=== PATIENT | male | born 1955 | race Caucasian/White ===

== ENCOUNTER 2017-06-12 04:24 | Inpatient (IN) | payer OTHER ==
[~2017-06-12] VITALS: Ht 172.7 cm; Wt 84.5 kg
[2017-06-12] MEDS ORDERED: MORPHINE SULFATE 8mg/ml INJ SDV IV ONE (06:45)
[2017-06-12] MEDS ORDERED: ONDANSETRON HCL 4 MG/2 ML VIAL IV ONE (06:45)
[2017-06-12 06:58] LABS: INR 1.06 (0.9-1.15); Partial Thromboplastin Time 28.8 sec (22.64-33.71); Prothrombin Time 11.6 sec (9.37-12.3)
[2017-06-12 07:00] LABS: Albumin 3.5 g/dL (3.4-5.0); BUN/Creatinine Ratio 13.5; Calcium 8.6 mg/dL (8.5-10.1)
[2017-06-12 07:05] LABS: Bilirubin, Total 1.2 mg/dL (0.2-1.0); Total Protein 7.1 g/dL (6.4-8.2)
[2017-06-12 07:07] LABS: Basophils # (auto) 0 uL; Basophils % (auto) 0.3 % (0.0-2.0); Eosinophils # (auto) 0.1 uL; Hematocrit 36.6 % (41.0-53.0); Hemoglobin 11.8 g/dL (13.5-17.5); Lymphocytes # (auto) 0.8 uL; Lymphocytes % (auto) 6.7 % (10.0-50.0); Mean Corpuscular Hemoglobin 23.9 pg (28.0-32.0); Mean Corpuscular Hgb Conc. 32.2 g/dL (32.0-36.0); Mean Corpuscular Volume 74.2 fL (80.0-100.0); Monocytes # (auto) 0.5 uL; Monocytes % (auto) 4.1 % (0.0-12.0); Neutrophils # (auto) 11.1 uL; Neutrophils % (auto) 87.9 % (37.0-80.0); Nucleated Red Blood Cells % 0.1 %; Platelet Count (auto) 149 10^3/uL (140-450); Red Blood Cells 4.93 10^6/uL (4.5-5.90); Red Cell Distribution Width 18.4 % (11.8-14.3); White Blood Cell 12.6 10^3/uL (4.4-10.8)
[2017-06-12] MEDS ORDERED: NITROGLYCERIN 0.4 MG SL TAB SL PRN ×2 (12:15)
[2017-06-12] MEDS ORDERED: LORazepam 0.5 MG TAB PO PRN (12:15)
[2017-06-12] MEDS ORDERED: ZOLPIDEM TARTRATE 5 MG TAB PO PRN (12:15)
[2017-06-12] MEDS ORDERED: DEXTROSE (50%) 50ML SYRG IV PRN (12:15)
[2017-06-12] MEDS ORDERED: ALUM & MAG HYDROX-SIMETH LIQ(MAALOX) 30 ML PO ONE (12:15)
[2017-06-12] MEDS ORDERED: CARVEDILOL 3.125 MG TAB PO ONE (12:15)
[2017-06-12] MEDS ORDERED: POTASSIUM CHL 10 Meq TABLET PO ONE (12:15)
[2017-06-12] MEDS ORDERED: MORPHINE SULFATE 8mg/ml INJ SDV IV PRN ×2 (12:15)
[2017-06-12] MEDS ORDERED: FUROSEMIDE 40 MG/4 ML VIAL IV ONE (12:15)
[2017-06-12] MEDS ORDERED: GLIP-115 PO (12:23)
[2017-06-12] MEDS ORDERED: CLOP75TA41 PO (12:23)
[2017-06-12] MEDS ORDERED: CARV6.2551 PO (12:24)
[2017-06-12] MEDS ORDERED: RISP0.5T45 PO (12:24)
[2017-06-12] MEDS ORDERED: ATOR1TAB PO (12:24)
[2017-06-12] MEDS ORDERED: PANT40TA2 PO (12:25)
[2017-06-12] MEDS ORDERED: NITR0.4S29 SL (12:26)
[2017-06-12] MEDS ORDERED: POTA10TA51 PO (12:27)
[2017-06-12] MEDS ORDERED: FURO40TA PO (12:27)
[2017-06-12] MEDS ORDERED: MAGN400T5 PO (12:28)
[2017-06-12] MEDS ORDERED: OMEP20TA PO (12:29)
[2017-06-12] MEDS ORDERED: CLOPIDOGREL BISULFATE 75 MG TAB PO ONE (12:30)
[2017-06-12] MEDS: SODIUM CHLOR 0.9% PF (SALINE LOCK) 10ML VIAL/SYR IV SCH ×2 (12:30→22:04)
[2017-06-12] MEDS: PANTOPRAZOLE 40 MG/10 ML VIAL IV SCH ×2 (14:32→21:50)
[2017-06-12] MEDS ORDERED: KETOROLAC TROMETH 30 MG/ML 1ML VIAL IV ONE (15:15)
[2017-06-12] MEDS: ACCU-CHEK COMFORT CURVE STRIP VI SCH ×2 (16:32→22:04)
[2017-06-12] MEDS: InsuLIN REG 1unit/0.01ml Soln (100units/ml) SC SCH ×2 (16:40→22:00)
[2017-06-12 18:00] VITALS: BP 115/68
[2017-06-12] MEDS: risperiDONE 1 MG TAB PO SCH (18:12)
[2017-06-12] MEDS: glipiZIDE 5 MG TAB PO SCH (18:13)
[2017-06-12 18:23] VITALS: BP 115/68
[2017-06-12 18:30] LABS: Urine WBC None Seen /hpf (0 - 3)
[2017-06-12 19:02] LABS: Alcohol, Urine < 3.0 mg/dL (0-5); Amphetamine Screen, Urine POSITIVE (NEGATIVE); Barbiturate Scree,Urine NEGATIVE (NEGATIVE); Benzodiazephine Screen, Urine NEGATIVE (NEGATIVE); Cannabinoid Screen, Urine NEGATIVE (NEGATIVE); Cocaine Screen, Urine NEGATIVE (NEGATIVE); Opiate Scree,Urine NEGATIVE (NEGATIVE); Phencyclidine Screen, Urine NEGATIVE (NEGATIVE)
[2017-06-12 19:13] LABS: Urine Bacteria NONE SEEN /hpf (None Seen); Urine Blood Negative /uL (Negative); Urine Mucus FEW (None Seen); Urine Specific Gravity 1.009 (1.001-1.035)
[2017-06-12] MEDS: INSULIN NPH Isophane (HUMAN) 1unit/0.01ml Susp(100units/ml) SC SCH (19:31)
[2017-06-12 19:54] LABS: Lactic Acid w/Reflex 2.4 mmol/L (0.4-2.0)
[2017-06-12] MEDS: ACETAMINOPHEN 325 MG TAB PO PRN (20:26)
[2017-06-12] MEDS: CARVEDILOL 3.125 MG TAB PO SCH (21:52)
[2017-06-12] MEDS: ATORVASTATIN 20 MG TAB PO SCH (21:52)
[2017-06-12] MEDS: ENALAPRIL MALEATE 2.5 MG TAB PO SCH (21:53)
[2017-06-12 22:00] VITALS: BP 103/64
[2017-06-13 04:55] VITALS: BP 114/68
[2017-06-13 05:33] LABS: Basophils # (auto) 0 uL; Basophils % (auto) 0.3 % (0.0-2.0); Eosinophils # (auto) 0.1 uL; Mean Corpuscular Volume 73.7 fL (80.0-100.0); Nucleated Red Blood Cells % 0.1 %; Platelet Count (auto) 154 10^3/uL (140-450)
[2017-06-13 05:34] LABS: Eosinophils % (auto) 0.9 % (0.0-7.0); Hematocrit 35.1 % (41.0-53.0); Hemoglobin 11.7 g/dL (13.5-17.5); Lymphocytes % (auto) 7.9 % (10.0-50.0); Mean Corpuscular Hemoglobin 24.7 pg (28.0-32.0); Mean Corpuscular Hgb Conc. 33.4 g/dL (32.0-36.0); Monocytes # (auto) 0.8 uL; Monocytes % (auto) 6.2 % (0.0-12.0); Neutrophils # (auto) 10.9 uL; Neutrophils % (auto) 84.7 % (37.0-80.0); Red Blood Cells 4.77 10^6/uL (4.5-5.90); Red Cell Distribution Width 18.7 % (11.8-14.3); White Blood Cell 12.9 10^3/uL (4.4-10.8)
[2017-06-13 05:58] LABS: Albumin 3.1 g/dL (3.4-5.0); BUN/Creatinine Ratio 11.8; Bilirubin, Total 1.9 mg/dL (0.2-1.0); Calcium 8.2 mg/dL (8.5-10.1); Magnesium 2.2 mg/dL (1.6-2.6); Potassium 4.2 mmol/L (3.5-5.1); Total Protein 6.9 g/dL (6.4-8.2)
[2017-06-13] MEDS: SODIUM CHLOR 0.9% PF (SALINE LOCK) 10ML VIAL/SYR IV SCH ×3 (06:00→20:03)
[2017-06-13] MEDS: InsuLIN REG 1unit/0.01ml Soln (100units/ml) SC SCH ×4 (06:42→22:00)
[2017-06-13] MEDS: INSULIN NPH Isophane (HUMAN) 1unit/0.01ml Susp(100units/ml) SC SCH ×2 (06:42→17:36)
[2017-06-13] MEDS: glipiZIDE 5 MG TAB PO SCH ×2 (06:42→17:35)
[2017-06-13] MEDS: ACCU-CHEK COMFORT CURVE STRIP VI SCH ×4 (06:43→22:00)
[2017-06-13] MEDS: risperiDONE 1 MG TAB PO SCH ×2 (08:37→17:35)
[2017-06-13 09:00] VITALS: BP 98/58
[2017-06-13] MEDS: ENALAPRIL MALEATE 2.5 MG TAB PO SCH ×2 (10:00→22:32)
[2017-06-13] MEDS: FUROSEMIDE 40 MG/4 ML VIAL IV SCH (10:08)
[2017-06-13] MEDS: ASPirin 81 mg TAB PO SCH (10:08)
[2017-06-13] MEDS: DOCUSATE SOD 100 MG CAP PO SCH (10:08)
[2017-06-13] MEDS: CLOPIDOGREL BISULFATE 75 MG TAB PO SCH (10:08)
[2017-06-13] MEDS: PANTOPRAZOLE 40 MG/10 ML VIAL IV SCH ×2 (10:08→22:32)
[2017-06-13] MEDS: CARVEDILOL 3.125 MG TAB PO SCH ×2 (10:14→22:32)
[2017-06-13 13:00] VITALS: BP 83/59
[2017-06-13 17:00] VITALS: BP 78/50
[2017-06-13 22:00] VITALS: BP 103/69
[2017-06-13] MEDS: ATORVASTATIN 20 MG TAB PO SCH (22:31)
[2017-06-14] MEDS: ACETAMINOPHEN 325 MG TAB PO PRN (04:54)
[2017-06-14] MEDS: HYOSCYAMINE SULF 0.125 MG TAB PO PRN (04:54)
[2017-06-14 05:00] VITALS: BP 89/56
[2017-06-14] MEDS ORDERED: ALBUMIN 5% 250 ML IV ONE ×2 (05:10→21:15)
[2017-06-14 05:49] LABS: Basophils # (auto) 0.1 uL; Basophils % (auto) 0.6 % (0.0-2.0); Mean Corpuscular Hemoglobin 24.1 pg (28.0-32.0)
[2017-06-14 05:51] LABS: Eosinophils # (auto) 0.3 uL; Eosinophils % (auto) 2.7 % (0.0-7.0); Hematocrit 33.8 % (41.0-53.0); Hemoglobin 10.9 g/dL (13.5-17.5); Lymphocytes % (auto) 18.2 % (10.0-50.0); Mean Corpuscular Hgb Conc. 32.3 g/dL (32.0-36.0); Mean Corpuscular Volume 74.5 fL (80.0-100.0); Monocytes % (auto) 8.9 % (0.0-12.0); Neutrophils # (auto) 7.5 uL; Neutrophils % (auto) 69.6 % (37.0-80.0); Nucleated Red Blood Cells % 0.1 %; Platelet Count (auto) 181 10^3/uL (140-450); Red Blood Cells 4.54 10^6/uL (4.5-5.90); Red Cell Distribution Width 18.8 % (11.8-14.3); White Blood Cell 10.8 10^3/uL (4.4-10.8)
[2017-06-14] MEDS: SODIUM CHLOR 0.9% PF (SALINE LOCK) 10ML VIAL/SYR IV SCH ×3 (06:00→22:09)
[2017-06-14 06:26] LABS: Albumin 2.9 g/dL (3.4-5.0); BUN/Creatinine Ratio 16.1; Bilirubin, Total 1.4 mg/dL (0.2-1.0); Calcium 7.9 mg/dL (8.5-10.1); Potassium 3.7 mmol/L (3.5-5.1); Total Protein 6.7 g/dL (6.4-8.2)
[2017-06-14] MEDS: glipiZIDE 5 MG TAB PO SCH ×3 (06:50→17:39)
[2017-06-14] MEDS: InsuLIN REG 1unit/0.01ml Soln (100units/ml) SC SCH ×4 (06:53→22:49)
[2017-06-14] MEDS: INSULIN NPH Isophane (HUMAN) 1unit/0.01ml Susp(100units/ml) SC SCH ×2 (06:55→17:40)
[2017-06-14] MEDS: ACCU-CHEK COMFORT CURVE STRIP VI SCH ×4 (06:55→22:09)
[2017-06-14] MEDS: risperiDONE 1 MG TAB PO SCH ×2 (08:17→17:38)
[2017-06-14 09:00] VITALS: BP 102/57
[2017-06-14] MEDS: ASPirin 81 mg TAB PO SCH (09:56)
[2017-06-14] MEDS: PANTOPRAZOLE 40 MG/10 ML VIAL IV SCH ×2 (09:56→22:07)
[2017-06-14] MEDS: DOCUSATE SOD 100 MG CAP PO SCH (09:56)
[2017-06-14] MEDS: CLOPIDOGREL BISULFATE 75 MG TAB PO SCH (09:56)
[2017-06-14] MEDS: ENALAPRIL MALEATE 2.5 MG TAB PO SCH ×2 (10:00→22:08)
[2017-06-14] MEDS: FUROSEMIDE 40 MG/4 ML VIAL IV SCH (10:00)
[2017-06-14] MEDS: CARVEDILOL 3.125 MG TAB PO SCH ×2 (10:00→22:09)
[2017-06-14] MEDS: ACETAMINOPHEN/CODEINE#3 (300/30mg) TAB PO PRN ×2 (11:51→22:08)
[2017-06-14 13:00] VITALS: BP 85/46
[2017-06-14] MEDS ORDERED: SODIUM BICARBONATE 50ML VIAL 150 ML in D5W 5% 1,000 ML IV ONE (13:00)
[2017-06-14] MEDS ORDERED: diphenhdrAMINE HCL 50 MG/1 ML VL IV ONE (13:00)
[2017-06-14 18:00] VITALS: BP 108/62
[2017-06-14 22:00] VITALS: BP 125/73
[2017-06-14] MEDS: ATORVASTATIN 20 MG TAB PO SCH (22:09)
[2017-06-15 05:00] VITALS: BP 85/57
[2017-06-15] MEDS: ACETAMINOPHEN/CODEINE#3 (300/30mg) TAB PO PRN ×2 (05:19→21:16)
[2017-06-15] MEDS: SODIUM CHLOR 0.9% PF (SALINE LOCK) 10ML VIAL/SYR IV SCH ×3 (06:08→22:19)
[2017-06-15] MEDS: ACCU-CHEK COMFORT CURVE STRIP VI SCH ×4 (06:09→22:17)
[2017-06-15] MEDS: ACETAMINOPHEN 325 MG TAB PO PRN ×2 (06:09→18:14)
[2017-06-15] MEDS: InsuLIN REG 1unit/0.01ml Soln (100units/ml) SC SCH ×4 (06:15→22:00)
[2017-06-15] MEDS: INSULIN NPH Isophane (HUMAN) 1unit/0.01ml Susp(100units/ml) SC SCH ×2 (06:16→18:47)
[2017-06-15] MEDS ORDERED: SODIUM BICARBONATE 50ML VIAL 150 ML in D5W 5% 1,000 ML IV ONE (07:00)
[2017-06-15 07:05] LABS: Basophils # (auto) 0 uL; Basophils % (auto) 0.4 % (0.0-2.0); Lymphocytes # (auto) 1.6 uL; White Blood Cell 11.1 10^3/uL (4.4-10.8)
[2017-06-15 07:09] LABS: Eosinophils # (auto) 0.3 uL; Hematocrit 33.7 % (41.0-53.0); Hemoglobin 10.9 g/dL (13.5-17.5); Lymphocytes % (auto) 14.4 % (10.0-50.0); Mean Corpuscular Hgb Conc. 32.4 g/dL (32.0-36.0); Mean Corpuscular Volume 74.2 fL (80.0-100.0); Monocytes % (auto) 9.2 % (0.0-12.0); Neutrophils # (auto) 8.1 uL; Nucleated Red Blood Cells % 0.1 %; Platelet Count (auto) 179 10^3/uL (140-450); Red Blood Cells 4.54 10^6/uL (4.5-5.90)
[2017-06-15 07:51] LABS: BUN/Creatinine Ratio 18.2; Calcium 8.3 mg/dL (8.5-10.1); Potassium 3.6 mmol/L (3.5-5.1)
[2017-06-15 08:00] VITALS: BP 92/64
[2017-06-15] MEDS: risperiDONE 1 MG TAB PO SCH ×2 (08:00→18:49)
[2017-06-15] MEDS ORDERED: IODIXANOL 320MG/ML 100ML BTL IV ONE ×3 (08:32→12:06)
[2017-06-15] MEDS ORDERED: LIDOCAINE HCL 2 %PF INJ 10ML AMP IJ ONE (08:32)
[2017-06-15 09:00] VITALS: BP 108/60
[2017-06-15] MEDS: CARVEDILOL 3.125 MG TAB PO SCH ×2 (10:00→22:16)
[2017-06-15] MEDS: PANTOPRAZOLE 40 MG/10 ML VIAL IV SCH ×2 (10:00→22:15)
[2017-06-15] MEDS: DOCUSATE SOD 100 MG CAP PO SCH (10:00)
[2017-06-15] MEDS: ENALAPRIL MALEATE 2.5 MG TAB PO SCH ×2 (10:00→22:17)
[2017-06-15] MEDS: ASPirin 81 mg TAB PO SCH (10:00)
[2017-06-15] MEDS: CLOPIDOGREL BISULFATE 75 MG TAB PO SCH (10:00)
[2017-06-15] MEDS: FUROSEMIDE 40 MG/4 ML VIAL IV SCH (10:00)
[2017-06-15] MEDS ORDERED: fentaNYL CITRATE 100 MCG/2 ML VL ONE (10:18)
[2017-06-15] MEDS ORDERED: ANGIOMAX 250 MG VIAL IV ONE (10:18)
[2017-06-15] MEDS ORDERED: MIDAZOLAM HCL 1MG/1ML-2 ML VIAL ONE (10:18)
[2017-06-15] MEDS ORDERED: SODIUM CHL 0.9% 50 ML ONE (10:19)
[2017-06-15] MEDS ORDERED: DOBUTamine 1000MCG/ML 250 ML IV ONE (11:57)
[2017-06-15] MEDS: DOBUTamine 1000MCG/ML 250 ML IV SCH ×2 (15:15→22:55)
[2017-06-15 17:00] VITALS: BP 118/68
[2017-06-15] MEDS: glipiZIDE 5 MG TAB PO SCH (18:35)
[2017-06-15 20:20] VITALS: BP 113/76
[2017-06-15 22:00] VITALS: BP 113/76
[2017-06-15] MEDS: ATORVASTATIN 20 MG TAB PO SCH (22:15)
[2017-06-16 04:55] VITALS: BP 119/58
[2017-06-16] MEDS: ACETAMINOPHEN/CODEINE#3 (300/30mg) TAB PO PRN ×3 (06:23→22:46)
[2017-06-16] MEDS: INSULIN NPH Isophane (HUMAN) 1unit/0.01ml Susp(100units/ml) SC SCH ×2 (06:23→18:56)
[2017-06-16] MEDS: glipiZIDE 5 MG TAB PO SCH ×2 (06:28→18:55)
[2017-06-16] MEDS: ACCU-CHEK COMFORT CURVE STRIP VI SCH ×4 (06:28→22:00)
[2017-06-16] MEDS: InsuLIN REG 1unit/0.01ml Soln (100units/ml) SC SCH ×4 (06:28→22:00)
[2017-06-16] MEDS: SODIUM CHLOR 0.9% PF (SALINE LOCK) 10ML VIAL/SYR IV SCH ×3 (06:29→22:46)
[2017-06-16 06:31] LABS: Basophils # (auto) 0 uL; Eosinophils # (auto) 0.3 uL; Hemoglobin 11.2 g/dL (13.5-17.5); Lymphocytes # (auto) 1.1 uL; Mean Corpuscular Hemoglobin 23.8 pg (28.0-32.0); Monocytes # (auto) 0.9 uL; Neutrophils % (auto) 73.6 % (37.0-80.0); Red Blood Cells 4.69 10^6/uL (4.5-5.90); White Blood Cell 8.5 10^3/uL (4.4-10.8)
[2017-06-16 06:33] LABS: Basophils % (auto) 0.3 % (0.0-2.0); Hematocrit 34.5 % (41.0-53.0); Lymphocytes % (auto) 12.6 % (10.0-50.0); Mean Corpuscular Hgb Conc. 32.4 g/dL (32.0-36.0); Mean Corpuscular Volume 73.6 fL (80.0-100.0); Monocytes % (auto) 10.5 % (0.0-12.0); Neutrophils # (auto) 6.2 uL; Nucleated Red Blood Cells % 0.2 %; Platelet Count (auto) 185 10^3/uL (140-450)
[2017-06-16 06:47] LABS: BUN/Creatinine Ratio 16.5; Calcium 8.1 mg/dL (8.5-10.1)
[2017-06-16 06:58] LABS: Bilirubin, Total 1.3 mg/dL (0.2-1.0); Potassium 3.4 mmol/L (3.5-5.1); Total Protein 6.6 g/dL (6.4-8.2)
[2017-06-16 09:00] VITALS: BP 88/50
[2017-06-16] MEDS: PANTOPRAZOLE 40 MG/10 ML VIAL IV SCH ×2 (09:34→22:46)
[2017-06-16] MEDS: DOCUSATE SOD 100 MG CAP PO SCH (09:35)
[2017-06-16] MEDS: FUROSEMIDE 40 MG/4 ML VIAL IV SCH (09:35)
[2017-06-16] MEDS: ASPirin 81 mg TAB PO SCH (09:36)
[2017-06-16] MEDS: risperiDONE 1 MG TAB PO SCH ×2 (09:36→18:55)
[2017-06-16] MEDS: CLOPIDOGREL BISULFATE 75 MG TAB PO SCH (09:36)
[2017-06-16] MEDS: ENALAPRIL MALEATE 2.5 MG TAB PO SCH ×2 (09:37→22:00)
[2017-06-16] MEDS: CARVEDILOL 3.125 MG TAB PO SCH ×2 (09:37→22:00)
[2017-06-16] MEDS ORDERED: POTASSIUM CHL 10 Meq TABLET PO ONE (10:00)
[2017-06-16] MEDS: MILRINONE 20MG/100ML 100 ML IV SCH ×2 (10:38→21:04)
[2017-06-16] MEDS: Boost Glucose Control 8 Ounces PO SCH ×2 (12:00→18:55)
[2017-06-16 13:00] VITALS: BP 93/55
[2017-06-16] MEDS ORDERED: VANCOMYCIN 1GM/250ML 250 ML IV ONE ×2 (14:30→14:35)
[2017-06-16] MEDS ORDERED: LIDOCAINE HCL 2 %PF INJ 10ML AMP IJ ONE (14:31)
[2017-06-16] MEDS ORDERED: IOHEXOL 350 MG/ML 100ML IJ ONE (14:31)
[2017-06-16] MEDS ORDERED: diphenhdrAMINE HCL 50 MG/1 ML VL ONE (14:55)
[2017-06-16] MEDS ORDERED: ceFAZolin 1GM/50ML 50 ML IV ONE ×2 (15:12→15:15)
[2017-06-16] MEDS ORDERED: fentaNYL CITRATE 100 MCG/2 ML VL ONE (15:26)
[2017-06-16] MEDS ORDERED: MIDAZOLAM HCL 1MG/1ML-2 ML VIAL ONE (15:26)
[2017-06-16] MEDS ORDERED: methylPREDNISolone SOD SUCC 125 MG/2 ML VL ONE (15:27)
[2017-06-16] MEDS ORDERED: ceFAZolin 1GM VL ONE (15:50)
[2017-06-16] MEDS ORDERED: BACITRACIN INJ 50000 UNIT VIAL ONE (15:50)
[2017-06-16] MEDS: ATORVASTATIN 20 MG TAB PO SCH (22:47)
[2017-06-16] MEDS: ceFAZolin 1GM/50ML 50 ML IV SCH (23:56)
[2017-06-17 00:34] VITALS: BP 100/81
[2017-06-17] MEDS ORDERED: ceFAZolin 1GM/50ML 50 ML IV ONE (05:23)
[2017-06-17] MEDS: SODIUM CHLOR 0.9% PF (SALINE LOCK) 10ML VIAL/SYR IV SCH ×3 (05:27→21:14)
[2017-06-17] MEDS: MILRINONE 20MG/100ML 100 ML IV SCH ×2 (05:28→16:31)
[2017-06-17 05:38] VITALS: BP 122/77
[2017-06-17] MEDS: ceFAZolin 1GM/50ML 50 ML IV SCH (06:06)
[2017-06-17] MEDS: ACCU-CHEK COMFORT CURVE STRIP VI SCH ×4 (06:28→21:15)
[2017-06-17] MEDS: glipiZIDE 5 MG TAB PO SCH ×2 (06:35→17:48)
[2017-06-17] MEDS: InsuLIN REG 1unit/0.01ml Soln (100units/ml) SC SCH ×4 (06:36→22:08)
[2017-06-17] MEDS: INSULIN NPH Isophane (HUMAN) 1unit/0.01ml Susp(100units/ml) SC SCH ×2 (06:36→17:50)
[2017-06-17 06:53] LABS: Basophils # (auto) 0 uL; Basophils % (auto) 0.1 % (0.0-2.0); Eosinophils # (auto) 0 uL; Hematocrit 30.6 % (41.0-53.0); Lymphocytes # (auto) 0.5 uL; Monocytes # (auto) 0.4 uL; Red Cell Distribution Width 18.6 % (11.8-14.3)
[2017-06-17 06:57] LABS: Hemoglobin 10.2 g/dL (13.5-17.5); Lymphocytes % (auto) 5.9 % (10.0-50.0); Mean Corpuscular Hemoglobin 24.6 pg (28.0-32.0); Mean Corpuscular Hgb Conc. 33.3 g/dL (32.0-36.0); Mean Corpuscular Volume 73.8 fL (80.0-100.0); Monocytes % (auto) 5.4 % (0.0-12.0); Neutrophils # (auto) 7.2 uL; Neutrophils % (auto) 88.6 % (37.0-80.0); Nucleated Red Blood Cells % 0.1 %; Platelet Count (auto) 196 10^3/uL (140-450); Red Blood Cells 4.14 10^6/uL (4.5-5.90); White Blood Cell 8.1 10^3/uL (4.4-10.8)
[2017-06-17 07:07] LABS: BUN/Creatinine Ratio 18.2; Calcium 7.9 mg/dL (8.5-10.1)
[2017-06-17 08:11] VITALS: BP 123/74
[2017-06-17] MEDS: ACETAMINOPHEN/CODEINE#3 (300/30mg) TAB PO PRN ×3 (08:33→21:18)
[2017-06-17] MEDS: FUROSEMIDE 40 MG/4 ML VIAL IV SCH (09:16)
[2017-06-17] MEDS: PANTOPRAZOLE 40 MG/10 ML VIAL IV SCH ×2 (09:16→21:14)
[2017-06-17] MEDS: risperiDONE 1 MG TAB PO SCH ×2 (09:17→17:49)
[2017-06-17] MEDS: Boost Glucose Control 8 Ounces PO SCH ×3 (09:18→17:48)
[2017-06-17] MEDS: DOCUSATE SOD 100 MG CAP PO SCH (09:19)
[2017-06-17] MEDS: ASPirin 81 mg TAB PO SCH (09:19)
[2017-06-17] MEDS: CARVEDILOL 3.125 MG TAB PO SCH ×2 (09:20→21:15)
[2017-06-17] MEDS: ENALAPRIL MALEATE 2.5 MG TAB PO SCH ×2 (09:20→21:15)
[2017-06-17] MEDS: CLOPIDOGREL BISULFATE 75 MG TAB PO SCH (09:20)
[2017-06-17] MEDS ORDERED: cefTRIAXone 1GM/10ml IVPUSH 10 ML IV ONE (11:00)
[2017-06-17 13:00] VITALS: BP 123/80
[2017-06-17 14:07] LABS: INR 1.06 (0.9-1.15); Prothrombin Time 11.6 sec (9.37-12.3)
[2017-06-17 16:43] VITALS: BP 119/76
[2017-06-17] MEDS: ATORVASTATIN 20 MG TAB PO SCH (21:15)
[2017-06-17] MEDS: HYOSCYAMINE SULF 0.125 MG TAB PO PRN (21:17)
[2017-06-17 21:30] VITALS: BP 140/82
[2017-06-18] MEDS: MILRINONE 20MG/100ML 100 ML IV SCH ×2 (04:03→15:53)
[2017-06-18 05:00] VITALS: BP 100/61
[2017-06-18] MEDS: HYOSCYAMINE SULF 0.125 MG TAB PO PRN ×2 (05:12→12:19)
[2017-06-18] MEDS: ACETAMINOPHEN/CODEINE#3 (300/30mg) TAB PO PRN ×2 (05:12→12:19)
[2017-06-18] MEDS: SODIUM CHLOR 0.9% PF (SALINE LOCK) 10ML VIAL/SYR IV SCH ×3 (05:13→21:53)
[2017-06-18] MEDS: glipiZIDE 5 MG TAB PO SCH ×2 (06:34→18:00)
[2017-06-18] MEDS: InsuLIN REG 1unit/0.01ml Soln (100units/ml) SC SCH ×4 (06:34→22:00)
[2017-06-18] MEDS: INSULIN NPH Isophane (HUMAN) 1unit/0.01ml Susp(100units/ml) SC SCH ×2 (06:37→18:00)
[2017-06-18] MEDS: ACCU-CHEK COMFORT CURVE STRIP VI SCH ×4 (06:38→21:55)
[2017-06-18 06:51] LABS: Basophils # (auto) 0 uL; Eosinophils # (auto) 0.2 uL; Lymphocytes # (auto) 1.2 uL; Monocytes # (auto) 0.5 uL; Monocytes % (auto) 5.9 % (0.0-12.0); Nucleated Red Blood Cells % 0.1 %
[2017-06-18 06:54] LABS: Basophils % (auto) 0.3 % (0.0-2.0); Eosinophils % (auto) 2.4 % (0.0-7.0); Hematocrit 33.1 % (41.0-53.0); Hemoglobin 10.8 g/dL (13.5-17.5); Lymphocytes % (auto) 13.6 % (10.0-50.0); Mean Corpuscular Hemoglobin 23.9 pg (28.0-32.0); Mean Corpuscular Hgb Conc. 32.6 g/dL (32.0-36.0); Mean Corpuscular Volume 73.5 fL (80.0-100.0); Neutrophils # (auto) 7.1 uL; Neutrophils % (auto) 77.8 % (37.0-80.0); Platelet Count (auto) 210 10^3/uL (140-450); Red Cell Distribution Width 18.5 % (11.8-14.3); White Blood Cell 9.2 10^3/uL (4.4-10.8)
[2017-06-18 07:12] LABS: BUN/Creatinine Ratio 17.1; Bilirubin, Total 0.9 mg/dL (0.2-1.0); Calcium 8.2 mg/dL (8.5-10.1); Potassium 3.4 mmol/L (3.5-5.1); Total Protein 6.9 g/dL (6.4-8.2)
[2017-06-18] MEDS: risperiDONE 1 MG TAB PO SCH ×2 (08:41→18:10)
[2017-06-18] MEDS: Boost Glucose Control 8 Ounces PO SCH ×3 (08:42→17:02)
[2017-06-18] MEDS ORDERED: cefTRIAXone 1GM/10ml IVPUSH 10 ML IV SCH (09:00)
[2017-06-18 09:13] VITALS: BP 115/56
[2017-06-18] MEDS: PANTOPRAZOLE 40 MG/10 ML VIAL IV SCH (12:16)
[2017-06-18] MEDS: FUROSEMIDE 40 MG/4 ML VIAL IV SCH (12:20)
[2017-06-18] MEDS: ASPirin 81 mg TAB PO SCH (12:20)
[2017-06-18] MEDS: DOCUSATE SOD 100 MG CAP PO SCH (12:20)
[2017-06-18] MEDS: CLOPIDOGREL BISULFATE 75 MG TAB PO SCH (12:20)
[2017-06-18] MEDS: ENALAPRIL MALEATE 2.5 MG TAB PO SCH ×2 (12:21→21:54)
[2017-06-18] MEDS: CARVEDILOL 3.125 MG TAB PO SCH ×2 (12:21→21:53)
[2017-06-18 13:00] VITALS: BP 100/73
[2017-06-18 15:38] LABS: Amylase 25 U/L (25-115); Lipase 104 U/L (73-393)
[2017-06-18] MEDS: SODIUM CHLORIDE 0.9% 1,000 ML IV SCH (15:53)
[2017-06-18] MEDS: MORPHINE SULFATE 8mg/ml INJ SDV IV PRN (15:55)
[2017-06-18] MEDS: ONDANSETRON HCL 4 MG/2 ML VIAL IV PRN (15:55)
[2017-06-18 20:16] LABS: Amylase 2485 U/L (25-115)
[2017-06-18 20:18] LABS: Lipase 22268 U/L (73-393)
[2017-06-18] MEDS: LACTULOSE 20Gm/30ML SOLN PO SCH (21:53)
[2017-06-18 21:54] VITALS: BP 107/63
[2017-06-19] MEDS: MILRINONE 20MG/100ML 100 ML IV SCH ×3 (01:14→21:36)
[2017-06-19] MEDS: SODIUM CHLORIDE 0.9% 1,000 ML IV SCH (04:18)
[2017-06-19 05:17] VITALS: BP 112/61
[2017-06-19] MEDS: SODIUM CHLOR 0.9% PF (SALINE LOCK) 10ML VIAL/SYR IV SCH ×3 (06:14→21:35)
[2017-06-19] MEDS: ACCU-CHEK COMFORT CURVE STRIP VI SCH ×4 (06:15→21:36)
[2017-06-19] MEDS: INSULIN NPH Isophane (HUMAN) 1unit/0.01ml Susp(100units/ml) SC SCH ×2 (06:20→18:12)
[2017-06-19] MEDS: glipiZIDE 5 MG TAB PO SCH (06:20)
[2017-06-19] MEDS: InsuLIN REG 1unit/0.01ml Soln (100units/ml) SC SCH ×4 (06:20→21:45)
[2017-06-19] MEDS: Boost Glucose Control 8 Ounces PO SCH (08:00)
[2017-06-19 09:00] VITALS: BP 88/59
[2017-06-19] MEDS ORDERED: MORPHINE SULFATE INJECTION 1 ML ONE (09:32)
[2017-06-19] MEDS: ENALAPRIL MALEATE 2.5 MG TAB PO SCH ×2 (10:00→21:35)
[2017-06-19] MEDS: CARVEDILOL 3.125 MG TAB PO SCH ×2 (10:00→21:35)
[2017-06-19] MEDS: LACTULOSE 20Gm/30ML SOLN PO SCH ×2 (10:50→21:35)
[2017-06-19] MEDS: DOCUSATE SOD 100 MG CAP PO SCH (10:50)
[2017-06-19] MEDS: risperiDONE 1 MG TAB PO SCH ×2 (10:52→18:11)
[2017-06-19] MEDS: ASPirin 81 mg TAB PO SCH (10:52)
[2017-06-19] MEDS: FUROSEMIDE 40 MG/4 ML VIAL IV SCH (10:53)
[2017-06-19] MEDS ORDERED: ZOLPIDEM TARTRATE 5 MG TAB PO PRN (11:00)
[2017-06-19] MEDS ORDERED: LORazepam 0.5 MG TAB PO PRN (11:00)
[2017-06-19] MEDS ORDERED: MORPHINE SULFATE 8mg/ml INJ SDV IV PRN (11:00)
[2017-06-19] MEDS ORDERED: cefTRIAXone 1GM/10ml IVPUSH 10 ML IV ONE (12:30)
[2017-06-19 13:00] VITALS: BP 118/65
[2017-06-19] MEDS: metroNIDAZOLE 500MG/100ML 100 ML IV SCH ×2 (14:49→21:35)
[2017-06-19 15:35] LABS: Basophils # (auto) 0 uL; Eosinophils # (auto) 0.3 uL; Hemoglobin 9.6 g/dL (13.5-17.5); Lymphocytes # (auto) 0.7 uL; Monocytes # (auto) 0.5 uL
[2017-06-19 15:36] LABS: Basophils % (auto) 0.3 % (0.0-2.0); Eosinophils % (auto) 3.3 % (0.0-7.0); Hematocrit 30.1 % (41.0-53.0); Lymphocytes % (auto) 6.7 % (10.0-50.0); Mean Corpuscular Hemoglobin 23.6 pg (28.0-32.0); Mean Corpuscular Hgb Conc. 31.8 g/dL (32.0-36.0); Mean Corpuscular Volume 74.2 fL (80.0-100.0); Monocytes % (auto) 5.1 % (0.0-12.0); Neutrophils # (auto) 8.7 uL; Neutrophils % (auto) 84.6 % (37.0-80.0); Platelet Count (auto) 203 10^3/uL (140-450); Red Blood Cells 4.05 10^6/uL (4.5-5.90); Red Cell Distribution Width 18.4 % (11.8-14.3); White Blood Cell 10.2 10^3/uL (4.4-10.8)
[2017-06-19 15:59] LABS: Albumin 2.7 g/dL (3.4-5.0); BUN/Creatinine Ratio 16.9; Potassium 3.5 mmol/L (3.5-5.1); Total Protein 6.6 g/dL (6.4-8.2)
[2017-06-19 17:00] VITALS: BP 113/69
[2017-06-19 22:00] VITALS: BP 109/64
[2017-06-20 05:00] VITALS: BP 111/66
[2017-06-20] MEDS: metroNIDAZOLE 500MG/100ML 100 ML IV SCH ×3 (05:39→21:56)
[2017-06-20] MEDS: SODIUM CHLOR 0.9% PF (SALINE LOCK) 10ML VIAL/SYR IV SCH ×3 (06:04→21:56)
[2017-06-20] MEDS: ACCU-CHEK COMFORT CURVE STRIP VI SCH ×4 (06:04→21:57)
[2017-06-20] MEDS: InsuLIN REG 1unit/0.01ml Soln (100units/ml) SC SCH ×4 (06:10→22:10)
[2017-06-20] MEDS: INSULIN NPH Isophane (HUMAN) 1unit/0.01ml Susp(100units/ml) SC SCH ×2 (06:11→17:37)
[2017-06-20] MEDS: MILRINONE 20MG/100ML 100 ML IV SCH ×2 (08:59→20:10)
[2017-06-20] MEDS: cefTRIAXone 1GM/10ml IVPUSH 10 ML IV SCH (08:59)
[2017-06-20 09:00] VITALS: BP 114/69
[2017-06-20] MEDS: risperiDONE 1 MG TAB PO SCH ×2 (09:00→17:37)
[2017-06-20] MEDS: DOCUSATE SOD 100 MG CAP PO SCH (09:51)
[2017-06-20] MEDS: LACTULOSE 20Gm/30ML SOLN PO SCH ×2 (09:51→21:56)
[2017-06-20] MEDS: FUROSEMIDE 40 MG/4 ML VIAL IV SCH (09:51)
[2017-06-20] MEDS: ASPirin 81 mg TAB PO SCH (09:51)
[2017-06-20] MEDS: CARVEDILOL 3.125 MG TAB PO SCH ×2 (09:52→21:56)
[2017-06-20] MEDS: CLOPIDOGREL BISULFATE 75 MG TAB PO SCH (09:52)
[2017-06-20] MEDS: ENALAPRIL MALEATE 2.5 MG TAB PO SCH ×2 (09:53→21:57)
[2017-06-20 13:00] VITALS: BP 103/63
[2017-06-20] MEDS: ACETAMINOPHEN 325 MG TAB PO PRN (13:45)
[2017-06-20 17:00] VITALS: BP 95/62
[2017-06-20 20:00] VITALS: BP 106/61
[2017-06-20 22:00] VITALS: BP 106/61
[2017-06-21 05:17] VITALS: BP 133/33
[2017-06-21] MEDS: MILRINONE 20MG/100ML 100 ML IV SCH ×2 (05:33→15:17)
[2017-06-21] MEDS: metroNIDAZOLE 500MG/100ML 100 ML IV SCH ×3 (05:44→22:05)
[2017-06-21] MEDS: SODIUM CHLOR 0.9% PF (SALINE LOCK) 10ML VIAL/SYR IV SCH ×3 (05:44→22:05)
[2017-06-21 05:55] VITALS: BP 118/73
[2017-06-21] MEDS: INSULIN NPH Isophane (HUMAN) 1unit/0.01ml Susp(100units/ml) SC SCH ×2 (06:11→18:05)
[2017-06-21] MEDS: ACCU-CHEK COMFORT CURVE STRIP VI SCH ×4 (06:11→22:05)
[2017-06-21] MEDS: InsuLIN REG 1unit/0.01ml Soln (100units/ml) SC SCH ×4 (06:12→22:05)
[2017-06-21 06:23] LABS: Basophils # (auto) 0 uL; Basophils % (auto) 0.5 % (0.0-2.0); Eosinophils # (auto) 0.5 uL; Lymphocytes # (auto) 1.1 uL; Mean Corpuscular Hgb Conc. 32.6 g/dL (32.0-36.0); Monocytes # (auto) 0.5 uL; Red Cell Distribution Width 18.8 % (11.8-14.3)
[2017-06-21 06:27] LABS: Eosinophils % (auto) 7.3 % (0.0-7.0); Hematocrit 30.1 % (41.0-53.0); Hemoglobin 9.8 g/dL (13.5-17.5); Lymphocytes % (auto) 15.8 % (10.0-50.0); Mean Corpuscular Hemoglobin 23.7 pg (28.0-32.0); Mean Corpuscular Volume 72.6 fL (80.0-100.0); Neutrophils % (auto) 69.4 % (37.0-80.0); Nucleated Red Blood Cells % 0.1 %; Platelet Count (auto) 259 10^3/uL (140-450); Red Blood Cells 4.14 10^6/uL (4.5-5.90); White Blood Cell 7.2 10^3/uL (4.4-10.8)
[2017-06-21 06:33] LABS: Albumin 2.6 g/dL (3.4-5.0); BUN/Creatinine Ratio 15.8; Bilirubin, Total 0.5 mg/dL (0.2-1.0); Calcium 8.7 mg/dL (8.5-10.1); Potassium 3.8 mmol/L (3.5-5.1); Total Protein 6.3 g/dL (6.4-8.2)
[2017-06-21] MEDS: cefTRIAXone 1GM/10ml IVPUSH 10 ML IV SCH (08:51)
[2017-06-21] MEDS: risperiDONE 1 MG TAB PO SCH ×2 (08:51→18:05)
[2017-06-21] MEDS: MORPHINE SULFATE 8mg/ml INJ SDV IV PRN ×3 (09:06→22:17)
[2017-06-21] MEDS: CARVEDILOL 3.125 MG TAB PO SCH ×2 (09:41→22:00)
[2017-06-21] MEDS: CLOPIDOGREL BISULFATE 75 MG TAB PO SCH (09:42)
[2017-06-21] MEDS: DOCUSATE SOD 100 MG CAP PO SCH (09:43)
[2017-06-21] MEDS: ASPirin 81 mg TAB PO SCH (09:43)
[2017-06-21] MEDS: ENALAPRIL MALEATE 2.5 MG TAB PO SCH ×2 (09:43→22:00)
[2017-06-21] MEDS: LACTULOSE 20Gm/30ML SOLN PO SCH ×2 (09:44→22:00)
[2017-06-21] MEDS: FUROSEMIDE 40 MG/4 ML VIAL IV SCH (09:44)
[2017-06-21] MEDS: ONDANSETRON HCL 4 MG/2 ML VIAL IV PRN ×3 (09:49→22:16)
[2017-06-21] MEDS: ACETAMINOPHEN/CODEINE#3 (300/30mg) TAB PO PRN (11:27)
[2017-06-21 13:00] VITALS: BP 110/61
[2017-06-21 17:00] VITALS: BP 111/65
[2017-06-21 20:00] VITALS: BP 116/56
[2017-06-21 22:00] VITALS: BP 116/56
[2017-06-22] MEDS: MILRINONE 20MG/100ML 100 ML IV SCH (02:34)
[2017-06-22 05:30] VITALS: BP 129/70
[2017-06-22] MEDS: ACCU-CHEK COMFORT CURVE STRIP VI SCH (06:02)
[2017-06-22] MEDS: SODIUM CHLOR 0.9% PF (SALINE LOCK) 10ML VIAL/SYR IV SCH (06:02)
[2017-06-22] MEDS: metroNIDAZOLE 500MG/100ML 100 ML IV SCH (06:02)
[2017-06-22] MEDS: INSULIN NPH Isophane (HUMAN) 1unit/0.01ml Susp(100units/ml) SC SCH (06:25)
[2017-06-22] MEDS: InsuLIN REG 1unit/0.01ml Soln (100units/ml) SC SCH (06:26)
[2017-06-22 06:29] LABS: Basophils # (auto) 0 uL; Eosinophils # (auto) 0.5 uL; Hemoglobin 9.9 g/dL (13.5-17.5); Monocytes # (auto) 0.5 uL
[2017-06-22 06:33] LABS: Basophils % (auto) 0.6 % (0.0-2.0); Eosinophils % (auto) 6.9 % (0.0-7.0); Hematocrit 30.4 % (41.0-53.0); Lymphocytes # (auto) 1.2 uL; Lymphocytes % (auto) 17.7 % (10.0-50.0); Mean Corpuscular Hemoglobin 23.6 pg (28.0-32.0); Mean Corpuscular Hgb Conc. 32.4 g/dL (32.0-36.0); Mean Corpuscular Volume 72.8 fL (80.0-100.0); Monocytes % (auto) 7.5 % (0.0-12.0); Neutrophils # (auto) 4.7 uL; Neutrophils % (auto) 67.3 % (37.0-80.0); Nucleated Red Blood Cells % 0.1 %; Platelet Count (auto) 270 10^3/uL (140-450); Red Blood Cells 4.18 10^6/uL (4.5-5.90); Red Cell Distribution Width 18.6 % (11.8-14.3)
[2017-06-22 06:54] LABS: Albumin 2.6 g/dL (3.4-5.0); BUN/Creatinine Ratio 18.8; Bilirubin, Total 0.5 mg/dL (0.2-1.0); Calcium 8.4 mg/dL (8.5-10.1); Potassium 4.2 mmol/L (3.5-5.1); Total Protein 6.3 g/dL (6.4-8.2)
[2017-06-22] MEDS: cefTRIAXone 1GM/10ml IVPUSH 10 ML IV SCH (08:33)
[2017-06-22] MEDS: risperiDONE 1 MG TAB PO SCH (08:33)
[2017-06-22 09:00] VITALS: BP 126/70
[2017-06-22] MEDS: FUROSEMIDE 40 MG/4 ML VIAL IV SCH (09:09)
[2017-06-22] MEDS: ASPirin 81 mg TAB PO SCH (09:10)
[2017-06-22] MEDS: DOCUSATE SOD 100 MG CAP PO SCH (09:10)
[2017-06-22] MEDS: ENALAPRIL MALEATE 2.5 MG TAB PO SCH (09:11)
[2017-06-22] MEDS: CLOPIDOGREL BISULFATE 75 MG TAB PO SCH (09:11)
[2017-06-22] MEDS: CARVEDILOL 3.125 MG TAB PO SCH (09:11)
[2017-06-22] MEDS: LACTULOSE 20Gm/30ML SOLN PO SCH (09:11)
[2017-06-22 10:59] VITALS: BP 126/70
[2017-06-22 13:00] VITALS: BP 129/72
== END 2017-06-22 13:09 | disposition home or self-care (01) | DRG 161 ==
LOC: ER 04:24 → EDBD 04:25 → TELE 04:25 → TELE-EAST 17:59
PROVIDERS: ADMIT Internal Medicine; ATTEND Internal Medicine
PROC: 4A023N7 Measurement of Cardiac Sampling and Pressure, Left Heart, Percutaneous Approach (ICD-10-PCS; principal; 2017-06-15)
PROC: 02713ZZ Dilation of Coronary Artery, Two Arteries, Percutaneous Approach (ICD-10-PCS; 2017-06-15)
PROC: 02C03ZZ Extirpation of Matter from Coronary Artery, One Artery, Percutaneous Approach (ICD-10-PCS; 2017-06-15)
PROC: B2111ZZ Fluoroscopy of Multiple Coronary Arteries using Low Osmolar Contrast (ICD-10-PCS; 2017-06-15)
PROC: B2151ZZ Fluoroscopy of Left Heart using Low Osmolar Contrast (ICD-10-PCS; 2017-06-15)
PROC: 02H63KZ Insertion of Defibrillator Lead into Right Atrium, Percutaneous Approach (ICD-10-PCS; 2017-06-16)
PROC: 0JH608Z Insertion of Defibrillator Generator into Chest Subcutaneous Tissue and Fascia, Open Approach (ICD-10-PCS; 2017-06-16)
PROC: 02HL3KZ Insertion of Defibrillator Lead into Left Ventricle, Percutaneous Approach (ICD-10-PCS; 2017-06-16)
PROC: 0JPT0PZ Removal of Cardiac Rhythm Related Device from Trunk Subcutaneous Tissue and Fascia, Open Approach (ICD-10-PCS; 2017-06-16)
PROC: 02PA3MZ Removal of Cardiac Lead from Heart, Percutaneous Approach (ICD-10-PCS; 2017-06-16)
DX: I13.0 Hypertensive heart and chronic kidney disease with heart failure and stage 1 through stage 4 chronic kidney disease, or unspecified chronic kidney disease (principal); K85.90 Acute pancreatitis without necrosis or infection, unspecified; E44.0 Moderate protein-calorie malnutrition; E11.21 Type 2 diabetes mellitus with diabetic nephropathy; N18.3 Chronic kidney disease, stage 3 (moderate); I24.9 Acute ischemic heart disease, unspecified; I25.10 Atherosclerotic heart disease of native coronary artery without angina pectoris; I50.43 Acute on chronic combined systolic (congestive) and diastolic (congestive) heart failure; E11.69 Type 2 diabetes mellitus with other specified complication; E87.1 Hypo-osmolality and hyponatremia; E78.5 Hyperlipidemia, unspecified; J98.11 Atelectasis; K59.00 Constipation, unspecified; D63.8 Anemia in other chronic diseases classified elsewhere; E11.22 Type 2 diabetes mellitus with diabetic chronic kidney disease; I25.5 Ischemic cardiomyopathy; K40.20 Bilateral inguinal hernia, without obstruction or gangrene, not specified as recurrent; Z83.3 Family history of diabetes mellitus; I25.2 Old myocardial infarction; Z95.810 Presence of automatic (implantable) cardiac defibrillator; Z68.28 Body mass index [BMI] 28.0-28.9, adult; Z88.1 Allergy status to other antibiotic agents
CPT/HCPCS: 33225; 33249; 36415; 71045; 71250; 74176; 76705; 78226; 80048; 80053; 80061; 80307; 81001; 82150; 82962; 83036; 83605; 83690; 83735; 83880; 84484; 85025; 85610; 85730; 86850; 86870; 86900; 86901; 87040; 87086; 92924; 93005; 93306; 94761; 96374; 96375; 99152; 99153; A4565; C1769; C1887; C9113; J0690; J1815; J1885; J2250; J2270; J2405; J3490; Q9967

== ENCOUNTER 2017-08-05 00:04 | Inpatient (IN) | payer OTHER ==
[~2017-08-05] VITALS: Ht 172.7 cm; Wt 79.9 kg
[~2017-08-05 00:04] MED LIST: ACET-1156 PO; ATOR1TAB PO; CARV6.2551 PO; CLOP75TA41 PO; FOLI1TAB6 PO; FURO40TA PO; GLIP-115 PO; INSUINJ2 SC; MAGN400T5 PO; MULT-424 OR; NITR0.4S29 SL; OMEP20TA PO; PANT40TA2 PO; POTA10TA51 PO; RISP0.5T45 PO
[2017-08-05] MEDS ORDERED: ONDANSETRON HCL 4 MG/2 ML VIAL IV ONE (00:45)
[2017-08-05] MEDS ORDERED: MORPHINE SULFATE 8mg/ml INJ SDV IV ONE (00:45)
[2017-08-05] MEDS ORDERED: NALBUPHINE HCL 10 MG/1ml INJECTION IV ONE (00:45)
[2017-08-05] MEDS ORDERED: ASPirin 81 mg TAB PO ONE (00:45)
[2017-08-05 01:28] LABS: Eosinophils # (auto) 0.1 uL; Lymphocytes # (auto) 2.5 uL; Monocytes # (auto) 0.4 uL
[2017-08-05 01:31] LABS: Basophils # (auto) 0 uL; Basophils % (auto) 0.8 % (0.0-2.0); Eosinophils % (auto) 1.6 % (0.0-7.0); Hematocrit 32.2 % (41.0-53.0); Hemoglobin 10.3 g/dL (13.5-17.5); Lymphocytes % (auto) 38.5 % (10.0-50.0); Mean Corpuscular Hgb Conc. 32.1 g/dL (32.0-36.0); Mean Corpuscular Volume 71.7 fL (80.0-100.0); Monocytes % (auto) 6.1 % (0.0-12.0); Neutrophils # (auto) 3.4 uL; Nucleated Red Blood Cells % 0.3 %; Platelet Count (auto) 197 10^3/uL (140-450); Red Blood Cells 4.49 10^6/uL (4.5-5.90); Red Cell Distribution Width 21.8 % (11.8-14.3); White Blood Cell 6.5 10^3/uL (4.4-10.8)
[2017-08-05 01:41] LABS: Albumin 3.3 g/dL (3.4-5.0); BUN/Creatinine Ratio 4.5; Calcium 7.8 mg/dL (8.5-10.1); INR 1.19 (0.9-1.15); Partial Thromboplastin Time 29.4 sec (23.78-33.04); Prothrombin Time 12.6 sec (9.27-12.13)
[2017-08-05 01:46] LABS: Bilirubin, Total 1.4 mg/dL (0.2-1.0); Total Protein 7.2 g/dL (6.4-8.2)
[2017-08-05 04:07] LABS: Urine Bacteria NONE SEEN /hpf (None Seen); Urine Blood Negative /uL (Negative); Urine Specific Gravity 1.003 (1.001-1.035); Urine WBC <1 /hpf (0 - 3)
[2017-08-05] MEDS ORDERED: HYDROcodone-ACET 7.5/325MG TAB PO ONE (04:45)
[2017-08-05] MEDS ORDERED: MORPHINE SULF(PF) 0.5MG/ML 10ML VIAL IV PRN (06:00)
[2017-08-05] MEDS ORDERED: DEXTROSE (50%) 50ML SYRG IV PRN (06:00)
[2017-08-05] MEDS ORDERED: ONDANSETRON HCL 4 MG/2 ML VIAL IV PRN (06:00)
[2017-08-05] MEDS ORDERED: NALBUPHINE HCL 10 MG/1ml INJECTION IV PRN (06:00)
[2017-08-05] MEDS ORDERED: TEMAZEPAM 15 MG CAP PO PRN (06:00)
[2017-08-05] MEDS ORDERED: NITROGLYCERIN 0.4 MG SL TAB SL PRN (06:00)
[2017-08-05] MEDS ORDERED: GABAPENTIN 300 MG CAP PO ONE (06:00)
[2017-08-05] MEDS: ACCU-CHEK COMFORT CURVE STRIP VI SCH ×3 (06:45→17:42)
[2017-08-05] MEDS: InsuLIN REG 1unit/0.01ml Soln (100units/ml) SC SCH ×3 (06:45→17:42)
[2017-08-05] MEDS: HYDROcodone-ACET 5/325MG TAB PO PRN ×4 (09:08→20:19)
[2017-08-05] MEDS: ASPirin 81 mg TAB PO SCH (11:33)
[2017-08-05] MEDS: CARVEDILOL 3.125 MG TAB PO SCH ×2 (11:33→20:35)
[2017-08-05] MEDS: FUROSEMIDE 40 MG TAB PO SCH (11:35)
[2017-08-05] MEDS: CLOPIDOGREL BISULFATE 75 MG TAB PO SCH (11:36)
[2017-08-05] MEDS: FAMOTIDINE 20 MG TAB PO SCH ×2 (11:36→20:35)
[2017-08-05] MEDS ORDERED: IOHEXOL 350 MG/ML 100ML IJ ONE (13:18)
[2017-08-05] MEDS ORDERED: ENOXAPARIN SOD 80 MG/0.8ML SYRINGE SC SCH (14:15)
[2017-08-05] MEDS: INSULIN NPH Isophane (HUMAN) 1unit/0.01ml Susp(100units/ml) SC SCH (17:41)
[2017-08-05] MEDS: ATORVASTATIN 20 MG TAB PO SCH (20:35)
[2017-08-05] MEDS: APIXABAN 5 MG TAB PO SCH ×2 (20:36)
[2017-08-05 22:00] VITALS: BP 103/68
[2017-08-06] VITALS (7 sets, daily range): BP systolic 94–132; BP diastolic 67–84
[2017-08-06] MEDS: ACCU-CHEK COMFORT CURVE STRIP VI SCH ×4 (00:15→18:14)
[2017-08-06] MEDS: InsuLIN REG 1unit/0.01ml Soln (100units/ml) SC SCH ×4 (04:31→18:00)
[2017-08-06] MEDS: INSULIN NPH Isophane (HUMAN) 1unit/0.01ml Susp(100units/ml) SC SCH ×2 (06:07→18:16)
[2017-08-06 06:26] LABS: Basophils # (auto) 0 uL; Eosinophils % (auto) 4.3 % (0.0-7.0); Monocytes # (auto) 0.4 uL; Nucleated Red Blood Cells % 0.3 %
[2017-08-06 06:29] LABS: Basophils % (auto) 0.7 % (0.0-2.0); Eosinophils # (auto) 0.2 uL; Hematocrit 33.2 % (41.0-53.0); Hemoglobin 10.7 g/dL (13.5-17.5); Lymphocytes # (auto) 1.7 uL; Lymphocytes % (auto) 28.9 % (10.0-50.0); Mean Corpuscular Hemoglobin 23.2 pg (28.0-32.0); Mean Corpuscular Hgb Conc. 32.2 g/dL (32.0-36.0); Mean Corpuscular Volume 72.1 fL (80.0-100.0); Monocytes % (auto) 7.3 % (0.0-12.0); Neutrophils # (auto) 3.4 uL; Neutrophils % (auto) 58.8 % (37.0-80.0); Platelet Count (auto) 177 10^3/uL (140-450); White Blood Cell 5.8 10^3/uL (4.4-10.8)
[2017-08-06 06:31] LABS: Red Cell Distribution Width 21.8 % (11.8-14.3)
[2017-08-06 06:44] LABS: Albumin 3.3 g/dL (3.4-5.0); BUN/Creatinine Ratio 13.6; Bilirubin, Total 1.6 mg/dL (0.2-1.0); Calcium 8.5 mg/dL (8.5-10.1); Total Protein 6.8 g/dL (6.4-8.2)
[2017-08-06] MEDS ORDERED: ALBUTEROL SULF 2.5 MG/0.5ML(0.5%) NEB SOLN NEB PRN (10:15)
[2017-08-06] MEDS: CARVEDILOL 3.125 MG TAB PO SCH ×2 (10:41→21:55)
[2017-08-06] MEDS: FAMOTIDINE 20 MG TAB PO SCH ×2 (10:42→20:01)
[2017-08-06] MEDS: FUROSEMIDE 40 MG TAB PO SCH (10:42)
[2017-08-06] MEDS: APIXABAN 5 MG TAB PO SCH ×4 (10:44→21:57)
[2017-08-06] MEDS: CLOPIDOGREL BISULFATE 75 MG TAB PO SCH (10:45)
[2017-08-06] MEDS: ASPirin 81 mg TAB PO SCH (10:46)
[2017-08-06] MEDS: DOXYCYCLINE 100 MG TAB/CAP PO SCH ×2 (14:11→21:56)
[2017-08-06] MEDS: HYDROcodone-ACET 5/325MG TAB PO PRN (20:12)
[2017-08-06] MEDS: ATORVASTATIN 20 MG TAB PO SCH (21:55)
[2017-08-07] MEDS: ACCU-CHEK COMFORT CURVE STRIP VI SCH ×3 (00:46→12:33)
[2017-08-07 05:22] LABS: Basophils # (auto) 0 uL; Basophils % (auto) 0.7 % (0.0-2.0); Hemoglobin 10.3 g/dL (13.5-17.5); Mean Corpuscular Hgb Conc. 31.7 g/dL (32.0-36.0); Monocytes # (auto) 0.5 uL
[2017-08-07 05:24] LABS: Eosinophils # (auto) 0.3 uL; Eosinophils % (auto) 4.3 % (0.0-7.0); Hematocrit 32.5 % (41.0-53.0); Mean Corpuscular Volume 72.6 fL (80.0-100.0); Monocytes % (auto) 7.7 % (0.0-12.0); Neutrophils # (auto) 3.4 uL; Neutrophils % (auto) 55.3 % (37.0-80.0); Nucleated Red Blood Cells % 0.5 %; Platelet Count (auto) 168 10^3/uL (140-450); Red Blood Cells 4.47 10^6/uL (4.5-5.90); White Blood Cell 6.2 10^3/uL (4.4-10.8)
[2017-08-07 05:31] LABS: Red Cell Distribution Width 22.2 % (11.8-14.3)
[2017-08-07 05:41] LABS: BUN/Creatinine Ratio 13.7; Potassium 3.8 mmol/L (3.5-5.1)
[2017-08-07] MEDS: InsuLIN REG 1unit/0.01ml Soln (100units/ml) SC SCH ×3 (05:44→12:00)
[2017-08-07] MEDS: HYDROcodone-ACET 5/325MG TAB PO PRN ×2 (05:51→09:36)
[2017-08-07 05:56] VITALS: BP 116/78
[2017-08-07] MEDS: INSULIN NPH Isophane (HUMAN) 1unit/0.01ml Susp(100units/ml) SC SCH (08:09)
[2017-08-07 08:40] VITALS: BP 114/75
[2017-08-07] MEDS ORDERED: ASPirin 81 mg TAB PO SCH (10:00)
[2017-08-07] MEDS: FAMOTIDINE 20 MG TAB PO SCH (10:34)
[2017-08-07] MEDS: DOXYCYCLINE 100 MG TAB/CAP PO SCH (10:34)
[2017-08-07] MEDS: FUROSEMIDE 40 MG TAB PO SCH (10:36)
[2017-08-07] MEDS: CLOPIDOGREL BISULFATE 75 MG TAB PO SCH (10:37)
[2017-08-07] MEDS: CARVEDILOL 3.125 MG TAB PO SCH (10:37)
[2017-08-07] MEDS: APIXABAN 5 MG TAB PO SCH (10:41)
[2017-08-07 11:39] VITALS: BP 114/80
[2017-08-12] MEDS ORDERED: APIXABAN 5 MG TAB PO SCH (22:00)
== END 2017-08-07 14:25 | disposition home or self-care (01) | DRG 134 ==
LOC: EDBD 00:04 → ER 00:09 → TELE 00:10 → TELE-CENTR 13:59
PROVIDERS: ADMIT Nurse Practitioner; ATTEND Internal Medicine
DX: I26.99 Other pulmonary embolism without acute cor pulmonale (principal); I50.23 Acute on chronic systolic (congestive) heart failure; E11.22 Type 2 diabetes mellitus with diabetic chronic kidney disease; I42.9 Cardiomyopathy, unspecified; E44.1 Mild protein-calorie malnutrition; I13.0 Hypertensive heart and chronic kidney disease with heart failure and stage 1 through stage 4 chronic kidney disease, or unspecified chronic kidney disease; N18.3 Chronic kidney disease, stage 3 (moderate); E78.5 Hyperlipidemia, unspecified; I25.10 Atherosclerotic heart disease of native coronary artery without angina pectoris; R79.89 Other specified abnormal findings of blood chemistry; I71.9 Aortic aneurysm of unspecified site, without rupture; J40 Bronchitis, not specified as acute or chronic; Z82.49 Family history of ischemic heart disease and other diseases of the circulatory system; Z98.61 Coronary angioplasty status; Z88.1 Allergy status to other antibiotic agents; Z79.899 Other long term (current) drug therapy; Z91.018 Allergy to other foods; Z79.4 Long term (current) use of insulin; I25.2 Old myocardial infarction; Z95.810 Presence of automatic (implantable) cardiac defibrillator; Z68.26 Body mass index [BMI] 26.0-26.9, adult; Z82.3 Family history of stroke
CPT/HCPCS: 36415; 71045; 71275; 80048; 80053; 81001; 82962; 83735; 83880; 84484; 85025; 85379; 85610; 85730; 87081; 93005; 93970; 94761; 96374; 96375; J1815; J2405

== ENCOUNTER 2017-08-13 20:39 | Inpatient (IN) | payer OTHER ==
[~2017-08-13] VITALS: Ht 172.7 cm; Wt 66.0 kg
[2017-08-13 21:14] LABS: Basophils # (auto) 0.1 uL; Eosinophils # (auto) 0.2 uL; Hemoglobin 10.8 g/dL (13.5-17.5); Monocytes # (auto) 0.4 uL; Neutrophils # (auto) 2.3 uL; White Blood Cell 5.4 10^3/uL (4.4-10.8)
[2017-08-13 21:16] LABS: Basophils % (auto) 1.2 % (0.0-2.0); Eosinophils % (auto) 3.7 % (0.0-7.0); Hematocrit 34.9 % (41.0-53.0); Lymphocytes # (auto) 2.4 uL; Lymphocytes % (auto) 45.1 % (10.0-50.0); Mean Corpuscular Hemoglobin 22.5 pg (28.0-32.0); Mean Corpuscular Hgb Conc. 30.9 g/dL (32.0-36.0); Mean Corpuscular Volume 72.8 fL (80.0-100.0); Nucleated Red Blood Cells % 0.5 %; Platelet Count (auto) 150 10^3/uL (140-450); Red Blood Cells 4.79 10^6/uL (4.5-5.90)
[2017-08-13 21:17] LABS: Red Cell Distribution Width 22.8 % (11.8-14.3)
[2017-08-13] MEDS ORDERED: FUROSEMIDE 20 MG/2 ML VIAL IV ONE (21:30)
[2017-08-13] MEDS ORDERED: NALBUPHINE HCL 10 MG/1ml INJECTION IV ONE (21:30)
[2017-08-13] MEDS ORDERED: ONDANSETRON HCL 4 MG/2 ML VIAL IV ONE (21:30)
[2017-08-13 21:33] LABS: Albumin 3.4 g/dL (3.4-5.0); BUN/Creatinine Ratio 7.1; Bilirubin, Total 1.2 mg/dL (0.2-1.0); Calcium 7.8 mg/dL (8.5-10.1); Magnesium 2.3 mg/dL (1.6-2.6); Potassium 3.8 mmol/L (3.5-5.1); Total Protein 7.3 g/dL (6.4-8.2)
[2017-08-13 22:11] LABS: INR 1.13 (0.9-1.15)
[2017-08-13] MEDS ORDERED: IOHEXOL 350 MG/ML 100ML IJ ONE (22:39)
[2017-08-13] MEDS ORDERED: MORPHINE SULFATE 8mg/ml INJ SDV IV ONE ×3 (22:45)
[2017-08-13 22:47] LABS: Urine Bacteria NONE SEEN /hpf (None Seen); Urine Blood Negative /uL (Negative); Urine Specific Gravity 1.007 (1.001-1.035); Urine WBC <1 /hpf (0 - 3)
[2017-08-13] MEDS ORDERED: MORPHINE SULF INJ 2 MG/ML SYRINGE 1ML ONE (22:50)
[2017-08-13 23:08] LABS: Amphetamine Screen, Urine NEGATIVE (NEGATIVE); Barbiturate Scree,Urine NEGATIVE (NEGATIVE); Benzodiazephine Screen, Urine NEGATIVE (NEGATIVE); Cannabinoid Screen, Urine NEGATIVE (NEGATIVE); Cocaine Screen, Urine NEGATIVE (NEGATIVE); Opiate Scree,Urine NEGATIVE (NEGATIVE); Phencyclidine Screen, Urine NEGATIVE (NEGATIVE)
[2017-08-14] MEDS ORDERED: ENOXAPARIN SOD 80 MG/0.8ML SYRINGE SC ONE (02:00)
[2017-08-14] MEDS ORDERED: CLOPIDOGREL BISULFATE 75 MG TAB PO ONE (02:15)
[2017-08-14] MEDS ORDERED: ALBUTEROL SULF 2.5 MG/0.5ML(0.5%) NEB SOLN NEB ONE (02:45)
[2017-08-14] MEDS ORDERED: IPRATROPIUM BROM 0.5 MG/2.5ML INH SOL NEB ONE (02:45)
[2017-08-14] MEDS ORDERED: ACETAMINOPHEN 325 MG TAB PO PRN (03:45)
[2017-08-14] MEDS ORDERED: DEXTROSE (50%) 50ML SYRG IV PRN (03:45)
[2017-08-14] MEDS ORDERED: ONDANSETRON HCL 4 MG/2 ML VIAL IV PRN (03:45)
[2017-08-14] MEDS ORDERED: NITROGLYCERIN 0.4 MG SL TAB SL PRN (03:45)
[2017-08-14] MEDS ORDERED: MORPHINE SULF(PF) 0.5MG/ML 10ML VIAL IV PRN (03:45)
[2017-08-14] MEDS ORDERED: TEMAZEPAM 15 MG CAP PO PRN (03:45)
[2017-08-14] MEDS ORDERED: FUROSEMIDE 20 MG/2 ML VIAL IV ONE (04:00)
[2017-08-14] MEDS: APIXABAN 5 MG TAB PO SCH ×3 (04:57→23:07)
[2017-08-14] MEDS: ACCU-CHEK COMFORT CURVE STRIP VI SCH ×4 (05:57→23:23)
[2017-08-14] MEDS ORDERED: FUROSEMIDE 20 MG/2 ML VIAL IV SCH (06:00)
[2017-08-14] MEDS: InsuLIN REG 1unit/0.01ml Soln (100units/ml) SC SCH ×4 (06:00→23:24)
[2017-08-14 09:15] VITALS: BP 120/76
[2017-08-14] MEDS ORDERED: FAMOTIDINE 20 MG TAB PO SCH (10:00)
[2017-08-14] MEDS: risperiDONE 1 MG TAB PO SCH ×2 (10:50→23:07)
[2017-08-14] MEDS: CLOPIDOGREL BISULFATE 75 MG TAB PO SCH (10:50)
[2017-08-14] MEDS: PANTOPRAZOLE 40 MG TAB PO SCH (10:51)
[2017-08-14] MEDS: ASPirin 81 mg TAB PO SCH (10:51)
[2017-08-14] MEDS: CARVEDILOL 3.125 MG TAB PO SCH ×2 (10:51→23:06)
[2017-08-14] MEDS: HYDROcodone-ACET 5/325MG TAB PO PRN ×3 (11:00→21:41)
[2017-08-14 13:00] VITALS: BP 120/76
[2017-08-14] MEDS: DOXYCYCLINE 100 MG TAB/CAP PO SCH ×2 (14:28→23:07)
[2017-08-14] MEDS: chlordiazePOXIDE HCL 25 MG CAP PO SCH ×2 (14:28→21:40)
[2017-08-14 17:00] VITALS: BP 114/71
[2017-08-14] MEDS: FUROSEMIDE 20 MG/2 ML VIAL IV SCH (17:58)
[2017-08-14 22:00] VITALS: BP 111/75
[2017-08-14] MEDS: ATORVASTATIN 20 MG TAB PO SCH (23:23)
[2017-08-15 05:03] VITALS: BP 96/62
[2017-08-15] MEDS: chlordiazePOXIDE HCL 25 MG CAP PO SCH ×3 (05:38→21:33)
[2017-08-15] MEDS: FUROSEMIDE 20 MG/2 ML VIAL IV SCH ×2 (05:38→17:51)
[2017-08-15] MEDS: InsuLIN REG 1unit/0.01ml Soln (100units/ml) SC SCH ×4 (05:49→23:35)
[2017-08-15] MEDS: ACCU-CHEK COMFORT CURVE STRIP VI SCH ×4 (05:54→23:35)
[2017-08-15] MEDS: HYDROcodone-ACET 5/325MG TAB PO PRN (05:54)
[2017-08-15 05:56] LABS: Basophils # (auto) 0 uL; Lymphocytes # (auto) 1.6 uL; Monocytes # (auto) 0.4 uL
[2017-08-15 05:58] LABS: Basophils % (auto) 0.8 % (0.0-2.0); Eosinophils # (auto) 0.3 uL; Hematocrit 30.8 % (41.0-53.0); Lymphocytes % (auto) 37.6 % (10.0-50.0); Mean Corpuscular Hemoglobin 23.2 pg (28.0-32.0); Mean Corpuscular Hgb Conc. 32.4 g/dL (32.0-36.0); Mean Corpuscular Volume 71.5 fL (80.0-100.0); Monocytes % (auto) 10.2 % (0.0-12.0); Neutrophils # (auto) 1.9 uL; Neutrophils % (auto) 45.4 % (37.0-80.0); Nucleated Red Blood Cells % 0.5 %; Platelet Count (auto) 122 10^3/uL (140-450); Red Blood Cells 4.31 10^6/uL (4.5-5.90); White Blood Cell 4.3 10^3/uL (4.4-10.8)
[2017-08-15 06:14] LABS: Red Cell Distribution Width 22.3 % (11.8-14.3)
[2017-08-15 06:15] LABS: BUN/Creatinine Ratio 9.5; Bilirubin, Total 2.1 mg/dL (0.2-1.0); Potassium 3.7 mmol/L (3.5-5.1); Total Protein 6.4 g/dL (6.4-8.2)
[2017-08-15 09:00] VITALS: BP 123/76
[2017-08-15] MEDS: ASPirin 81 mg TAB PO SCH (10:30)
[2017-08-15] MEDS: DOXYCYCLINE 100 MG TAB/CAP PO SCH ×2 (10:31→22:21)
[2017-08-15] MEDS: CARVEDILOL 3.125 MG TAB PO SCH ×2 (10:31→22:22)
[2017-08-15] MEDS: APIXABAN 5 MG TAB PO SCH ×2 (10:31→22:21)
[2017-08-15] MEDS: CLOPIDOGREL BISULFATE 75 MG TAB PO SCH (10:31)
[2017-08-15] MEDS: PANTOPRAZOLE 40 MG TAB PO SCH (10:31)
[2017-08-15] MEDS: risperiDONE 1 MG TAB PO SCH ×2 (10:33→22:22)
[2017-08-15 13:00] VITALS: BP 103/65
[2017-08-15 17:00] VITALS: BP 106/78
[2017-08-15 22:00] VITALS: BP 124/89
[2017-08-15] MEDS: ATORVASTATIN 20 MG TAB PO SCH (22:22)
[2017-08-16] MEDS: chlordiazePOXIDE HCL 25 MG CAP PO SCH (05:01)
[2017-08-16 05:04] VITALS: BP 112/75
[2017-08-16] MEDS: FUROSEMIDE 20 MG/2 ML VIAL IV SCH ×2 (05:54→18:00)
[2017-08-16] MEDS: ACCU-CHEK COMFORT CURVE STRIP VI SCH ×3 (05:55→18:40)
[2017-08-16] MEDS: InsuLIN REG 1unit/0.01ml Soln (100units/ml) SC SCH ×3 (05:55→18:41)
[2017-08-16 06:43] LABS: Basophils # (auto) 0 uL; Eosinophils # (auto) 0.2 uL; Lymphocytes # (auto) 1.5 uL; Monocytes # (auto) 0.4 uL
[2017-08-16 06:45] LABS: Eosinophils % (auto) 5.3 % (0.0-7.0); Hematocrit 34.4 % (41.0-53.0); Hemoglobin 11.1 g/dL (13.5-17.5); Lymphocytes % (auto) 36.4 % (10.0-50.0); Mean Corpuscular Hemoglobin 23.1 pg (28.0-32.0); Mean Corpuscular Hgb Conc. 32.3 g/dL (32.0-36.0); Mean Corpuscular Volume 71.5 fL (80.0-100.0); Monocytes % (auto) 9.2 % (0.0-12.0); Neutrophils % (auto) 48.1 % (37.0-80.0); Nucleated Red Blood Cells % 0.4 %; Platelet Count (auto) 145 10^3/uL (140-450); Red Blood Cells 4.82 10^6/uL (4.5-5.90); White Blood Cell 4.2 10^3/uL (4.4-10.8)
[2017-08-16 06:57] LABS: BUN/Creatinine Ratio 9.9; Calcium 8.6 mg/dL (8.5-10.1); Potassium 3.7 mmol/L (3.5-5.1)
[2017-08-16 07:01] LABS: Red Cell Distribution Width 22.8 % (11.8-14.3)
[2017-08-16 09:40] VITALS: BP 93/54
[2017-08-16] MEDS: PANTOPRAZOLE 40 MG TAB PO SCH (09:55)
[2017-08-16] MEDS: CLOPIDOGREL BISULFATE 75 MG TAB PO SCH (09:55)
[2017-08-16] MEDS: ASPirin 81 mg TAB PO SCH (09:56)
[2017-08-16] MEDS: DOXYCYCLINE 100 MG TAB/CAP PO SCH ×2 (09:56→22:05)
[2017-08-16] MEDS: risperiDONE 1 MG TAB PO SCH ×2 (09:56→22:05)
[2017-08-16] MEDS: APIXABAN 5 MG TAB PO SCH ×2 (09:56→22:03)
[2017-08-16] MEDS: CARVEDILOL 3.125 MG TAB PO SCH ×2 (09:57→22:03)
[2017-08-16 13:01] VITALS: BP 95/63
[2017-08-16 17:20] VITALS: BP 95/53
[2017-08-16 22:00] VITALS: BP 103/58
[2017-08-16] MEDS ORDERED: chlordiazePOXIDE HCL 25 MG CAP PO SCH (22:00)
[2017-08-16] MEDS: ATORVASTATIN 20 MG TAB PO SCH (22:05)
[2017-08-17] MEDS: ACCU-CHEK COMFORT CURVE STRIP VI SCH ×2 (00:24→05:43)
[2017-08-17] MEDS: InsuLIN REG 1unit/0.01ml Soln (100units/ml) SC SCH ×2 (00:31→05:43)
[2017-08-17 05:00] VITALS: BP 113/59
[2017-08-17] MEDS: FUROSEMIDE 20 MG/2 ML VIAL IV SCH (05:42)
[2017-08-17 06:59] LABS: Eosinophils # (auto) 0.2 uL; Eosinophils % (auto) 3.5 % (0.0-7.0); Hemoglobin 10.8 g/dL (13.5-17.5); Monocytes # (auto) 0.5 uL; Monocytes % (auto) 8.3 % (0.0-12.0); Nucleated Red Blood Cells % 0.3 %
[2017-08-17 07:00] LABS: Basophils # (auto) 0.1 uL; Basophils % (auto) 0.9 % (0.0-2.0); Hematocrit 33.5 % (41.0-53.0); Lymphocytes # (auto) 1.9 uL; Lymphocytes % (auto) 32.7 % (10.0-50.0); Mean Corpuscular Hgb Conc. 32.3 g/dL (32.0-36.0); Mean Corpuscular Volume 71.1 fL (80.0-100.0); Neutrophils # (auto) 3.1 uL; Neutrophils % (auto) 54.6 % (37.0-80.0); Platelet Count (auto) 165 10^3/uL (140-450); Red Blood Cells 4.71 10^6/uL (4.5-5.90); White Blood Cell 5.7 10^3/uL (4.4-10.8)
[2017-08-17 07:06] LABS: Red Cell Distribution Width 22.4 % (11.8-14.3)
[2017-08-17 07:08] LABS: BUN/Creatinine Ratio 12.5; Calcium 8.4 mg/dL (8.5-10.1); Potassium 3.5 mmol/L (3.5-5.1)
[2017-08-17 08:30] VITALS: BP 121/47
[2017-08-17] MEDS: PANTOPRAZOLE 40 MG TAB PO SCH (09:42)
[2017-08-17] MEDS: ASPirin 81 mg TAB PO SCH (09:42)
[2017-08-17] MEDS: risperiDONE 1 MG TAB PO SCH (09:42)
[2017-08-17] MEDS: DOXYCYCLINE 100 MG TAB/CAP PO SCH (09:42)
[2017-08-17] MEDS: APIXABAN 5 MG TAB PO SCH (09:42)
[2017-08-17] MEDS: CLOPIDOGREL BISULFATE 75 MG TAB PO SCH (09:42)
[2017-08-17] MEDS: CARVEDILOL 3.125 MG TAB PO SCH (09:43)
[2017-08-17 09:59] VITALS: BP 121/47
[2017-08-17] MEDS ORDERED: chlordiazePOXIDE HCL 25 MG CAP PO ONE (22:00)
[2017-08-20] MEDS ORDERED: APIXABAN 5 MG TAB PO SCH (22:00)
== END 2017-08-17 10:45 | disposition home or self-care (01) | DRG 134 ==
LOC: ER 20:39 → TELE 20:40 → TELE-WESTW 08-14 09:19 → TELE-CENTR 08-16 02:17
PROVIDERS: ADMIT Nurse Practitioner; ATTEND Internal Medicine
DX: I26.99 Other pulmonary embolism without acute cor pulmonale (principal); G92 Toxic encephalopathy; I50.43 Acute on chronic combined systolic (congestive) and diastolic (congestive) heart failure; E44.1 Mild protein-calorie malnutrition; E11.22 Type 2 diabetes mellitus with diabetic chronic kidney disease; I42.9 Cardiomyopathy, unspecified; E11.65 Type 2 diabetes mellitus with hyperglycemia; I13.0 Hypertensive heart and chronic kidney disease with heart failure and stage 1 through stage 4 chronic kidney disease, or unspecified chronic kidney disease; I08.3 Combined rheumatic disorders of mitral, aortic and tricuspid valves; I27.82 Chronic pulmonary embolism; F10.129 Alcohol abuse with intoxication, unspecified; N18.3 Chronic kidney disease, stage 3 (moderate); H54.61 Unqualified visual loss, right eye, normal vision left eye; I25.10 Atherosclerotic heart disease of native coronary artery without angina pectoris; J98.11 Atelectasis; J40 Bronchitis, not specified as acute or chronic; Z82.49 Family history of ischemic heart disease and other diseases of the circulatory system; Z82.3 Family history of stroke; Z91.19 Patient's noncompliance with other medical treatment and regimen; Z95.0 Presence of cardiac pacemaker; Z98.61 Coronary angioplasty status; Z68.22 Body mass index [BMI] 22.0-22.9, adult; Z88.1 Allergy status to other antibiotic agents; Z88.8 Allergy status to other drugs, medicaments and biological substances; Z91.018 Allergy to other foods; Z79.82 Long term (current) use of aspirin; I71.9 Aortic aneurysm of unspecified site, without rupture; F15.10 Other stimulant abuse, uncomplicated; Z79.01 Long term (current) use of anticoagulants
CPT/HCPCS: 36415; 51702; 71045; 71275; 76604; 80048; 80053; 80307; 81001; 82962; 83615; 83735; 83880; 84484; 85025; 85379; 85610; 87081; 93005; 94640; 96374; 96375; J1815; J2405

== ENCOUNTER 2017-09-26 18:28 | Inpatient (IN) | payer OTHER ==
[~2017-09-26] VITALS: Ht 167.6 cm; Wt 83.4 kg
[~2017-09-26 18:28] MED LIST changes: +APIX5TAB OR; +ENA2.5T PO; -FURO40TA PO; +FURO40TA4 PO; -NITR0.4S29 SL; -PANT40TA2 PO
[2017-09-26 20:25] LABS: Basophils # (auto) 0 uL; Monocytes # (auto) 0.6 uL
[2017-09-26 20:26] LABS: Basophils % (auto) 0.8 % (0.0-2.0); Eosinophils # (auto) 0.1 uL; Eosinophils % (auto) 2.4 % (0.0-7.0); Hematocrit 29.1 % (41.0-53.0); Hemoglobin 9.3 g/dL (13.5-17.5); Lymphocytes # (auto) 1.4 uL; Lymphocytes % (auto) 26.6 % (10.0-50.0); Mean Corpuscular Hemoglobin 22.4 pg (28.0-32.0); Mean Corpuscular Hgb Conc. 31.8 g/dL (32.0-36.0); Mean Corpuscular Volume 70.6 fL (80.0-100.0); Neutrophils % (auto) 59.2 % (37.0-80.0); Nucleated Red Blood Cells % 0.7 %; Red Blood Cells 4.12 10^6/uL (4.5-5.90); White Blood Cell 5.1 10^3/uL (4.4-10.8)
[2017-09-26 20:42] LABS: Red Cell Distribution Width 22.4 % (11.8-14.3)
[2017-09-26 20:43] LABS: Platelet Count (auto) 137 10^3/uL (140-450)
[2017-09-26 20:54] LABS: Anion Gap 13 (5-15); Blood Urea Nitrogen 13 mg/dL (7-18); Carbon Dioxide 16 mmol/L (21-32); Chloride 103 mmol/L (98-107); Glucose 134 mg/dL (74-106); Potassium 3.5 mmol/L (3.5-5.1); Sodium 132 mmol/L (136-145)
[2017-09-26 20:55] LABS: Alanine Aminotransferase 23 U/L (16-61); Albumin 2.9 g/dL (3.4-5.0); Alkaline Phosphatase 83 U/L (45-117); Aspartate Aminotransferase 23 U/L (15-37); BUN/Creatinine Ratio 14.3; Calcium 7.3 mg/dL (8.5-10.1); GFR African American 108 mL/min; GFR Non-African American 89 mL/min; Total Protein 6.7 g/dL (6.4-8.2)
[2017-09-26] MEDS ORDERED: FUROSEMIDE 20 MG/2 ML VIAL IV ONE (21:45)
[2017-09-26 22:11] LABS: Urine WBC None Seen /hpf (0 - 3)
[2017-09-26 22:24] LABS: Urine Amorphous Crystal FEW /hpf (None Seen); Urine Bacteria NONE SEEN /hpf (None Seen); Urine Blood Negative /uL (Negative); Urine Specific Gravity 1.005 (1.001-1.035)
[2017-09-26 22:36] LABS: Amphetamine Screen, Urine POSITIVE (NEGATIVE); Barbiturate Scree,Urine NEGATIVE (NEGATIVE); Benzodiazephine Screen, Urine POSITIVE (NEGATIVE); Cannabinoid Screen, Urine NEGATIVE (NEGATIVE); Cocaine Screen, Urine NEGATIVE (NEGATIVE); Opiate Scree,Urine NEGATIVE (NEGATIVE); Phencyclidine Screen, Urine NEGATIVE (NEGATIVE)
[2017-09-27] VITALS (8 sets, daily range): BP systolic 95–122; BP diastolic 64–81
[2017-09-27] MEDS ORDERED: TEMAZEPAM 15 MG CAP PO PRN (01:15)
[2017-09-27] MEDS ORDERED: ACETAMINOPHEN 325 MG TAB PO PRN (01:15)
[2017-09-27] MEDS ORDERED: MORPHINE SULF INJ 2 MG/ML SYRINGE 1ML IV PRN (01:15)
[2017-09-27] MEDS ORDERED: ONDANSETRON HCL 4 MG/2 ML VIAL IV PRN (01:15)
[2017-09-27] MEDS ORDERED: NITROGLYCERIN 0.4 MG SL TAB SL PRN (01:15)
[2017-09-27] MEDS ORDERED: DEXTROSE (50%) 50ML SYRG IV PRN (01:15)
[2017-09-27] MEDS: HYDROcodone-ACET 5/325MG TAB PO PRN ×2 (03:33→11:07)
[2017-09-27] MEDS ORDERED: NITR0.4S29 SL (05:43)
[2017-09-27] MEDS ORDERED: INSUINJ2 SC (05:43)
[2017-09-27] MEDS ORDERED: FURO20TA PO (05:43)
[2017-09-27] MEDS ORDERED: CARV6.25 PO ×2 (05:43)
[2017-09-27] MEDS ORDERED: DOXY25SU3 OR (05:43)
[2017-09-27] MEDS ORDERED: CAR125T PO (05:43)
[2017-09-27] MEDS: InsuLIN REG 1unit/0.01ml Soln (100units/ml) SC SCH ×3 (05:59→18:47)
[2017-09-27] MEDS: ACCU-CHEK COMFORT CURVE STRIP VI SCH ×3 (05:59→18:47)
[2017-09-27] MEDS: FUROSEMIDE 20 MG/2 ML VIAL IV SCH ×2 (06:12→18:27)
[2017-09-27] MEDS: ENALAPRIL MALEATE 2.5 MG TAB PO SCH ×2 (10:00→21:25)
[2017-09-27] MEDS: CARVEDILOL 3.125 MG TAB PO SCH ×2 (10:52→18:00)
[2017-09-27] MEDS: FAMOTIDINE 20 MG TAB PO SCH ×2 (10:53→21:23)
[2017-09-27] MEDS: CLOPIDOGREL BISULFATE 75 MG TAB PO SCH (10:53)
[2017-09-27] MEDS: risperiDONE 1 MG TAB PO SCH (10:54)
[2017-09-27] MEDS: APIXABAN 5 MG TAB PO SCH ×2 (10:56→21:23)
[2017-09-27] MEDS ORDERED: cefTRIAXone 1GM/10ml IVPUSH 10 ML IV ONE (14:30)
[2017-09-27] MEDS ORDERED: AZITHROMYCIN 500MG/ 250ML 250 ML IV ONE (15:00)
[2017-09-27] MEDS: ALBUTEROL SULF 2.5 MG/0.5ML(0.5%) NEB SOLN NEB PRN (19:55)
[2017-09-27] MEDS: chlordiazePOXIDE HCL 25 MG CAP PO PRN (21:23)
[2017-09-27] MEDS: ATORVASTATIN 20 MG TAB PO SCH (21:23)
[2017-09-28] MEDS: ACCU-CHEK COMFORT CURVE STRIP VI SCH ×4 (00:20→18:22)
[2017-09-28 05:00] VITALS: BP 115/75
[2017-09-28 05:44] LABS: Basophils # (auto) 0 uL; Eosinophils # (auto) 0.2 uL; Hemoglobin 9.8 g/dL (13.5-17.5); Monocytes # (auto) 0.5 uL; Neutrophils # (auto) 3.2 uL
[2017-09-28 05:48] LABS: Basophils % (auto) 0.4 % (0.0-2.0); Hematocrit 30.3 % (41.0-53.0); Lymphocytes # (auto) 1.1 uL; Lymphocytes % (auto) 22.3 % (10.0-50.0); Mean Corpuscular Hemoglobin 22.7 pg (28.0-32.0); Mean Corpuscular Hgb Conc. 32.4 g/dL (32.0-36.0); Monocytes % (auto) 9.5 % (0.0-12.0); Neutrophils % (auto) 64.8 % (37.0-80.0); Nucleated Red Blood Cells % 0.3 %; Platelet Count (auto) 123 10^3/uL (140-450); Red Blood Cells 4.33 10^6/uL (4.5-5.90)
[2017-09-28] MEDS: chlordiazePOXIDE HCL 25 MG CAP PO PRN (05:50)
[2017-09-28] MEDS: FUROSEMIDE 20 MG/2 ML VIAL IV SCH (05:50)
[2017-09-28 05:52] LABS: Red Cell Distribution Width 22.6 % (11.8-14.3)
[2017-09-28] MEDS: InsuLIN REG 1unit/0.01ml Soln (100units/ml) SC SCH ×4 (06:00→18:22)
[2017-09-28 06:08] LABS: Albumin 2.9 g/dL (3.4-5.0); BUN/Creatinine Ratio 15.3; Bilirubin, Total 1.9 mg/dL (0.2-1.0); Calcium 7.5 mg/dL (8.5-10.1); Potassium 3.6 mmol/L (3.5-5.1); Total Protein 6.7 g/dL (6.4-8.2)
[2017-09-28 08:00] VITALS: BP 114/76
[2017-09-28] MEDS: cefTRIAXone 1GM/10ml IVPUSH 10 ML IV SCH (08:21)
[2017-09-28] MEDS: CARVEDILOL 3.125 MG TAB PO SCH ×2 (08:21→18:30)
[2017-09-28] MEDS: HYDROcodone-ACET 5/325MG TAB PO PRN ×2 (08:24→19:49)
[2017-09-28 08:56] VITALS: BP 114/76
[2017-09-28] MEDS: AZITHROMYCIN 500MG/ 250ML 250 ML IV SCH (10:22)
[2017-09-28] MEDS: APIXABAN 5 MG TAB PO SCH ×2 (10:24→22:17)
[2017-09-28] MEDS: FAMOTIDINE 20 MG TAB PO SCH ×2 (10:24→22:17)
[2017-09-28] MEDS: ENALAPRIL MALEATE 2.5 MG TAB PO SCH ×2 (10:24→22:17)
[2017-09-28] MEDS: risperiDONE 1 MG TAB PO SCH (10:25)
[2017-09-28] MEDS: CLOPIDOGREL BISULFATE 75 MG TAB PO SCH (10:25)
[2017-09-28 13:00] VITALS: BP 118/72
[2017-09-28] MEDS: ALBUMIN 25% 50 ML IV SCH ×2 (13:18→18:22)
[2017-09-28 17:00] VITALS: BP 93/61
[2017-09-28] MEDS: FUROSEMIDE 40 MG/4 ML VIAL IV SCH (18:30)
[2017-09-28] MEDS: ALBUTEROL SULF 2.5 MG/0.5ML(0.5%) NEB SOLN NEB PRN (18:33)
[2017-09-28 22:00] VITALS: BP 108/61
[2017-09-28] MEDS: ATORVASTATIN 20 MG TAB PO SCH (22:17)
[2017-09-29] MEDS: ACCU-CHEK COMFORT CURVE STRIP VI SCH ×5 (00:21→21:58)
[2017-09-29] MEDS: ALBUMIN 25% 50 ML IV SCH ×2 (00:22→06:07)
[2017-09-29 05:00] VITALS: BP 95/52
[2017-09-29] MEDS: InsuLIN REG 1unit/0.01ml Soln (100units/ml) SC SCH ×5 (06:00→21:58)
[2017-09-29] MEDS: ALBUTEROL SULF 2.5 MG/0.5ML(0.5%) NEB SOLN NEB PRN (06:03)
[2017-09-29] MEDS: FUROSEMIDE 40 MG/4 ML VIAL IV SCH ×2 (06:07→17:51)
[2017-09-29 07:20] LABS: BUN/Creatinine Ratio 18.1; Calcium 7.5 mg/dL (8.5-10.1); Magnesium 2.1 mg/dL (1.6-2.6); Potassium 3.6 mmol/L (3.5-5.1)
[2017-09-29 07:43] LABS: Basophils # (auto) 0 uL; Eosinophils # (auto) 0.2 uL; Lymphocytes # (auto) 1.5 uL; Monocytes # (auto) 0.5 uL; Monocytes % (auto) 10.1 % (0.0-12.0); Platelet Count (auto) 103 10^3/uL (140-450)
[2017-09-29 07:55] LABS: Basophils % (auto) 0.8 % (0.0-2.0); Eosinophils % (auto) 3.9 % (0.0-7.0); Hematocrit 31.1 % (41.0-53.0); Hemoglobin 9.3 g/dL (13.5-17.5); Lymphocytes % (auto) 30.7 % (10.0-50.0); Mean Corpuscular Volume 73.3 fL (80.0-100.0); Neutrophils # (auto) 2.7 uL; Neutrophils % (auto) 54.5 % (37.0-80.0); Nucleated Red Blood Cells % 0.3 %; Red Blood Cells 4.25 10^6/uL (4.5-5.90); White Blood Cell 4.9 10^3/uL (4.4-10.8)
[2017-09-29 07:56] LABS: Red Cell Distribution Width 22.7 % (11.8-14.3)
[2017-09-29 09:00] VITALS: BP 108/79
[2017-09-29] MEDS: ENALAPRIL MALEATE 2.5 MG TAB PO SCH ×2 (09:05→21:58)
[2017-09-29] MEDS: FAMOTIDINE 20 MG TAB PO SCH ×2 (09:05→21:57)
[2017-09-29] MEDS: APIXABAN 5 MG TAB PO SCH ×2 (09:06→21:57)
[2017-09-29] MEDS: risperiDONE 1 MG TAB PO SCH (09:06)
[2017-09-29] MEDS: CLOPIDOGREL BISULFATE 75 MG TAB PO SCH (09:06)
[2017-09-29] MEDS: CARVEDILOL 3.125 MG TAB PO SCH ×2 (09:07→17:52)
[2017-09-29] MEDS: cefTRIAXone 1GM/10ml IVPUSH 10 ML IV SCH (09:07)
[2017-09-29] MEDS: AZITHROMYCIN 500MG/ 250ML 250 ML IV SCH (09:12)
[2017-09-29] MEDS ORDERED: ALUM & MAG HYDROX-SIMETH LIQ(MAALOX) 30 ML PO PRN (12:00)
[2017-09-29 13:00] VITALS: BP 99/60
[2017-09-29] MEDS ORDERED: MILK OF MAGNESIA 30ML SUSP PO PRN (15:30)
[2017-09-29 17:00] VITALS: BP 100/63
[2017-09-29] MEDS: HYDROcodone-ACET 5/325MG TAB PO PRN (17:51)
[2017-09-29 21:52] VITALS: BP 100/70
[2017-09-29] MEDS: ATORVASTATIN 20 MG TAB PO SCH (21:57)
[2017-09-30 04:45] VITALS: BP 104/64
[2017-09-30] MEDS: InsuLIN REG 1unit/0.01ml Soln (100units/ml) SC SCH ×3 (06:00→18:00)
[2017-09-30] MEDS: FUROSEMIDE 40 MG/4 ML VIAL IV SCH ×2 (06:16→18:00)
[2017-09-30] MEDS: ACCU-CHEK COMFORT CURVE STRIP VI SCH ×3 (06:16→18:29)
[2017-09-30 07:12] LABS: Basophils # (auto) 0 uL; Eosinophils # (auto) 0.2 uL; Eosinophils % (auto) 4.4 % (0.0-7.0); Hematocrit 32.4 % (41.0-53.0); Hemoglobin 10.3 g/dL (13.5-17.5); Lymphocytes # (auto) 1.6 uL; Mean Corpuscular Hgb Conc. 31.7 g/dL (32.0-36.0); Monocytes # (auto) 0.5 uL; Nucleated Red Blood Cells % 0.3 %
[2017-09-30 07:14] LABS: Basophils % (auto) 0.5 % (0.0-2.0); Lymphocytes % (auto) 31.5 % (10.0-50.0); Mean Corpuscular Hemoglobin 22.5 pg (28.0-32.0); Mean Corpuscular Volume 70.9 fL (80.0-100.0); Monocytes % (auto) 9.4 % (0.0-12.0); Neutrophils # (auto) 2.8 uL; Neutrophils % (auto) 54.2 % (37.0-80.0); Platelet Count (auto) 111 10^3/uL (140-450); Red Blood Cells 4.57 10^6/uL (4.5-5.90); White Blood Cell 5.2 10^3/uL (4.4-10.8)
[2017-09-30 07:16] LABS: Red Cell Distribution Width 22.8 % (11.8-14.3)
[2017-09-30 07:30] LABS: BUN/Creatinine Ratio 18.2; Calcium 8.2 mg/dL (8.5-10.1); Potassium 3.8 mmol/L (3.5-5.1)
[2017-09-30] MEDS: CARVEDILOL 3.125 MG TAB PO SCH ×2 (08:06→18:00)
[2017-09-30] MEDS: CLOPIDOGREL BISULFATE 75 MG TAB PO SCH (08:44)
[2017-09-30] MEDS: APIXABAN 5 MG TAB PO SCH (08:44)
[2017-09-30] MEDS: FAMOTIDINE 20 MG TAB PO SCH (08:44)
[2017-09-30] MEDS: risperiDONE 1 MG TAB PO SCH (08:44)
[2017-09-30] MEDS: HYDROcodone-ACET 5/325MG TAB PO PRN (08:45)
[2017-09-30 09:29] VITALS: BP 116/71
[2017-09-30] MEDS: ENALAPRIL MALEATE 2.5 MG TAB PO SCH (10:00)
[2017-09-30 12:45] VITALS: BP 105/64
[2017-09-30 13:55] VITALS: BP 112/70
[2017-09-30 15:57] VITALS: BP 105/64
[2017-09-30 16:41] VITALS: BP 112/66
== END 2017-09-30 20:30 | disposition home or self-care (01) | DRG 194 ==
LOC: ER 18:28 → TELE 18:29 → TELE-CENTR 09-27 01:53
PROVIDERS: ADMIT Nurse Practitioner; ATTEND Internal Medicine
DX: I13.0 Hypertensive heart and chronic kidney disease with heart failure and stage 1 through stage 4 chronic kidney disease, or unspecified chronic kidney disease (principal); D69.6 Thrombocytopenia, unspecified; E11.22 Type 2 diabetes mellitus with diabetic chronic kidney disease; E87.2 Acidosis; E44.0 Moderate protein-calorie malnutrition; E11.65 Type 2 diabetes mellitus with hyperglycemia; E87.1 Hypo-osmolality and hyponatremia; I50.23 Acute on chronic systolic (congestive) heart failure; G90.8 Other disorders of autonomic nervous system; I08.3 Combined rheumatic disorders of mitral, aortic and tricuspid valves; F15.10 Other stimulant abuse, uncomplicated; F10.129 Alcohol abuse with intoxication, unspecified; R79.1 Abnormal coagulation profile; H54.61 Unqualified visual loss, right eye, normal vision left eye; Z91.19 Patient's noncompliance with other medical treatment and regimen; Z86.718 Personal history of other venous thrombosis and embolism; Z86.711 Personal history of pulmonary embolism; Z95.810 Presence of automatic (implantable) cardiac defibrillator; D63.8 Anemia in other chronic diseases classified elsewhere; Z88.1 Allergy status to other antibiotic agents; Z88.8 Allergy status to other drugs, medicaments and biological substances; Z91.018 Allergy to other foods; E78.5 Hyperlipidemia, unspecified; I25.10 Atherosclerotic heart disease of native coronary artery without angina pectoris; Z82.3 Family history of stroke; Z82.49 Family history of ischemic heart disease and other diseases of the circulatory system; I70.0 Atherosclerosis of aorta; Z68.29 Body mass index [BMI] 29.0-29.9, adult; N18.2 Chronic kidney disease, stage 2 (mild)
CPT/HCPCS: 36415; 71046; 80048; 80053; 80307; 80320; 81001; 82962; 83735; 83880; 84484; 85025; 85379; 87081; 93005; 93970; 94640; 94761; 96365; 96375; 97163; J0696; J1815; J2405

== ENCOUNTER 2017-10-09 17:12 | Inpatient (IN) | payer OTHER ==
[~2017-10-09] VITALS: Ht 172.7 cm; Wt 89.4 kg
[~2017-10-09 17:12] MED LIST changes: +CARV6.25 PO; -CARV6.2551 PO; +NITR0.4S29 SL
[2017-10-09] MEDS ORDERED: ONDANSETRON HCL 4 MG/2 ML VIAL IV ONE (17:45)
[2017-10-09] MEDS ORDERED: MORPHINE SULFATE 4 MG/ML SYR/VIAL IV ONE (17:45)
[2017-10-09 18:21] LABS: Eosinophils # (auto) 0.1 uL; Hemoglobin 9.6 g/dL (13.5-17.5); Monocytes # (auto) 0.5 uL; Neutrophils # (auto) 3.2 uL; White Blood Cell 4.9 10^3/uL (4.4-10.8)
[2017-10-09 18:22] LABS: Basophils # (auto) 0.1 uL; Eosinophils % (auto) 1.7 % (0.0-7.0); Hematocrit 30.6 % (41.0-53.0); Lymphocytes # (auto) 1.1 uL; Lymphocytes % (auto) 22.5 % (10.0-50.0); Mean Corpuscular Hemoglobin 21.9 pg (28.0-32.0); Mean Corpuscular Hgb Conc. 31.5 g/dL (32.0-36.0); Mean Corpuscular Volume 69.5 fL (80.0-100.0); Monocytes % (auto) 10.1 % (0.0-12.0); Neutrophils % (auto) 64.7 % (37.0-80.0); Nucleated Red Blood Cells % 0.5 %; Platelet Count (auto) 151 10^3/uL (140-450)
[2017-10-09 18:24] LABS: Red Cell Distribution Width 22.9 % (11.8-14.3)
[2017-10-09 18:43] LABS: Albumin 3.6 g/dL (3.4-5.0); BUN/Creatinine Ratio 11.8; Bilirubin, Total 2.2 mg/dL (0.2-1.0); Calcium 7.7 mg/dL (8.5-10.1); INR 1.46 (0.9-1.15); Magnesium 2.1 mg/dL (1.6-2.6); Partial Thromboplastin Time 33.2 sec (23.78-33.04); Prothrombin Time 15.3 sec (9.27-12.13); Total Protein 7.7 g/dL (6.4-8.2)
[2017-10-09 19:06] LABS: Potassium 2.9 mmol/L (3.5-5.1)
[2017-10-09] MEDS ORDERED: NITROGLYCERIN 0.4 MG SL TAB SL PRN (20:00)
[2017-10-09] MEDS ORDERED: POTASSIUM CHL 20MEQ/100ML 100 ML IV ONE (20:00)
[2017-10-09] MEDS ORDERED: POTASSIUM CHL 20 Meq TABLET PO ONE (20:15)
[2017-10-09] MEDS ORDERED: PROMETHAZINE HCL 25 MG/ML 1ML IV PRN (20:15)
[2017-10-09] MEDS ORDERED: DEXTROSE (50%) 50ML SYRG IV PRN (20:15)
[2017-10-09] MEDS ORDERED: LORazepam 0.5 MG TAB PO PRN (20:15)
[2017-10-09] MEDS ORDERED: traMADol HCL 50 MG TAB PO PRN (20:15)
[2017-10-09] MEDS ORDERED: LACTULOSE 20Gm/30ML SOLN PO PRN (20:15)
[2017-10-09] MEDS ORDERED: ALBUTEROL SULF 2.5 MG/0.5ML(0.5%) NEB SOLN NEB PRN (20:15)
[2017-10-09] MEDS ORDERED: THIAMINE 100mg/ml INJ (200mg/2ml VIAL) IV ONE (20:45)
[2017-10-09] MEDS ORDERED: chlordiazePOXIDE HCL 25 MG CAP PO PRN (20:45)
[2017-10-09] MEDS ORDERED: LEVOFLOXACIN 500MG 100 ML IV ONE (20:45)
[2017-10-09 20:46] VITALS: BP 130/82
[2017-10-09] MEDS ORDERED: cefTRIAXone 1GM/10ml IVPUSH 10 ML IV SCH (21:00)
[2017-10-09] MEDS ORDERED: AZITHROMYCIN 500MG/ 250ML 250 ML IV SCH (21:15)
[2017-10-09] MEDS: CLINDAMYCIN 600MG IV 50 ML IV SCH (22:00)
[2017-10-09] MEDS: ACCU-CHEK COMFORT CURVE STRIP VI SCH (22:00)
[2017-10-09] MEDS: INSULIN NPH Isophane (HUMAN) 1unit/0.01ml Susp(100units/ml) SC SCH (22:00)
[2017-10-09] MEDS: InsuLIN REG 1unit/0.01ml Soln (100units/ml) SC SCH (22:00)
[2017-10-09] MEDS: SODIUM CHLOR 0.9% PF (SALINE LOCK) 10ML VIAL/SYR IV SCH (22:04)
[2017-10-09] MEDS: ATORVASTATIN 20 MG TAB PO SCH (22:05)
[2017-10-09] MEDS: risperiDONE 1 MG TAB PO SCH (22:05)
[2017-10-09] MEDS: CARVEDILOL 3.125 MG TAB PO SCH ×2 (22:05→23:51)
[2017-10-09] MEDS: APIXABAN 5 MG TAB PO SCH (22:05)
[2017-10-10] MEDS: MORPHINE SULF INJ 2 MG/ML SYRINGE 1ML IV PRN (00:21)
[2017-10-10] MEDS: chlordiazePOXIDE HCL 5 MG CAP PO SCH ×4 (06:00→18:52)
[2017-10-10] MEDS: FUROSEMIDE 40 MG/4 ML VIAL IV SCH ×2 (06:00→18:00)
[2017-10-10] MEDS: POTASSIUM CHL 20 Meq TABLET PO SCH ×2 (06:00→17:04)
[2017-10-10] MEDS: CLINDAMYCIN 600MG IV 50 ML IV SCH ×2 (06:27→14:37)
[2017-10-10] MEDS: SODIUM CHLOR 0.9% PF (SALINE LOCK) 10ML VIAL/SYR IV SCH ×3 (06:28→21:26)
[2017-10-10] MEDS: InsuLIN REG 1unit/0.01ml Soln (100units/ml) SC SCH ×4 (06:45→21:29)
[2017-10-10] MEDS: ACCU-CHEK COMFORT CURVE STRIP VI SCH ×4 (06:45→21:29)
[2017-10-10] MEDS: glipiZIDE 5 MG TAB PO SCH ×2 (06:46→17:00)
[2017-10-10 06:50] LABS: Basophils # (auto) 0 uL; Eosinophils # (auto) 0.1 uL; Eosinophils % (auto) 1.4 % (0.0-7.0); Hemoglobin 9.4 g/dL (13.5-17.5); Neutrophils # (auto) 4.2 uL; Neutrophils % (auto) 68.1 % (37.0-80.0); Nucleated Red Blood Cells % 1.1 %; Platelet Count (auto) 135 10^3/uL (140-450)
[2017-10-10 06:52] LABS: Basophils % (auto) 0.6 % (0.0-2.0); Hematocrit 29.5 % (41.0-53.0); Lymphocytes # (auto) 1.1 uL; Lymphocytes % (auto) 17.2 % (10.0-50.0); Mean Corpuscular Hemoglobin 22.4 pg (28.0-32.0); Mean Corpuscular Volume 70.1 fL (80.0-100.0); Monocytes # (auto) 0.8 uL; Monocytes % (auto) 12.7 % (0.0-12.0); White Blood Cell 6.1 10^3/uL (4.4-10.8)
[2017-10-10 06:53] LABS: Red Cell Distribution Width 22.7 % (11.8-14.3)
[2017-10-10 07:11] LABS: BUN/Creatinine Ratio 12.2; Bilirubin, Total 1.9 mg/dL (0.2-1.0); Calcium 7.2 mg/dL (8.5-10.1); Potassium 3.7 mmol/L (3.5-5.1); Total Protein 6.6 g/dL (6.4-8.2)
[2017-10-10 09:00] VITALS: BP 111/81
[2017-10-10] MEDS: NITROGLYCERIN 0.2MG/HR TOPICAL PATCH TD SCH (10:00)
[2017-10-10] MEDS ORDERED: LEVOFLOXACIN 500MG 100 ML IV SCH (10:00)
[2017-10-10] MEDS ORDERED: FUROSEMIDE 40 MG/4 ML VIAL IV SCH (10:00)
[2017-10-10] MEDS ORDERED: POTASSIUM CHL 20 Meq TABLET PO SCH (10:00)
[2017-10-10] MEDS: ASPirin 81 mg TAB PO SCH (10:25)
[2017-10-10] MEDS: THIAMINE 100mg/ml INJ (200mg/2ml VIAL) IV SCH (10:25)
[2017-10-10] MEDS: FOLIC ACID 1 MG TAB PO SCH (10:25)
[2017-10-10] MEDS: MAGNESIUM OXIDE 400 MG TAB PO SCH (10:26)
[2017-10-10] MEDS: APIXABAN 5 MG TAB PO SCH ×2 (10:26→21:27)
[2017-10-10] MEDS: CLOPIDOGREL BISULFATE 75 MG TAB PO SCH (10:26)
[2017-10-10] MEDS: PANTOPRAZOLE 40 MG TAB PO SCH (10:27)
[2017-10-10] MEDS: risperiDONE 1 MG TAB PO SCH ×2 (10:27→21:28)
[2017-10-10] MEDS: ENALAPRIL MALEATE 10 MG TAB PO SCH (10:28)
[2017-10-10 13:00] VITALS: BP 95/48
[2017-10-10 17:00] VITALS: BP_SYST 76; BP_SYST 87; BP_DIAS 50; BP_DIAS 51
[2017-10-10] MEDS: SULFAMETHOX W/TRIMETH(800/160MG) DS TAB PO SCH ×2 (17:04→21:27)
[2017-10-10] MEDS ORDERED: SODIUM CHLORIDE 0.9% 500 ML IV ONE (18:00)
[2017-10-10 18:55] VITALS: BP 87/57
[2017-10-10 20:00] VITALS: BP 95/56
[2017-10-10] MEDS: ALBUMIN 25% 100 ML IV SCH (20:45)
[2017-10-10] MEDS: CARVEDILOL 3.125 MG TAB PO SCH (21:27)
[2017-10-10] MEDS: ATORVASTATIN 20 MG TAB PO SCH (21:27)
[2017-10-10] MEDS: INSULIN NPH Isophane (HUMAN) 1unit/0.01ml Susp(100units/ml) SC SCH (21:29)
[2017-10-10 21:52] VITALS: BP 95/56
[2017-10-10 23:30] LABS: Alcohol, Urine < 3.0 mg/dL (0-5); Amphetamine Screen, Urine NEGATIVE (NEGATIVE); Barbiturate Scree,Urine NEGATIVE (NEGATIVE); Benzodiazephine Screen, Urine POSITIVE (NEGATIVE); Cannabinoid Screen, Urine NEGATIVE (NEGATIVE); Cocaine Screen, Urine NEGATIVE (NEGATIVE); Opiate Scree,Urine POSITIVE (NEGATIVE); Phencyclidine Screen, Urine NEGATIVE (NEGATIVE)
[2017-10-11] VITALS (7 sets, daily range): BP systolic 79–108; BP diastolic 47–80
[2017-10-11] MEDS: ALBUMIN 25% 100 ML IV SCH ×3 (00:22→12:18)
[2017-10-11] MEDS: chlordiazePOXIDE HCL 5 MG CAP PO SCH ×4 (00:24→17:22)
[2017-10-11] MEDS: FUROSEMIDE 40 MG/4 ML VIAL IV SCH (06:05)
[2017-10-11] MEDS: SODIUM CHLOR 0.9% PF (SALINE LOCK) 10ML VIAL/SYR IV SCH ×3 (06:05→23:03)
[2017-10-11] MEDS: POTASSIUM CHL 20 Meq TABLET PO SCH ×2 (06:05→17:22)
[2017-10-11 06:58] LABS: Basophils # (auto) 0 uL; Eosinophils # (auto) 0.1 uL; Monocytes # (auto) 0.5 uL; Neutrophils # (auto) 3.5 uL; Nucleated Red Blood Cells % 1.3 %; Red Blood Cells 4.26 10^6/uL (4.5-5.90)
[2017-10-11 07:05] LABS: Basophils % (auto) 0.8 % (0.0-2.0); Eosinophils % (auto) 2.2 % (0.0-7.0); Hematocrit 30.1 % (41.0-53.0); Hemoglobin 9.3 g/dL (13.5-17.5); Lymphocytes % (auto) 19.1 % (10.0-50.0); Mean Corpuscular Hemoglobin 21.9 pg (28.0-32.0); Mean Corpuscular Hgb Conc. 30.9 g/dL (32.0-36.0); Mean Corpuscular Volume 70.8 fL (80.0-100.0); Monocytes % (auto) 10.1 % (0.0-12.0); Neutrophils % (auto) 67.8 % (37.0-80.0); Platelet Count (auto) 122 10^3/uL (140-450); White Blood Cell 5.1 10^3/uL (4.4-10.8)
[2017-10-11 07:13] LABS: BUN/Creatinine Ratio 18.9; Calcium 7.6 mg/dL (8.5-10.1); Potassium 3.4 mmol/L (3.5-5.1)
[2017-10-11] MEDS: ACCU-CHEK COMFORT CURVE STRIP VI SCH ×4 (07:25→22:00)
[2017-10-11] MEDS ORDERED: POTASSIUM EFFERVESENT TAB 25 MEQ PO ONE (07:30)
[2017-10-11] MEDS: glipiZIDE 5 MG TAB PO SCH ×2 (07:51→17:21)
[2017-10-11] MEDS: InsuLIN REG 1unit/0.01ml Soln (100units/ml) SC SCH ×4 (07:52→23:08)
[2017-10-11] MEDS: CLOPIDOGREL BISULFATE 75 MG TAB PO SCH (09:29)
[2017-10-11] MEDS: PANTOPRAZOLE 40 MG TAB PO SCH (09:30)
[2017-10-11] MEDS: APIXABAN 5 MG TAB PO SCH ×2 (09:30→23:03)
[2017-10-11] MEDS: risperiDONE 1 MG TAB PO SCH ×2 (09:30→23:06)
[2017-10-11] MEDS: ASPirin 81 mg TAB PO SCH (09:30)
[2017-10-11] MEDS: SULFAMETHOX W/TRIMETH(800/160MG) DS TAB PO SCH ×2 (09:30→23:03)
[2017-10-11] MEDS: MAGNESIUM OXIDE 400 MG TAB PO SCH (09:31)
[2017-10-11] MEDS: CARVEDILOL 3.125 MG TAB PO SCH ×2 (09:31→22:00)
[2017-10-11] MEDS: ENALAPRIL MALEATE 10 MG TAB PO SCH (09:32)
[2017-10-11] MEDS: THIAMINE 100mg/ml INJ (200mg/2ml VIAL) IV SCH (09:33)
[2017-10-11] MEDS: FOLIC ACID 1 MG TAB PO SCH (09:33)
[2017-10-11] MEDS: NITROGLYCERIN 0.2MG/HR TOPICAL PATCH TD SCH (09:34)
[2017-10-11] MEDS: KETOROLAC TROMETH 30 MG/ML 1ML VIAL IV PRN ×2 (12:42→18:40)
[2017-10-11] MEDS: ATORVASTATIN 20 MG TAB PO SCH (23:06)
[2017-10-11] MEDS: INSULIN NPH Isophane (HUMAN) 1unit/0.01ml Susp(100units/ml) SC SCH (23:07)
[2017-10-12] MEDS: chlordiazePOXIDE HCL 5 MG CAP PO SCH ×4 (00:01→17:08)
[2017-10-12] MEDS: ACETAMINOPHEN 500 MG TAB PO PRN ×2 (02:36→15:23)
[2017-10-12] MEDS ORDERED: SODIUM CHLORIDE 0.9% 500 ML IV ONE (02:45)
[2017-10-12 05:00] VITALS: BP 76/46
[2017-10-12] MEDS: SODIUM CHLOR 0.9% PF (SALINE LOCK) 10ML VIAL/SYR IV SCH ×3 (06:07→21:23)
[2017-10-12] MEDS: POTASSIUM CHL 20 Meq TABLET PO SCH (06:07)
[2017-10-12] MEDS: ACCU-CHEK COMFORT CURVE STRIP VI SCH ×4 (06:25→21:25)
[2017-10-12] MEDS: InsuLIN REG 1unit/0.01ml Soln (100units/ml) SC SCH ×4 (06:26→22:00)
[2017-10-12] MEDS: glipiZIDE 5 MG TAB PO SCH ×2 (06:27→17:08)
[2017-10-12 07:08] LABS: Basophils # (auto) 0 uL; Eosinophils # (auto) 0.2 uL; Hemoglobin 8.4 g/dL (13.5-17.5); Monocytes # (auto) 0.7 uL; Platelet Count (auto) 103 10^3/uL (140-450); White Blood Cell 5.7 10^3/uL (4.4-10.8)
[2017-10-12 07:12] LABS: Basophils % (auto) 0.5 % (0.0-2.0); Hematocrit 26.9 % (41.0-53.0); Lymphocytes # (auto) 0.8 uL; Lymphocytes % (auto) 14.5 % (10.0-50.0); Mean Corpuscular Hgb Conc. 31.3 g/dL (32.0-36.0); Mean Corpuscular Volume 70.3 fL (80.0-100.0); Monocytes % (auto) 12.6 % (0.0-12.0); Neutrophils % (auto) 69.4 % (37.0-80.0); Nucleated Red Blood Cells % 1.1 %; Red Blood Cells 3.83 10^6/uL (4.5-5.90)
[2017-10-12 07:24] LABS: BUN/Creatinine Ratio 13.7; Calcium 7.4 mg/dL (8.5-10.1); Potassium 4.1 mmol/L (3.5-5.1)
[2017-10-12 07:38] LABS: Red Cell Distribution Width 22.7 % (11.8-14.3)
[2017-10-12 08:00] VITALS: BP 97/69
[2017-10-12] MEDS ORDERED: SODIUM CHLORIDE 0.9% 1,000 ML IV SCH (08:00)
[2017-10-12] MEDS: THIAMINE 100mg/ml INJ (200mg/2ml VIAL) IV SCH (09:39)
[2017-10-12] MEDS: FOLIC ACID 1 MG TAB PO SCH (09:40)
[2017-10-12] MEDS: MAGNESIUM OXIDE 400 MG TAB PO SCH (09:40)
[2017-10-12] MEDS: CLOPIDOGREL BISULFATE 75 MG TAB PO SCH (09:40)
[2017-10-12] MEDS: PANTOPRAZOLE 40 MG TAB PO SCH (09:40)
[2017-10-12] MEDS: ASPirin 81 mg TAB PO SCH (09:40)
[2017-10-12] MEDS: risperiDONE 1 MG TAB PO SCH ×2 (09:40→21:24)
[2017-10-12] MEDS: APIXABAN 5 MG TAB PO SCH ×2 (09:40→21:24)
[2017-10-12] MEDS: NITROGLYCERIN 0.2MG/HR TOPICAL PATCH TD SCH (09:41)
[2017-10-12] MEDS: CARVEDILOL 3.125 MG TAB PO SCH ×2 (09:41→21:23)
[2017-10-12] MEDS ORDERED: ALBUMIN 25% 50 ML IV SCH (12:00)
[2017-10-12 14:46] LABS: Protein, Urine 90.4 mg/dL (0.0-11.9)
[2017-10-12] MEDS: TEMAZEPAM 15 MG CAP PO PRN (21:24)
[2017-10-12] MEDS: ATORVASTATIN 20 MG TAB PO SCH (21:24)
[2017-10-12 21:55] VITALS: BP 112/68
[2017-10-12] MEDS: INSULIN NPH Isophane (HUMAN) 1unit/0.01ml Susp(100units/ml) SC SCH (22:00)
[2017-10-12] MEDS: MORPHINE SULF INJ 2 MG/ML SYRINGE 1ML IV PRN (22:36)
[2017-10-13 05:26] VITALS: BP 102/68
[2017-10-13] MEDS: SODIUM CHLOR 0.9% PF (SALINE LOCK) 10ML VIAL/SYR IV SCH ×3 (05:45→21:33)
[2017-10-13] MEDS: glipiZIDE 5 MG TAB PO SCH ×2 (05:46→16:58)
[2017-10-13] MEDS: ACCU-CHEK COMFORT CURVE STRIP VI SCH ×4 (05:46→21:34)
[2017-10-13] MEDS: InsuLIN REG 1unit/0.01ml Soln (100units/ml) SC SCH ×4 (05:46→21:34)
[2017-10-13] MEDS: chlordiazePOXIDE HCL 5 MG CAP PO SCH ×5 (05:46→23:36)
[2017-10-13 06:34] LABS: Basophils # (auto) 0 uL; Basophils % (auto) 0.5 % (0.0-2.0); Eosinophils # (auto) 0.3 uL; Hematocrit 29.9 % (41.0-53.0); Hemoglobin 9.4 g/dL (13.5-17.5); Mean Corpuscular Volume 70.3 fL (80.0-100.0); Red Blood Cells 4.25 10^6/uL (4.5-5.90)
[2017-10-13 06:36] LABS: Eosinophils % (auto) 4.3 % (0.0-7.0); Lymphocytes # (auto) 1.2 uL; Lymphocytes % (auto) 17.4 % (10.0-50.0); Mean Corpuscular Hgb Conc. 31.3 g/dL (32.0-36.0); Monocytes # (auto) 0.5 uL; Monocytes % (auto) 6.8 % (0.0-12.0); Neutrophils # (auto) 4.9 uL; Nucleated Red Blood Cells % 0.5 %; Platelet Count (auto) 106 10^3/uL (140-450); White Blood Cell 6.8 10^3/uL (4.4-10.8)
[2017-10-13 06:51] LABS: Red Cell Distribution Width 23.2 % (11.8-14.3)
[2017-10-13 07:04] LABS: Albumin 3.7 g/dL (3.4-5.0); BUN/Creatinine Ratio 17.1; Bilirubin, Total 1.5 mg/dL (0.2-1.0); Calcium 7.7 mg/dL (8.5-10.1); Phosphorus 4.4 mg/dL (2.5-4.90); Total Protein 6.9 g/dL (6.4-8.2)
[2017-10-13 07:55] VITALS: BP 100/68
[2017-10-13] MEDS: CLOPIDOGREL BISULFATE 75 MG TAB PO SCH (09:19)
[2017-10-13] MEDS: MAGNESIUM OXIDE 400 MG TAB PO SCH (09:19)
[2017-10-13] MEDS: ASPirin 81 mg TAB PO SCH (09:19)
[2017-10-13] MEDS: THIAMINE 100mg/ml INJ (200mg/2ml VIAL) IV SCH (09:19)
[2017-10-13] MEDS: CARVEDILOL 3.125 MG TAB PO SCH ×2 (09:20→21:33)
[2017-10-13] MEDS: risperiDONE 1 MG TAB PO SCH ×2 (09:20→21:44)
[2017-10-13] MEDS: APIXABAN 5 MG TAB PO SCH ×2 (09:21→21:33)
[2017-10-13] MEDS: FOLIC ACID 1 MG TAB PO SCH (09:21)
[2017-10-13] MEDS: NITROGLYCERIN 0.2MG/HR TOPICAL PATCH TD SCH (09:28)
[2017-10-13] MEDS ORDERED: FUROSEMIDE 20 MG/2 ML VIAL IV ONE (09:45)
[2017-10-13] MEDS: PANTOPRAZOLE 40 MG TAB PO SCH (10:00)
[2017-10-13] MEDS ORDERED: FUROSEMIDE 40 MG/4 ML VIAL ONE (11:41)
[2017-10-13 12:44] VITALS: BP 119/78
[2017-10-13 16:53] VITALS: BP 112/82
[2017-10-13] MEDS: INSULIN NPH Isophane (HUMAN) 1unit/0.01ml Susp(100units/ml) SC SCH (21:34)
[2017-10-13] MEDS: ATORVASTATIN 20 MG TAB PO SCH (21:34)
[2017-10-13 22:00] VITALS: BP 117/78
[2017-10-13] MEDS: TEMAZEPAM 15 MG CAP PO PRN (22:47)
[2017-10-14 04:57] VITALS: BP 112/78
[2017-10-14] MEDS: chlordiazePOXIDE HCL 5 MG CAP PO SCH (06:10)
[2017-10-14] MEDS: SODIUM CHLOR 0.9% PF (SALINE LOCK) 10ML VIAL/SYR IV SCH (06:23)
[2017-10-14] MEDS: InsuLIN REG 1unit/0.01ml Soln (100units/ml) SC SCH ×2 (06:31→11:30)
[2017-10-14] MEDS: glipiZIDE 5 MG TAB PO SCH (06:31)
[2017-10-14] MEDS: ACCU-CHEK COMFORT CURVE STRIP VI SCH ×2 (06:31→11:30)
[2017-10-14 06:56] LABS: Basophils # (auto) 0 uL; Eosinophils # (auto) 0.2 uL; White Blood Cell 5.5 10^3/uL (4.4-10.8)
[2017-10-14 07:01] LABS: Basophils % (auto) 0.5 % (0.0-2.0); Eosinophils % (auto) 3.6 % (0.0-7.0); Hematocrit 27.8 % (41.0-53.0); Hemoglobin 8.7 g/dL (13.5-17.5); Lymphocytes % (auto) 17.8 % (10.0-50.0); Mean Corpuscular Hemoglobin 21.9 pg (28.0-32.0); Mean Corpuscular Hgb Conc. 31.4 g/dL (32.0-36.0); Mean Corpuscular Volume 69.8 fL (80.0-100.0); Monocytes # (auto) 0.5 uL; Neutrophils # (auto) 3.7 uL; Neutrophils % (auto) 68.1 % (37.0-80.0); Nucleated Red Blood Cells % 0.3 %; Platelet Count (auto) 102 10^3/uL (140-450); Red Blood Cells 3.98 10^6/uL (4.5-5.90)
[2017-10-14 07:06] LABS: Red Cell Distribution Width 23.5 % (11.8-14.3)
[2017-10-14 07:09] LABS: BUN/Creatinine Ratio 19.1; Potassium 4.1 mmol/L (3.5-5.1)
[2017-10-14 07:22] LABS: % Iron Saturation 5.3 % (20-55)
[2017-10-14 08:20] LABS: Urine Bacteria FEW /hpf (None Seen); Urine Blood 2+ /uL (Negative); Urine Hyaline Cast FEW /lpf (0 - 2); Urine Mucus FEW (None Seen); Urine Specific Gravity 1.014 (1.001-1.035); Urine WBC 31 /hpf (0 - 3)
[2017-10-14 09:00] VITALS: BP 111/71
[2017-10-14] MEDS: CARVEDILOL 3.125 MG TAB PO SCH (09:29)
[2017-10-14] MEDS: APIXABAN 5 MG TAB PO SCH (09:29)
[2017-10-14] MEDS: ASPirin 81 mg TAB PO SCH (09:29)
[2017-10-14] MEDS: CLOPIDOGREL BISULFATE 75 MG TAB PO SCH (09:29)
[2017-10-14] MEDS: FOLIC ACID 1 MG TAB PO SCH (09:29)
[2017-10-14] MEDS: MAGNESIUM OXIDE 400 MG TAB PO SCH (09:30)
[2017-10-14] MEDS: risperiDONE 1 MG TAB PO SCH (09:30)
[2017-10-14] MEDS: THIAMINE 100mg/ml INJ (200mg/2ml VIAL) IV SCH (09:30)
[2017-10-14] MEDS: PANTOPRAZOLE 40 MG TAB PO SCH (09:30)
[2017-10-14] MEDS: NITROGLYCERIN 0.2MG/HR TOPICAL PATCH TD SCH (09:36)
[2017-10-14 10:37] VITALS: BP 111/71
== END 2017-10-14 13:00 | disposition home health service (06) | DRG 194 ==
LOC: EDBD 17:12 → ER 17:20 → TELE 17:21 → TELE-WESTW 10-10 09:31
PROVIDERS: ADMIT Internal Medicine; ATTEND Internal Medicine
DX: I11.0 Hypertensive heart disease with heart failure (principal); N17.0 Acute kidney failure with tubular necrosis; D69.6 Thrombocytopenia, unspecified; E44.1 Mild protein-calorie malnutrition; E87.1 Hypo-osmolality and hyponatremia; L03.115 Cellulitis of right lower limb; R18.8 Other ascites; I50.23 Acute on chronic systolic (congestive) heart failure; E87.6 Hypokalemia; E78.5 Hyperlipidemia, unspecified; D63.8 Anemia in other chronic diseases classified elsewhere; E11.9 Type 2 diabetes mellitus without complications; L89.90 Pressure ulcer of unspecified site, unspecified stage; F10.10 Alcohol abuse, uncomplicated; I25.10 Atherosclerotic heart disease of native coronary artery without angina pectoris; H54.61 Unqualified visual loss, right eye, normal vision left eye; Z86.718 Personal history of other venous thrombosis and embolism; Z86.711 Personal history of pulmonary embolism; F15.90 Other stimulant use, unspecified, uncomplicated; G30.9 Alzheimer's disease, unspecified; F02.80 Dementia in other diseases classified elsewhere, unspecified severity, without behavioral disturbance, psychotic disturbance, mood disturbance, and anxiety; I25.2 Old myocardial infarction; Z74.01 Bed confinement status; Z79.01 Long term (current) use of anticoagulants; Z95.0 Presence of cardiac pacemaker; Z95.5 Presence of coronary angioplasty implant and graft; Z88.1 Allergy status to other antibiotic agents; Z88.8 Allergy status to other drugs, medicaments and biological substances; Z82.3 Family history of stroke; Z79.4 Long term (current) use of insulin; Z68.30 Body mass index [BMI] 30.0-30.9, adult
CPT/HCPCS: 36415; 70450; 71045; 72125; 76775; 80048; 80053; 80307; 81001; 82550; 82570; 82962; 83036; 83540; 83550; 83735; 83880; 84100; 84156; 84300; 84443; 84484; 85025; 85610; 85652; 85730; 86141; 87081; 93005; 93970; 96374; 96375; 96376; J1815; J1885; J1956; J2405; J3480; J3490; P9047

== ENCOUNTER 2017-10-17 14:58 | Inpatient (IN) | payer OTHER ==
[~2017-10-17] VITALS: Ht 172.7 cm; Wt 91.9 kg
[2017-10-17 15:57] LABS: Basophils # (auto) 0 uL; Hemoglobin 8.9 g/dL (13.5-17.5); Lymphocytes # (auto) 1.3 uL; Monocytes # (auto) 0.6 uL; Neutrophils # (auto) 2.5 uL; White Blood Cell 4.6 10^3/uL (4.4-10.8)
[2017-10-17 15:58] LABS: Basophils % (auto) 0.6 % (0.0-2.0); Eosinophils # (auto) 0.2 uL; Eosinophils % (auto) 3.4 % (0.0-7.0); Hematocrit 28.4 % (41.0-53.0); Lymphocytes % (auto) 28.7 % (10.0-50.0); Mean Corpuscular Hemoglobin 21.8 pg (28.0-32.0); Mean Corpuscular Hgb Conc. 31.2 g/dL (32.0-36.0); Mean Corpuscular Volume 69.9 fL (80.0-100.0); Monocytes % (auto) 12.5 % (0.0-12.0); Neutrophils % (auto) 54.8 % (37.0-80.0); Nucleated Red Blood Cells % 0.7 %; Platelet Count (auto) 152 10^3/uL (140-450); Red Blood Cells 4.07 10^6/uL (4.5-5.90)
[2017-10-17 16:05] LABS: Red Cell Distribution Width 22.7 % (11.8-14.3)
[2017-10-17 16:26] LABS: Albumin 3.8 g/dL (3.4-5.0); Bilirubin, Total 1.4 mg/dL (0.2-1.0); Calcium 8.2 mg/dL (8.5-10.1); Magnesium 2.2 mg/dL (1.6-2.6); Potassium 4.1 mmol/L (3.5-5.1); Total Protein 7.7 g/dL (6.4-8.2)
[2017-10-17 16:29] LABS: INR 1.26 (0.9-1.15); Partial Thromboplastin Time 29.3 sec (23.78-33.04); Prothrombin Time 13.3 sec (9.27-12.13)
[2017-10-17 17:22] LABS: Urine Bacteria NONE SEEN /hpf (None Seen); Urine Blood Negative /uL (Negative); Urine Hyaline Cast FEW /lpf (0 - 2); Urine WBC 2 /hpf (0 - 3)
[2017-10-17] MEDS ORDERED: ACETAMINOPHEN 500 MG TAB PO PRN (17:45)
[2017-10-17] MEDS ORDERED: NITROGLYCERIN 0.4 MG SL TAB SL PRN (17:45)
[2017-10-17] MEDS ORDERED: DEXTROSE (50%) 50ML SYRG IV PRN (17:45)
[2017-10-17] MEDS ORDERED: PROMETHAZINE HCL 25 MG/ML 1ML IV PRN (17:45)
[2017-10-17] MEDS ORDERED: MORPHINE SULF INJ 2 MG/ML SYRINGE 1ML IV PRN (17:45)
[2017-10-17] MEDS ORDERED: TEMAZEPAM 15 MG CAP PO PRN (17:45)
[2017-10-17] MEDS: HYDROcodone-ACET 5/325MG TAB PO PRN (18:10)
[2017-10-17 20:00] VITALS: BP 136/93
[2017-10-17] MEDS: InsuLIN REG 1unit/0.01ml Soln (100units/ml) SC SCH (21:00)
[2017-10-17] MEDS: ACCU-CHEK COMFORT CURVE STRIP VI SCH (21:00)
[2017-10-17] MEDS ORDERED: FUROSEMIDE 20 MG/2 ML VIAL IV ONE (21:45)
[2017-10-17 22:00] VITALS: BP 143/94
[2017-10-17] MEDS: APIXABAN 5 MG TAB PO SCH (22:29)
[2017-10-17] MEDS: CARVEDILOL 12.5 MG TAB PO SCH (22:29)
[2017-10-17] MEDS: ATORVASTATIN 20 MG TAB PO SCH (22:30)
[2017-10-17] MEDS: risperiDONE 1 MG TAB PO SCH (22:30)
[2017-10-17] MEDS: ENALAPRIL MALEATE 2.5 MG TAB PO SCH (22:31)
[2017-10-17] MEDS: INSULIN NPH Isophane (HUMAN) 1unit/0.01ml Susp(100units/ml) SC SCH (22:31)
[2017-10-17] MEDS: MORPHINE SULF INJ 2 MG/ML SYRINGE 1ML IV PRN (22:59)
[2017-10-17 23:20] LABS: Amphetamine Screen, Urine NEGATIVE (NEGATIVE); Barbiturate Scree,Urine NEGATIVE (NEGATIVE); Benzodiazephine Screen, Urine POSITIVE (NEGATIVE); Cannabinoid Screen, Urine NEGATIVE (NEGATIVE); Cocaine Screen, Urine NEGATIVE (NEGATIVE); Opiate Scree,Urine NEGATIVE (NEGATIVE); Phencyclidine Screen, Urine NEGATIVE (NEGATIVE)
[2017-10-18] MEDS: ACCU-CHEK COMFORT CURVE STRIP VI SCH ×6 (00:16→21:31)
[2017-10-18] MEDS: InsuLIN REG 1unit/0.01ml Soln (100units/ml) SC SCH ×6 (04:00→22:35)
[2017-10-18 05:00] VITALS: BP 104/63
[2017-10-18] MEDS: glipiZIDE 5 MG TAB PO SCH ×2 (06:09→18:03)
[2017-10-18 09:00] VITALS: BP 94/66
[2017-10-18] MEDS: APIXABAN 5 MG TAB PO SCH ×2 (09:06→21:31)
[2017-10-18] MEDS: FOLIC ACID 1 MG TAB PO SCH (09:06)
[2017-10-18] MEDS: ASPirin 81 mg TAB PO SCH (09:07)
[2017-10-18] MEDS: MAGNESIUM OXIDE 400 MG TAB PO SCH (09:07)
[2017-10-18] MEDS: POTASSIUM CHL 10 Meq TABLET PO SCH (09:07)
[2017-10-18] MEDS: risperiDONE 1 MG TAB PO SCH ×2 (09:07→22:37)
[2017-10-18] MEDS: PANTOPRAZOLE 40 MG TAB PO SCH (09:07)
[2017-10-18] MEDS: MORPHINE SULF INJ 2 MG/ML SYRINGE 1ML IV PRN ×3 (09:07→21:22)
[2017-10-18] MEDS: CARVEDILOL 12.5 MG TAB PO SCH ×2 (09:20→22:36)
[2017-10-18] MEDS: ENALAPRIL MALEATE 2.5 MG TAB PO SCH ×2 (09:20→22:37)
[2017-10-18] MEDS ORDERED: FUROSEMIDE 40 MG TAB PO SCH (10:00)
[2017-10-18] MEDS: CLOPIDOGREL BISULFATE 75 MG TAB PO SCH (10:00)
[2017-10-18] MEDS ORDERED: DEXTROSE (50%) 50ML SYRG IV PRN (10:45)
[2017-10-18] MEDS: HYDROcodone-ACET 5/325MG TAB PO PRN (12:20)
[2017-10-18 13:00] VITALS: BP 137/71
[2017-10-18] MEDS ORDERED: MILRINONE 4 MG in SODIUM CHL 0.9% 50 ML IV ONE (13:30)
[2017-10-18] MEDS: MILRINONE 20MG/100ML 100 ML IV SCH ×2 (15:58→23:56)
[2017-10-18 17:02] VITALS: BP 117/69
[2017-10-18] MEDS: FUROSEMIDE 20 MG/2 ML VIAL IV SCH (17:53)
[2017-10-18] MEDS: ATORVASTATIN 20 MG TAB PO SCH (21:32)
[2017-10-18 22:00] VITALS: BP 121/81
[2017-10-18] MEDS: INSULIN NPH Isophane (HUMAN) 1unit/0.01ml Susp(100units/ml) SC SCH (22:35)
[2017-10-19] MEDS: MORPHINE SULF INJ 2 MG/ML SYRINGE 1ML IV PRN (04:42)
[2017-10-19] MEDS: FUROSEMIDE 20 MG/2 ML VIAL IV SCH ×2 (06:00→18:02)
[2017-10-19 06:14] LABS: Basophils # (auto) 0 uL; Eosinophils # (auto) 0.3 uL; Monocytes # (auto) 0.6 uL; Neutrophils # (auto) 3.4 uL; White Blood Cell 5.3 10^3/uL (4.4-10.8)
[2017-10-19 06:20] LABS: Basophils % (auto) 0.5 % (0.0-2.0); Eosinophils % (auto) 6.1 % (0.0-7.0); Hematocrit 26.1 % (41.0-53.0); Hemoglobin 8.4 g/dL (13.5-17.5); Lymphocytes # (auto) 0.9 uL; Lymphocytes % (auto) 17.1 % (10.0-50.0); Mean Corpuscular Hgb Conc. 32.1 g/dL (32.0-36.0); Mean Corpuscular Volume 68.7 fL (80.0-100.0); Monocytes % (auto) 11.8 % (0.0-12.0); Neutrophils % (auto) 64.5 % (37.0-80.0); Nucleated Red Blood Cells % 0.5 %; Platelet Count (auto) 159 10^3/uL (140-450)
[2017-10-19 06:29] LABS: Red Cell Distribution Width 22.3 % (11.8-14.3)
[2017-10-19 06:30] LABS: Albumin 3.1 g/dL (3.4-5.0); BUN/Creatinine Ratio 16.7; Calcium 7.9 mg/dL (8.5-10.1); Potassium 3.4 mmol/L (3.5-5.1)
[2017-10-19] MEDS: ACCU-CHEK COMFORT CURVE STRIP VI SCH ×4 (06:32→21:43)
[2017-10-19 06:33] LABS: Bilirubin, Total 2.3 mg/dL (0.2-1.0); Total Protein 6.3 g/dL (6.4-8.2)
[2017-10-19] MEDS: glipiZIDE 5 MG TAB PO SCH ×2 (06:33→18:03)
[2017-10-19] MEDS: InsuLIN REG 1unit/0.01ml Soln (100units/ml) SC SCH ×4 (06:33→21:43)
[2017-10-19] MEDS ORDERED: POTASSIUM EFFERVESENT TAB 25 MEQ PO ONE (09:15)
[2017-10-19 09:33] VITALS: BP 122/89
[2017-10-19] MEDS: ENALAPRIL MALEATE 2.5 MG TAB PO SCH ×2 (10:05→21:43)
[2017-10-19] MEDS: FOLIC ACID 1 MG TAB PO SCH (10:05)
[2017-10-19] MEDS: APIXABAN 5 MG TAB PO SCH ×2 (10:05→21:42)
[2017-10-19] MEDS: CLOPIDOGREL BISULFATE 75 MG TAB PO SCH (10:06)
[2017-10-19] MEDS: MAGNESIUM OXIDE 400 MG TAB PO SCH (10:06)
[2017-10-19] MEDS: ASPirin 81 mg TAB PO SCH (10:06)
[2017-10-19] MEDS: POTASSIUM CHL 10 Meq TABLET PO SCH (10:06)
[2017-10-19] MEDS: risperiDONE 1 MG TAB PO SCH ×2 (10:06→21:43)
[2017-10-19] MEDS: PANTOPRAZOLE 40 MG TAB PO SCH (10:06)
[2017-10-19] MEDS: CARVEDILOL 12.5 MG TAB PO SCH ×2 (10:07→21:42)
[2017-10-19] MEDS: ALBUMIN 25% 50 ML IV SCH ×3 (11:12→21:06)
[2017-10-19] MEDS: MILRINONE 20MG/100ML 100 ML IV SCH ×2 (11:12→17:21)
[2017-10-19 12:30] VITALS: BP_SYST 113; BP_SYST 116; BP_DIAS 68; BP_DIAS 71
[2017-10-19 16:56] VITALS: BP 116/71
[2017-10-19] MEDS: HYDROcodone-ACET 5/325MG TAB PO PRN (20:18)
[2017-10-19] MEDS: INSULIN NPH Isophane (HUMAN) 1unit/0.01ml Susp(100units/ml) SC SCH (21:43)
[2017-10-19] MEDS: ATORVASTATIN 20 MG TAB PO SCH (21:43)
[2017-10-19 22:00] VITALS: BP 104/61
[2017-10-19] MEDS: ceFAZolin 1GM/50ML 50 ML IV SCH (22:14)
[2017-10-20] MEDS: MILRINONE 20MG/100ML 100 ML IV SCH ×2 (03:14→11:55)
[2017-10-20] MEDS: ALBUMIN 25% 50 ML IV SCH (03:15)
[2017-10-20 05:00] VITALS: BP 109/68
[2017-10-20] MEDS: ceFAZolin 1GM/50ML 50 ML IV SCH (05:38)
[2017-10-20] MEDS: FUROSEMIDE 20 MG/2 ML VIAL IV SCH (05:38)
[2017-10-20] MEDS: InsuLIN REG 1unit/0.01ml Soln (100units/ml) SC SCH ×2 (06:23→11:30)
[2017-10-20] MEDS: glipiZIDE 5 MG TAB PO SCH (06:23)
[2017-10-20] MEDS: ACCU-CHEK COMFORT CURVE STRIP VI SCH ×2 (06:24→11:30)
[2017-10-20 06:53] LABS: Basophils # (auto) 0 uL; Eosinophils # (auto) 0.2 uL; Hemoglobin 8.5 g/dL (13.5-17.5); Lymphocytes # (auto) 1.4 uL; Monocytes # (auto) 0.5 uL; Neutrophils # (auto) 2.5 uL; White Blood Cell 4.7 10^3/uL (4.4-10.8)
[2017-10-20 06:57] LABS: Basophils % (auto) 0.9 % (0.0-2.0); Eosinophils % (auto) 4.9 % (0.0-7.0); Hematocrit 27.1 % (41.0-53.0); Lymphocytes % (auto) 29.7 % (10.0-50.0); Mean Corpuscular Hemoglobin 21.7 pg (28.0-32.0); Mean Corpuscular Hgb Conc. 31.4 g/dL (32.0-36.0); Mean Corpuscular Volume 69.2 fL (80.0-100.0); Monocytes % (auto) 11.1 % (0.0-12.0); Neutrophils % (auto) 53.4 % (37.0-80.0); Nucleated Red Blood Cells % 0.4 %; Platelet Count (auto) 134 10^3/uL (140-450); Red Blood Cells 3.91 10^6/uL (4.5-5.90)
[2017-10-20] MEDS: HYDROcodone-ACET 5/325MG TAB PO PRN (06:57)
[2017-10-20 07:00] LABS: Red Cell Distribution Width 22.7 % (11.8-14.3)
[2017-10-20 07:12] LABS: BUN/Creatinine Ratio 16.4; Calcium 8.1 mg/dL (8.5-10.1); Potassium 3.9 mmol/L (3.5-5.1)
[2017-10-20 08:30] VITALS: BP 106/70
[2017-10-20] MEDS: APIXABAN 5 MG TAB PO SCH (08:58)
[2017-10-20] MEDS: FOLIC ACID 1 MG TAB PO SCH (08:58)
[2017-10-20] MEDS: ASPirin 81 mg TAB PO SCH (08:59)
[2017-10-20] MEDS: MAGNESIUM OXIDE 400 MG TAB PO SCH (08:59)
[2017-10-20] MEDS: PANTOPRAZOLE 40 MG TAB PO SCH (08:59)
[2017-10-20] MEDS: risperiDONE 1 MG TAB PO SCH (09:00)
[2017-10-20] MEDS: POTASSIUM CHL 10 Meq TABLET PO SCH (09:00)
[2017-10-20] MEDS: CLOPIDOGREL BISULFATE 75 MG TAB PO SCH (09:00)
[2017-10-20] MEDS: ENALAPRIL MALEATE 2.5 MG TAB PO SCH (09:01)
[2017-10-20] MEDS: CARVEDILOL 12.5 MG TAB PO SCH (09:01)
[2017-10-20 10:09] VITALS: BP 106/70
== END 2017-10-20 12:30 | disposition home or self-care (01) | DRG 194 ==
LOC: ER 14:58 → TELE 14:59 → TELE-WESTW 19:50
PROVIDERS: ADMIT Internal Medicine; ATTEND Internal Medicine
DX: I11.0 Hypertensive heart disease with heart failure (principal); D69.6 Thrombocytopenia, unspecified; I42.9 Cardiomyopathy, unspecified; E44.1 Mild protein-calorie malnutrition; D50.8 Other iron deficiency anemias; E11.9 Type 2 diabetes mellitus without complications; F10.10 Alcohol abuse, uncomplicated; I50.23 Acute on chronic systolic (congestive) heart failure; E78.5 Hyperlipidemia, unspecified; H54.61 Unqualified visual loss, right eye, normal vision left eye; D63.8 Anemia in other chronic diseases classified elsewhere; F31.9 Bipolar disorder, unspecified; I25.10 Atherosclerotic heart disease of native coronary artery without angina pectoris; Z82.49 Family history of ischemic heart disease and other diseases of the circulatory system; Z68.30 Body mass index [BMI] 30.0-30.9, adult; I25.2 Old myocardial infarction; Z88.1 Allergy status to other antibiotic agents; Z88.8 Allergy status to other drugs, medicaments and biological substances; Z91.018 Allergy to other foods; Z86.711 Personal history of pulmonary embolism; Z86.718 Personal history of other venous thrombosis and embolism; Z95.5 Presence of coronary angioplasty implant and graft; Z95.810 Presence of automatic (implantable) cardiac defibrillator
CPT/HCPCS: 36415; 71046; 80048; 80053; 80307; 81001; 82550; 82962; 83036; 83735; 83880; 84443; 84484; 85025; 85610; 85652; 85730; 86141; 87081; 93005; J0690; J1815

== ENCOUNTER 2017-10-24 17:58 | Inpatient (IN) | payer OTHER ==
[~2017-10-24] VITALS: Ht 154.1 cm; Wt 112.2 kg
[2017-10-24 18:51] LABS: Basophils # (auto) 0.1 uL; Eosinophils # (auto) 0.1 uL; Lymphocytes # (auto) 1.4 uL; Lymphocytes % (auto) 20.8 % (10.0-50.0); Monocytes # (auto) 0.9 uL
[2017-10-24 18:53] LABS: Basophils % (auto) 1.3 % (0.0-2.0); Eosinophils % (auto) 1.4 % (0.0-7.0); Hemoglobin 9.1 g/dL (13.5-17.5); Mean Corpuscular Hemoglobin 21.8 pg (28.0-32.0); Mean Corpuscular Hgb Conc. 31.2 g/dL (32.0-36.0); Mean Corpuscular Volume 69.8 fL (80.0-100.0); Neutrophils # (auto) 4.3 uL; Neutrophils % (auto) 63.5 % (37.0-80.0); Nucleated Red Blood Cells % 0.9 %; Platelet Count (auto) 157 10^3/uL (140-450); Red Blood Cells 4.16 10^6/uL (4.5-5.90); White Blood Cell 6.7 10^3/uL (4.4-10.8)
[2017-10-24 18:54] LABS: Red Cell Distribution Width 22.8 % (11.8-14.3)
[2017-10-24 19:10] LABS: Albumin 3.9 g/dL (3.4-5.0); BUN/Creatinine Ratio 14.5; Calcium 8.1 mg/dL (8.5-10.1); Magnesium 2.3 mg/dL (1.6-2.6); Total Protein 7.9 g/dL (6.4-8.2)
[2017-10-24] MEDS ORDERED: MORPHINE SULFATE 4 MG/ML SYR/VIAL IV ONE (20:00)
[2017-10-24] MEDS ORDERED: ONDANSETRON HCL 4 MG/2 ML VIAL IV ONE (20:00)
[2017-10-24 20:15] LABS: Urine Bacteria NONE SEEN /hpf (None Seen); Urine Blood Negative /uL (Negative); Urine Specific Gravity 1.018 (1.001-1.035); Urine WBC <1 /hpf (0 - 3)
[2017-10-24 20:35] LABS: Alcohol, Urine < 3.0 mg/dL (0-5); Barbiturate Scree,Urine NEGATIVE (NEGATIVE); Benzodiazephine Screen, Urine POSITIVE (NEGATIVE); Cannabinoid Screen, Urine NEGATIVE (NEGATIVE); Cocaine Screen, Urine NEGATIVE (NEGATIVE); Opiate Scree,Urine NEGATIVE (NEGATIVE); Phencyclidine Screen, Urine NEGATIVE (NEGATIVE)
[2017-10-24 20:59] LABS: Amphetamine Screen, Urine NEGATIVE (NEGATIVE)
[2017-10-24] MEDS ORDERED: FUROSEMIDE 20 MG/2 ML VIAL IV ONE (23:00)
[2017-10-25] MEDS ORDERED: FUROSEMIDE 40 MG/4 ML VIAL IV ONE (00:15)
[2017-10-25] MEDS ORDERED: ACETAMINOPHEN 500 MG TAB PO PRN (00:15)
[2017-10-25] MEDS ORDERED: DEXTROSE (50%) 50ML SYRG IV PRN (00:45)
[2017-10-25] MEDS ORDERED: TEMAZEPAM 15 MG CAP PO PRN (00:45)
[2017-10-25 00:50] VITALS: BP 119/74
[2017-10-25] MEDS: HYDROcodone-ACET 5/325MG TAB PO PRN ×3 (01:27→21:55)
[2017-10-25] MEDS ORDERED: PANT40TA2 PO (04:32)
[2017-10-25] MEDS ORDERED: DOXY100C2 PO (04:33)
[2017-10-25 05:00] VITALS: BP 121/79
[2017-10-25] MEDS: ACCU-CHEK COMFORT CURVE STRIP VI SCH ×4 (06:59→21:53)
[2017-10-25] MEDS: InsuLIN REG 1unit/0.01ml Soln (100units/ml) SC SCH ×4 (06:59→21:53)
[2017-10-25] MEDS: FUROSEMIDE 40 MG/4 ML VIAL IV SCH ×2 (07:06→18:31)
[2017-10-25 07:13] LABS: Basophils # (auto) 0.1 uL; Basophils % (auto) 1.2 % (0.0-2.0); Eosinophils # (auto) 0.2 uL; Mean Corpuscular Hemoglobin 21.4 pg (28.0-32.0); Monocytes % (auto) 15.2 % (0.0-12.0)
[2017-10-25 07:14] LABS: Eosinophils % (auto) 2.8 % (0.0-7.0); Hematocrit 27.5 % (41.0-53.0); Hemoglobin 8.5 g/dL (13.5-17.5); Lymphocytes # (auto) 1.4 uL; Lymphocytes % (auto) 26.3 % (10.0-50.0); Mean Corpuscular Hgb Conc. 31.1 g/dL (32.0-36.0); Monocytes # (auto) 0.8 uL; Neutrophils % (auto) 54.5 % (37.0-80.0); Nucleated Red Blood Cells % 0.8 %; Platelet Count (auto) 131 10^3/uL (140-450); Red Blood Cells 3.99 10^6/uL (4.5-5.90); White Blood Cell 5.5 10^3/uL (4.4-10.8)
[2017-10-25 07:20] LABS: Red Cell Distribution Width 22.8 % (11.8-14.3)
[2017-10-25 08:07] LABS: BUN/Creatinine Ratio 18.3; Calcium 8.1 mg/dL (8.5-10.1); Potassium 3.6 mmol/L (3.5-5.1)
[2017-10-25 09:00] VITALS: BP 113/71
[2017-10-25] MEDS: CARVEDILOL 3.125 MG TAB PO SCH ×2 (09:17→18:00)
[2017-10-25] MEDS: APIXABAN 5 MG TAB PO SCH ×2 (09:18→21:54)
[2017-10-25] MEDS: ASPirin-EC 81 mg tab PO SCH (09:18)
[2017-10-25] MEDS: POTASSIUM CHL 10 Meq TABLET PO SCH (09:19)
[2017-10-25] MEDS: risperiDONE 1 MG TAB PO SCH ×2 (09:19→21:54)
[2017-10-25] MEDS: ENALAPRIL MALEATE 2.5 MG TAB PO SCH ×2 (09:21→21:53)
[2017-10-25] MEDS: ALBUMIN 25% 50 ML IV SCH ×3 (11:58→22:13)
[2017-10-25 13:00] VITALS: BP 101/68
[2017-10-25 17:00] VITALS: BP 87/57
[2017-10-25 22:00] VITALS: BP 110/75
[2017-10-25] MEDS: ATORVASTATIN 20 MG TAB PO SCH (22:05)
[2017-10-26] MEDS: HYDROcodone-ACET 5/325MG TAB PO PRN (02:06)
[2017-10-26] MEDS: ALBUMIN 25% 50 ML IV SCH (04:56)
[2017-10-26 05:03] VITALS: BP 96/65
[2017-10-26 05:30] VITALS: BP 108/71
[2017-10-26] MEDS: FUROSEMIDE 40 MG/4 ML VIAL IV SCH ×2 (06:00→17:41)
[2017-10-26] MEDS: InsuLIN REG 1unit/0.01ml Soln (100units/ml) SC SCH ×4 (06:21→22:00)
[2017-10-26] MEDS: ACCU-CHEK COMFORT CURVE STRIP VI SCH ×4 (06:21→23:31)
[2017-10-26 06:25] LABS: Basophils # (auto) 0 uL; Eosinophils # (auto) 0.2 uL; Hemoglobin 8.2 g/dL (13.5-17.5); Lymphocytes # (auto) 1.1 uL; Monocytes # (auto) 0.6 uL; Monocytes % (auto) 13.2 % (0.0-12.0); White Blood Cell 4.4 10^3/uL (4.4-10.8)
[2017-10-26 06:29] LABS: Basophils % (auto) 0.8 % (0.0-2.0); Eosinophils % (auto) 3.9 % (0.0-7.0); Hematocrit 25.8 % (41.0-53.0); Mean Corpuscular Hgb Conc. 31.8 g/dL (32.0-36.0); Mean Corpuscular Volume 69.1 fL (80.0-100.0); Neutrophils # (auto) 2.4 uL; Neutrophils % (auto) 56.1 % (37.0-80.0); Nucleated Red Blood Cells % 0.6 %; Platelet Count (auto) 106 10^3/uL (140-450); Red Blood Cells 3.73 10^6/uL (4.5-5.90)
[2017-10-26 06:51] LABS: BUN/Creatinine Ratio 21.2; Potassium 3.5 mmol/L (3.5-5.1)
[2017-10-26 06:52] LABS: % Iron Saturation 5.1 % (20-55)
[2017-10-26 07:01] LABS: Red Cell Distribution Width 22.2 % (11.8-14.3)
[2017-10-26 09:00] VITALS: BP 110/75
[2017-10-26] MEDS: ONDANSETRON HCL 4 MG/2 ML VIAL IV PRN ×2 (09:31→16:47)
[2017-10-26] MEDS: MORPHINE SULF INJ 2 MG/ML SYRINGE 1ML IV PRN ×3 (09:31→23:48)
[2017-10-26] MEDS: CARVEDILOL 3.125 MG TAB PO SCH ×2 (09:52→17:42)
[2017-10-26] MEDS: POTASSIUM CHL 10 Meq TABLET PO SCH (09:53)
[2017-10-26] MEDS: risperiDONE 1 MG TAB PO SCH ×2 (09:53→23:28)
[2017-10-26] MEDS: ASPirin-EC 81 mg tab PO SCH (09:53)
[2017-10-26] MEDS: APIXABAN 5 MG TAB PO SCH ×2 (09:53→23:28)
[2017-10-26] MEDS: ENALAPRIL MALEATE 2.5 MG TAB PO SCH ×2 (09:54→23:29)
[2017-10-26] MEDS: SODIUM FERR GLUC 62.5MG/5ML 125 MG in SODIUM CHL 0.9% 100 ML IV SCH (12:49)
[2017-10-26 13:00] VITALS: BP 107/75
[2017-10-26 16:00] VITALS: BP 115/77
[2017-10-26 22:00] VITALS: BP 108/72
[2017-10-26] MEDS: ATORVASTATIN 20 MG TAB PO SCH (23:30)
[2017-10-27] MEDS: HYDROcodone-ACET 5/325MG TAB PO PRN ×2 (03:46→19:43)
[2017-10-27 04:54] VITALS: BP 108/70
[2017-10-27 06:19] LABS: Basophils # (auto) 0 uL; Eosinophils # (auto) 0.2 uL; Hematocrit 26.8 % (41.0-53.0); Hemoglobin 8.4 g/dL (13.5-17.5); Mean Corpuscular Hemoglobin 21.9 pg (28.0-32.0); Mean Corpuscular Hgb Conc. 31.2 g/dL (32.0-36.0); Mean Corpuscular Volume 70.1 fL (80.0-100.0); Monocytes # (auto) 0.4 uL; Red Blood Cells 3.82 10^6/uL (4.5-5.90); White Blood Cell 4.3 10^3/uL (4.4-10.8)
[2017-10-27 06:21] LABS: Basophils % (auto) 0.5 % (0.0-2.0); Eosinophils % (auto) 4.7 % (0.0-7.0); Lymphocytes # (auto) 0.9 uL; Lymphocytes % (auto) 21.4 % (10.0-50.0); Monocytes % (auto) 9.1 % (0.0-12.0); Neutrophils # (auto) 2.8 uL; Neutrophils % (auto) 64.3 % (37.0-80.0); Nucleated Red Blood Cells % 1.2 %; Platelet Count (auto) 109 10^3/uL (140-450)
[2017-10-27 06:22] LABS: BUN/Creatinine Ratio 22.4; Potassium 3.3 mmol/L (3.5-5.1)
[2017-10-27] MEDS: FUROSEMIDE 40 MG/4 ML VIAL IV SCH ×2 (06:31→18:00)
[2017-10-27] MEDS: ACCU-CHEK COMFORT CURVE STRIP VI SCH ×4 (06:32→22:28)
[2017-10-27] MEDS: InsuLIN REG 1unit/0.01ml Soln (100units/ml) SC SCH ×4 (06:32→22:27)
[2017-10-27 06:44] LABS: Red Cell Distribution Width 23.8 % (11.8-14.3)
[2017-10-27] MEDS: CARVEDILOL 3.125 MG TAB PO SCH ×2 (08:39→18:00)
[2017-10-27 09:51] VITALS: BP_SYST 107; BP_SYST 134; BP_DIAS 62; BP_DIAS 74
[2017-10-27] MEDS: ENALAPRIL MALEATE 2.5 MG TAB PO SCH ×2 (10:00→22:27)
[2017-10-27] MEDS: POTASSIUM CHL 10 Meq TABLET PO SCH (10:35)
[2017-10-27] MEDS: APIXABAN 5 MG TAB PO SCH ×2 (10:35→22:25)
[2017-10-27] MEDS: ASPirin-EC 81 mg tab PO SCH (10:35)
[2017-10-27] MEDS: POTASSIUM CHL 20 Meq TABLET PO SCH ×2 (10:36→22:26)
[2017-10-27] MEDS: risperiDONE 1 MG TAB PO SCH ×2 (10:36→22:26)
[2017-10-27] MEDS: SODIUM FERR GLUC 62.5MG/5ML 125 MG in SODIUM CHL 0.9% 100 ML IV SCH (12:11)
[2017-10-27 13:00] VITALS: BP 110/80
[2017-10-27] MEDS: MORPHINE SULF INJ 2 MG/ML SYRINGE 1ML IV PRN (13:40)
[2017-10-27 17:00] VITALS: BP 98/63
[2017-10-27 22:00] VITALS: BP 117/71
[2017-10-27] MEDS: ATORVASTATIN 20 MG TAB PO SCH (22:26)
[2017-10-28 05:00] VITALS: BP 120/73
[2017-10-28] MEDS: FUROSEMIDE 40 MG/4 ML VIAL IV SCH (06:09)
[2017-10-28] MEDS: InsuLIN REG 1unit/0.01ml Soln (100units/ml) SC SCH ×4 (06:10→21:58)
[2017-10-28] MEDS: ACCU-CHEK COMFORT CURVE STRIP VI SCH ×4 (06:10→21:48)
[2017-10-28 07:12] LABS: Calcium 8.2 mg/dL (8.5-10.1); Potassium 3.8 mmol/L (3.5-5.1)
[2017-10-28 07:13] LABS: Basophils # (auto) 0 uL; Basophils % (auto) 0.7 % (0.0-2.0); Eosinophils # (auto) 0.2 uL; Hemoglobin 9.4 g/dL (13.5-17.5); Lymphocytes # (auto) 1.2 uL; Monocytes # (auto) 0.5 uL
[2017-10-28 07:16] LABS: Eosinophils % (auto) 4.7 % (0.0-7.0); Hematocrit 30.4 % (41.0-53.0); Lymphocytes % (auto) 24.6 % (10.0-50.0); Mean Corpuscular Hemoglobin 21.9 pg (28.0-32.0); Mean Corpuscular Hgb Conc. 30.8 g/dL (32.0-36.0); Mean Corpuscular Volume 71.1 fL (80.0-100.0); Monocytes % (auto) 10.1 % (0.0-12.0); Neutrophils % (auto) 59.9 % (37.0-80.0); Nucleated Red Blood Cells % 1.8 %; Platelet Count (auto) 124 10^3/uL (140-450); Red Blood Cells 4.27 10^6/uL (4.5-5.90)
[2017-10-28] MEDS: ONDANSETRON HCL 4 MG/2 ML VIAL IV PRN (08:33)
[2017-10-28] MEDS: CARVEDILOL 3.125 MG TAB PO SCH ×2 (08:33→18:50)
[2017-10-28] MEDS: MORPHINE SULF INJ 2 MG/ML SYRINGE 1ML IV PRN (08:33)
[2017-10-28 09:00] VITALS: BP 115/78
[2017-10-28] MEDS ORDERED: ALBUMIN 25% 50 ML IV SCH (10:00)
[2017-10-28] MEDS: ASPirin-EC 81 mg tab PO SCH (10:18)
[2017-10-28] MEDS: POTASSIUM CHL 10 Meq TABLET PO SCH (10:19)
[2017-10-28] MEDS: APIXABAN 5 MG TAB PO SCH ×2 (10:19→21:46)
[2017-10-28] MEDS: risperiDONE 1 MG TAB PO SCH ×2 (10:19→21:48)
[2017-10-28] MEDS: ENALAPRIL MALEATE 2.5 MG TAB PO SCH ×2 (10:20→21:47)
[2017-10-28 13:00] VITALS: BP 115/52
[2017-10-28 17:00] VITALS: BP 110/77
[2017-10-28] MEDS: FUROSEMIDE 100 MG/10ML VIAL IV SCH (18:50)
[2017-10-28] MEDS: ATORVASTATIN 20 MG TAB PO SCH (21:48)
[2017-10-28 21:55] VITALS: BP_SYST 113; BP_SYST 142; BP_DIAS 78
[2017-10-29 05:42] VITALS: BP 103/65
[2017-10-29] MEDS: FUROSEMIDE 100 MG/10ML VIAL IV SCH ×2 (05:58→17:36)
[2017-10-29 06:04] LABS: Basophils # (auto) 0 uL; Basophils % (auto) 0.8 % (0.0-2.0); Eosinophils # (auto) 0.2 uL; Hemoglobin 8.6 g/dL (13.5-17.5); Lymphocytes # (auto) 1.1 uL; Mean Corpuscular Hemoglobin 22.1 pg (28.0-32.0); Monocytes # (auto) 0.5 uL
[2017-10-29 06:06] LABS: Eosinophils % (auto) 4.3 % (0.0-7.0); Hematocrit 27.3 % (41.0-53.0); Lymphocytes % (auto) 28.2 % (10.0-50.0); Mean Corpuscular Hgb Conc. 31.5 g/dL (32.0-36.0); Mean Corpuscular Volume 70.1 fL (80.0-100.0); Monocytes % (auto) 11.9 % (0.0-12.0); Neutrophils # (auto) 2.2 uL; Neutrophils % (auto) 54.8 % (37.0-80.0); Nucleated Red Blood Cells % 0.8 %; Platelet Count (auto) 115 10^3/uL (140-450); Red Blood Cells 3.89 10^6/uL (4.5-5.90)
[2017-10-29] MEDS: ACCU-CHEK COMFORT CURVE STRIP VI SCH ×4 (06:07→21:51)
[2017-10-29] MEDS: InsuLIN REG 1unit/0.01ml Soln (100units/ml) SC SCH ×4 (06:08→21:51)
[2017-10-29 06:13] LABS: Red Cell Distribution Width 23.7 % (11.8-14.3)
[2017-10-29 06:34] LABS: Potassium 3.9 mmol/L (3.5-5.1)
[2017-10-29 08:00] VITALS: BP 113/72
[2017-10-29] MEDS: CARVEDILOL 3.125 MG TAB PO SCH ×2 (08:47→17:37)
[2017-10-29] MEDS: risperiDONE 1 MG TAB PO SCH ×2 (10:00→21:50)
[2017-10-29] MEDS: APIXABAN 5 MG TAB PO SCH ×2 (10:00→21:50)
[2017-10-29] MEDS: ASPirin-EC 81 mg tab PO SCH (10:00)
[2017-10-29] MEDS: ENALAPRIL MALEATE 2.5 MG TAB PO SCH ×2 (10:00→21:50)
[2017-10-29] MEDS: POTASSIUM CHL 10 Meq TABLET PO SCH ×2 (10:00→17:37)
[2017-10-29 11:18] LABS: INR 1.56 (0.9-1.15); Partial Thromboplastin Time 34.4 sec (23.78-33.04); Prothrombin Time 16.3 sec (9.27-12.13)
[2017-10-29 12:00] VITALS: BP 110/73
[2017-10-29] MEDS ORDERED: IODIXANOL 320MG/ML 100ML BTL IV ONE ×2 (14:42→15:14)
[2017-10-29] MEDS ORDERED: LIDOCAINE 2%HCL (LOCAL ANESTH.) INJ 20ML MDV ONE (14:43)
[2017-10-29] MEDS ORDERED: diphenhdrAMINE HCL 50 MG/1 ML VL ONE (14:49)
[2017-10-29] MEDS ORDERED: fentaNYL CITRATE 100 MCG/2 ML VL ONE (14:49)
[2017-10-29] MEDS ORDERED: ANGIOMAX 250 MG VIAL IV ONE (14:49)
[2017-10-29] MEDS ORDERED: SODIUM CHL 0.9% 50 ML ONE (14:50)
[2017-10-29] MEDS ORDERED: MIDAZOLAM HCL 1MG/1ML-2 ML VIAL ONE (14:50)
[2017-10-29] MEDS ORDERED: CLOPIDOGREL 300 MG TAB ONE (15:17)
[2017-10-29] MEDS: ATORVASTATIN 20 MG TAB PO SCH (21:50)
[2017-10-29 22:00] VITALS: BP 105/69
[2017-10-30 05:30] VITALS: BP 113/52
[2017-10-30] MEDS: MORPHINE SULF INJ 2 MG/ML SYRINGE 1ML IV PRN (05:48)
[2017-10-30] MEDS: FUROSEMIDE 100 MG/10ML VIAL IV SCH (05:49)
[2017-10-30] MEDS: InsuLIN REG 1unit/0.01ml Soln (100units/ml) SC SCH (06:10)
[2017-10-30] MEDS: ACCU-CHEK COMFORT CURVE STRIP VI SCH (06:10)
[2017-10-30 07:31] LABS: Eosinophils # (auto) 0.1 uL; Hemoglobin 9.8 g/dL (13.5-17.5); Lymphocytes # (auto) 1.1 uL; Monocytes # (auto) 0.5 uL; Neutrophils # (auto) 2.9 uL
[2017-10-30 07:34] LABS: Basophils # (auto) 0.1 uL; Basophils % (auto) 1.1 % (0.0-2.0); Eosinophils % (auto) 2.4 % (0.0-7.0); Hematocrit 31.8 % (41.0-53.0); Lymphocytes % (auto) 22.8 % (10.0-50.0); Mean Corpuscular Hemoglobin 21.7 pg (28.0-32.0); Mean Corpuscular Hgb Conc. 30.9 g/dL (32.0-36.0); Mean Corpuscular Volume 70.4 fL (80.0-100.0); Monocytes % (auto) 10.9 % (0.0-12.0); Neutrophils % (auto) 62.8 % (37.0-80.0); Nucleated Red Blood Cells % 0.4 %; Platelet Count (auto) 146 10^3/uL (140-450); Red Blood Cells 4.52 10^6/uL (4.5-5.90); White Blood Cell 4.6 10^3/uL (4.4-10.8)
[2017-10-30 07:38] LABS: Red Cell Distribution Width 24.2 % (11.8-14.3)
[2017-10-30 07:46] LABS: Albumin 4.1 g/dL (3.4-5.0); Bilirubin, Total 3.1 mg/dL (0.2-1.0); Total Protein 7.8 g/dL (6.4-8.2)
[2017-10-30 07:48] LABS: BUN/Creatinine Ratio 17.7; Calcium 8.7 mg/dL (8.5-10.1); Potassium 3.7 mmol/L (3.5-5.1)
[2017-10-30] MEDS: CARVEDILOL 3.125 MG TAB PO SCH (08:24)
[2017-10-30 09:21] VITALS: BP 122/69
[2017-10-30] MEDS ORDERED: CLOPIDOGREL BISULFATE 75 MG TAB PO SCH (10:00)
[2017-10-30] MEDS: ENALAPRIL MALEATE 2.5 MG TAB PO SCH (10:16)
[2017-10-30] MEDS: APIXABAN 5 MG TAB PO SCH (10:16)
[2017-10-30] MEDS: POTASSIUM CHL 10 Meq TABLET PO SCH (10:16)
[2017-10-30] MEDS: risperiDONE 1 MG TAB PO SCH (10:17)
[2017-10-30 12:58] VITALS: BP 128/75
== END 2017-10-30 15:20 | disposition home or self-care (01) | DRG 175 ==
LOC: ER 18:02 → WEST WING 18:03 → TELE-WESTW 10-25 00:37
PROVIDERS: ADMIT Nurse Practitioner Family; ATTEND Internal Medicine
PROC: B2111ZZ Fluoroscopy of Multiple Coronary Arteries using Low Osmolar Contrast (ICD-10-PCS; principal; 2017-10-29)
PROC: 027034Z Dilation of Coronary Artery, One Artery with Drug-eluting Intraluminal Device, Percutaneous Approach (ICD-10-PCS; 2017-10-29)
PROC: 4A023N7 Measurement of Cardiac Sampling and Pressure, Left Heart, Percutaneous Approach (ICD-10-PCS; 2017-10-29)
DX: T82.855A Stenosis of coronary artery stent, initial encounter (principal); I50.43 Acute on chronic combined systolic (congestive) and diastolic (congestive) heart failure; D69.6 Thrombocytopenia, unspecified; E11.51 Type 2 diabetes mellitus with diabetic peripheral angiopathy without gangrene; E44.1 Mild protein-calorie malnutrition; E87.1 Hypo-osmolality and hyponatremia; D50.9 Iron deficiency anemia, unspecified; D63.8 Anemia in other chronic diseases classified elsewhere; E78.5 Hyperlipidemia, unspecified; I25.10 Atherosclerotic heart disease of native coronary artery without angina pectoris; N18.2 Chronic kidney disease, stage 2 (mild); I13.0 Hypertensive heart and chronic kidney disease with heart failure and stage 1 through stage 4 chronic kidney disease, or unspecified chronic kidney disease; H54.61 Unqualified visual loss, right eye, normal vision left eye; I25.2 Old myocardial infarction; I25.5 Ischemic cardiomyopathy; Y83.1 Surgical operation with implant of artificial internal device as the cause of abnormal reaction of the patient, or of later complication, without mention of misadventure at the time of the procedure; Z79.01 Long term (current) use of anticoagulants; Z79.4 Long term (current) use of insulin; Z86.711 Personal history of pulmonary embolism; Z86.718 Personal history of other venous thrombosis and embolism; Z86.73 Personal history of transient ischemic attack (TIA), and cerebral infarction without residual deficits; Z95.810 Presence of automatic (implantable) cardiac defibrillator; F10.10 Alcohol abuse, uncomplicated; Z68.42 Body mass index [BMI] 45.0-49.9, adult; Z88.1 Allergy status to other antibiotic agents; Z88.8 Allergy status to other drugs, medicaments and biological substances; Z91.018 Allergy to other foods
CPT/HCPCS: 36415; 71045; 80048; 80053; 80076; 80307; 81001; 82728; 82962; 83540; 83550; 83735; 83880; 84484; 85025; 85045; 85379; 85610; 85730; 87081; 87493; 92928; 93005; 93458; 94761; 96374; 96375; 96376; 99152; A6257; C1874; J1815; J2250; J2405; Q9967

== ENCOUNTER 2017-11-03 11:14 | Inpatient (IN) | payer OTHER ==
[~2017-11-03] VITALS: Ht 165.1 cm; Wt 79.2 kg
[~2017-11-03 11:14] MED LIST changes: -ACET-1156 PO; -ENA2.5T PO; -FURO40TA4 PO; -INSUINJ2 SC; +PANT40TA2 PO
[2017-11-03] MEDS ORDERED: ASPirin 81 mg TAB PO ONE (11:30)
[2017-11-03] MEDS ORDERED: NITROGLYCERIN 0.4 MG SL TAB SL ONE (11:31)
[2017-11-03] MEDS ORDERED: FUROSEMIDE 20 MG/2 ML VIAL IV ONE (12:15)
[2017-11-03 12:48] LABS: Basophils # (auto) 0.1 uL; Hemoglobin 8.7 g/dL (13.5-17.5); Lymphocytes # (auto) 1.3 uL; Neutrophils # (auto) 2.5 uL; Nucleated Red Blood Cells % 0.3 %
[2017-11-03 12:50] LABS: Basophils % (auto) 1.2 % (0.0-2.0); Eosinophils # (auto) 0.2 uL; Eosinophils % (auto) 3.5 % (0.0-7.0); Hematocrit 27.8 % (41.0-53.0); Lymphocytes % (auto) 27.7 % (10.0-50.0); Mean Corpuscular Hemoglobin 22.2 pg (28.0-32.0); Mean Corpuscular Hgb Conc. 31.3 g/dL (32.0-36.0); Mean Corpuscular Volume 70.8 fL (80.0-100.0); Monocytes # (auto) 0.6 uL; Monocytes % (auto) 13.2 % (0.0-12.0); Neutrophils % (auto) 54.4 % (37.0-80.0); Platelet Count (auto) 127 10^3/uL (140-450); Red Blood Cells 3.93 10^6/uL (4.5-5.90); White Blood Cell 4.6 10^3/uL (4.4-10.8)
[2017-11-03 12:56] LABS: Red Cell Distribution Width 25.1 % (11.8-14.3)
[2017-11-03 13:15] LABS: INR 1.19 (0.9-1.15); Partial Thromboplastin Time 30.1 sec (23.78-33.04); Prothrombin Time 12.6 sec (9.27-12.13)
[2017-11-03 13:33] LABS: Albumin 3.6 g/dL (3.4-5.0); BUN/Creatinine Ratio 11.5; Bilirubin, Total 1.9 mg/dL (0.2-1.0); Calcium 8.2 mg/dL (8.5-10.1); Magnesium 2.3 mg/dL (1.6-2.6); Potassium 3.6 mmol/L (3.5-5.1); Total Protein 7.5 g/dL (6.4-8.2)
[2017-11-03 13:41] LABS: Urine WBC None Seen /hpf (0 - 3)
[2017-11-03] MEDS ORDERED: ACETAMINOPHEN 325 MG TAB PO ONE (13:45)
[2017-11-03 13:50] LABS: Urine Bacteria FEW /hpf (None Seen); Urine Blood Negative /uL (Negative); Urine Mucus FEW (None Seen); Urine Specific Gravity 1.016 (1.001-1.035); Urine Sperm PRESENT /hpf (None Seen)
[2017-11-03] MEDS ORDERED: FUROSEMIDE 40 MG/4 ML VIAL IV ONE (14:30)
[2017-11-03] MEDS ORDERED: HEPARIN DRIP/D5W 100UNITS/ML 250 ML IV SCH (14:36)
[2017-11-03] MEDS ORDERED: DEXTROSE (50%) 50ML SYRG IV PRN (14:45)
[2017-11-03] MEDS ORDERED: HEPARIN SODIUM (PORCINE) 5000 UNITS/ML 1ML VIAL IV ONE (14:45)
[2017-11-03] MEDS ORDERED: NITROGLYCERIN 0.4 MG SL TAB SL PRN (14:45)
[2017-11-03] MEDS: MORPHINE SULF INJ 2 MG/ML SYRINGE 1ML IV PRN ×3 (15:19→21:08)
[2017-11-03] MEDS: FUROSEMIDE 40 MG/4 ML VIAL IV SCH (18:00)
[2017-11-03] MEDS: InsuLIN REG 1unit/0.01ml Soln (100units/ml) SC SCH ×2 (18:02→22:10)
[2017-11-03] MEDS: guaiFENesin 200 MG/10 ML UD PO PRN (18:02)
[2017-11-03] MEDS: ACCU-CHEK COMFORT CURVE STRIP VI SCH ×2 (18:02→22:10)
[2017-11-03] MEDS: CARVEDILOL 3.125 MG TAB PO SCH (21:42)
[2017-11-03] MEDS: APIXABAN 5 MG TAB PO SCH (21:43)
[2017-11-03] MEDS: MAGNESIUM OXIDE 400 MG TAB PO SCH (21:44)
[2017-11-03] MEDS: POTASSIUM CHL 20 Meq TABLET PO SCH (21:44)
[2017-11-03] MEDS: ATORVASTATIN 20 MG TAB PO SCH (21:44)
[2017-11-04] MEDS: MORPHINE SULF INJ 2 MG/ML SYRINGE 1ML IV PRN ×3 (01:16→16:50)
[2017-11-04 05:03] VITALS: BP 114/64
[2017-11-04 06:26] LABS: BUN/Creatinine Ratio 15.4; Calcium 8.1 mg/dL (8.5-10.1); Potassium 3.9 mmol/L (3.5-5.1)
[2017-11-04] MEDS: FUROSEMIDE 40 MG/4 ML VIAL IV SCH ×2 (06:39→18:17)
[2017-11-04] MEDS: ACCU-CHEK COMFORT CURVE STRIP VI SCH ×4 (06:40→23:02)
[2017-11-04] MEDS: InsuLIN REG 1unit/0.01ml Soln (100units/ml) SC SCH ×4 (06:40→23:02)
[2017-11-04 08:00] VITALS: BP 138/88
[2017-11-04] MEDS ORDERED: NITROGLYCERIN 0.4 MG SL TAB SL ONE (10:00)
[2017-11-04] MEDS: APIXABAN 5 MG TAB PO SCH ×2 (10:36→23:01)
[2017-11-04] MEDS: POTASSIUM CHL 20 Meq TABLET PO SCH ×2 (10:36→23:01)
[2017-11-04] MEDS: risperiDONE 1 MG TAB PO SCH (10:36)
[2017-11-04] MEDS: CLOPIDOGREL BISULFATE 75 MG TAB PO SCH (10:37)
[2017-11-04] MEDS: MAGNESIUM OXIDE 400 MG TAB PO SCH ×2 (10:37→23:02)
[2017-11-04] MEDS: PANTOPRAZOLE 40 MG TAB PO SCH (10:37)
[2017-11-04] MEDS: CARVEDILOL 3.125 MG TAB PO SCH ×2 (10:38→23:01)
[2017-11-04 12:00] VITALS: BP 133/75
[2017-11-04] MEDS ORDERED: FUROSEMIDE 40 MG/4 ML VIAL IV ONE (12:00)
[2017-11-04] MEDS ORDERED: POTASSIUM CHL 20 Meq TABLET PO ONE (12:00)
[2017-11-04] MEDS ORDERED: SPIRONOLACTONE 25 MG TAB PO ONE (12:00)
[2017-11-04] MEDS ORDERED: LISINOPRIL 10 MG TAB PO ONE (12:00)
[2017-11-04] MEDS: ACETAMINOPHEN 500 MG TAB PO PRN (12:19)
[2017-11-04 16:00] VITALS: BP 110/66
[2017-11-04 22:00] VITALS: BP 122/75
[2017-11-04] MEDS: ATORVASTATIN 20 MG TAB PO SCH (23:02)
[2017-11-05] MEDS ORDERED: FLEET ENEMA(ADULT) 135 ML PR ONE ×2 (01:30)
[2017-11-05 05:24] VITALS: BP 96/61
[2017-11-05] MEDS: FUROSEMIDE 40 MG/4 ML VIAL IV SCH (06:00)
[2017-11-05 06:50] LABS: BUN/Creatinine Ratio 15.6; Calcium 8.4 mg/dL (8.5-10.1); Potassium 4.9 mmol/L (3.5-5.1)
[2017-11-05] MEDS: ACCU-CHEK COMFORT CURVE STRIP VI SCH ×4 (06:51→22:20)
[2017-11-05] MEDS: InsuLIN REG 1unit/0.01ml Soln (100units/ml) SC SCH ×4 (06:51→22:20)
[2017-11-05] MEDS: MORPHINE SULF INJ 2 MG/ML SYRINGE 1ML IV PRN (08:48)
[2017-11-05 08:59] VITALS: BP 102/67
[2017-11-05] MEDS ORDERED: LISINOPRIL 10 MG TAB PO SCH (10:00)
[2017-11-05] MEDS: POTASSIUM CHL 20 Meq TABLET PO SCH (10:05)
[2017-11-05] MEDS: CLOPIDOGREL BISULFATE 75 MG TAB PO SCH (10:05)
[2017-11-05] MEDS: SPIRONOLACTONE 25 MG TAB PO SCH (10:05)
[2017-11-05] MEDS: PANTOPRAZOLE 40 MG TAB PO SCH (10:05)
[2017-11-05] MEDS: risperiDONE 1 MG TAB PO SCH (10:05)
[2017-11-05] MEDS: MAGNESIUM OXIDE 400 MG TAB PO SCH (10:05)
[2017-11-05] MEDS: APIXABAN 5 MG TAB PO SCH ×2 (10:05→22:19)
[2017-11-05] MEDS: CARVEDILOL 3.125 MG TAB PO SCH (10:06)
[2017-11-05] MEDS ORDERED: DOCUSATE SOD 100 MG CAP PO ONE (10:30)
[2017-11-05] MEDS ORDERED: LACTULOSE 20Gm/30ML SOLN PO ONE (10:30)
[2017-11-05] MEDS: DOBUTamine 1000MCG/ML 250 ML IV SCH (11:54)
[2017-11-05 12:38] VITALS: BP 143/66
[2017-11-05 17:06] VITALS: BP 108/65
[2017-11-05 22:15] VITALS: BP 118/85
[2017-11-05] MEDS: ATORVASTATIN 20 MG TAB PO SCH (22:19)
[2017-11-06 05:52] VITALS: BP 124/92
[2017-11-06] MEDS: DOBUTamine 1000MCG/ML 250 ML IV SCH ×2 (06:30→23:58)
[2017-11-06] MEDS: InsuLIN REG 1unit/0.01ml Soln (100units/ml) SC SCH ×4 (06:31→21:38)
[2017-11-06] MEDS: ACCU-CHEK COMFORT CURVE STRIP VI SCH ×4 (06:31→21:30)
[2017-11-06 06:49] LABS: BUN/Creatinine Ratio 19.7; Calcium 8.7 mg/dL (8.5-10.1); Potassium 4.7 mmol/L (3.5-5.1)
[2017-11-06 09:00] VITALS: BP 119/75
[2017-11-06] MEDS ORDERED: POTASSIUM CHL 20 Meq TABLET PO SCH (10:00)
[2017-11-06] MEDS ORDERED: BUMETANIDE (0.25 MG/ML) INJ 10ML IV ONE (10:00)
[2017-11-06] MEDS ORDERED: FUROSEMIDE 40 MG/4 ML VIAL IV SCH (10:00)
[2017-11-06] MEDS: PANTOPRAZOLE 40 MG TAB PO SCH (10:01)
[2017-11-06] MEDS: APIXABAN 5 MG TAB PO SCH ×2 (10:01→21:29)
[2017-11-06] MEDS: DIGOXIN 0.125 MG TAB PO SCH (10:02)
[2017-11-06] MEDS: risperiDONE 1 MG TAB PO SCH (10:02)
[2017-11-06] MEDS: MAGNESIUM OXIDE 400 MG TAB PO SCH (10:03)
[2017-11-06] MEDS: CLOPIDOGREL BISULFATE 75 MG TAB PO SCH (10:03)
[2017-11-06] MEDS: SPIRONOLACTONE 25 MG TAB PO SCH (10:03)
[2017-11-06 10:30] LABS: Basophils # (auto) 0 uL; Eosinophils # (auto) 0.1 uL; Monocytes # (auto) 0.6 uL; Nucleated Red Blood Cells % 0.3 %
[2017-11-06 10:32] LABS: Basophils % (auto) 0.7 % (0.0-2.0); Eosinophils % (auto) 1.6 % (0.0-7.0); Hematocrit 29.3 % (41.0-53.0); Lymphocytes % (auto) 16.7 % (10.0-50.0); Mean Corpuscular Hemoglobin 21.6 pg (28.0-32.0); Mean Corpuscular Hgb Conc. 30.8 g/dL (32.0-36.0); Mean Corpuscular Volume 70.2 fL (80.0-100.0); Monocytes % (auto) 10.6 % (0.0-12.0); Neutrophils # (auto) 4.2 uL; Neutrophils % (auto) 70.4 % (37.0-80.0); Platelet Count (auto) 155 10^3/uL (140-450); Red Blood Cells 4.18 10^6/uL (4.5-5.90); White Blood Cell 5.9 10^3/uL (4.4-10.8)
[2017-11-06 10:43] LABS: Red Cell Distribution Width 25.1 % (11.8-14.3)
[2017-11-06 13:00] VITALS: BP 119/75
[2017-11-06] MEDS: ACETAMINOPHEN 500 MG TAB PO PRN (16:35)
[2017-11-06 17:00] VITALS: BP 125/82
[2017-11-06] MEDS: BUMETANIDE (0.25MG/ML) 4 ML VIAL IV SCH (19:02)
[2017-11-06] MEDS: SACUBITRIL-VALSARTAN 24mg/26mg TAB PO SCH (19:43)
[2017-11-06] MEDS: ATORVASTATIN 20 MG TAB PO SCH (21:29)
[2017-11-06 21:59] VITALS: BP 137/83
[2017-11-07 04:59] VITALS: BP 143/72
[2017-11-07] MEDS: BUMETANIDE (0.25MG/ML) 4 ML VIAL IV SCH ×2 (06:24→18:31)
[2017-11-07] MEDS: ACCU-CHEK COMFORT CURVE STRIP VI SCH ×4 (06:25→21:35)
[2017-11-07] MEDS: InsuLIN REG 1unit/0.01ml Soln (100units/ml) SC SCH ×4 (06:28→21:38)
[2017-11-07 08:00] VITALS: BP 130/74
[2017-11-07 08:07] LABS: Calcium 8.4 mg/dL (8.5-10.1); Potassium 3.9 mmol/L (3.5-5.1)
[2017-11-07] MEDS: PANTOPRAZOLE 40 MG TAB PO SCH (09:20)
[2017-11-07] MEDS: SACUBITRIL-VALSARTAN 24mg/26mg TAB PO SCH ×2 (09:21→21:34)
[2017-11-07] MEDS: DIGOXIN 0.125 MG TAB PO SCH (09:21)
[2017-11-07] MEDS: risperiDONE 1 MG TAB PO SCH (09:21)
[2017-11-07] MEDS: SPIRONOLACTONE 25 MG TAB PO SCH (09:21)
[2017-11-07] MEDS: CLOPIDOGREL BISULFATE 75 MG TAB PO SCH (09:21)
[2017-11-07] MEDS: APIXABAN 5 MG TAB PO SCH ×2 (09:22→21:34)
[2017-11-07] MEDS: MAGNESIUM OXIDE 400 MG TAB PO SCH (09:22)
[2017-11-07 10:56] VITALS: BP 93/59
[2017-11-07 12:00] VITALS: BP 123/75
[2017-11-07] MEDS: MORPHINE SULF INJ 2 MG/ML SYRINGE 1ML IV PRN (14:06)
[2017-11-07 17:00] VITALS: BP 123/80
[2017-11-07] MEDS: DOBUTamine 1000MCG/ML 250 ML IV SCH (19:14)
[2017-11-07] MEDS: ATORVASTATIN 20 MG TAB PO SCH (21:34)
[2017-11-07 22:44] VITALS: BP 115/75
[2017-11-07] MEDS ORDERED: ONDANSETRON HCL 4 MG/2 ML VIAL IV ONE (23:00)
[2017-11-07] MEDS ORDERED: MORPHINE SULFATE 4 MG/ML SYR/VIAL IV ONE (23:00)
[2017-11-08 04:51] VITALS: BP 103/69
[2017-11-08] MEDS: ACETAMINOPHEN 500 MG TAB PO PRN ×2 (05:48→14:26)
[2017-11-08] MEDS: BUMETANIDE (0.25MG/ML) 4 ML VIAL IV SCH ×2 (06:00→18:00)
[2017-11-08] MEDS: InsuLIN REG 1unit/0.01ml Soln (100units/ml) SC SCH ×4 (06:22→21:33)
[2017-11-08] MEDS: ACCU-CHEK COMFORT CURVE STRIP VI SCH ×4 (06:22→21:32)
[2017-11-08 07:39] LABS: Basophils # (auto) 0 uL; Eosinophils # (auto) 0.2 uL; Hemoglobin 10.6 g/dL (13.5-17.5); Monocytes # (auto) 0.6 uL; Neutrophils # (auto) 2.3 uL; White Blood Cell 4.3 10^3/uL (4.4-10.8)
[2017-11-08 07:41] LABS: Basophils % (auto) 0.9 % (0.0-2.0); Eosinophils % (auto) 5.4 % (0.0-7.0); Hematocrit 33.8 % (41.0-53.0); Lymphocytes # (auto) 1.1 uL; Lymphocytes % (auto) 25.8 % (10.0-50.0); Mean Corpuscular Hemoglobin 22.1 pg (28.0-32.0); Mean Corpuscular Hgb Conc. 31.5 g/dL (32.0-36.0); Mean Corpuscular Volume 70.1 fL (80.0-100.0); Monocytes % (auto) 14.5 % (0.0-12.0); Neutrophils % (auto) 53.4 % (37.0-80.0); Nucleated Red Blood Cells % 0.2 %; Platelet Count (auto) 176 10^3/uL (140-450); Red Blood Cells 4.82 10^6/uL (4.5-5.90)
[2017-11-08 07:47] LABS: BUN/Creatinine Ratio 15.5; Calcium 8.5 mg/dL (8.5-10.1); Magnesium 2.1 mg/dL (1.6-2.6); Potassium 4.1 mmol/L (3.5-5.1)
[2017-11-08 07:48] LABS: Red Cell Distribution Width 25.3 % (11.8-14.3)
[2017-11-08 09:00] VITALS: BP 95/62
[2017-11-08] MEDS: SACUBITRIL-VALSARTAN 24mg/26mg TAB PO SCH ×2 (10:21→21:32)
[2017-11-08] MEDS: DIGOXIN 0.125 MG TAB PO SCH (10:21)
[2017-11-08] MEDS: APIXABAN 5 MG TAB PO SCH ×2 (10:21→21:32)
[2017-11-08] MEDS: PANTOPRAZOLE 40 MG TAB PO SCH (10:22)
[2017-11-08] MEDS: MAGNESIUM OXIDE 400 MG TAB PO SCH (10:22)
[2017-11-08] MEDS: CLOPIDOGREL BISULFATE 75 MG TAB PO SCH (10:22)
[2017-11-08] MEDS: SPIRONOLACTONE 25 MG TAB PO SCH (10:22)
[2017-11-08] MEDS: risperiDONE 1 MG TAB PO SCH (10:22)
[2017-11-08] MEDS: DOBUTamine 1000MCG/ML 250 ML IV SCH (10:26)
[2017-11-08 13:00] VITALS: BP 116/55
[2017-11-08 17:00] VITALS: BP 108/63
[2017-11-08 20:00] VITALS: BP 114/71
[2017-11-08] MEDS: ATORVASTATIN 20 MG TAB PO SCH (21:32)
[2017-11-08 21:37] VITALS: BP 114/71
[2017-11-09] MEDS: HYDROcodone-ACET 5/325MG TAB PO PRN ×3 (03:22→23:32)
[2017-11-09] MEDS: guaiFENesin 200 MG/10 ML UD PO PRN (03:22)
[2017-11-09 05:32] VITALS: BP 109/65
[2017-11-09] MEDS: BUMETANIDE (0.25MG/ML) 4 ML VIAL IV SCH ×2 (06:00→10:50)
[2017-11-09] MEDS: InsuLIN REG 1unit/0.01ml Soln (100units/ml) SC SCH ×4 (06:47→22:04)
[2017-11-09] MEDS: ACCU-CHEK COMFORT CURVE STRIP VI SCH ×4 (06:47→22:04)
[2017-11-09 08:46] VITALS: BP 113/64
[2017-11-09] MEDS: risperiDONE 1 MG TAB PO SCH (09:58)
[2017-11-09] MEDS: PANTOPRAZOLE 40 MG TAB PO SCH (09:58)
[2017-11-09] MEDS: MAGNESIUM OXIDE 400 MG TAB PO SCH (09:58)
[2017-11-09] MEDS: CLOPIDOGREL BISULFATE 75 MG TAB PO SCH (09:58)
[2017-11-09] MEDS: APIXABAN 5 MG TAB PO SCH ×2 (09:58→22:04)
[2017-11-09] MEDS: DIGOXIN 0.125 MG TAB PO SCH (09:58)
[2017-11-09] MEDS: SPIRONOLACTONE 25 MG TAB PO SCH (09:59)
[2017-11-09] MEDS: SACUBITRIL-VALSARTAN 24mg/26mg TAB PO SCH ×2 (10:08→22:03)
[2017-11-09] MEDS: ACETAMINOPHEN 500 MG TAB PO PRN (12:40)
[2017-11-09 13:00] VITALS: BP 103/57
[2017-11-09 17:16] VITALS: BP 105/63
[2017-11-09 20:00] VITALS: BP 115/64
[2017-11-09 22:00] VITALS: BP 115/65
[2017-11-09] MEDS: ATORVASTATIN 20 MG TAB PO SCH (22:04)
[2017-11-10 05:30] VITALS: BP 111/65
[2017-11-10] MEDS: BUMETANIDE (0.25MG/ML) 4 ML VIAL IV SCH (06:01)
[2017-11-10] MEDS: InsuLIN REG 1unit/0.01ml Soln (100units/ml) SC SCH ×4 (06:47→21:38)
[2017-11-10] MEDS: ACCU-CHEK COMFORT CURVE STRIP VI SCH ×4 (06:47→21:38)
[2017-11-10 09:00] VITALS: BP 83/61
[2017-11-10] MEDS: SPIRONOLACTONE 25 MG TAB PO SCH (10:00)
[2017-11-10] MEDS: SACUBITRIL-VALSARTAN 24mg/26mg TAB PO SCH ×3 (10:00→21:39)
[2017-11-10] MEDS: APIXABAN 5 MG TAB PO SCH ×2 (10:06→21:38)
[2017-11-10] MEDS: CLOPIDOGREL BISULFATE 75 MG TAB PO SCH (10:06)
[2017-11-10] MEDS: MAGNESIUM OXIDE 400 MG TAB PO SCH (10:07)
[2017-11-10] MEDS: PANTOPRAZOLE 40 MG TAB PO SCH (10:07)
[2017-11-10] MEDS: DIGOXIN 0.125 MG TAB PO SCH (10:07)
[2017-11-10] MEDS: risperiDONE 1 MG TAB PO SCH (10:07)
[2017-11-10 13:00] VITALS: BP 90/62
[2017-11-10 17:00] VITALS: BP 89/59
[2017-11-10 21:36] VITALS: BP 103/53
[2017-11-10] MEDS: ATORVASTATIN 20 MG TAB PO SCH (21:38)
[2017-11-11 04:50] VITALS: BP 109/68
[2017-11-11] MEDS: HYDROcodone-ACET 5/325MG TAB PO PRN (04:56)
[2017-11-11] MEDS: InsuLIN REG 1unit/0.01ml Soln (100units/ml) SC SCH ×2 (06:08→11:55)
[2017-11-11] MEDS: ACCU-CHEK COMFORT CURVE STRIP VI SCH ×2 (06:09→11:55)
[2017-11-11 09:00] VITALS: BP_SYST 132; BP_SYST 97; BP_DIAS 53; BP_DIAS 86
[2017-11-11] MEDS: DIGOXIN 0.125 MG TAB PO SCH (10:00)
[2017-11-11] MEDS ORDERED: BUMETANIDE (0.25MG/ML) 4 ML VIAL IV SCH (10:00)
[2017-11-11] MEDS: SACUBITRIL-VALSARTAN 24mg/26mg TAB PO SCH (10:00)
[2017-11-11] MEDS: SPIRONOLACTONE 25 MG TAB PO SCH (10:00)
[2017-11-11] MEDS: CLOPIDOGREL BISULFATE 75 MG TAB PO SCH (10:12)
[2017-11-11] MEDS: APIXABAN 5 MG TAB PO SCH (10:12)
[2017-11-11] MEDS: MAGNESIUM OXIDE 400 MG TAB PO SCH (10:12)
[2017-11-11] MEDS: PANTOPRAZOLE 40 MG TAB PO SCH (10:13)
[2017-11-11] MEDS: risperiDONE 1 MG TAB PO SCH (10:13)
[2017-11-11 13:06] VITALS: BP 111/65
== END 2017-11-11 16:20 | disposition home or self-care (01) | DRG 194 ==
LOC: EDBD 11:14 → ER 11:14 → TELE 11:15 → TELE-CENTR 23:07
PROVIDERS: ADMIT Internal Medicine; ATTEND Internal Medicine
DX: I11.0 Hypertensive heart disease with heart failure (principal); I21.4 Non-ST elevation (NSTEMI) myocardial infarction; Z79.01 Long term (current) use of anticoagulants; I50.23 Acute on chronic systolic (congestive) heart failure; E11.9 Type 2 diabetes mellitus without complications; I25.10 Atherosclerotic heart disease of native coronary artery without angina pectoris; E78.5 Hyperlipidemia, unspecified; H54.61 Unqualified visual loss, right eye, normal vision left eye; F41.9 Anxiety disorder, unspecified; I25.5 Ischemic cardiomyopathy; Z95.5 Presence of coronary angioplasty implant and graft; Z95.810 Presence of automatic (implantable) cardiac defibrillator; Z79.02 Long term (current) use of antithrombotics/antiplatelets; Z86.711 Personal history of pulmonary embolism; Z86.718 Personal history of other venous thrombosis and embolism; Z88.8 Allergy status to other drugs, medicaments and biological substances; Z88.1 Allergy status to other antibiotic agents
CPT/HCPCS: 36415; 71045; 80048; 80053; 80162; 81001; 82962; 83735; 83880; 84484; 85025; 85379; 85610; 85730; 87081; 93005; 94761; 96374; 96376; 99291; J1815; J2405

== ENCOUNTER 2017-11-21 10:51 | Inpatient (IN) | payer OTHER ==
[~2017-11-21] VITALS: Ht 172.7 cm; Wt 80.6 kg
[2017-11-21] MEDS ORDERED: SODIUM CHLORIDE 0.9% 1,000 ML IV ONE (11:27)
[2017-11-21 11:41] LABS: Basophils # (auto) 0 uL; Eosinophils # (auto) 0.3 uL; Lymphocytes # (auto) 1.2 uL; Mean Corpuscular Hemoglobin 23.2 pg (28.0-32.0); Monocytes # (auto) 0.4 uL; Nucleated Red Blood Cells % 0.1 %; Red Blood Cells 5.32 10^6/uL (4.5-5.90); White Blood Cell 5.1 10^3/uL (4.4-10.8)
[2017-11-21 11:42] LABS: Basophils % (auto) 0.6 % (0.0-2.0); Eosinophils % (auto) 5.3 % (0.0-7.0); Hematocrit 38.9 % (41.0-53.0); Hemoglobin 12.3 g/dL (13.5-17.5); Lymphocytes % (auto) 23.4 % (10.0-50.0); Mean Corpuscular Hgb Conc. 31.7 g/dL (32.0-36.0); Monocytes % (auto) 8.8 % (0.0-12.0); Neutrophils # (auto) 3.1 uL; Neutrophils % (auto) 61.9 % (37.0-80.0); Platelet Count (auto) 177 10^3/uL (140-450)
[2017-11-21 11:47] LABS: Red Cell Distribution Width 27.5 % (11.8-14.3)
[2017-11-21 11:56] LABS: INR 1.07 (0.9-1.15); Prothrombin Time 11.4 sec (9.27-12.13)
[2017-11-21 12:10] LABS: BUN/Creatinine Ratio 14.8; Bilirubin, Total 2.1 mg/dL (0.2-1.0); Calcium 8.7 mg/dL (8.5-10.1); Magnesium 2.6 mg/dL (1.6-2.6); Potassium 4.1 mmol/L (3.5-5.1); Total Protein 8.5 g/dL (6.4-8.2)
[2017-11-21] MEDS ORDERED: ONDANSETRON HCL 4 MG/2 ML VIAL IV ONE ×2 (13:15→15:15)
[2017-11-21] MEDS ORDERED: MORPHINE SULFATE 4 MG/ML SYR/VIAL IV ONE ×2 (13:15→15:15)
[2017-11-21 14:46] LABS: Urine Bacteria FEW /hpf (None Seen); Urine Blood Negative /uL (Negative); Urine Mucus FEW (None Seen); Urine WBC 2 /hpf (0 - 3)
[2017-11-21] MEDS ORDERED: DEXTROSE (50%) 50ML SYRG IV PRN (16:45)
[2017-11-21] MEDS: ACCU-CHEK COMFORT CURVE STRIP VI SCH ×2 (16:56→23:18)
[2017-11-21] MEDS ORDERED: DOCUSATE SOD 100 MG CAP PO PRN (17:00)
[2017-11-21] MEDS ORDERED: TEMAZEPAM 15 MG CAP PO PRN (17:00)
[2017-11-21] MEDS ORDERED: ACETAMINOPHEN 325 MG TAB PO PRN (17:00)
[2017-11-21] MEDS ORDERED: MORPHINE SULFATE 4 MG/ML SYR/VIAL IV PRN ×2 (17:00)
[2017-11-21] MEDS ORDERED: NITROGLYCERIN 0.4 MG SL TAB SL PRN (17:00)
[2017-11-21] MEDS: BUMETANIDE 1 MG TAB PO SCH (17:14)
[2017-11-21] MEDS: InsuLIN REG 1unit/0.01ml Soln (100units/ml) SC SCH ×2 (17:14→23:19)
[2017-11-21] MEDS: glipiZIDE 5 MG TAB PO SCH (17:14)
[2017-11-21] MEDS: SPIRONOLACTONE 25 MG TAB PO SCH (17:14)
[2017-11-21 18:24] VITALS: BP 122/75
[2017-11-21] MEDS: ONDANSETRON HCL 4 MG/2 ML VIAL IV PRN (20:00)
[2017-11-21 22:00] VITALS: BP 116/68
[2017-11-21] MEDS: SACUBITRIL-VALSARTAN 24mg/26mg TAB PO SCH (22:00)
[2017-11-21] MEDS: APIXABAN 5 MG TAB PO SCH (23:16)
[2017-11-21] MEDS: risperiDONE 1 MG TAB PO SCH (23:16)
[2017-11-21] MEDS: ATORVASTATIN 20 MG TAB PO SCH (23:16)
[2017-11-21] MEDS: SODIUM CHLOR 0.9% PF (SALINE LOCK) 10ML VIAL/SYR IV SCH (23:17)
[2017-11-21] MEDS: CARVEDILOL 3.125 MG TAB PO SCH (23:18)
[2017-11-22 05:22] VITALS: BP 113/67
[2017-11-22 05:44] LABS: Basophils # (auto) 0 uL; Eosinophils # (auto) 0.3 uL; Monocytes # (auto) 0.5 uL; Nucleated Red Blood Cells % 0.1 %; White Blood Cell 4.9 10^3/uL (4.4-10.8)
[2017-11-22 05:47] LABS: Basophils % (auto) 0.9 % (0.0-2.0); Hematocrit 36.2 % (41.0-53.0); Hemoglobin 11.7 g/dL (13.5-17.5); Lymphocytes # (auto) 1.5 uL; Lymphocytes % (auto) 31.4 % (10.0-50.0); Mean Corpuscular Hemoglobin 23.5 pg (28.0-32.0); Mean Corpuscular Hgb Conc. 32.2 g/dL (32.0-36.0); Mean Corpuscular Volume 72.8 fL (80.0-100.0); Monocytes % (auto) 10.8 % (0.0-12.0); Neutrophils # (auto) 2.5 uL; Neutrophils % (auto) 50.9 % (37.0-80.0); Platelet Count (auto) 145 10^3/uL (140-450); Red Blood Cells 4.97 10^6/uL (4.5-5.90)
[2017-11-22 05:53] LABS: Red Cell Distribution Width 26.8 % (11.8-14.3)
[2017-11-22] MEDS: SODIUM CHLOR 0.9% PF (SALINE LOCK) 10ML VIAL/SYR IV SCH ×3 (05:59→22:17)
[2017-11-22] MEDS: SPIRONOLACTONE 25 MG TAB PO SCH ×2 (05:59→17:38)
[2017-11-22] MEDS: BUMETANIDE 1 MG TAB PO SCH ×2 (06:00→17:38)
[2017-11-22 06:10] LABS: Albumin 3.7 g/dL (3.4-5.0); BUN/Creatinine Ratio 17.4; Bilirubin, Total 1.9 mg/dL (0.2-1.0); Calcium 8.6 mg/dL (8.5-10.1); Potassium 3.9 mmol/L (3.5-5.1); Total Protein 7.7 g/dL (6.4-8.2)
[2017-11-22] MEDS: ACCU-CHEK COMFORT CURVE STRIP VI SCH ×4 (07:00→22:18)
[2017-11-22] MEDS: glipiZIDE 5 MG TAB PO SCH ×2 (07:00→17:38)
[2017-11-22] MEDS: InsuLIN REG 1unit/0.01ml Soln (100units/ml) SC SCH ×4 (07:01→22:22)
[2017-11-22 09:19] VITALS: BP 103/69
[2017-11-22] MEDS ORDERED: cefTRIAXone 1GM/10ml IVPUSH 10 ML IV ONE (09:30)
[2017-11-22] MEDS: SACUBITRIL-VALSARTAN 24mg/26mg TAB PO SCH ×2 (10:10→22:00)
[2017-11-22] MEDS: ONDANSETRON HCL 4 MG/2 ML VIAL IV PRN ×2 (10:10→18:05)
[2017-11-22] MEDS: MULTIPLE VITAMIN TAB PO SCH (10:12)
[2017-11-22] MEDS: PANTOPRAZOLE 40 MG TAB PO SCH (10:12)
[2017-11-22] MEDS: CARVEDILOL 3.125 MG TAB PO SCH ×2 (10:12→22:00)
[2017-11-22] MEDS: POTASSIUM CHL 10 Meq TABLET PO SCH (10:12)
[2017-11-22] MEDS: APIXABAN 5 MG TAB PO SCH ×2 (10:13→22:17)
[2017-11-22] MEDS: DIGOXIN 0.125 MG TAB PO SCH (10:13)
[2017-11-22] MEDS: MAGNESIUM OXIDE 400 MG TAB PO SCH (10:13)
[2017-11-22] MEDS: risperiDONE 1 MG TAB PO SCH ×2 (10:14→22:17)
[2017-11-22 13:00] VITALS: BP 89/57
[2017-11-22 13:20] VITALS: BP 112/57
[2017-11-22] MEDS: HYDROcodone-ACET 5/325MG TAB PO PRN (14:47)
[2017-11-22 16:56] VITALS: BP 108/67
[2017-11-22] MEDS ORDERED: SPIR25TA8 (17:09)
[2017-11-22] MEDS ORDERED: DIGO0.1220 (17:09)
[2017-11-22] MEDS ORDERED: BUME1TAB (17:09)
[2017-11-22] MEDS ORDERED: LISI10TA6 (17:09)
[2017-11-22 22:00] VITALS: BP 81/58
[2017-11-22] MEDS: ATORVASTATIN 20 MG TAB PO SCH (22:17)
[2017-11-23 05:00] VITALS: BP 91/50
[2017-11-23] MEDS: BUMETANIDE 1 MG TAB PO SCH ×2 (06:00→18:00)
[2017-11-23] MEDS: SODIUM CHLOR 0.9% PF (SALINE LOCK) 10ML VIAL/SYR IV SCH ×3 (06:30→22:34)
[2017-11-23] MEDS: glipiZIDE 5 MG TAB PO SCH ×2 (06:31→20:04)
[2017-11-23] MEDS: SPIRONOLACTONE 25 MG TAB PO SCH ×2 (06:31→18:00)
[2017-11-23] MEDS: ACCU-CHEK COMFORT CURVE STRIP VI SCH ×4 (06:31→22:34)
[2017-11-23] MEDS: InsuLIN REG 1unit/0.01ml Soln (100units/ml) SC SCH ×4 (06:32→22:34)
[2017-11-23] MEDS: SACUBITRIL-VALSARTAN 24mg/26mg TAB PO SCH ×2 (08:51→22:34)
[2017-11-23] MEDS: POTASSIUM CHL 10 Meq TABLET PO SCH (08:52)
[2017-11-23] MEDS: MAGNESIUM OXIDE 400 MG TAB PO SCH (08:52)
[2017-11-23] MEDS: HYDROcodone-ACET 5/325MG TAB PO PRN (08:52)
[2017-11-23] MEDS: DIGOXIN 0.125 MG TAB PO SCH (08:52)
[2017-11-23] MEDS: PANTOPRAZOLE 40 MG TAB PO SCH (08:52)
[2017-11-23] MEDS: APIXABAN 5 MG TAB PO SCH ×2 (08:53→22:34)
[2017-11-23] MEDS: MULTIPLE VITAMIN TAB PO SCH (08:53)
[2017-11-23] MEDS: risperiDONE 1 MG TAB PO SCH ×2 (08:53→22:34)
[2017-11-23 09:00] VITALS: BP 111/66
[2017-11-23] MEDS ORDERED: cefTRIAXone 1GM/10ml IVPUSH 10 ML IV SCH (09:00)
[2017-11-23 09:51] LABS: Basophils # (auto) 0 uL; Basophils % (auto) 0.7 % (0.0-2.0); Hemoglobin 12.5 g/dL (13.5-17.5); Lymphocytes # (auto) 1.5 uL; Mean Corpuscular Volume 73.4 fL (80.0-100.0); Monocytes # (auto) 0.4 uL; Nucleated Red Blood Cells % 0.1 %
[2017-11-23 09:53] LABS: Eosinophils # (auto) 0.3 uL; Eosinophils % (auto) 6.2 % (0.0-7.0); Hematocrit 40.4 % (41.0-53.0); Mean Corpuscular Hemoglobin 22.8 pg (28.0-32.0); Monocytes % (auto) 8.2 % (0.0-12.0); Neutrophils # (auto) 3.1 uL; Neutrophils % (auto) 57.9 % (37.0-80.0); Platelet Count (auto) 163 10^3/uL (140-450); Red Blood Cells 5.51 10^6/uL (4.5-5.90); White Blood Cell 5.4 10^3/uL (4.4-10.8)
[2017-11-23] MEDS: CARVEDILOL 3.125 MG TAB PO SCH ×2 (10:00→22:34)
[2017-11-23 10:03] LABS: Red Cell Distribution Width 27.7 % (11.8-14.3)
[2017-11-23 10:11] LABS: BUN/Creatinine Ratio 18.4; Calcium 8.8 mg/dL (8.5-10.1); Potassium 3.8 mmol/L (3.5-5.1)
[2017-11-23 13:00] VITALS: BP 102/58
[2017-11-23 16:43] VITALS: BP 95/58
[2017-11-23 22:00] VITALS: BP 115/67
[2017-11-23] MEDS: ATORVASTATIN 20 MG TAB PO SCH (22:34)
[2017-11-24] MEDS: SPIRONOLACTONE 25 MG TAB PO SCH (05:08)
[2017-11-24] MEDS: BUMETANIDE 1 MG TAB PO SCH (05:08)
[2017-11-24 05:49] VITALS: BP 92/52
[2017-11-24] MEDS: ACCU-CHEK COMFORT CURVE STRIP VI SCH ×2 (06:30→16:17)
[2017-11-24] MEDS: glipiZIDE 5 MG TAB PO SCH (06:30)
[2017-11-24] MEDS: InsuLIN REG 1unit/0.01ml Soln (100units/ml) SC SCH ×2 (06:30→16:17)
[2017-11-24] MEDS: SODIUM CHLOR 0.9% PF (SALINE LOCK) 10ML VIAL/SYR IV SCH ×2 (06:30→16:17)
[2017-11-24 09:00] VITALS: BP 88/54
[2017-11-24] MEDS: POTASSIUM CHL 10 Meq TABLET PO SCH (09:34)
[2017-11-24] MEDS: DIGOXIN 0.125 MG TAB PO SCH (09:35)
[2017-11-24] MEDS: MAGNESIUM OXIDE 400 MG TAB PO SCH (09:35)
[2017-11-24] MEDS: APIXABAN 5 MG TAB PO SCH (09:35)
[2017-11-24] MEDS: MULTIPLE VITAMIN TAB PO SCH (09:36)
[2017-11-24] MEDS: PANTOPRAZOLE 40 MG TAB PO SCH (09:36)
[2017-11-24] MEDS: risperiDONE 1 MG TAB PO SCH (09:36)
[2017-11-24] MEDS: CARVEDILOL 3.125 MG TAB PO SCH (10:00)
[2017-11-24] MEDS: SACUBITRIL-VALSARTAN 24mg/26mg TAB PO SCH (10:00)
[2017-11-24 12:54] VITALS: BP 97/52
[2017-11-24 13:00] VITALS: BP 97/52
== END 2017-11-24 15:00 | disposition home or self-care (01) | DRG 194 ==
LOC: ER 10:51 → TELE 10:52 → TELE-CENTR 18:02
PROVIDERS: ADMIT Internal Medicine; ATTEND Internal Medicine
DX: I13.0 Hypertensive heart and chronic kidney disease with heart failure and stage 1 through stage 4 chronic kidney disease, or unspecified chronic kidney disease (principal); E11.21 Type 2 diabetes mellitus with diabetic nephropathy; N18.3 Chronic kidney disease, stage 3 (moderate); E87.1 Hypo-osmolality and hyponatremia; N39.0 Urinary tract infection, site not specified; I50.43 Acute on chronic combined systolic (congestive) and diastolic (congestive) heart failure; D63.8 Anemia in other chronic diseases classified elsewhere; R07.89 Other chest pain; I25.10 Atherosclerotic heart disease of native coronary artery without angina pectoris; E11.22 Type 2 diabetes mellitus with diabetic chronic kidney disease; E78.5 Hyperlipidemia, unspecified; I25.2 Old myocardial infarction; Z95.5 Presence of coronary angioplasty implant and graft; Z95.810 Presence of automatic (implantable) cardiac defibrillator; Z86.711 Personal history of pulmonary embolism; Z88.8 Allergy status to other drugs, medicaments and biological substances; Z88.1 Allergy status to other antibiotic agents
CPT/HCPCS: 36415; 71046; 80048; 80053; 81001; 82962; 83036; 83540; 83735; 83880; 84443; 84484; 85025; 85610; 85730; 87081; 87086; 93005; 94761; 96361; 96374; 96375; 96376; J0696; J1815; J2405

== ENCOUNTER 2018-01-12 20:48 | Emergency (ER) | payer OTHER ==
[~2018-01-12] VITALS: Ht 172.7 cm; Wt 81.6 kg
[~2018-01-12 20:48] MED LIST changes: +BUME1TAB; +DIGO0.1220; +LISI10TA6; +SPIR25TA8
[2018-01-12 22:07] LABS: Basophils # (auto) 0.1 uL; Basophils % (auto) 0.5 % (0.0-2.0); Eosinophils # (auto) 0.1 uL; Lymphocytes # (auto) 1.4 uL; Lymphocytes % (auto) 14.8 % (10.0-50.0); Mean Corpuscular Hgb Conc. 32.2 g/dL (32.0-36.0); Mean Corpuscular Volume 77.6 fL (80.0-100.0); Monocytes # (auto) 0.6 uL; Neutrophils # (auto) 7.4 uL
[2018-01-12 22:08] LABS: Eosinophils % (auto) 1.1 % (0.0-7.0); Hematocrit 41.8 % (41.0-53.0); Hemoglobin 13.5 g/dL (13.5-17.5); Monocytes % (auto) 6.5 % (0.0-12.0); Neutrophils % (auto) 77.1 % (37.0-80.0); Platelet Count (auto) 233 10^3/uL (140-450); Red Blood Cells 5.38 10^6/uL (4.5-5.90); White Blood Cell 9.7 10^3/uL (4.4-10.8)
[2018-01-12 22:20] LABS: Albumin 4.2 g/dL (3.4-5.0); Calcium 8.5 mg/dL (8.5-10.1); Potassium 4.1 mmol/L (3.5-5.1)
[2018-01-12 22:21] LABS: Red Cell Distribution Width 26.2 % (11.8-14.3)
[2018-01-12 22:23] LABS: BUN/Creatinine Ratio 21.9
[2018-01-12 22:27] LABS: Bilirubin, Total 1.4 mg/dL (0.2-1.0); Total Protein 8.6 g/dL (6.4-8.2)
[2018-01-12] MEDS ORDERED: NITROGLYCERIN 2% OINT 1GM PKG TD ONE (22:45)
[2018-01-13 05:35] VITALS: BP 125/74
== END 2018-01-13 05:40 | disposition home or self-care (01) ==
LOC: ER 20:48
DX: S70.11XA Contusion of right thigh, initial encounter (principal); R07.89 Other chest pain; F19.10 Other psychoactive substance abuse, uncomplicated; K29.20 Alcoholic gastritis without bleeding; F10.10 Alcohol abuse, uncomplicated; F15.10 Other stimulant abuse, uncomplicated; I11.0 Hypertensive heart disease with heart failure; I50.9 Heart failure, unspecified; E11.9 Type 2 diabetes mellitus without complications; I25.2 Old myocardial infarction; I25.810 Atherosclerosis of coronary artery bypass graft(s) without angina pectoris; E78.5 Hyperlipidemia, unspecified; Z86.711 Personal history of pulmonary embolism; Z96.89 Presence of other specified functional implants; Z88.6 Allergy status to analgesic agent; Z88.1 Allergy status to other antibiotic agents; Z79.899 Other long term (current) drug therapy; Y90.9 Presence of alcohol in blood, level not specified; Z95.0 Presence of cardiac pacemaker; Z91.018 Allergy to other foods; W55.12XA Struck by horse, initial encounter; Y93.89 Activity, other specified; Y92.89 Other specified places as the place of occurrence of the external cause; Y99.8 Other external cause status
CPT/HCPCS: 36415; 71045; 80053; 80320; 82962; 84484; 85025; 93005; 94761

== ENCOUNTER 2018-01-26 12:36 | Emergency (ER) | payer OTHER ==
[~2018-01-26] VITALS: Ht 175.3 cm; Wt 72.6 kg
[2018-01-26] MEDS ORDERED: traMADol HCL 50 MG TAB PO ONE (13:30)
[2018-01-26 14:13] LABS: Basophils # (auto) 0 uL; Eosinophils # (auto) 0.1 uL; Hemoglobin 13.1 g/dL (13.5-17.5); Monocytes # (auto) 0.3 uL; Platelet Count (auto) 153 10^3/uL (140-450)
[2018-01-26 14:14] LABS: Basophils % (auto) 0.8 % (0.0-2.0); Eosinophils % (auto) 2.3 % (0.0-7.0); Hematocrit 41.3 % (41.0-53.0); Lymphocytes % (auto) 46.8 % (10.0-50.0); Mean Corpuscular Hemoglobin 25.3 pg (28.0-32.0); Mean Corpuscular Hgb Conc. 31.7 g/dL (32.0-36.0); Mean Corpuscular Volume 79.9 fL (80.0-100.0); Monocytes % (auto) 6.9 % (0.0-12.0); Neutrophils # (auto) 1.9 uL; Neutrophils % (auto) 43.2 % (37.0-80.0); Nucleated Red Blood Cells % 0.1 %; Red Blood Cells 5.17 10^6/uL (4.5-5.90); White Blood Cell 4.3 10^3/uL (4.4-10.8)
[2018-01-26 14:16] LABS: INR 1.06 (0.9-1.15); Partial Thromboplastin Time 28.7 sec (23.78-33.04); Prothrombin Time 11.3 sec (9.27-12.13)
[2018-01-26 14:26] LABS: Red Cell Distribution Width 24.3 % (11.8-14.3)
[2018-01-26 14:32] VITALS: BP 134/66
[2018-01-26 14:37] LABS: Albumin 3.7 g/dL (3.4-5.0); Anion Gap 5 (5-15); Blood Urea Nitrogen 9 mg/dL (7-18); Calcium 8.4 mg/dL (8.5-10.1); Carbon Dioxide 26 mmol/L (21-32); Chloride 109 mmol/L (98-107); Glucose 111 mg/dL (74-106); Magnesium 2.3 mg/dL (1.6-2.6); Sodium 140 mmol/L (136-145)
[2018-01-26 14:43] LABS: Alanine Aminotransferase 20 U/L (16-61); Alkaline Phosphatase 52 U/L (45-117); Aspartate Aminotransferase 25 U/L (15-37); BUN/Creatinine Ratio 11.5; Bilirubin, Total 0.8 mg/dL (0.2-1.0); GFR African American 129 mL/min; GFR Non-African American 107 mL/min; Total Protein 7.5 g/dL (6.4-8.2)
== END 2018-01-26 15:59 | disposition left against medical advice (07) ==
LOC: EDUNIT# 12:36 → EDBD 12:36 → ER 12:40
DX: R07.9 Chest pain, unspecified (principal); R05 Cough; I25.10 Atherosclerotic heart disease of native coronary artery without angina pectoris; E11.9 Type 2 diabetes mellitus without complications; I11.0 Hypertensive heart disease with heart failure; I50.9 Heart failure, unspecified; E78.5 Hyperlipidemia, unspecified; I25.2 Old myocardial infarction; F15.90 Other stimulant use, unspecified, uncomplicated; Z53.29 Procedure and treatment not carried out because of patient's decision for other reasons; Z88.1 Allergy status to other antibiotic agents; Z86.711 Personal history of pulmonary embolism; Z98.61 Coronary angioplasty status; Z95.0 Presence of cardiac pacemaker; Z88.8 Allergy status to other drugs, medicaments and biological substances; Z79.84 Long term (current) use of oral hypoglycemic drugs; Z79.899 Other long term (current) drug therapy; Z79.01 Long term (current) use of anticoagulants
CPT/HCPCS: 36415; 71045; 80053; 80320; 83735; 83880; 84484; 85025; 85610; 85730; 93005

== ENCOUNTER 2018-04-26 13:10 | Inpatient (IN) | payer OTHER ==
[~2018-04-26] VITALS: Ht 167.6 cm; Wt 74.7 kg
[2018-04-26 15:02] LABS: Albumin 2.8 g/dL (3.4-5.0); Calcium 8.1 mg/dL (8.5-10.1); Potassium 3.7 mmol/L (3.5-5.1)
[2018-04-26 15:07] LABS: Bilirubin, Total 0.9 mg/dL (0.2-1.0); Total Protein 7.5 g/dL (6.4-8.2)
[2018-04-26] MEDS ORDERED: MORPHINE SULFATE 4 MG/ML SYR/VIAL IV ONE (15:30)
[2018-04-26] MEDS ORDERED: ONDANSETRON HCL 4 MG/2 ML VIAL IV ONE (15:30)
[2018-04-26 15:38] LABS: Basophils # (auto) 0 uL; Basophils % (auto) 1.2 % (0.0-2.0); Eosinophils # (auto) 0.1 uL; Eosinophils % (auto) 2.4 % (0.0-7.0); Hematocrit 35.5 % (41.0-53.0); Hemoglobin 11.8 g/dL (13.5-17.5); Lymphocytes # (auto) 1.1 uL; Mean Corpuscular Hemoglobin 28.5 pg (28.0-32.0); Mean Corpuscular Hgb Conc. 33.3 g/dL (32.0-36.0); Mean Corpuscular Volume 85.3 fL (80.0-100.0); Monocytes # (auto) 0.5 uL; Monocytes % (auto) 13.8 % (0.0-12.0); Neutrophils % (auto) 53.6 % (37.0-80.0); Nucleated Red Blood Cells % 0.2 %; Platelet Count (auto) 133 10^3/uL (140-450); Red Blood Cells 4.16 10^6/uL (4.5-5.90); White Blood Cell 3.6 10^3/uL (4.4-10.8)
[2018-04-26 16:04] LABS: Red Cell Distribution Width 24.4 % (11.8-14.3)
[2018-04-26] MEDS ORDERED: NITROGLYCERIN 0.4 MG SL TAB SL PRN (18:45)
[2018-04-26] MEDS ORDERED: DEXTROSE (50%) 50ML SYRG IV PRN (19:00)
[2018-04-26] MEDS ORDERED: NITROGLYCERIN 0.4MG/HR TOPICAL PATCH TD ONE (19:24)
[2018-04-26] MEDS: NITROGLYCERIN 0.4MG/HR TOPICAL PATCH TD SCH (19:26)
[2018-04-26] MEDS ORDERED: MORPHINE SULF INJ 2 MG/ML SYRINGE 1ML ONE (20:46)
[2018-04-26] MEDS: MORPHINE SULF INJ 2 MG/ML SYRINGE 1ML IV PRN (20:49)
[2018-04-26] MEDS ORDERED: CARVEDILOL 3.125 MG TAB ONE (22:09)
[2018-04-26] MEDS ORDERED: ATORVASTATIN 20 MG TAB ONE (22:09)
[2018-04-26] MEDS ORDERED: InsuLIN REG 1unit/0.01ml Soln (100units/ml) ONE (22:10)
[2018-04-26] MEDS ORDERED: ONDANSETRON HCL 4 MG/2 ML VIAL ONE (22:16)
[2018-04-26] MEDS: risperiDONE 1 MG TAB PO SCH (22:21)
[2018-04-26] MEDS: CARVEDILOL 3.125 MG TAB PO SCH (22:21)
[2018-04-26] MEDS: ATORVASTATIN 20 MG TAB PO SCH (22:21)
[2018-04-26] MEDS: APIXABAN 5 MG TAB PO SCH (22:21)
[2018-04-26] MEDS: ACCU-CHEK COMFORT CURVE STRIP VI SCH (22:22)
[2018-04-26] MEDS: ONDANSETRON HCL 4 MG/2 ML VIAL IV PRN (22:22)
[2018-04-26] MEDS: InsuLIN REG 1unit/0.01ml Soln (100units/ml) SC SCH (22:22)
[2018-04-27] MEDS ORDERED: MORPHINE SULF INJ 2 MG/ML SYRINGE 1ML ONE (03:38)
[2018-04-27] MEDS: MORPHINE SULF INJ 2 MG/ML SYRINGE 1ML IV PRN (03:43)
[2018-04-27 04:46] LABS: Basophils # (auto) 0 uL; Basophils % (auto) 0.9 % (0.0-2.0); Eosinophils # (auto) 0.1 uL; Eosinophils % (auto) 4.1 % (0.0-7.0); Hematocrit 34.2 % (41.0-53.0); Hemoglobin 11.3 g/dL (13.5-17.5); Lymphocytes % (auto) 33.2 % (10.0-50.0); Mean Corpuscular Hemoglobin 28.1 pg (28.0-32.0); Monocytes # (auto) 0.4 uL; Monocytes % (auto) 14.1 % (0.0-12.0); Neutrophils # (auto) 1.5 uL; Neutrophils % (auto) 47.7 % (37.0-80.0); Nucleated Red Blood Cells % 0.2 %; Platelet Count (auto) 107 10^3/uL (140-450); Red Blood Cells 4.02 10^6/uL (4.5-5.90); White Blood Cell 3.1 10^3/uL (4.4-10.8)
[2018-04-27 04:50] LABS: Red Cell Distribution Width 25.1 % (11.8-14.3)
[2018-04-27 05:10] LABS: Calcium 7.9 mg/dL (8.5-10.1); Potassium 3.5 mmol/L (3.5-5.1)
[2018-04-27 05:15] LABS: BUN/Creatinine Ratio 7.9
[2018-04-27] MEDS ORDERED: ONDANSETRON HCL 4 MG/2 ML VIAL ONE (06:12)
[2018-04-27] MEDS: ONDANSETRON HCL 4 MG/2 ML VIAL IV PRN (06:15)
[2018-04-27] MEDS ORDERED: LACTULOSE 20Gm/30ML SOLN PO ONE (07:00)
[2018-04-27] MEDS: InsuLIN REG 1unit/0.01ml Soln (100units/ml) SC SCH ×3 (07:00→22:00)
[2018-04-27] MEDS: ACCU-CHEK COMFORT CURVE STRIP VI SCH ×4 (07:12→22:05)
[2018-04-27] MEDS: MULTIPLE VITAMIN TAB PO SCH (09:47)
[2018-04-27] MEDS: APIXABAN 5 MG TAB PO SCH ×2 (09:47→21:59)
[2018-04-27] MEDS: PANTOPRAZOLE 40 MG/10 ML VIAL IV SCH (09:47)
[2018-04-27] MEDS: CLOPIDOGREL BISULFATE 75 MG TAB PO SCH (09:48)
[2018-04-27] MEDS: risperiDONE 1 MG TAB PO SCH ×2 (09:48→21:59)
[2018-04-27] MEDS: SPIRONOLACTONE 25 MG TAB PO SCH (09:48)
[2018-04-27] MEDS: DIGOXIN 0.125 MG TAB PO SCH (09:49)
[2018-04-27] MEDS: HYDROcodone-ACET 5/325MG TAB PO PRN (09:49)
[2018-04-27] MEDS: FUROSEMIDE 20 MG/2 ML VIAL IV SCH (09:50)
[2018-04-27] MEDS: NITROGLYCERIN 0.4MG/HR TOPICAL PATCH TD SCH (09:52)
[2018-04-27] MEDS ORDERED: PANTOPRAZOLE SODIUM SESQUIHYDR PO SCH (10:00)
[2018-04-27] MEDS: CARVEDILOL 3.125 MG TAB PO SCH ×2 (10:52→22:00)
--- NOTE | 2018-04-27 14:00 | NUR ---
Telemetry admit from ER JOSY ALMAGUER admitted to Telemetry unit after SBAR received. Patient oriented to Kathy Aceves, primary RN, room 294A and unit policies regarding patient care and visiting hours. Patient now on continuous telemetry monitoring,tele box #7 and telemetry reading on arrival to unit is SR. Patient weighed by bedscale and encouraged to call if they need something. All questions and concerns addressed, patient verbalized understanding.
--- NOTE | 2018-04-27 14:50 | NUR ---
ALCOHOLIC BEVERAGES Patient arrived with sealed 3 pack of Budweizer tall cans and a bottle of Wine. Educated patient on hospital policies, collected alcoholic beverages to be held in charge nurse office during patient's stay.
[2018-04-27 16:53] VITALS: BP 123/64
--- NOTE | 2018-04-27 19:35 | NUR ---
Opening Shift Note Assumed care of patient, awake and alert. No S/S of distress/SOB or pain. Pt walker from home at bedside. Bed locked in lowest position, side rails upx2, call light within reach. Instructed on POC and to call for assist PRN, will continue to monitor for changes Q1hr and PRN.
[2018-04-27] MEDS: ATORVASTATIN 20 MG TAB PO SCH (21:59)
[2018-04-28] MEDS: HYDROcodone-ACET 5/325MG TAB PO PRN (02:03)
[2018-04-28 04:46] VITALS: BP 124/77
[2018-04-28] MEDS: InsuLIN REG 1unit/0.01ml Soln (100units/ml) SC SCH ×4 (06:36→21:56)
[2018-04-28] MEDS: ACCU-CHEK COMFORT CURVE STRIP VI SCH ×4 (06:37→21:56)
--- NOTE | 2018-04-28 07:45 | NUR ---
OPENING NOTE ASSUMED CARE OF PATIENT. PT IS SITTING ON BED, AWAKE. HOB HIGH-FOWLERS. A&O X4. ON ROOM AIR, O2 SATURATION 94%. NO SIGNS OF SOB/DISTRESS NOTED. TELE #7, HR 72. SAFETY PRECAUTIONS IN PLACE INCLUDING, BED SET TO LOWEST POSITION/LOCKED. BED SIDE RAILS UP X2. CALL LIGHT WITHIN REACH INSTRUCTED PT TO CALL FOR ASSISTANCE. DISCUSSED POC WITH PT. PT VERBALIZED UNDERSTANDING. WILL CONTINUE TO MONITOR Q 1HR AND PRN.
[2018-04-28 09:00] VITALS: BP 126/69
[2018-04-28] MEDS: MULTIPLE VITAMIN TAB PO SCH (09:42)
[2018-04-28] MEDS: risperiDONE 1 MG TAB PO SCH ×2 (09:42→21:55)
[2018-04-28] MEDS: CLOPIDOGREL BISULFATE 75 MG TAB PO SCH (09:42)
[2018-04-28] MEDS: PANTOPRAZOLE 40 MG/10 ML VIAL IV SCH (09:42)
[2018-04-28] MEDS: FUROSEMIDE 20 MG/2 ML VIAL IV SCH (09:42)
[2018-04-28] MEDS: SPIRONOLACTONE 25 MG TAB PO SCH (09:42)
[2018-04-28] MEDS: APIXABAN 5 MG TAB PO SCH ×2 (09:42→21:55)
[2018-04-28] MEDS: NITROGLYCERIN 0.4MG/HR TOPICAL PATCH TD SCH (09:42)
[2018-04-28] MEDS: DIGOXIN 0.125 MG TAB PO SCH (09:44)
[2018-04-28] MEDS: CARVEDILOL 3.125 MG TAB PO SCH ×2 (09:44→21:55)
[2018-04-28] MEDS: MORPHINE SULF INJ 2 MG/ML SYRINGE 1ML IV PRN ×2 (09:46→21:56)
[2018-04-28 13:00] VITALS: BP 119/72
[2018-04-28] MEDS: ACETAMINOPHEN 500 MG TAB PO PRN (13:51)
--- NOTE | 2018-04-28 14:30 | NUR ---
PATIENT COMPLAINED OF CHEST PAIN, NONRADIATING, 12/02. CHEST PAIN PROTOCOL INITIATED. VITAL SIGNS BP 111/51, HR 67, RR 18, O2 SATURATION 98% PATIENT PLACED ON 3 LPM/NC. PATIENT REFUSED SUBLINGUAL NITROGLYCERIN, PATIENT STATED "MAKES MY HEAD HURT." EKG TAKEN/PLACED IN CHART. MORPHINE GIVE PER MD ORDERS. WILL INFORM MD. WILL CONTINUE TO MONITOR.
[2018-04-28] MEDS: MORPHINE SULFATE 4 MG/ML SYR/VIAL IV PRN ×2 (15:00→15:34)
--- NOTE | 2018-04-28 15:36 | NUR ---
REASSESSED PATIENT CHEST PAIN 08/02, NONRADIATING. PATIENT ON 3 LPM/NC. MORPHINE ADMINISTERED PER MD ORDERS. WILL CONTINUE TO MONITOR.
--- NOTE | 2018-04-28 16:02 | NUR ---
REASSESSED PATIENT CHEST PAIN 05/02, NONRADIATING. PATIENT ON 3 LPM/NC. MORPHINE ADMINISTERED PER MD ORDERS. WILL CONTINUE TO MONITOR.
[2018-04-28 17:00] VITALS: BP 111/74
--- NOTE | 2018-04-28 20:02 | NUR ---
ENDORSED CARE TO GREG MORTON.
[2018-04-28] MEDS: KETOROLAC TROMETH 30 MG/ML 1ML VIAL IV PRN (20:04)
--- NOTE | 2018-04-28 20:05 | NUR ---
Opening Shift Note Assumed care of patient, awake and alert, oriented x4. No S/S of distress/SOB, c/o cw pain 12/02, medicated with toradol, will reassess pain. Instructed on POC, verbalized understanding. Call light within reach and encouraged to call for assist PRN, will continue to monitor for changes Q1hr and PRN. Side rails up x2, bed in lowest, locked position, non skid socks on. Continue care.
--- NOTE | 2018-04-28 20:33 | NUR ---
[facility] CALLED [facility] TO SCHEDULE AICD INTERROGATION PER MARSH BUGGY OPERATOR [facility] ORDERS. SPOKE TO FRANCHESCA. PER REP, SHE WILL SEND OUT A PAGE TO THEIR MILL BEAM FITTER. CONTINUE CARE.
[2018-04-28 21:30] VITALS: BP_SYST 108; BP_SYST 127; BP_DIAS 68; BP_DIAS 75
[2018-04-28] MEDS: ATORVASTATIN 20 MG TAB PO SCH (21:55)
[2018-04-29 05:00] VITALS: BP 99/63
[2018-04-29] MEDS: ACCU-CHEK COMFORT CURVE STRIP VI SCH ×4 (06:13→22:37)
[2018-04-29] MEDS: InsuLIN REG 1unit/0.01ml Soln (100units/ml) SC SCH ×4 (06:13→22:38)
--- NOTE | 2018-04-29 07:30 | NUR ---
OPENING NOTE ASSUMED CARE OF PATIENT. PT IS SITTING ON BED, AWAKE. HOB HIGH-FOWLERS. A&O X4. ON 2 LPM/NC, O2 SATURATION 93%. NO SIGNS OF SOB/DISTRESS NOTED. TELE #7, HR 82. PT DENIES ANY PAIN. SAFETY PRECAUTIONS IN PLACE INCLUDING, BED SET TO LOWEST POSITION/LOCKED. BED SIDE RAILS UP X2. CALL LIGHT WITHIN REACH INSTRUCTED PT TO CALL FOR ASSISTANCE. DISCUSSED POC WITH PT. PT VERBALIZED UNDERSTANDING. WILL CONTINUE TO MONITOR Q 1HR AND PRN.
[2018-04-29 09:00] VITALS: BP 122/74
[2018-04-29] MEDS: MULTIPLE VITAMIN TAB PO SCH (09:52)
[2018-04-29] MEDS: FUROSEMIDE 20 MG/2 ML VIAL IV SCH (09:52)
[2018-04-29] MEDS: CLOPIDOGREL BISULFATE 75 MG TAB PO SCH (09:52)
[2018-04-29] MEDS: PANTOPRAZOLE 40 MG/10 ML VIAL IV SCH (09:52)
[2018-04-29] MEDS: APIXABAN 5 MG TAB PO SCH ×2 (09:53→22:34)
[2018-04-29] MEDS: SPIRONOLACTONE 25 MG TAB PO SCH (09:53)
[2018-04-29] MEDS: risperiDONE 1 MG TAB PO SCH ×2 (09:53→22:35)
[2018-04-29] MEDS: DIGOXIN 0.125 MG TAB PO SCH (10:00)
[2018-04-29] MEDS: CARVEDILOL 3.125 MG TAB PO SCH ×2 (10:00→22:36)
[2018-04-29] MEDS: NITROGLYCERIN 0.4MG/HR TOPICAL PATCH TD SCH (10:00)
[2018-04-29] MEDS: KETOROLAC TROMETH 30 MG/ML 1ML VIAL IV PRN (10:00)
--- NOTE | 2018-04-29 10:30 | NUR ---
IV insertion IV access obtained, via clean sterile technique by inserting 20 gauge catheter at left hand after 1 attempt(s). IV secured properly. No trauma to site. Patient tolerated well.
--- NOTE | 2018-04-29 10:45 | NUR ---
IV removal IV DC'd with clean sterile technique, catheter fully intact. Pressure dressing applied to site. Patient tolerated well.
[2018-04-29 13:00] VITALS: BP 107/74
--- NOTE | 2018-04-29 14:42 | NUR ---
PATIENT HAD A RUN OF V-TAC. PATIENT IS SITTING ON BED, WATCHING TELEVISION. ASYMPTOMATIC. BP 115/73, HR 74, RR 18, O2 SATURATION 97%. WILL INFORM MD. WILL CONTINUE TO MONITOR.
[2018-04-29 17:00] VITALS: BP 113/72
--- NOTE | 2018-04-29 19:36 | NUR ---
ENDORSED CARE TO GREG QUIJANO.
--- NOTE | 2018-04-29 19:40 | NUR ---
Opening Shift Note Assumed care of patient, resting in bed with breaths even and unlabored. No S/S of distress/SOB noted. Bed is in lowest locked position with bed rails up x2 and call light is within reach of the patient. Instructed on POC and to call for assist PRN.
[2018-04-29] MEDS: MORPHINE SULF INJ 2 MG/ML SYRINGE 1ML IV PRN (20:34)
[2018-04-29 22:11] VITALS: BP 131/73
[2018-04-29] MEDS: ATORVASTATIN 20 MG TAB PO SCH (22:35)
[2018-04-30] MEDS: ACETAMINOPHEN 500 MG TAB PO PRN (04:11)
[2018-04-30 05:21] VITALS: BP 101/56
[2018-04-30] MEDS: ACCU-CHEK COMFORT CURVE STRIP VI SCH ×2 (06:23→11:25)
[2018-04-30] MEDS: InsuLIN REG 1unit/0.01ml Soln (100units/ml) SC SCH ×2 (06:23→11:26)
--- NOTE | 2018-04-30 07:15 | NUR ---
OPENING NOTE ASSUMED CARE OF PATIENT. PT IS SITTING ON BED, AWAKE. HOB HIGH-FOWLERS. A&O X4. ON 2 LPM/NC, O2 SATURATION 98%. NO SIGNS OF SOB/DISTRESS NOTED. TELE #7, HR 60. PT DENIES ANY PAIN. SAFETY PRECAUTIONS IN PLACE INCLUDING, BED SET TO LOWEST POSITION/LOCKED. BED SIDE RAILS UP X2. CALL LIGHT WITHIN REACH INSTRUCTED PT TO CALL FOR ASSISTANCE. DISCUSSED POC WITH PT. PT VERBALIZED UNDERSTANDING. WILL CONTINUE TO MONITOR Q 1HR AND PRN.
--- NOTE | 2018-04-30 07:30 | NUR ---
Closing note: Patient is resting in bed with breaths even and unlabored. No S/S of distress SOB noted. Bed is in lowest locked position with bed rails up x2 and call light is within reach of the patient. Care endorsed to day shift nurse.
[2018-04-30] MEDS: HYDROcodone-ACET 5/325MG TAB PO PRN ×2 (07:56→14:07)
[2018-04-30 08:54] VITALS: BP 126/67
[2018-04-30] MEDS: SPIRONOLACTONE 25 MG TAB PO SCH (09:53)
[2018-04-30] MEDS: APIXABAN 5 MG TAB PO SCH (09:53)
[2018-04-30] MEDS: FUROSEMIDE 20 MG/2 ML VIAL IV SCH (09:53)
[2018-04-30] MEDS: CARVEDILOL 3.125 MG TAB PO SCH (09:53)
[2018-04-30] MEDS: PANTOPRAZOLE 40 MG/10 ML VIAL IV SCH (09:53)
[2018-04-30] MEDS: risperiDONE 1 MG TAB PO SCH (09:54)
[2018-04-30] MEDS: NITROGLYCERIN 0.4MG/HR TOPICAL PATCH TD SCH (09:54)
[2018-04-30] MEDS: CLOPIDOGREL BISULFATE 75 MG TAB PO SCH (09:54)
[2018-04-30] MEDS: DIGOXIN 0.125 MG TAB PO SCH (09:54)
[2018-04-30] MEDS: MULTIPLE VITAMIN TAB PO SCH (09:54)
[2018-04-30] MEDS: KETOROLAC TROMETH 30 MG/ML 1ML VIAL IV PRN (09:55)
--- NOTE | 2018-04-30 15:12 | NUR ---
Guruji SPOKE TO MARK FROM Guruji , REGARDING PATIENTS AICD. PER MARK SHE WILL RESEND THE PAGE ONCE AGAIN TO THE DISTRIBUTION CENTER ASSOCIATE. PER HER NOTES PAGE WAS ACCEPTED ON 04/28/18.
--- NOTE | 2018-04-30 15:35 | NUR ---
NUTRITION ASSESSMENT NOTES Please refer to link notes of nutrition screen form filed under the intervention section of the plan of care for further details. Est. Needs: 1500 kcal to 1850 kcal (25-30 kcal/kgBW), 75 gms to 90 gms pro (1.0-1.2 gms/kgBW). Will continue to monitor pertinent labs and reassess nutrient need prn Thank you. Addendum: 04/30/18 at [address] Amended: Links added.
[2018-04-30 16:26] VITALS: BP 120/72
[2018-04-30 16:54] VITALS: BP 127/68
--- NOTE | 2018-04-30 17:50 | NUR ---
Discharge instructions given as ordered. Encourage to follow up follow up with Dr. Fajardo [address] [place] [address] . All questions and concerns addressed. Patient verbalized understanding. No home medications held in Pharmacy and no vaccines given. IV removed with catheter intact, pressure dressing applied. Telemetry unit #7 returned to ICU.
--- NOTE | 2018-04-30 18:05 | NUR ---
PATIENT ALCOHOLIC BEVERAGES WERE RETURNED UPON DISCHARGE.
--- NOTE | 2018-04-30 19:13 | NUR ---
Patient taken to vehicle via wheelchair with all personal belongings, accompanied by staff and family member. No distress noted at time of departure.
== END 2018-04-30 19:08 | disposition home or self-care (01) | DRG 198 ==
LOC: EDBD 13:10 → EDUNIT# 13:10 → ER 13:26 → UNDOADMIN 14:57 → TELE 14:57 → TELE-WESTW 04-27 14:22
PROVIDERS: ADMIT Nurse Practitioner Acute Care; ATTEND Internal Medicine Pulmonary Disease
DX: R07.89 Other chest pain (principal); I24.9 Acute ischemic heart disease, unspecified; I50.21 Acute systolic (congestive) heart failure; E44.0 Moderate protein-calorie malnutrition; D64.9 Anemia, unspecified; E11.9 Type 2 diabetes mellitus without complications; E78.5 Hyperlipidemia, unspecified; F32.9 Major depressive disorder, single episode, unspecified; I25.10 Atherosclerotic heart disease of native coronary artery without angina pectoris; I11.0 Hypertensive heart disease with heart failure; Z79.01 Long term (current) use of anticoagulants; F41.9 Anxiety disorder, unspecified; I25.5 Ischemic cardiomyopathy; Z95.810 Presence of automatic (implantable) cardiac defibrillator; Z79.02 Long term (current) use of antithrombotics/antiplatelets; Z79.899 Other long term (current) drug therapy; Z79.84 Long term (current) use of oral hypoglycemic drugs; Z88.1 Allergy status to other antibiotic agents; Z88.8 Allergy status to other drugs, medicaments and biological substances; Z91.018 Allergy to other foods; Z82.3 Family history of stroke; Z82.49 Family history of ischemic heart disease and other diseases of the circulatory system; Z68.26 Body mass index [BMI] 26.0-26.9, adult
CPT/HCPCS: 36415; 71045; 80048; 80053; 80061; 82962; 83036; 83880; 84443; 84484; 85025; 93005; 96374; 96375; C9113; G0378; J1815; J1885; J2405

== ENCOUNTER 2018-06-26 17:04 | Inpatient (IN) | payer OTHER ==
[~2018-06-26] VITALS: Ht 172.7 cm; Wt 95.3 kg
[~2018-06-26 17:04] MED LIST changes: +CLOP75TA28 PO; +FURO40TA4 PO
[2018-06-26 18:49] LABS: Basophils # (auto) 0 uL; Basophils % (auto) 0.5 % (0.0-2.0); Eosinophils # (auto) 0.2 uL; Eosinophils % (auto) 3.1 % (0.0-7.0); Hematocrit 35.4 % (41.0-53.0); Hemoglobin 11.8 g/dL (13.5-17.5); Lymphocytes # (auto) 1.8 uL; Lymphocytes % (auto) 22.9 % (10.0-50.0); Mean Corpuscular Hemoglobin 29.5 pg (28.0-32.0); Mean Corpuscular Hgb Conc. 33.3 g/dL (32.0-36.0); Mean Corpuscular Volume 88.5 fL (80.0-100.0); Monocytes # (auto) 0.6 uL; Monocytes % (auto) 7.3 % (0.0-12.0); Neutrophils # (auto) 5.2 uL; Neutrophils % (auto) 66.2 % (37.0-80.0); Nucleated Red Blood Cells % 0.1 %; Platelet Count (auto) 175 10^3/uL (140-450); White Blood Cell 7.8 10^3/uL (4.4-10.8)
[2018-06-26 19:08] LABS: BUN/Creatinine Ratio 14.1; Potassium 3.8 mmol/L (3.5-5.1)
[2018-06-26 19:09] LABS: Albumin 3.1 g/dL (3.4-5.0); Calcium 8.6 mg/dL (8.5-10.1)
[2018-06-26 19:25] LABS: Bilirubin, Total 0.7 mg/dL (0.2-1.0); Total Protein 7.1 g/dL (6.4-8.2)
[2018-06-26 19:30] LABS: Amphetamine Screen, Urine NEGATIVE (NEGATIVE); Barbiturate Scree,Urine NEGATIVE (NEGATIVE); Benzodiazephine Screen, Urine NEGATIVE (NEGATIVE); Cannabinoid Screen, Urine NEGATIVE (NEGATIVE); Cocaine Screen, Urine NEGATIVE (NEGATIVE); Opiate Scree,Urine NEGATIVE (NEGATIVE); Phencyclidine Screen, Urine NEGATIVE (NEGATIVE)
[2018-06-26] MEDS ORDERED: IOHEXOL 350 MG/ML 100ML IJ ONE (19:54)
[2018-06-26] MEDS ORDERED: SODIUM CHLORIDE 0.9% 3,000 ML IV ONE (20:45)
[2018-06-26] MEDS ORDERED: IBUPROFEN 600 MG TAB PO ONE (23:30)
[2018-06-27] VITALS (7 sets, daily range): BP systolic 101–151; BP diastolic 58–86
[2018-06-27] MEDS ORDERED: NITROGLYCERIN 0.4 MG SL TAB SL PRN (00:30)
[2018-06-27] MEDS ORDERED: ACETAMINOPHEN 500 MG TAB PO PRN (00:30)
[2018-06-27] MEDS ORDERED: ONDANSETRON HCL 4 MG/2 ML VIAL IV PRN ×2 (00:30→01:30)
[2018-06-27] MEDS: MORPHINE SULF INJ 2 MG/ML SYRINGE 1ML IV PRN ×3 (01:36→07:09)
--- NOTE | 2018-06-27 02:56 | NUR ---
Pt reports 10/10 chest pain, one dose of nitroglycerin give, pt now denying pain.
[2018-06-27 03:31] LABS: Basophils # (auto) 0 uL; Basophils % (auto) 0.8 % (0.0-2.0); Eosinophils # (auto) 0.3 uL; Eosinophils % (auto) 5.5 % (0.0-7.0); Hematocrit 35.7 % (41.0-53.0); Lymphocytes # (auto) 1.4 uL; Lymphocytes % (auto) 26.8 % (10.0-50.0); Mean Corpuscular Hemoglobin 29.7 pg (28.0-32.0); Mean Corpuscular Hgb Conc. 33.6 g/dL (32.0-36.0); Mean Corpuscular Volume 88.3 fL (80.0-100.0); Monocytes # (auto) 0.5 uL; Monocytes % (auto) 9.6 % (0.0-12.0); Neutrophils # (auto) 3.1 uL; Neutrophils % (auto) 57.3 % (37.0-80.0); Platelet Count (auto) 165 10^3/uL (140-450); Red Blood Cells 4.05 10^6/uL (4.5-5.90); Red Cell Distribution Width 18.5 % (11.8-14.3); White Blood Cell 5.4 10^3/uL (4.4-10.8)
[2018-06-27 03:57] LABS: BUN/Creatinine Ratio 11.5; Calcium 8.1 mg/dL (8.5-10.1)
--- NOTE | 2018-06-27 08:00 | NUR ---
Opening Shift Note Assumed care of patient, awake and alert. No S/S of distress/SOB, 4/10 anterior chest and back pain. Instructed on POC and to call for assist PRN, will continue to monitor for changes Q1hr and PRN.
[2018-06-27] MEDS: LISINOPRIL 10 MG TAB PO SCH (09:53)
[2018-06-27] MEDS: PANTOPRAZOLE 40 MG TAB PO SCH (09:53)
[2018-06-27] MEDS: DIGOXIN 0.125 MG TAB PO SCH (09:54)
[2018-06-27] MEDS: APIXABAN 5 MG TAB PO SCH ×2 (09:54→21:32)
[2018-06-27] MEDS: SPIRONOLACTONE 25 MG TAB PO SCH (09:54)
[2018-06-27] MEDS: CLOPIDOGREL BISULFATE 75 MG TAB PO SCH (09:54)
[2018-06-27] MEDS: CARVEDILOL 3.125 MG TAB PO SCH ×2 (09:55→21:32)
[2018-06-27] MEDS: risperiDONE 1 MG TAB PO SCH (09:55)
[2018-06-27] MEDS: FUROSEMIDE 20 MG TAB PO SCH (09:56)
[2018-06-27] MEDS ORDERED: THIAMINE HCL 100 MG TAB PO ONE (14:45)
[2018-06-27] MEDS ORDERED: DEXTROSE (50%) 50ML SYRG IV PRN (14:45)
[2018-06-27] MEDS ORDERED: chlordiazePOXIDE HCL 25 MG CAP PO PRN (14:45)
[2018-06-27] MEDS ORDERED: MULTIPLE VITAMINS W/ MINERALS TAB PO ONE (14:45)
--- NOTE | 2018-06-27 14:45 | NUR ---
Patient complained of anterior wall chest pain and back pain 12/02, paged Dr. Jean for pain medication orders. Waiting for call back.
--- NOTE | 2018-06-27 15:00 | NUR ---
Cardiology consult called in for Dr. Fajardo regarding chest pain. Spoke with Isak at the exchange.
[2018-06-27] MEDS: HYDROcodone-ACET 5/325MG TAB PO PRN ×2 (15:22→21:32)
[2018-06-27] MEDS: InsuLIN REG 1unit/0.01ml Soln (100units/ml) SC SCH ×2 (17:00→21:33)
[2018-06-27] MEDS: ACCU-CHEK COMFORT CURVE STRIP VI SCH ×2 (17:26→21:32)
--- NOTE | 2018-06-27 19:30 | NUR ---
Opening Shift Note Assumed care of patient, awake and alert. No S/S of distress/SOB or pain. Insructed on POC and to callfor assist PRN, will continue to monitor for changes Q1hr and PRN. Fall and safety precautions in place. Call light within reach.
[2018-06-27] MEDS: ATORVASTATIN 20 MG TAB PO SCH (21:31)
[2018-06-28 05:01] VITALS: BP 111/69
[2018-06-28 05:43] LABS: Basophils # (auto) 0 uL; Basophils % (auto) 0.5 % (0.0-2.0); Eosinophils # (auto) 0.5 uL; Eosinophils % (auto) 6.8 % (0.0-7.0); Hematocrit 38.1 % (41.0-53.0); Hemoglobin 12.7 g/dL (13.5-17.5); Lymphocytes # (auto) 1.6 uL; Lymphocytes % (auto) 23.2 % (10.0-50.0); Mean Corpuscular Hemoglobin 29.5 pg (28.0-32.0); Mean Corpuscular Hgb Conc. 33.4 g/dL (32.0-36.0); Mean Corpuscular Volume 88.3 fL (80.0-100.0); Monocytes # (auto) 0.6 uL; Monocytes % (auto) 8.7 % (0.0-12.0); Neutrophils # (auto) 4.1 uL; Neutrophils % (auto) 60.8 % (37.0-80.0); Platelet Count (auto) 164 10^3/uL (140-450); Red Blood Cells 4.31 10^6/uL (4.5-5.90); Red Cell Distribution Width 18.5 % (11.8-14.3); White Blood Cell 6.7 10^3/uL (4.4-10.8)
[2018-06-28 05:59] LABS: Potassium 3.9 mmol/L (3.5-5.1)
[2018-06-28 06:08] LABS: BUN/Creatinine Ratio 18.2; Bilirubin, Total 0.9 mg/dL (0.2-1.0); Calcium 8.6 mg/dL (8.5-10.1); Magnesium 2.3 mg/dL (1.6-2.6); Total Protein 6.9 g/dL (6.4-8.2)
[2018-06-28] MEDS: InsuLIN REG 1unit/0.01ml Soln (100units/ml) SC SCH ×4 (06:53→21:56)
[2018-06-28] MEDS: ACCU-CHEK COMFORT CURVE STRIP VI SCH ×4 (06:53→21:55)
[2018-06-28 08:00] VITALS: BP 106/66
[2018-06-28 08:28] VITALS: BP 106/66
[2018-06-28] MEDS ORDERED: PNEUMOCOCCAL VACC POLYS 25 MCG/0.5 ML VIAL IM ONE (09:30)
[2018-06-28] MEDS: SPIRONOLACTONE 25 MG TAB PO SCH (10:18)
[2018-06-28] MEDS: THIAMINE HCL 100 MG TAB PO SCH (10:18)
[2018-06-28] MEDS: DIGOXIN 0.125 MG TAB PO SCH (10:19)
[2018-06-28] MEDS: CARVEDILOL 3.125 MG TAB PO SCH ×2 (10:19→21:44)
[2018-06-28] MEDS: APIXABAN 5 MG TAB PO SCH ×2 (10:19→21:44)
[2018-06-28] MEDS: PANTOPRAZOLE 40 MG TAB PO SCH (10:20)
[2018-06-28] MEDS: FUROSEMIDE 20 MG TAB PO SCH (10:20)
[2018-06-28] MEDS: MULTIPLE VITAMINS W/ MINERALS TAB PO SCH (10:20)
[2018-06-28] MEDS: CLOPIDOGREL BISULFATE 75 MG TAB PO SCH (10:20)
[2018-06-28] MEDS: LISINOPRIL 10 MG TAB PO SCH (10:21)
[2018-06-28] MEDS: risperiDONE 1 MG TAB PO SCH (10:21)
[2018-06-28] MEDS: HYDROcodone-ACET 5/325MG TAB PO PRN ×2 (10:34→16:30)
[2018-06-28 13:00] VITALS: BP 106/69
[2018-06-28 16:50] VITALS: BP 108/52
--- NOTE | 2018-06-28 16:52 | NUR ---
PAGED HOSPITALIST Paged hospitalist for pain medication. The current [place] 5/325 mg PO is not working. The patient states his pain is getting worse.
--- NOTE | 2018-06-28 17:00 | NUR ---
HOSPITALIST RETURNED PAGE HospitalistBatsheva, returned page. Give IV Toradol 15mg now and change [place] 5/325 mg PO q6hr PRN to [place] 10/325mg PO q6hr PRN. If that does not work, can give 1mg Morphine IV q4hrs PRN. Will carry out orders and continue to monitor.
[2018-06-28] MEDS ORDERED: KETOROLAC TROMETH 30 MG/ML 1ML VIAL IV ONE (17:15)
[2018-06-28] MEDS ORDERED: MORPHINE SULF INJ 2 MG/ML SYRINGE 1ML IV PRN (18:45)
[2018-06-28] MEDS: ATORVASTATIN 20 MG TAB PO SCH (21:44)
[2018-06-28 22:00] VITALS: BP 124/72
[2018-06-28] MEDS: HYDROcodone-ACET 10/325MG TAB PO PRN (22:30)
--- NOTE | 2018-06-28 23:50 | NUR ---
HOSPITALIST Paged and spoke with Jonelle Alvarado [employer]ITTER [employer]ED [employer]M, new orders received, read back and verified. Will input and carry out.
[2018-06-29] MEDS: TEMAZEPAM 15 MG CAP PO PRN ×2 (00:10→21:35)
[2018-06-29 05:00] VITALS: BP 107/66
[2018-06-29] MEDS: HYDROcodone-ACET 10/325MG TAB PO PRN (06:11)
[2018-06-29] MEDS: ACCU-CHEK COMFORT CURVE STRIP VI SCH ×4 (06:19→21:46)
[2018-06-29] MEDS: InsuLIN REG 1unit/0.01ml Soln (100units/ml) SC SCH ×4 (06:19→21:45)
--- NOTE | 2018-06-29 07:32 | NUR ---
patient is alert and oriented x4 with no distress noted, he is lying up in bed watching tv, he verbalized he was admitted d/t back pain, no distress noted.
[2018-06-29] MEDS: PANTOPRAZOLE 40 MG TAB PO SCH (08:22)
[2018-06-29] MEDS: MULTIPLE VITAMINS W/ MINERALS TAB PO SCH (08:22)
[2018-06-29] MEDS: risperiDONE 1 MG TAB PO SCH (08:22)
[2018-06-29] MEDS: FUROSEMIDE 20 MG TAB PO SCH (08:22)
[2018-06-29] MEDS: CLOPIDOGREL BISULFATE 75 MG TAB PO SCH (08:23)
[2018-06-29] MEDS: APIXABAN 5 MG TAB PO SCH ×2 (08:23→21:34)
[2018-06-29] MEDS: SPIRONOLACTONE 25 MG TAB PO SCH (08:23)
[2018-06-29] MEDS: THIAMINE HCL 100 MG TAB PO SCH (08:23)
[2018-06-29] MEDS: DIGOXIN 0.125 MG TAB PO SCH (08:23)
[2018-06-29] MEDS: CARVEDILOL 3.125 MG TAB PO SCH ×2 (08:24→21:33)
[2018-06-29] MEDS: LISINOPRIL 10 MG TAB PO SCH (08:24)
[2018-06-29 08:39] VITALS: BP 139/70
[2018-06-29 11:56] VITALS: BP 108/55
[2018-06-29 14:08] VITALS: BP 135/71
--- NOTE | 2018-06-29 14:18 | NUR ---
dr eddy came to see and assess the patient, he verbalized he would get the pacemaker interrogated., possible d/c today.
[2018-06-29 16:48] VITALS: BP 118/72
--- NOTE | 2018-06-29 20:31 | NUR ---
DISCHARGE Discharge date changed from 06/29/18 to 06/30/18 per MD Ramirez's progress note.
[2018-06-29] MEDS: ATORVASTATIN 20 MG TAB PO SCH (21:34)
[2018-06-29 21:37] VITALS: BP 124/65
[2018-06-30 04:47] VITALS: BP 120/69
[2018-06-30] MEDS: InsuLIN REG 1unit/0.01ml Soln (100units/ml) SC SCH ×2 (06:24→11:30)
[2018-06-30] MEDS: ACCU-CHEK COMFORT CURVE STRIP VI SCH ×2 (06:25→12:09)
[2018-06-30] MEDS: HYDROcodone-ACET 10/325MG TAB PO PRN (06:26)
--- NOTE | 2018-06-30 07:10 | NUR ---
Opening Shift Note Assumed care of patient, awake and alert x4. No S/S of distress/SOB or pain. Bed is in lowest position, bed wheels locked, side rails up x2, call light within reach, and walker at bedside. Instructed on POC, patient verbalized understanding and to call for assistance PRN, will continue to monitor for changes Q1hr and PRN.
[2018-06-30 08:10] VITALS: BP 122/68
[2018-06-30 09:00] VITALS: BP 122/68
--- NOTE | 2018-06-30 09:31 | NUR ---
CALLED [employer] TO HAVE THE PATIENT'S PACER INTERROGATED PER DR. DIAZ'S RECOMMENDATION. THE INTERROGATOR WILL BE HERE AROUND 12PM
[2018-06-30] MEDS: MULTIPLE VITAMINS W/ MINERALS TAB PO SCH (09:57)
[2018-06-30] MEDS: THIAMINE HCL 100 MG TAB PO SCH (09:57)
[2018-06-30] MEDS: PANTOPRAZOLE 40 MG TAB PO SCH (09:57)
[2018-06-30] MEDS: APIXABAN 5 MG TAB PO SCH (09:58)
[2018-06-30] MEDS: CLOPIDOGREL BISULFATE 75 MG TAB PO SCH (09:58)
[2018-06-30] MEDS: DIGOXIN 0.125 MG TAB PO SCH (09:58)
[2018-06-30] MEDS: LISINOPRIL 10 MG TAB PO SCH (09:58)
[2018-06-30] MEDS: FUROSEMIDE 20 MG TAB PO SCH (09:59)
[2018-06-30] MEDS: SPIRONOLACTONE 25 MG TAB PO SCH (09:59)
[2018-06-30] MEDS: CARVEDILOL 3.125 MG TAB PO SCH (10:00)
[2018-06-30] MEDS: risperiDONE 1 MG TAB PO SCH (10:00)
[2018-06-30 13:04] VITALS: BP 91/46
--- NOTE | 2018-06-30 13:47 | NUR ---
SS order: Unable to get walker for pt since there are not dme companies contracted with [facility] [employer]. Pt will have to go through his pcp for walker
--- NOTE | 2018-06-30 14:57 | NUR ---
walker order, I found a DME agency that takes [facility] [employer] . I have faxed order to [facility] [phone] and Ph # is [phone]. [facility] to contact pt for delivery set up if pt qualifies for micha serrano
--- NOTE | 2018-06-30 16:06 | NUR ---
assessment Patient is a 62 year old male who is alert and oriented. Prior to admission patient lived home with roommates and functioned independently. Per patient he will return to his previous living arrangements and will have transportation home. Patient informed me he has a rollator for home use. Patient informed me his PCP is Dr Hou. Patient feels safe returning home on discharge. I informed patient to change his heal;th plan to [facility] since he lives here. Patient is refusing. I informed patient he has a right to speak to a social services aide regarding all care. I informed patient he has a right to participate in any and all discharge planning. Patient is aware of visiting hours on the hospital floor. I informed patient he has a right to privacy. Patient does not have a POA and advanced directive. I have offered patient information on POA and advanced directives. I informed the patient the advantages and benefits of having an Advanced Directive. Patient verbalized understanding and agreed to discharge plan. Per ss consult fww. Jyoti case folder is satisfying fww order. Per patient he does not want a fww. Patient wants a rollator. Jyoti case folder notified. Patient has his rollator at bedside. Addendum: 06/30/18 at 1610 by Aparna GALLEGO Amended: Links added.
[2018-06-30 16:58] VITALS: BP 100/51
[2018-06-30] MEDS ORDERED: PNEUMOCOCCAL VACC POLYS 25 MCG/0.5 ML VIAL IM ONE (18:00)
--- NOTE | 2018-06-30 18:02 | NUR ---
Discharge instructions given as ordered. Encourage to follow up with PMD as instructed. All questions and concerns addressed. Patient verbalized understanding. Needed vaccines given. IV removed with catheter intact, pressure dressing applied. Telemetry unit returned to [facility]. Patient taken to vehicle via walker with all personal belongings, accompanied by staff and family member. No distress noted at time of departure.
== END 2018-06-30 18:02 | disposition home or self-care (01) | DRG 198 ==
LOC: ER 17:04 → EDBD 17:04 → TELE 06-27 00:28 → TELE-WESTW 06-27 01:55
PROVIDERS: ADMIT Nurse Practitioner Family; ATTEND Internal Medicine
PROC: 4B02XTZ Measurement of Cardiac Defibrillator, External Approach (ICD-10-PCS; principal; 2018-06-29)
DX: R07.89 Other chest pain (principal); I25.10 Atherosclerotic heart disease of native coronary artery without angina pectoris; E11.21 Type 2 diabetes mellitus with diabetic nephropathy; I11.0 Hypertensive heart disease with heart failure; E44.1 Mild protein-calorie malnutrition; I50.42 Chronic combined systolic (congestive) and diastolic (congestive) heart failure; D63.8 Anemia in other chronic diseases classified elsewhere; E11.9 Type 2 diabetes mellitus without complications; I48.91 Unspecified atrial fibrillation; Z79.01 Long term (current) use of anticoagulants; E78.5 Hyperlipidemia, unspecified; F32.9 Major depressive disorder, single episode, unspecified; M54.9 Dorsalgia, unspecified; Z23 Encounter for immunization; I25.5 Ischemic cardiomyopathy; F10.129 Alcohol abuse with intoxication, unspecified; K57.30 Diverticulosis of large intestine without perforation or abscess without bleeding; Z79.02 Long term (current) use of antithrombotics/antiplatelets; Z79.84 Long term (current) use of oral hypoglycemic drugs; Z79.899 Other long term (current) drug therapy; Z82.49 Family history of ischemic heart disease and other diseases of the circulatory system; Z86.73 Personal history of transient ischemic attack (TIA), and cerebral infarction without residual deficits; Z95.5 Presence of coronary angioplasty implant and graft; Z95.810 Presence of automatic (implantable) cardiac defibrillator; Z88.1 Allergy status to other antibiotic agents; Z88.8 Allergy status to other drugs, medicaments and biological substances; Z71.41 Alcohol abuse counseling and surveillance of alcoholic; Z68.31 Body mass index [BMI] 31.0-31.9, adult; Z91.018 Allergy to other foods
CPT/HCPCS: 36415; 71275; 80048; 80053; 80162; 80307; 80320; 82962; 83036; 83735; 83880; 84484; 85025; 85379; 87081; 94761; 96361; 96374; G0378; J1815; J2405

== ENCOUNTER 2018-07-03 17:45 | Emergency (ER) | payer OTHER ==
[~2018-07-03] VITALS: Ht 177.8 cm; Wt 90.7 kg
[2018-07-03 18:00] VITALS: BP 121/77
[2018-07-03 20:07] LABS: Urine Bacteria NONE SEEN /hpf (None Seen); Urine Blood Negative /uL (Negative); Urine Specific Gravity 1.003 (1.001-1.035); Urine WBC <1 /hpf (0 - 3)
[2018-07-03 20:58] LABS: Amphetamine Screen, Urine NEGATIVE (NEGATIVE); Barbiturate Scree,Urine NEGATIVE (NEGATIVE); Benzodiazephine Screen, Urine NEGATIVE (NEGATIVE); Cannabinoid Screen, Urine NEGATIVE (NEGATIVE); Opiate Scree,Urine NEGATIVE (NEGATIVE); Phencyclidine Screen, Urine NEGATIVE (NEGATIVE)
[2018-07-03 21:05] LABS: Cocaine Screen, Urine NEGATIVE (NEGATIVE)
[2018-07-04] MEDS ORDERED: MULTIPLE VITAMIN 10 ML, MAGNESIUM SULF SDV 50% 8 MEQ, THIAMINE INJ 100 MG in SODIUM CHL... IV SCH (12:00)
== END 2018-07-03 18:52 | disposition left against medical advice (07) ==
LOC: EDBD 17:45 → ER 17:45
DX: F10.920 Alcohol use, unspecified with intoxication, uncomplicated (principal); Y90.0 Blood alcohol level of less than 20 mg/100 ml; I11.0 Hypertensive heart disease with heart failure; I50.9 Heart failure, unspecified; I25.2 Old myocardial infarction; Z86.73 Personal history of transient ischemic attack (TIA), and cerebral infarction without residual deficits; Z95.0 Presence of cardiac pacemaker; Z79.899 Other long term (current) drug therapy; Z88.1 Allergy status to other antibiotic agents; Z53.29 Procedure and treatment not carried out because of patient's decision for other reasons; Z88.8 Allergy status to other drugs, medicaments and biological substances
CPT/HCPCS: 80307; 81001; 93005; 94761

== ENCOUNTER 2018-09-26 15:08 | Emergency (ER) | payer MEDICARE, OTHER ==
[~2018-09-26] VITALS: Ht 172.7 cm; Wt 90.7 kg
[~2018-09-26 15:08] MED LIST changes: -BUME1TAB; +BUME1TAB3; -GLIP-115 PO; +GLIP5TAB12 PO
[2018-09-26] MEDS ORDERED: ASPirin 81 mg TAB PO ONE (15:45)
[2018-09-26] MEDS ORDERED: ONDANSETRON HCL 4 MG/2 ML VIAL IV ONE (16:00)
[2018-09-26] MEDS ORDERED: MORPHINE SULF INJ 2 MG/ML SYRINGE 1ML IV ONE (16:00)
[2018-09-26 16:12] LABS: Basophils # (auto) 0 uL; Basophils % (auto) 0.9 % (0.0-2.0); Eosinophils # (auto) 0.1 uL; Hematocrit 33.2 % (41.0-53.0); Hemoglobin 10.5 g/dL (13.5-17.5); Lymphocytes # (auto) 1.4 uL; Lymphocytes % (auto) 29.2 % (10.0-50.0); Mean Corpuscular Hgb Conc. 31.7 g/dL (32.0-36.0); Monocytes # (auto) 0.6 uL; Monocytes % (auto) 13.6 % (0.0-12.0); Neutrophils # (auto) 2.5 uL; Neutrophils % (auto) 53.3 % (37.0-80.0); Nucleated Red Blood Cells % 0.4 %; Platelet Count (auto) 151 10^3/uL (140-450); Red Cell Distribution Width 22.5 % (11.8-14.3); White Blood Cell 4.7 10^3/uL (4.4-10.8)
[2018-09-26 16:34] LABS: Alanine Aminotransferase 20 U/L (16-61); Albumin 2.9 g/dL (3.4-5.0); Anion Gap 9 (5-15); Aspartate Aminotransferase 25 U/L (15-37); BUN/Creatinine Ratio 13.4; Blood Urea Nitrogen 13 mg/dL (7-18); Calcium 7.6 mg/dL (8.5-10.1); Carbon Dioxide 21 mmol/L (21-32); Chloride 104 mmol/L (98-107); GFR African American 100 mL/min; GFR Non-African American 83 mL/min; Glucose 86 mg/dL (74-106); Magnesium 1.9 mg/dL (1.6-2.6); Potassium 3.5 mmol/L (3.5-5.1); Sodium 134 mmol/L (136-145)
[2018-09-26 16:37] LABS: INR 1.3 (0.9-1.15); Partial Thromboplastin Time 30.8 sec (23.64-32.05)
[2018-09-26 16:39] LABS: Alkaline Phosphatase 73 U/L (45-117); Total Protein 6.9 g/dL (6.4-8.2)
[2018-09-26 18:40] VITALS: BP 110/67
== END 2018-09-26 19:41 | disposition home or self-care (01) ==
LOC: EDBD 15:08 → ER 15:12
DX: I50.43 Acute on chronic combined systolic (congestive) and diastolic (congestive) heart failure (principal); D50.9 Iron deficiency anemia, unspecified; I11.0 Hypertensive heart disease with heart failure; I25.2 Old myocardial infarction; I25.10 Atherosclerotic heart disease of native coronary artery without angina pectoris; E11.9 Type 2 diabetes mellitus without complications; E78.00 Pure hypercholesterolemia, unspecified; Z95.1 Presence of aortocoronary bypass graft; Z95.0 Presence of cardiac pacemaker; Z79.01 Long term (current) use of anticoagulants; Z79.899 Other long term (current) drug therapy; Z88.8 Allergy status to other drugs, medicaments and biological substances; Z88.1 Allergy status to other antibiotic agents
CPT/HCPCS: 36415; 71045; 80053; 83735; 83880; 84484; 85025; 85610; 85730; 93005; 94761; 96374; 96375; 99284; J2270; J2405

== ENCOUNTER 2018-10-02 19:02 | Inpatient (IN) | payer MEDICARE, OTHER ==
[~2018-10-02] VITALS: Ht 172.7 cm; Wt 81.6 kg
[~2018-10-02 19:02] MED LIST changes: -APIX5TAB OR; +APIX5TAB PO; -LISI10TA6; +LISI10TA6 PO
[2018-10-02 19:41] LABS: Basophils # (auto) 0.1 uL; Basophils % (auto) 1.4 % (0.0-2.0); Eosinophils # (auto) 0.1 uL; Eosinophils % (auto) 1.7 % (0.0-7.0); Hematocrit 32.2 % (41.0-53.0); Hemoglobin 10.2 g/dL (13.5-17.5); Lymphocytes # (auto) 1.5 uL; Lymphocytes % (auto) 23.3 % (10.0-50.0); Mean Corpuscular Hemoglobin 24.7 pg (28.0-32.0); Mean Corpuscular Hgb Conc. 31.6 g/dL (32.0-36.0); Mean Corpuscular Volume 78.1 fL (80.0-100.0); Monocytes # (auto) 0.9 uL; Monocytes % (auto) 14.1 % (0.0-12.0); Neutrophils # (auto) 3.8 uL; Neutrophils % (auto) 59.5 % (37.0-80.0); Nucleated Red Blood Cells % 0.5 %; Platelet Count (auto) 169 10^3/uL (140-450); Red Blood Cells 4.13 10^6/uL (4.5-5.90); White Blood Cell 6.3 10^3/uL (4.4-10.8)
[2018-10-02 19:42] LABS: Red Cell Distribution Width 22.5 % (11.8-14.3)
[2018-10-02 20:00] LABS: Albumin 3.1 g/dL (3.4-5.0); Calcium 7.8 mg/dL (8.5-10.1); Potassium 3.9 mmol/L (3.5-5.1)
[2018-10-02 20:06] LABS: BUN/Creatinine Ratio 9.8; Bilirubin, Total 4.2 mg/dL (0.2-1.0); Total Protein 7.1 g/dL (6.4-8.2)
[2018-10-03] MEDS ORDERED: ONDANSETRON HCL 4 MG/2 ML VIAL IV ONE (05:45)
[2018-10-03] MEDS ORDERED: MORPHINE SULFATE 4 MG/ML SYR/VIAL IV ONE (05:45)
[2018-10-03] MEDS ORDERED: FUROSEMIDE 40 MG/4 ML VIAL IV ONE (07:45)
[2018-10-03] MEDS ORDERED: SPIRONOLACTONE 25 MG TAB PO ONE (07:45)
[2018-10-03 09:30] LABS: Urine Bacteria NONE SEEN /hpf (None Seen); Urine Blood Negative /uL (Negative); Urine WBC 1 /hpf (0 - 3)
[2018-10-03] MEDS ORDERED: diphenhdrAMINE HCL 50 MG/1 ML VL IV ONE (10:30)
[2018-10-03] MEDS ORDERED: diphenhdrAMINE HCL 50 MG/1 ML VL ONE (10:33)
[2018-10-03] MEDS ORDERED: ACETAMINOPHEN 500 MG TAB PO PRN (11:30)
[2018-10-03] MEDS ORDERED: DEXTROSE (50%) 50ML SYRG IV PRN (11:30)
[2018-10-03] MEDS ORDERED: ONDANSETRON HCL 4 MG/2 ML VIAL IV PRN (11:30)
[2018-10-03] MEDS ORDERED: MORPHINE SULF INJ 2 MG/ML SYRINGE 1ML IV PRN ×2 (11:30)
[2018-10-03] MEDS ORDERED: NITROGLYCERIN 0.4 MG SL TAB SL PRN (11:30)
[2018-10-03] MEDS ORDERED: NITROGLYCERIN 0.4 MG SL TAB SL SCH (11:30)
[2018-10-03] MEDS ORDERED: HYDROCORTONE 1% TOPICAL CREAM 30 GM TUBE TOP ONE (11:45)
[2018-10-03] MEDS: ACCU-CHEK COMFORT CURVE STRIP VI SCH ×3 (12:16→21:54)
[2018-10-03] MEDS: InsuLIN REG 1unit/0.01ml Soln (100units/ml) SC SCH ×3 (12:17→21:55)
[2018-10-03] MEDS: risperiDONE 1 MG TAB PO SCH ×2 (12:21→21:54)
[2018-10-03] MEDS: CARVEDILOL 3.125 MG TAB PO SCH ×2 (12:21→21:53)
[2018-10-03] MEDS: HYDROcodone-ACET 5/325MG TAB PO PRN (12:22)
[2018-10-03] MEDS: APIXABAN 5 MG TAB PO SCH ×2 (12:31→21:54)
[2018-10-03 13:37] VITALS: BP 100/64
--- NOTE | 2018-10-03 13:37 | NUR ---
Telemetry admit from ER JOSY ALMAGUER admitted to Telemetry unit after SBAR received. Patient oriented to Rosaura Hardin, primary RN, unit, room, bed, and unit policies regarding patient care and visiting hours. Patient now on continuous telemetry monitoring, tele box # 40 and telemetry reading on arrival to unit is . Patient placed on bedside oxygen, weighed by bedscale and encouraged to call if they need something. All questions and concerns addressed, patient verbalized understanding. Note:
--- NOTE | 2018-10-03 13:50 | NUR ---
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
[2018-10-03] MEDS: BUMETANIDE 1mg/4ml VIAL (0.25mg/ml) IV SCH (17:52)
--- NOTE | 2018-10-03 17:53 | NUR ---
PATIENT IS SLEEPING AT THE MOST OF THE TIME, NO DISTRESS NOTED, CONTINUE MONITORING.
--- NOTE | 2018-10-03 19:30 | NUR ---
Opening Shift Note Assumed care of patient, alert and oriented x 4. Ambulatory and on 2L oxygen via nasal cannula. No S/S of distress/SOB or pain. Bed in lowest locked position, side rails up x 2, call light within reach. Instructed on POC and to call for assist PRN, will continue to monitor for changes Q1hr and PRN.
[2018-10-03 21:49] VITALS: BP 91/62
[2018-10-04 05:35] VITALS: BP 108/70
[2018-10-04] MEDS: ACCU-CHEK COMFORT CURVE STRIP VI SCH ×4 (06:35→22:15)
[2018-10-04] MEDS: BUMETANIDE 1mg/4ml VIAL (0.25mg/ml) IV SCH ×2 (06:35→17:52)
[2018-10-04] MEDS: InsuLIN REG 1unit/0.01ml Soln (100units/ml) SC SCH ×4 (06:36→23:08)
[2018-10-04 09:00] VITALS: BP 112/74
[2018-10-04] MEDS: CLOPIDOGREL BISULFATE 75 MG TAB PO SCH (09:16)
[2018-10-04] MEDS: FOLIC ACID 1 MG TAB PO SCH (09:17)
[2018-10-04] MEDS: APIXABAN 5 MG TAB PO SCH ×2 (09:17→22:15)
[2018-10-04] MEDS: THIAMINE HCL 100 MG TAB PO SCH (09:17)
[2018-10-04] MEDS: MULTIPLE VITAMIN TAB PO SCH (09:18)
[2018-10-04] MEDS: FAMOTIDINE 20 MG TAB PO SCH (09:18)
[2018-10-04] MEDS: risperiDONE 1 MG TAB PO SCH ×2 (09:19→22:15)
[2018-10-04] MEDS: HYDROcodone-ACET 5/325MG TAB PO PRN (09:20)
[2018-10-04] MEDS ORDERED: SPIRONOLACTONE 25 MG TAB PO SCH (10:00)
[2018-10-04] MEDS ORDERED: MULTIPLE VITAMIN TAB PO SCH (10:00)
[2018-10-04] MEDS: CARVEDILOL 3.125 MG TAB PO SCH ×2 (10:00→22:00)
[2018-10-04] MEDS: DIGOXIN 0.125 MG TAB PO SCH (10:00)
[2018-10-04 13:00] VITALS: BP 94/61
[2018-10-04 16:37] VITALS: BP 105/62
[2018-10-04] MEDS: SPIRONOLACTONE 25 MG TAB PO SCH (17:53)
[2018-10-04] MEDS: diphenhdrAMINE HCL 50 MG/1 ML VL IV PRN (20:12)
[2018-10-04] MEDS: SACUBITRIL-VALSARTAN 24mg/26mg TAB PO SCH (22:00)
[2018-10-04 23:02] VITALS: BP 100/72
[2018-10-05] MEDS: diphenhdrAMINE HCL 50 MG/1 ML VL IV PRN (04:03)
[2018-10-05 05:14] VITALS: BP 107/76
[2018-10-05] MEDS: SPIRONOLACTONE 25 MG TAB PO SCH (06:24)
[2018-10-05] MEDS: BUMETANIDE 1mg/4ml VIAL (0.25mg/ml) IV SCH (06:24)
[2018-10-05] MEDS: ACCU-CHEK COMFORT CURVE STRIP VI SCH ×2 (06:26→11:30)
[2018-10-05] MEDS: InsuLIN REG 1unit/0.01ml Soln (100units/ml) SC SCH ×2 (06:26→11:30)
[2018-10-05 06:52] LABS: Basophils # (auto) 0 uL; Basophils % (auto) 0.8 % (0.0-2.0); Chloride 99 mmol/L (98-107); Eosinophils # (auto) 0.2 uL; Eosinophils % (auto) 4.3 % (0.0-7.0); Hematocrit 32.6 % (41.0-53.0); Hemoglobin 10.5 g/dL (13.5-17.5); Lymphocytes # (auto) 1.3 uL; Lymphocytes % (auto) 27.2 % (10.0-50.0); Mean Corpuscular Hgb Conc. 32.1 g/dL (32.0-36.0); Mean Corpuscular Volume 78.1 fL (80.0-100.0); Monocytes # (auto) 0.6 uL; Monocytes % (auto) 12.3 % (0.0-12.0); Neutrophils # (auto) 2.7 uL; Neutrophils % (auto) 55.4 % (37.0-80.0); Nucleated Red Blood Cells % 0.2 %; Platelet Count (auto) 133 10^3/uL (140-450); Potassium 3.6 mmol/L (3.5-5.1); Red Blood Cells 4.18 10^6/uL (4.5-5.90); Sodium 134 mmol/L (136-145); White Blood Cell 4.9 10^3/uL (4.4-10.8)
[2018-10-05 06:53] LABS: Red Cell Distribution Width 22.8 % (11.8-14.3)
[2018-10-05 06:57] LABS: Anion Gap 10 (5-15); BUN/Creatinine Ratio 19.9; Blood Urea Nitrogen 28 mg/dL (7-18); Calcium 8.2 mg/dL (8.5-10.1); Carbon Dioxide 25 mmol/L (21-32); GFR African American 65 mL/min; GFR Non-African American 54 mL/min; Glucose 94 mg/dL (74-106)
--- NOTE | 2018-10-05 07:15 | NUR ---
Opening Shift Note Assumed care of patient, awake and alert. No S/S of distress/SOB or pain. Instructed on POC and to call for assist PRN, will continue to monitor for changes Q1hr and PRN.
[2018-10-05 09:00] VITALS: BP 96/58
[2018-10-05] MEDS: CARVEDILOL 3.125 MG TAB PO SCH (10:00)
[2018-10-05] MEDS: FAMOTIDINE 20 MG TAB PO SCH (10:54)
[2018-10-05] MEDS: THIAMINE HCL 100 MG TAB PO SCH (10:55)
[2018-10-05] MEDS: APIXABAN 5 MG TAB PO SCH (10:55)
[2018-10-05] MEDS: risperiDONE 1 MG TAB PO SCH (10:55)
[2018-10-05] MEDS: MULTIPLE VITAMIN TAB PO SCH (10:55)
[2018-10-05] MEDS: CLOPIDOGREL BISULFATE 75 MG TAB PO SCH (10:56)
[2018-10-05] MEDS: FOLIC ACID 1 MG TAB PO SCH (10:56)
[2018-10-05] MEDS: SACUBITRIL-VALSARTAN 24mg/26mg TAB PO SCH (10:56)
[2018-10-05] MEDS: DIGOXIN 0.125 MG TAB PO SCH (10:58)
[2018-10-05 12:37] VITALS: BP 104/69
[2018-10-05 12:54] VITALS: BP 96/58
--- NOTE | 2018-10-05 16:30 | NUR ---
Per consult for medication management. Per Marquita Pt was given a choice letter. Pt first choice [facility], second choice [facility], and third choice [facility]. Contacted [facility] and faxed medical records Ph: ) Fax: ). Per Nicole from [facility] pt has been accepted and Pt will be seen within 48hrs. Informed Pt at bed side and provided him with agency information. Informed GREG Arrieta. Addendum: 10/05/18 at 1641 by CY BARRY Amended: Links added.
--- NOTE | 2018-10-05 17:15 | NUR ---
DISCHARGE NOTE Discharge instructions given as ordered. Encourage to follow up with PMD as instructed. All questions and concerns addressed. Patient verbalized understanding. Medication reconciliation form completed and copy given to patient. IV removed with catheter intact, pressure dressing applied. Telemetry unit returned to ICU. Patient taken to vehicle via wheelchair with all personal belongings, accompanied by staff and family member. No distress noted at time of departure.
== END 2018-10-05 16:39 | disposition home health service (06) | DRG 291 ==
LOC: ER 19:02 → EDBD 19:02 → EDUNIT# 19:02 → TELE 19:03 → TELE-EAST 10-03 13:55
PROVIDERS: ADMIT Nurse Practitioner Acute Care; ATTEND Internal Medicine
DX: I13.0 Hypertensive heart and chronic kidney disease with heart failure and stage 1 through stage 4 chronic kidney disease, or unspecified chronic kidney disease (principal); I50.43 Acute on chronic combined systolic (congestive) and diastolic (congestive) heart failure; N17.0 Acute kidney failure with tubular necrosis; E44.0 Moderate protein-calorie malnutrition; I48.92 Unspecified atrial flutter; J91.8 Pleural effusion in other conditions classified elsewhere; I48.1 Persistent atrial fibrillation; E87.1 Hypo-osmolality and hyponatremia; D68.69 Other thrombophilia; E11.21 Type 2 diabetes mellitus with diabetic nephropathy; N18.3 Chronic kidney disease, stage 3 (moderate); I25.10 Atherosclerotic heart disease of native coronary artery without angina pectoris; E11.22 Type 2 diabetes mellitus with diabetic chronic kidney disease; K21.9 Gastro-esophageal reflux disease without esophagitis; I25.2 Old myocardial infarction; D50.9 Iron deficiency anemia, unspecified; F10.920 Alcohol use, unspecified with intoxication, uncomplicated; E78.5 Hyperlipidemia, unspecified; E03.9 Hypothyroidism, unspecified; I25.5 Ischemic cardiomyopathy; H54.61 Unqualified visual loss, right eye, normal vision left eye; Z79.01 Long term (current) use of anticoagulants; Z79.02 Long term (current) use of antithrombotics/antiplatelets; Z79.899 Other long term (current) drug therapy; Z95.5 Presence of coronary angioplasty implant and graft; Z79.84 Long term (current) use of oral hypoglycemic drugs; Z88.0 Allergy status to penicillin; Z88.8 Allergy status to other drugs, medicaments and biological substances; Z95.1 Presence of aortocoronary bypass graft; Z95.0 Presence of cardiac pacemaker; Z82.49 Family history of ischemic heart disease and other diseases of the circulatory system; Z82.3 Family history of stroke; Z91.14 Patient's other noncompliance with medication regimen
CPT/HCPCS: 36415; 71045; 80048; 80053; 80320; 81001; 82962; 83036; 83880; 84443; 84484; 85025; 87081; 93005; 96374; 96375; G0378; J1815; J2405

== ENCOUNTER 2018-10-11 22:58 | Inpatient (IN) | payer MEDICARE, OTHER ==
[~2018-10-11] VITALS: Ht 172.7 cm; Wt 83.4 kg
[~2018-10-11 22:58] MED LIST changes: +APIX5TAB OR; -APIX5TAB PO; +LISI10TA6; -LISI10TA6 PO
[2018-10-12 00:42] LABS: Basophils # (auto) 0 uL; Basophils % (auto) 0.9 % (0.0-2.0); Eosinophils # (auto) 0.1 uL; Eosinophils % (auto) 2.7 % (0.0-7.0); Hematocrit 34.2 % (41.0-53.0); Hemoglobin 10.8 g/dL (13.5-17.5); Lymphocytes # (auto) 1.1 uL; Lymphocytes % (auto) 20.7 % (10.0-50.0); Mean Corpuscular Hemoglobin 24.7 pg (28.0-32.0); Mean Corpuscular Hgb Conc. 31.6 g/dL (32.0-36.0); Mean Corpuscular Volume 78.3 fL (80.0-100.0); Monocytes # (auto) 0.6 uL; Monocytes % (auto) 11.5 % (0.0-12.0); Neutrophils # (auto) 3.4 uL; Neutrophils % (auto) 64.2 % (37.0-80.0); Nucleated Red Blood Cells % 0.2 %; Platelet Count (auto) 124 10^3/uL (140-450); Red Blood Cells 4.37 10^6/uL (4.5-5.90); White Blood Cell 5.3 10^3/uL (4.4-10.8)
[2018-10-12 00:43] LABS: Red Cell Distribution Width 22.4 % (11.8-14.3)
[2018-10-12 00:57] LABS: INR 1.23 (0.9-1.15); Partial Thromboplastin Time 30.5 sec (23.64-32.05)
[2018-10-12 01:03] LABS: Albumin 3.2 g/dL (3.4-5.0); Anion Gap 8 (5-15); Blood Urea Nitrogen 21 mg/dL (7-18); Calcium 8.2 mg/dL (8.5-10.1); Carbon Dioxide 22 mmol/L (21-32); Chloride 99 mmol/L (98-107); Glucose 117 mg/dL (74-106); Lipase 106 U/L (73-393); Magnesium 2.1 mg/dL (1.6-2.6); Potassium 4.7 mmol/L (3.5-5.1); Sodium 129 mmol/L (136-145)
[2018-10-12 01:05] LABS: Alanine Aminotransferase 15 U/L (16-61); Aspartate Aminotransferase 22 U/L (15-37); BUN/Creatinine Ratio 15.6; GFR African American 68 mL/min; GFR Non-African American 56 mL/min
[2018-10-12 01:10] LABS: Alkaline Phosphatase 74 U/L (45-117); Bilirubin, Total 1.7 mg/dL (0.2-1.0); Total Protein 7.3 g/dL (6.4-8.2)
[2018-10-12 01:19] LABS: Urine Bacteria FEW /hpf (None Seen); Urine Blood Negative /uL (Negative); Urine Mucus FEW (None Seen); Urine Specific Gravity 1.015 (1.001-1.035); Urine WBC 2 /hpf (0 - 3)
[2018-10-12] MEDS ORDERED: FUROSEMIDE 20 MG/2 ML VIAL IV ONE (03:30)
[2018-10-12 06:56] LABS: Alcohol, Urine < 3.0 mg/dL (0-5); Amphetamine Screen, Urine POSITIVE (NEGATIVE); Barbiturate Scree,Urine NEGATIVE (NEGATIVE); Benzodiazephine Screen, Urine NEGATIVE (NEGATIVE); Cannabinoid Screen, Urine NEGATIVE (NEGATIVE); Cocaine Screen, Urine NEGATIVE (NEGATIVE); Opiate Scree,Urine NEGATIVE (NEGATIVE); Phencyclidine Screen, Urine NEGATIVE (NEGATIVE)
[2018-10-12] MEDS ORDERED: PIPERACILLIN-TAZOB 3.375GM 100 ML IV ONE (08:00)
[2018-10-12] MEDS ORDERED: DEXTROSE (50%) 50ML SYRG IV PRN (08:30)
[2018-10-12] MEDS ORDERED: IPRATROPIUM BROM 0.5 MG/2.5ML INH SOL NEB ONE (08:30)
[2018-10-12] MEDS ORDERED: ALBUTEROL SULF 2.5 MG/0.5ML(0.5%) NEB SOLN NEB ONE (08:30)
[2018-10-12] MEDS ORDERED: ONDANSETRON HCL 4 MG/2 ML VIAL IV PRN (08:30)
[2018-10-12] MEDS ORDERED: MORPHINE SULFATE 4 MG/ML SYR/VIAL IV ONE (08:30)
[2018-10-12] MEDS ORDERED: ONDANSETRON HCL 4 MG/2 ML VIAL IV ONE (08:30)
[2018-10-12] MEDS: cefTRIAXone 1GM/50ML D5W 50 ML IV SCH (09:44)
[2018-10-12] MEDS: SACUBITRIL-VALSARTAN 24mg/26mg TAB PO SCH ×2 (10:46→20:57)
[2018-10-12] MEDS: CLOPIDOGREL BISULFATE 75 MG TAB PO SCH (10:46)
[2018-10-12] MEDS: CARVEDILOL 3.125 MG TAB PO SCH ×2 (10:46→20:57)
[2018-10-12] MEDS: APIXABAN 5 MG TAB PO SCH ×2 (10:46→20:57)
[2018-10-12] MEDS: PANTOPRAZOLE 40 MG TAB PO SCH (10:46)
[2018-10-12] MEDS: ACCU-CHEK COMFORT CURVE STRIP VI SCH ×3 (11:26→20:47)
[2018-10-12] MEDS: InsuLIN REG 1unit/0.01ml Soln (100units/ml) SC SCH ×3 (11:29→20:46)
[2018-10-12] MEDS ORDERED: HYDROmorphone HCL 2 MG/ML VL IV PRN (11:30)
[2018-10-12] MEDS: diphenhdrAMINE HCL 50 MG/1 ML VL IV PRN ×2 (11:31→14:49)
[2018-10-12] MEDS: CLINDAMYCIN 300MG IV 50 ML IV SCH ×2 (12:06→20:36)
[2018-10-12] MEDS: ALBUTEROL SULF 2.5 MG/0.5ML(0.5%) NEB SOLN NEB SCH ×2 (12:21→18:30)
[2018-10-12] MEDS: IPRATROPIUM BROM 0.5 MG/2.5ML INH SOL NEB SCH ×2 (12:21→18:30)
[2018-10-12] MEDS: metroNIDAZOLE 500MG/100ML 100 ML IV SCH ×2 (14:13→20:59)
[2018-10-12] MEDS ORDERED: methylPREDNISolone SOD SUCC 125 MG/2 ML VL ONE (14:36)
[2018-10-12] MEDS ORDERED: SODIUM CHLORIDE 0.9% 200 ML IV ONE (14:45)
[2018-10-12] MEDS ORDERED: FAMOTIDINE (10MG/ML) 2ML VL IV ONE (14:45)
[2018-10-12] MEDS ORDERED: methylPREDNISolone SOD SUCC 125 MG/2 ML VL IV ONE (14:45)
[2018-10-12 14:49] VITALS: BP 83/62
[2018-10-12] MEDS: SPIRONOLACTONE 25 MG TAB PO SCH (17:41)
[2018-10-12] MEDS: BUMETANIDE 1mg/4ml VIAL (0.25mg/ml) IV SCH (17:41)
--- NOTE | 2018-10-12 20:15 | NUR ---
Telemetry admit from ER JOSY ALMAGUER admitted to Telemetry unit after SBAR received. Patient oriented to PAOLO MELLO RN primary RN, unit, room, bed, and unit policies regarding patient care and visiting hours. Patient now on continuous telemetry monitoring, tele box # 74 and telemetry reading on arrival to unit is VPACED. Patient placed on bedside oxygen, weighed by bedscale and encouraged to call if they need something. All questions and concerns addressed, patient verbalized understanding.
[2018-10-12 20:39] VITALS: BP 104/70
[2018-10-12] MEDS: ATORVASTATIN 20 MG TAB PO SCH (20:58)
[2018-10-12] MEDS: HYDROcodone-ACET 5/325MG TAB PO PRN (20:58)
[2018-10-12] MEDS: ACETAMINOPHEN 500 MG TAB PO PRN (20:58)
[2018-10-12] MEDS: HYDROCORTONE 1% TOPICAL CREAM 30 GM TUBE TOP SCH (20:59)
--- NOTE | 2018-10-12 22:00 | NUR ---
PATIENT REFUSES TO REMOVE PANTS FOR SKIN ASSESSMENT AND PHOTOS. PATIENT STATES HIS LEG SWELLING IS FROM THE KNEES DOWN. PATIENT HAS SWELLING AND REDNESS TO BOTH LOWER LEGS.
[2018-10-12 23:56] VITALS: BP 140/70
[2018-10-13] MEDS: IPRATROPIUM BROM 0.5 MG/2.5ML INH SOL NEB SCH ×4 (00:39→18:36)
[2018-10-13] MEDS: ALBUTEROL SULF 2.5 MG/0.5ML(0.5%) NEB SOLN NEB SCH ×3 (00:39→18:36)
[2018-10-13] MEDS: CLINDAMYCIN 300MG IV 50 ML IV SCH ×3 (04:30→20:03)
[2018-10-13] MEDS: HYDROcodone-ACET 5/325MG TAB PO PRN ×3 (05:11→22:22)
[2018-10-13] MEDS: SPIRONOLACTONE 25 MG TAB PO SCH ×2 (05:11→17:28)
[2018-10-13] MEDS: metroNIDAZOLE 500MG/100ML 100 ML IV SCH ×3 (05:13→22:22)
[2018-10-13] MEDS: LEVOTHYROXINE SODIUM 25 MCG TAB PO SCH (05:13)
[2018-10-13] MEDS: BUMETANIDE 1mg/4ml VIAL (0.25mg/ml) IV SCH ×2 (05:13→17:27)
[2018-10-13] MEDS: ACCU-CHEK COMFORT CURVE STRIP VI SCH ×4 (05:37→22:26)
[2018-10-13] MEDS: InsuLIN REG 1unit/0.01ml Soln (100units/ml) SC SCH ×4 (05:37→22:26)
[2018-10-13 05:55] VITALS: BP 100/66
[2018-10-13 06:40] LABS: Basophils # (auto) 0 uL; Eosinophils # (auto) 0 uL; Hemoglobin 10.6 g/dL (13.5-17.5); Monocytes # (auto) 0 uL; Neutrophils # (auto) 2.7 uL; Nucleated Red Blood Cells % 0.3 %; White Blood Cell 3.2 10^3/uL (4.4-10.8)
[2018-10-13 06:43] LABS: Basophils % (auto) 0.2 % (0.0-2.0); Hematocrit 33.7 % (41.0-53.0); Lymphocytes # (auto) 0.5 uL; Lymphocytes % (auto) 15.5 % (10.0-50.0); Mean Corpuscular Hemoglobin 24.5 pg (28.0-32.0); Mean Corpuscular Hgb Conc. 31.3 g/dL (32.0-36.0); Mean Corpuscular Volume 78.4 fL (80.0-100.0); Monocytes % (auto) 1.4 % (0.0-12.0); Neutrophils % (auto) 82.9 % (37.0-80.0); Platelet Count (auto) 133 10^3/uL (140-450)
[2018-10-13 06:54] LABS: BUN/Creatinine Ratio 18.5; Calcium 8.3 mg/dL (8.5-10.1); Potassium 5.2 mmol/L (3.5-5.1)
[2018-10-13 07:12] LABS: Red Cell Distribution Width 23.9 % (11.8-14.3)
--- NOTE | 2018-10-13 08:00 | NUR ---
Received pt resting sitting on the side of the bed, call light with in reach, pt denies any pain or discomfort at this time, will continue to monitor pt.
[2018-10-13 09:00] VITALS: BP 109/69
[2018-10-13] MEDS: cefTRIAXone 1GM/50ML D5W 50 ML IV SCH (09:34)
[2018-10-13] MEDS: SACUBITRIL-VALSARTAN 24mg/26mg TAB PO SCH ×2 (09:37→22:22)
[2018-10-13] MEDS: APIXABAN 5 MG TAB PO SCH ×2 (09:38→22:23)
[2018-10-13] MEDS: CLOPIDOGREL BISULFATE 75 MG TAB PO SCH (09:38)
[2018-10-13] MEDS: PANTOPRAZOLE 40 MG TAB PO SCH (09:38)
[2018-10-13] MEDS: CARVEDILOL 3.125 MG TAB PO SCH ×2 (09:39→22:25)
[2018-10-13] MEDS: HYDROCORTONE 1% TOPICAL CREAM 30 GM TUBE TOP SCH ×2 (09:39→22:26)
[2018-10-13] MEDS ORDERED: glipiZIDE 5 MG TAB PO ONE (11:00)
[2018-10-13] MEDS ORDERED: SODIUM ZIRCONIUM CYCL 10 GM PAK PO ONE (11:00)
[2018-10-13 13:00] VITALS: BP 104/66
--- NOTE | 2018-10-13 15:36 | NUR ---
Pt reported left chest pain /, v/s 114/70, hr 85, o2 sat 100% at 2 lit, pt was placed at 2 lit via N/C, pt reported that this is the same chest pain that he has always had, pt reports that the chest pain never goes away, EKG done, pt has norco for pain, will medicate for pain,
--- NOTE | 2018-10-13 15:45 | NUR ---
Called/paged Dr. Newman called regarding pt reporting left side chest pain 12/02. Waiting for call back. Continue care.
--- NOTE | 2018-10-13 16:10 | NUR ---
Called/paged Dr. Newman called regarding pt reporting left side chest pain 12/02. Waiting for call back. Continue care.
[2018-10-13] MEDS: LORazepam 0.5 MG TAB PO PRN (16:23)
--- NOTE | 2018-10-13 16:30 | NUR ---
Received call from Dr. Newman, doctor informed that pt is reporting pressure pain on the left side of the chest /, EKG results read to doctor, v/s given, order received to place a cardio consult, troponin now and at in the morning, and for pain continue with the same pain regimen, doctor informed that pt report not to be allergic to morphine as per doctor pt had a reaction to morphine at ER and pt's BP is too low for nitro patch.
[2018-10-13 17:00] VITALS: BP 114/70
--- NOTE | 2018-10-13 17:27 | NUR ---
Pt reported the chest pain to have improve from 10/10 to 5/10 with norco and ativan, pt is sitting, removed oxygen and requesting juices and reporting to be hungry, will continue to monitor pt.
[2018-10-13] MEDS: glipiZIDE 5 MG TAB PO SCH (17:50)
[2018-10-13 22:00] VITALS: BP 113/87
[2018-10-13] MEDS: diphenhdrAMINE HCL 50 MG/1 ML VL IV PRN (22:19)
[2018-10-13] MEDS: ACETAMINOPHEN 500 MG TAB PO PRN (22:23)
[2018-10-13] MEDS: ATORVASTATIN 20 MG TAB PO SCH (22:23)
[2018-10-14] MEDS: IPRATROPIUM BROM 0.5 MG/2.5ML INH SOL NEB SCH ×5 (00:04→20:02)
[2018-10-14] MEDS: ALBUTEROL SULF 2.5 MG/0.5ML(0.5%) NEB SOLN NEB SCH ×5 (00:04→20:02)
[2018-10-14] MEDS: CLINDAMYCIN 300MG IV 50 ML IV SCH ×3 (03:49→19:57)
[2018-10-14 05:25] VITALS: BP 105/56
[2018-10-14] MEDS: metroNIDAZOLE 500MG/100ML 100 ML IV SCH ×3 (05:32→21:20)
[2018-10-14] MEDS: BUMETANIDE 1mg/4ml VIAL (0.25mg/ml) IV SCH ×2 (05:32→16:54)
[2018-10-14] MEDS: LEVOTHYROXINE SODIUM 25 MCG TAB PO SCH (05:33)
[2018-10-14] MEDS: SPIRONOLACTONE 25 MG TAB PO SCH (05:33)
[2018-10-14] MEDS: glipiZIDE 5 MG TAB PO SCH ×2 (05:43→16:59)
[2018-10-14] MEDS: InsuLIN REG 1unit/0.01ml Soln (100units/ml) SC SCH ×4 (06:00→21:31)
[2018-10-14] MEDS: ACCU-CHEK COMFORT CURVE STRIP VI SCH ×4 (06:00→21:21)
[2018-10-14] MEDS: diphenhdrAMINE HCL 50 MG/1 ML VL IV PRN ×2 (06:04→19:59)
[2018-10-14 07:05] LABS: Basophils # (auto) 0 uL; Basophils % (auto) 0.1 % (0.0-2.0); Eosinophils # (auto) 0 uL; Mean Corpuscular Hemoglobin 24.8 pg (28.0-32.0); Monocytes # (auto) 0.6 uL; Platelet Count (auto) 163 10^3/uL (140-450); Red Blood Cells 4.33 10^6/uL (4.5-5.90); White Blood Cell 10.2 10^3/uL (4.4-10.8)
[2018-10-14 07:07] LABS: Hematocrit 33.6 % (41.0-53.0); Hemoglobin 10.8 g/dL (13.5-17.5); Lymphocytes # (auto) 0.8 uL; Lymphocytes % (auto) 7.4 % (10.0-50.0); Mean Corpuscular Volume 77.6 fL (80.0-100.0); Monocytes % (auto) 5.7 % (0.0-12.0); Neutrophils # (auto) 8.8 uL; Neutrophils % (auto) 86.8 % (37.0-80.0); Nucleated Red Blood Cells % 0.4 %
[2018-10-14 07:22] LABS: Chloride 102 mmol/L (98-107); Potassium 4.5 mmol/L (3.5-5.1); Sodium 131 mmol/L (136-145)
[2018-10-14 07:26] LABS: Anion Gap 11 (5-15); Blood Urea Nitrogen 44 mg/dL (7-18); Calcium 8.3 mg/dL (8.5-10.1); Carbon Dioxide 18 mmol/L (21-32); GFR African American 50 mL/min; GFR Non-African American 42 mL/min; Glucose 166 mg/dL (74-106)
--- NOTE | 2018-10-14 07:30 | NUR ---
Opening Shift Note Assumed care of patient, awake and alert X4. No S/S of distress/SOB. Bilateral calf pain of 10/10, will medicate per MD orders. Updated on POC and instructed to call for assistance as needed, pt. verbalized understanding. Bed locked in lowest position, side rails up x 2, call light within reach. Will continue to monitor for changes Q1hr and PRN.
[2018-10-14 09:00] VITALS: BP 95/66
[2018-10-14] MEDS: cefTRIAXone 1GM/50ML D5W 50 ML IV SCH (09:11)
[2018-10-14] MEDS: CLOPIDOGREL BISULFATE 75 MG TAB PO SCH (09:12)
[2018-10-14] MEDS: PANTOPRAZOLE 40 MG TAB PO SCH (09:12)
[2018-10-14] MEDS: SACUBITRIL-VALSARTAN 24mg/26mg TAB PO SCH ×2 (09:13→21:20)
[2018-10-14] MEDS: ACETAMINOPHEN 500 MG TAB PO PRN ×2 (09:13→16:55)
[2018-10-14] MEDS: HYDROcodone-ACET 5/325MG TAB PO PRN ×2 (09:13→16:55)
[2018-10-14] MEDS: APIXABAN 5 MG TAB PO SCH ×2 (09:13→21:20)
[2018-10-14] MEDS: HYDROCORTONE 1% TOPICAL CREAM 30 GM TUBE TOP SCH (09:14)
[2018-10-14] MEDS: CARVEDILOL 3.125 MG TAB PO SCH ×2 (09:14→21:21)
--- NOTE | 2018-10-14 11:43 | NUR ---
RT NOTE: PT REFUSED NEED FOR TX AT THIS TIME. NO SIGNS OF RESPIRATORY DISTRESS NOTED. LUNG SOUNDS CLEAR/DIMINISHED T/O. ON RA SPO2 100 HR 75 RR 18. PT AWARE THAT RESPIRATORY WILL RETURN FOR NEXT SCHEDULED TX. WILL CONTINUE TO MONITOR.
[2018-10-14 13:00] VITALS: BP_SYST 92
[2018-10-14 17:00] VITALS: BP 101/70
--- NOTE | 2018-10-14 20:01 | NUR ---
Respiratory note: PLACED PT ON 2L NC AT THIS TIME
--- NOTE | 2018-10-14 20:02 | NUR ---
Respiratory note: PT REFUSE NEXT SCHEDULED MED NEB FOR 0000 AT THIS TIME
--- NOTE | 2018-10-14 20:52 | NUR ---
8 BEATS VTACH/CARDIO PAGED PATIENT HAD 8 BEATS. PATIENT IS ALERT AND ORIENTED COMPLANING OF BODY PAIN AND ITCHINESS. OBTAINED EKG SR, ANTEROLATERAL ISCHEMIA WITH DEPRESSED ST WAVES. PT VITAL 111/75 HR 89 RR 18 O2SAT 100% ON 2LNC. BENADRYL 25MG IV GIVEN FOR ITCHINESS. PATIENT WAS RECENTLY GIVEN PAIN MEDICATIONS AND NOT YET DUE. RIYA BERG PAPER REWINDER EMILY, AWAITING CALL BACK. Addendum: 10/14/18 at 3180 by PAOLO MELLO RN RN DR DIAZ CALLED BACK INFORMED HIM OF 8 BEATS OF VTACH. NO NEW ORDERS WERE GIVEN WILL SEE PATIENT IN AM 10/15/18
[2018-10-14] MEDS: ATORVASTATIN 20 MG TAB PO SCH (21:20)
[2018-10-14 21:45] VITALS: BP 111/75
[2018-10-15] VITALS (7 sets, daily range): BP systolic 96–110; BP diastolic 40–72
[2018-10-15] MEDS: diphenhdrAMINE HCL 50 MG/1 ML VL IV PRN ×2 (01:48→20:42)
[2018-10-15] MEDS: HYDROCORTONE 1% TOPICAL CREAM 30 GM TUBE TOP SCH ×3 (01:48→22:00)
[2018-10-15] MEDS: CLINDAMYCIN 300MG IV 50 ML IV SCH ×3 (04:05→20:42)
[2018-10-15] MEDS: metroNIDAZOLE 500MG/100ML 100 ML IV SCH ×3 (04:57→21:58)
[2018-10-15] MEDS: BUMETANIDE 1mg/4ml VIAL (0.25mg/ml) IV SCH ×2 (06:00→17:09)
[2018-10-15 06:19] LABS: Basophils # (auto) 0 uL; Mean Corpuscular Volume 78.7 fL (80.0-100.0); Nucleated Red Blood Cells % 0.4 %; Platelet Count (auto) 185 10^3/uL (140-450); White Blood Cell 9.2 10^3/uL (4.4-10.8)
[2018-10-15 06:23] LABS: Basophils % (auto) 0.3 % (0.0-2.0); Eosinophils # (auto) 0 uL; Eosinophils % (auto) 0.3 % (0.0-7.0); Hematocrit 35.6 % (41.0-53.0); Hemoglobin 11.3 g/dL (13.5-17.5); Lymphocytes # (auto) 1.7 uL; Lymphocytes % (auto) 18.1 % (10.0-50.0); Mean Corpuscular Hemoglobin 24.9 pg (28.0-32.0); Mean Corpuscular Hgb Conc. 31.6 g/dL (32.0-36.0); Monocytes # (auto) 0.8 uL; Neutrophils # (auto) 6.7 uL; Neutrophils % (auto) 72.3 % (37.0-80.0); Red Blood Cells 4.52 10^6/uL (4.5-5.90)
[2018-10-15] MEDS: LEVOTHYROXINE SODIUM 25 MCG TAB PO SCH (06:28)
[2018-10-15] MEDS: ACCU-CHEK COMFORT CURVE STRIP VI SCH ×4 (06:28→22:00)
[2018-10-15 06:38] LABS: BUN/Creatinine Ratio 27.6; Calcium 7.8 mg/dL (8.5-10.1); Phosphorus 4.3 mg/dL (2.5-4.90); Potassium 4.4 mmol/L (3.5-5.1); Uric Acid 10.2 mg/dL (3.5-7.2)
[2018-10-15] MEDS: InsuLIN REG 1unit/0.01ml Soln (100units/ml) SC SCH ×4 (06:38→22:00)
[2018-10-15] MEDS: glipiZIDE 5 MG TAB PO SCH ×2 (06:40→17:15)
[2018-10-15 07:12] LABS: Red Cell Distribution Width 24.1 % (11.8-14.3)
[2018-10-15] MEDS: ALBUTEROL SULF 2.5 MG/0.5ML(0.5%) NEB SOLN NEB SCH ×4 (07:33→19:22)
[2018-10-15] MEDS: IPRATROPIUM BROM 0.5 MG/2.5ML INH SOL NEB SCH ×4 (07:33→19:22)
[2018-10-15] MEDS: CLOPIDOGREL BISULFATE 75 MG TAB PO SCH (09:07)
[2018-10-15] MEDS: PANTOPRAZOLE 40 MG TAB PO SCH (09:07)
[2018-10-15] MEDS: cefTRIAXone 1GM/50ML D5W 50 ML IV SCH (09:07)
[2018-10-15] MEDS: APIXABAN 5 MG TAB PO SCH ×2 (09:07→21:59)
[2018-10-15] MEDS: CARVEDILOL 3.125 MG TAB PO SCH ×2 (09:16→21:59)
[2018-10-15] MEDS: SACUBITRIL-VALSARTAN 24mg/26mg TAB PO SCH ×2 (10:00→21:59)
[2018-10-15] MEDS ORDERED: MORPHINE SULFATE 4 MG/ML SYR/VIAL IV PRN (11:45)
[2018-10-15] MEDS ORDERED: MORPHINE SULFATE 4 MG/ML SYR/VIAL IV ONE (11:45)
--- NOTE | 2018-10-15 12:02 | NUR ---
Estimated needs based on AJBW 75.2 kg-wt. maintenance factors 2216-3170 kcal (22-24 kcal/kg) 60-75 g protein (0.8-1.0 g/kg) Addendum: 10/15/18 at [address] Amended: Links added.
--- NOTE | 2018-10-15 19:23 | NUR ---
Respiratory note: PT REFUSE MED NEB SCHEDULED FOR 0000. PT WANTS TO SLEEP.
[2018-10-15] MEDS: ATORVASTATIN 20 MG TAB PO SCH (22:00)
[2018-10-16] MEDS: LORazepam 0.5 MG TAB PO PRN (01:45)
[2018-10-16] MEDS: CLINDAMYCIN 300MG IV 50 ML IV SCH ×3 (03:54→21:51)
[2018-10-16] MEDS: LEVOTHYROXINE SODIUM 25 MCG TAB PO SCH (05:17)
[2018-10-16] MEDS: metroNIDAZOLE 500MG/100ML 100 ML IV SCH ×3 (05:18→23:30)
[2018-10-16] MEDS: BUMETANIDE 1mg/4ml VIAL (0.25mg/ml) IV SCH ×2 (05:18→17:39)
[2018-10-16] MEDS: diphenhdrAMINE HCL 50 MG/1 ML VL IV PRN ×2 (05:18→17:06)
[2018-10-16] MEDS: ACCU-CHEK COMFORT CURVE STRIP VI SCH ×4 (05:19→22:11)
[2018-10-16 05:39] VITALS: BP 117/60
[2018-10-16] MEDS: glipiZIDE 5 MG TAB PO SCH ×2 (05:50→17:39)
[2018-10-16] MEDS: InsuLIN REG 1unit/0.01ml Soln (100units/ml) SC SCH ×4 (05:50→22:10)
[2018-10-16] MEDS: IPRATROPIUM BROM 0.5 MG/2.5ML INH SOL NEB SCH ×3 (06:17→19:29)
[2018-10-16] MEDS: ALBUTEROL SULF 2.5 MG/0.5ML(0.5%) NEB SOLN NEB SCH ×3 (06:17→19:29)
[2018-10-16 07:02] LABS: Potassium 4.2 mmol/L (3.5-5.1)
[2018-10-16 07:08] LABS: BUN/Creatinine Ratio 27.3; Calcium 8.3 mg/dL (8.5-10.1)
--- NOTE | 2018-10-16 08:30 | NUR ---
Patient in bed, on his civilian clothes.
[2018-10-16] MEDS: cefTRIAXone 1GM/50ML D5W 50 ML IV SCH (08:39)
--- NOTE | 2018-10-16 08:45 | NUR ---
Patient ambulated to the bathroom. Steady gait noted.
[2018-10-16 09:00] VITALS: BP 102/59
[2018-10-16] MEDS ORDERED: SPIRONOLACTONE 25 MG TAB PO SCH (10:00)
[2018-10-16] MEDS: APIXABAN 5 MG TAB PO SCH ×2 (10:10→21:51)
[2018-10-16] MEDS: SACUBITRIL-VALSARTAN 24mg/26mg TAB PO SCH ×2 (10:10→22:09)
[2018-10-16] MEDS: PANTOPRAZOLE 40 MG TAB PO SCH (10:10)
[2018-10-16] MEDS: CLOPIDOGREL BISULFATE 75 MG TAB PO SCH (10:10)
[2018-10-16] MEDS: CARVEDILOL 3.125 MG TAB PO SCH ×2 (10:11→22:00)
[2018-10-16] MEDS: HYDROCORTONE 1% TOPICAL CREAM 30 GM TUBE TOP SCH ×2 (10:13→21:52)
[2018-10-16] MEDS ORDERED: SPIRONOLACTONE 25 MG TAB PO ONE (10:15)
--- NOTE | 2018-10-16 10:15 | NUR ---
Dr. Newman at bedside. to order Spironolactone.
[2018-10-16] MEDS: HYDROcodone-ACET 5/325MG TAB PO PRN ×2 (10:25→16:51)
--- NOTE | 2018-10-16 10:25 | NUR ---
[place] 5/325 PO for generalized body pain at 10/10 as stated by the patient.
--- NOTE | 2018-10-16 11:55 | NUR ---
Patient placed on O2 at 2 LPM via long nasal cannula. Patient sitting on chair, sleepy.
[2018-10-16 13:00] VITALS: BP 100/68
[2018-10-16] MEDS ORDERED: GABAPENTIN 300 MG CAP PO SCH (14:00)
--- NOTE | 2018-10-16 14:00 | NUR ---
Patient denies shortness of breath, no difficulty breathing, removed the nasal cannula.
--- NOTE | 2018-10-16 16:50 | NUR ---
Patient scratching his forearms, stated he's itching.
--- NOTE | 2018-10-16 16:51 | NUR ---
[place] 5/325 PO given for pain level of 8/10 as stated by the patient.
[2018-10-16 17:02] VITALS: BP 102/62
--- NOTE | 2018-10-16 17:06 | NUR ---
Benadryl Inj given for itching.
--- NOTE | 2018-10-16 19:40 | NUR ---
Opening Shift Note Assumed care of patient, awake and alert. No S/S of distress/SOB or pain. Bed locked in lowest position, side rails upx2, call light within reach. Instructed on POC and to call for assist PRN, will continue to monitor for changes Q1hr and PRN.
[2018-10-16] MEDS ORDERED: DEXTROSE (50%) 50ML SYRG IV PRN (20:30)
[2018-10-16] MEDS ORDERED: LORazepam 0.5 MG TAB PO PRN (20:30)
[2018-10-16] MEDS ORDERED: HYDROcodone-ACET 5/325MG TAB PO PRN (20:30)
[2018-10-16] MEDS ORDERED: diphenhdrAMINE HCL 50 MG/1 ML VL IV PRN (20:30)
[2018-10-16] MEDS ORDERED: ACETAMINOPHEN 500 MG TAB PO PRN (20:30)
--- NOTE | 2018-10-16 20:32 | NUR ---
PATIENT WAS ACCIDENTALLY DISCHARGED FROM THE SYSTEM. ALL MEDICATION IN PYXIS WERE DISCONTINUED. CALLED OUTSIDE PHARMACY TO NOTIFY AND THEY SAID THAT ONLY IN HOUSE PHARMACY IS ABLE TO PUT THE MEDS BACK INTO THE SYSTEM. CHARGE NURSE MADE AWARE AND WAS TOLD TO INPUT ALL MEDICATION ORDERS BACK INTO THE SYSTEM. WILL CARRY.
[2018-10-16] MEDS: GABAPENTIN 300 MG CAP PO SCH (21:50)
[2018-10-16 22:00] VITALS: BP 99/62
[2018-10-16] MEDS ORDERED: ATORVASTATIN 20 MG TAB PO SCH (22:00)
[2018-10-17 05:17] VITALS: BP 108/67
[2018-10-17] MEDS: CLINDAMYCIN 300MG IV 50 ML IV SCH ×2 (05:24→11:56)
[2018-10-17] MEDS ORDERED: BUMETANIDE 1mg/4ml VIAL (0.25mg/ml) IV SCH (06:00)
[2018-10-17] MEDS: GABAPENTIN 300 MG CAP PO SCH ×2 (06:18→13:33)
[2018-10-17] MEDS: ACCU-CHEK COMFORT CURVE STRIP VI SCH ×2 (06:27→11:38)
[2018-10-17] MEDS: InsuLIN REG 1unit/0.01ml Soln (100units/ml) SC SCH ×2 (06:27→11:39)
[2018-10-17] MEDS ORDERED: glipiZIDE 5 MG TAB PO SCH (07:00)
[2018-10-17] MEDS ORDERED: LEVOTHYROXINE SODIUM 25 MCG TAB PO SCH (07:00)
[2018-10-17] MEDS: metroNIDAZOLE 500MG/100ML 100 ML IV SCH ×2 (07:24→13:32)
--- NOTE | 2018-10-17 07:45 | NUR ---
Patient sitting in bed, asleep, no acute distress noted.
[2018-10-17] MEDS: CARVEDILOL 3.125 MG TAB PO SCH (07:52)
--- NOTE | 2018-10-17 08:15 | NUR ---
Patient sitting on bed, awake, oriented x4. No acute distress noted.
[2018-10-17 09:00] VITALS: BP 108/67
[2018-10-17] MEDS ORDERED: SPIRONOLACTONE 25 MG TAB PO SCH (10:00)
--- NOTE | 2018-10-17 10:15 | NUR ---
Called Pharmacy for Spironolactone PO, not available in the Pyxis.
[2018-10-17] MEDS: SACUBITRIL-VALSARTAN 24mg/26mg TAB PO SCH (10:40)
[2018-10-17] MEDS: APIXABAN 5 MG TAB PO SCH (10:41)
[2018-10-17] MEDS: HYDROCORTONE 1% TOPICAL CREAM 30 GM TUBE TOP SCH (10:42)
--- NOTE | 2018-10-17 11:30 | NUR ---
Called Pharmacy if they can change the schedule for Clindamycin earlier because it's scheduled at 1400 along with Flagyl IV.
--- NOTE | 2018-10-17 11:38 | NUR ---
Dr. Ramirez spoke with the patient that he's okay to go home as per Cardiology stand point.
[2018-10-17 13:00] VITALS: BP 92/49
--- NOTE | 2018-10-17 13:25 | NUR ---
Dr. Newman at bedside. to put in discharge orders today, patient to follow up with Dr. Ramirez as outpatient, to write prescription for Gabapentin and antibiotic PO.
--- NOTE | 2018-10-17 13:40 | NUR ---
Patient said no one will pick him up to go home, stated he lives in [place]. Informed the patient I will request a taxi voucher for him.
--- NOTE | 2018-10-17 14:00 | NUR ---
Called Romain Ayala for taxi voucher.
[2018-10-17 14:32] VITALS: BP 92/49
--- NOTE | 2018-10-17 14:55 | NUR ---
Photos taken of the scab/self inflicted wound on the lower forehead between the eyes, reddened right and left lower extremities. Wound Care forms placed on the Wound Care tray. Camera returned to [facility].
--- NOTE | 2018-10-17 16:00 | NUR ---
Discharge instructions given as ordered. Encourage to follow up with PMD as instructed. All questions and concerns addressed. Patient verbalized understanding. Medication reconciliation form completed and copy given to patient. IV removed with catheter intact, pressure dressing applied. Telemetry unit returned to ICU. Patient taken to vehicle/[facility] [employer] via wheelchair with all personal belongings, accompanied by staff. No distress noted at time of departure.
--- NOTE | 2018-10-17 16:00 | NUR ---
Patient picked up by [facility] [employer] to go home.
--- NOTE | 2018-10-17 16:35 | NUR ---
Discharge instructions given as ordered. Encourage to follow up with PMD as instructed. All questions and concerns addressed. Patient verbalized understanding. Medication reconciliation form completed and copy given to patient. IV removed with catheter intact, pressure dressing applied. Patient on Spivey catheter from home, patient is emptying the Spivey catheter independently. Telemetry unit returned to ICU. Patient taken to vehicle via wheelchair with all personal belongings, accompanied by staff and family member. No distress noted at time of departure. Addendum: 10/17/18 at 1640 by Keely Iglesias RN PATIENT NOT ON SPIVEY CATHETER. Addendum: 10/17/18 at 1645 by Keely Iglesias RN WRONG ENTRY
== END 2018-10-17 16:00 | disposition home or self-care (01) | DRG 291 ==
LOC: EDBD 22:58 → ER 23:03 → TELE 23:04 → TELE-WESTW 10-12 20:10 → UNDODISIN 10-16 14:00
PROVIDERS: ADMIT Nurse Practitioner Family; ATTEND Internal Medicine Pulmonary Disease
DX: I13.0 Hypertensive heart and chronic kidney disease with heart failure and stage 1 through stage 4 chronic kidney disease, or unspecified chronic kidney disease (principal); I50.43 Acute on chronic combined systolic (congestive) and diastolic (congestive) heart failure; N17.0 Acute kidney failure with tubular necrosis; A41.9 Sepsis, unspecified organism; L03.115 Cellulitis of right lower limb; E44.1 Mild protein-calorie malnutrition; E87.1 Hypo-osmolality and hyponatremia; I48.92 Unspecified atrial flutter; R18.8 Other ascites; L03.116 Cellulitis of left lower limb; I42.9 Cardiomyopathy, unspecified; I25.10 Atherosclerotic heart disease of native coronary artery without angina pectoris; D63.8 Anemia in other chronic diseases classified elsewhere; K57.30 Diverticulosis of large intestine without perforation or abscess without bleeding; N18.3 Chronic kidney disease, stage 3 (moderate); E78.5 Hyperlipidemia, unspecified; E11.21 Type 2 diabetes mellitus with diabetic nephropathy; E11.40 Type 2 diabetes mellitus with diabetic neuropathy, unspecified; F15.10 Other stimulant abuse, uncomplicated; I48.91 Unspecified atrial fibrillation; J44.9 Chronic obstructive pulmonary disease, unspecified; K21.9 Gastro-esophageal reflux disease without esophagitis; K80.20 Calculus of gallbladder without cholecystitis without obstruction; E03.9 Hypothyroidism, unspecified; E11.22 Type 2 diabetes mellitus with diabetic chronic kidney disease; I25.2 Old myocardial infarction; Z68.28 Body mass index [BMI] 28.0-28.9, adult; Z79.01 Long term (current) use of anticoagulants; Z79.02 Long term (current) use of antithrombotics/antiplatelets; Z79.84 Long term (current) use of oral hypoglycemic drugs; Z79.899 Other long term (current) drug therapy; Z82.3 Family history of stroke; Z82.49 Family history of ischemic heart disease and other diseases of the circulatory system; Z83.3 Family history of diabetes mellitus; Z86.73 Personal history of transient ischemic attack (TIA), and cerebral infarction without residual deficits; Z91.19 Patient's noncompliance with other medical treatment and regimen; Z95.1 Presence of aortocoronary bypass graft; Z95.810 Presence of automatic (implantable) cardiac defibrillator; Z88.1 Allergy status to other antibiotic agents; Z88.8 Allergy status to other drugs, medicaments and biological substances; Z91.018 Allergy to other foods; Z95.5 Presence of coronary angioplasty implant and graft
CPT/HCPCS: 36415; 71045; 74176; 76775; 80048; 80053; 80307; 81001; 82962; 83036; 83605; 83690; 83735; 83880; 84100; 84443; 84484; 84550; 85025; 85610; 85730; 87040; 87081; 87086; 93005; 94640; 96361; 96365; 96366; 96372; 96375; 96376; G0378; J0696; J1815; J2405; J2543; J3490

== ENCOUNTER 2018-10-22 15:50 | Inpatient (IN) | payer MEDICARE, OTHER ==
[~2018-10-22] VITALS: Ht 172.7 cm; Wt 76.7 kg
[~2018-10-22 15:50] MED LIST changes: -APIX5TAB OR; +APIX5TAB PO; -LISI10TA6; +LISI10TA6 PO
[2018-10-22 16:32] LABS: Hemoglobin 10.3 g/dL (13.5-17.5)
[2018-10-22 16:34] LABS: Hematocrit 32.7 % (41.0-53.0); Mean Corpuscular Hemoglobin 24.4 pg (28.0-32.0); Mean Corpuscular Hgb Conc. 31.4 g/dL (32.0-36.0); Mean Corpuscular Volume 77.7 fL (80.0-100.0); Platelet Count (auto) 154 10^3/uL (140-450); Red Blood Cells 4.21 10^6/uL (4.5-5.90); White Blood Cell 6.2 10^3/uL (4.4-10.8)
[2018-10-22 16:38] LABS: Basophils % (manual) 0 (0.0-2.0); Blast Cells 0; Metamyelocytes % 0; Myelocytes % 0; Promyelocytes % 0; Reactive Lymphocytes 0
[2018-10-22 16:47] LABS: INR 1.22 (0.9-1.15); Partial Thromboplastin Time 27.4 sec (23.64-32.05)
[2018-10-22 16:48] LABS: Albumin 3.3 g/dL (3.4-5.0); BUN/Creatinine Ratio 18.4; Calcium 8.1 mg/dL (8.5-10.1); Magnesium 1.9 mg/dL (1.6-2.6); Potassium 3.9 mmol/L (3.5-5.1)
[2018-10-22 16:53] LABS: Bilirubin, Total 1.4 mg/dL (0.2-1.0); Total Protein 7.2 g/dL (6.4-8.2)
[2018-10-22 17:14] LABS: Band Neutrophils % (manual) 1; Eosinophils % (manual) 1 (0-7); Lymphocytes % (manual) 18 (10.0-50.0); Monocytes % (manual) 17 (0-12)
[2018-10-22] MEDS ORDERED: FUROSEMIDE 20 MG/2 ML VIAL IV ONE (17:45)
[2018-10-22] MEDS ORDERED: ASPirin 81 mg TAB PO ONE (17:45)
[2018-10-22] MEDS ORDERED: NITROGLYCERIN 0.4 MG SL TAB SL PRN (20:30)
[2018-10-22] MEDS ORDERED: ACETAMINOPHEN 325 MG TAB PO PRN (20:30)
[2018-10-22] MEDS ORDERED: DEXTROSE (50%) 50ML SYRG IV PRN (20:30)
[2018-10-22] MEDS ORDERED: MORPHINE SULF INJ 2 MG/ML SYRINGE 1ML IV PRN (20:30)
[2018-10-22] MEDS ORDERED: TEMAZEPAM 15 MG CAP PO PRN (20:30)
[2018-10-22] MEDS ORDERED: ONDANSETRON HCL 4 MG/2 ML VIAL IV PRN (20:30)
--- NOTE | 2018-10-22 21:45 | NUR ---
Telemetry admit from ER Patient admitted to Telemetry unit and oriented to primary RN, unit, room, bed, and unit policies regarding patient care and visiting hours. Patient now on continuous telemetry monitoring, tele box #32 and telemetry reading on arrival to unit is sinus tachycardia in the 100s with an occasional PVC and V-paced beat. Bed is in lowest position and locked. Call light within reach. Board updated. Patient weighed by bedscale and encouraged to call if they need something. All questions and concerns addressed, patient verbalized understanding.
[2018-10-22 22:00] VITALS: BP 125/83
--- NOTE | 2018-10-22 22:13 | NUR ---
Paging hospitalist because patient is reporting pain 9 out of 10 in his upper chest where his pacemaker was inserted three months ago. He says he has been feeling pain off and on since the surgery. Patient reports that he has been given morphine before with no allergic or adverse reactions. Patient's EKG is ventricularly-paced and last troponin was 0.028. BP: 125/83, HR: 100, O2 sat: 100% on RA.
[2018-10-22] MEDS ORDERED: HYDROcodone-ACET 7.5/325MG TAB PO ONE (22:45)
[2018-10-22] MEDS: APIXABAN 5 MG TAB PO SCH (23:00)
[2018-10-22] MEDS: ATORVASTATIN 20 MG TAB PO SCH (23:00)
[2018-10-22] MEDS: CARVEDILOL 3.125 MG TAB PO SCH (23:00)
[2018-10-22] MEDS: FAMOTIDINE 20 MG TAB PO SCH (23:01)
[2018-10-22] MEDS: risperiDONE 1 MG TAB PO SCH (23:01)
[2018-10-22] MEDS: ACCU-CHEK COMFORT CURVE STRIP VI SCH (23:02)
[2018-10-23] VITALS (7 sets, daily range): BP systolic 104–125; BP diastolic 62–83
--- NOTE | 2018-10-23 00:09 | NUR ---
[place] has not been effective for pain, per patient. Patient took the medication but was skeptical that it would work, since he has taken it in the past. Patient now says that his pain is in his bilateral lower legs r/t neuropathy and edema, per patient.Bilateral lower extremities have some mild edema but are not pitting. Patient states that morphine is the only medication that usually helps him when the pain is this severe.
[2018-10-23] MEDS: InsuLIN REG 1unit/0.01ml Soln (100units/ml) SC SCH ×5 (00:34→23:31)
--- NOTE | 2018-10-23 01:03 | NUR ---
Spoke to DAVID Mena about patient's pain in his legs and GARMENT TURNER ordered Gabapentin 400 mg PO Once.
[2018-10-23] MEDS ORDERED: GABAPENTIN 400 MG CAP PO ONE (01:15)
[2018-10-23] MEDS ORDERED: SACU1TAB PO (02:40)
[2018-10-23] MEDS ORDERED: LEVO25TA6 PO (02:41)
[2018-10-23 05:29] LABS: Hematocrit 31.3 % (41.0-53.0); Mean Corpuscular Hemoglobin 24.7 pg (28.0-32.0); Mean Corpuscular Hgb Conc. 31.9 g/dL (32.0-36.0); Mean Corpuscular Volume 77.5 fL (80.0-100.0); Platelet Count (auto) 127 10^3/uL (140-450); Red Blood Cells 4.04 10^6/uL (4.5-5.90); White Blood Cell 4.6 10^3/uL (4.4-10.8)
[2018-10-23 05:40] LABS: Calcium 8.1 mg/dL (8.5-10.1); Potassium 3.7 mmol/L (3.5-5.1)
[2018-10-23 05:41] LABS: Red Cell Distribution Width 23.3 % (11.8-14.3)
[2018-10-23 05:42] LABS: Band Neutrophils % (manual) 0; Basophils % (manual) 0 (0.0-2.0); Blast Cells 0; Metamyelocytes % 0; Myelocytes % 0; Promyelocytes % 0; Reactive Lymphocytes 0
[2018-10-23 05:43] LABS: BUN/Creatinine Ratio 28.6
[2018-10-23] MEDS ORDERED: FUROSEMIDE 20 MG/2 ML VIAL IV SCH (06:00)
[2018-10-23] MEDS: ACCU-CHEK COMFORT CURVE STRIP VI SCH ×4 (06:49→23:31)
--- NOTE | 2018-10-23 07:35 | NUR ---
Opening Shift Note Assumed care of patient, comfortably sleeping in bed. Patient is on room air, no S/S of distress/SOB or pain noted. Bed at lowest locked position and call light within reach. Instructed on POC and to call for assist PRN, will continue to monitor for changes Q1hr and PRN.
[2018-10-23] MEDS: POTASSIUM CHL 10 Meq TABLET PO SCH (09:19)
[2018-10-23] MEDS: CLOPIDOGREL BISULFATE 75 MG TAB PO SCH (09:19)
[2018-10-23] MEDS: APIXABAN 5 MG TAB PO SCH ×2 (09:19→21:36)
[2018-10-23] MEDS: FAMOTIDINE 20 MG TAB PO SCH ×2 (09:20→21:36)
[2018-10-23] MEDS: SPIRONOLACTONE 25 MG TAB PO SCH (09:20)
[2018-10-23] MEDS: FOLIC ACID 1 MG TAB PO SCH (09:21)
[2018-10-23] MEDS: risperiDONE 1 MG TAB PO SCH ×2 (09:21→21:36)
[2018-10-23] MEDS: MAGNESIUM OXIDE 400 MG TAB PO SCH (09:22)
[2018-10-23] MEDS: DIGOXIN 0.125 MG TAB PO SCH (09:22)
[2018-10-23] MEDS: CARVEDILOL 3.125 MG TAB PO SCH (09:23)
[2018-10-23] MEDS: ASPirin 81 mg TAB PO SCH (09:23)
[2018-10-23] MEDS: PANTOPRAZOLE 40 MG TAB PO SCH (09:23)
[2018-10-23] MEDS ORDERED: LISINOPRIL 10 MG TAB PO SCH (10:00)
[2018-10-23 11:23] LABS: Eosinophils % (manual) 4 (0-7)
[2018-10-23 11:24] LABS: Lymphocytes % (manual) 26 (10.0-50.0); Monocytes % (manual) 14 (0-12)
--- NOTE | 2018-10-23 12:05 | NUR ---
DR. Devan Gama at bedside.
--- NOTE | 2018-10-23 14:41 | NUR ---
Paged Dr. Wallace regarding patients D-Dimer level.
[2018-10-23] MEDS ORDERED: FUROSEMIDE 20 MG/2 ML VIAL IV ONE (15:45)
--- NOTE | 2018-10-23 16:15 | NUR ---
UDS collected and sent to lab via [facility] [facility] system.
[2018-10-23 16:27] LABS: Alcohol, Urine < 3.0 mg/dL (0-5); Amphetamine Screen, Urine NEGATIVE (NEGATIVE); Barbiturate Scree,Urine NEGATIVE (NEGATIVE); Benzodiazephine Screen, Urine NEGATIVE (NEGATIVE); Cannabinoid Screen, Urine NEGATIVE (NEGATIVE); Cocaine Screen, Urine NEGATIVE (NEGATIVE); Opiate Scree,Urine NEGATIVE (NEGATIVE); Phencyclidine Screen, Urine NEGATIVE (NEGATIVE)
[2018-10-23] MEDS: HYDROcodone-ACET 5/325MG TAB PO PRN ×2 (16:39→23:31)
[2018-10-23] MEDS ORDERED: IOHEXOL 350 MG/ML 100ML IJ ONE (18:08)
[2018-10-23] MEDS: FUROSEMIDE 40 MG/4 ML VIAL IV SCH (18:55)
--- NOTE | 2018-10-23 19:32 | NUR ---
Patient comfortably resting in bed, bed at lowest locked position and call light within reach. No s/s of SOB/distress stated. Care endorsed to NOC RN.
--- NOTE | 2018-10-23 19:40 | NUR ---
Opening Shift Note Assumed care of patient, awake and alert oriented x4. No S/S of distress/SOB or pain noted. Bed is in lowest locked position with bed rails up x2 and call light is within reach of the patient. Instructed on POC and to call for assist PRN.
[2018-10-23] MEDS: ATORVASTATIN 20 MG TAB PO SCH (21:35)
[2018-10-23] MEDS: CARVEDILOL 12.5 MG TAB PO SCH (21:37)
--- NOTE | 2018-10-23 23:10 | NUR ---
BEATS OF V TACK: PATIENT HAD TWO BEATS OF V-TACK ON THE TELEMETRY MONITORY. WENT TO ASSESS PATIENT RIGHT AWAY, PATIENT WAS ASLEEP RESTING IN BED WITH BREATHS EVEN AND UNLABORED. NO S/S OF DISTRESS SOB NOTED. 12 LEAD EKG OBTAINED SHOWED 74 HEART RATE WITH PACEMAKER. VITAL SIGNS OBTAINED 97.5 TEMPERATURE, 77 HEART RATE, 106/55 BLOOD PRESSURE, 20 RESPIRATORY RATE, 95% ROOM AIR, PATIENT REPORTS LOWER BACK CRAMPS AT 9/10.
[2018-10-24 05:09] VITALS: BP 105/66
[2018-10-24] MEDS: FUROSEMIDE 40 MG/4 ML VIAL IV SCH ×2 (06:07→17:58)
[2018-10-24] MEDS: HYDROcodone-ACET 5/325MG TAB PO PRN ×2 (06:08→15:04)
[2018-10-24] MEDS: ACCU-CHEK COMFORT CURVE STRIP VI SCH ×3 (06:08→17:59)
[2018-10-24] MEDS: InsuLIN REG 1unit/0.01ml Soln (100units/ml) SC SCH ×3 (06:08→17:58)
[2018-10-24 08:00] VITALS: BP 105/66
--- NOTE | 2018-10-24 08:00 | NUR ---
ASSESSMENT NOTE PATIENT IS ALERT ORIENTED X4, RESTING IN BED COMFORTABLY, ABLE TO VERBALIS HIS NEEDS, SELF REPOSITION NEEDED, DENIES CHEST PAIN OR SHORTAGE OF BREATH, BLIND IN RT EYE, FALL RISK PRECAUTIONS, CALL LIGHT WITHIN REACH.
[2018-10-24 08:37] VITALS: BP 99/68
--- NOTE | 2018-10-24 08:48 | NUR ---
DR WALTERS AT BED SIDE FOLLOWING UP ON PT, MADE AWARE THAT PT IS HAVING CRAMPS ON BOTH HANDS.
[2018-10-24] MEDS: risperiDONE 1 MG TAB PO SCH ×2 (08:50→22:11)
[2018-10-24] MEDS: ASPirin 81 mg TAB PO SCH (08:50)
[2018-10-24] MEDS: SACUBITRIL-VALSARTAN 24mg/26mg TAB PO SCH (08:50)
[2018-10-24] MEDS: CLOPIDOGREL BISULFATE 75 MG TAB PO SCH (08:50)
[2018-10-24] MEDS: SPIRONOLACTONE 25 MG TAB PO SCH (08:50)
[2018-10-24] MEDS: MAGNESIUM OXIDE 400 MG TAB PO SCH (08:51)
[2018-10-24] MEDS: CARVEDILOL 12.5 MG TAB PO SCH ×2 (08:51→22:00)
[2018-10-24] MEDS: PANTOPRAZOLE 40 MG TAB PO SCH (08:51)
[2018-10-24] MEDS: FOLIC ACID 1 MG TAB PO SCH (08:51)
[2018-10-24] MEDS: FAMOTIDINE 20 MG TAB PO SCH ×2 (08:52→22:11)
[2018-10-24] MEDS: DIGOXIN 0.125 MG TAB PO SCH (08:52)
[2018-10-24] MEDS: APIXABAN 5 MG TAB PO SCH ×2 (08:52→22:10)
[2018-10-24] MEDS: POTASSIUM CHL 10 Meq TABLET PO SCH (08:52)
[2018-10-24 13:00] VITALS: BP 97/63
[2018-10-24 17:00] VITALS: BP 95/58
--- NOTE | 2018-10-24 19:05 | NUR ---
PATIENT IS ALERT IN BED. NO S/SX OF DISTRESS, SOB OR PAIN. BED IS LOCKED IN LOWEST POSITION, BED RAILS UP X2, HEAD OF BED IS UP >30 DEGREES FOR SAFETY PRECAUTIONS. WILL CONTINUE TO MONITOR Q1H AND PRN.
[2018-10-24 20:10] VITALS: BP 104/66
[2018-10-24] MEDS: ATORVASTATIN 20 MG TAB PO SCH (22:10)
[2018-10-25] VITALS (8 sets, daily range): BP systolic 93–124; BP diastolic 55–73
[2018-10-25] MEDS: ACCU-CHEK COMFORT CURVE STRIP VI SCH ×4 (00:33→17:56)
[2018-10-25 05:53] LABS: Potassium 4.3 mmol/L (3.5-5.1)
[2018-10-25 06:00] LABS: BUN/Creatinine Ratio 27.5
[2018-10-25] MEDS: FUROSEMIDE 40 MG/4 ML VIAL IV SCH ×2 (06:00→17:55)
[2018-10-25] MEDS: InsuLIN REG 1unit/0.01ml Soln (100units/ml) SC SCH ×4 (06:00→17:56)
[2018-10-25 06:01] LABS: Albumin 2.9 g/dL (3.4-5.0); Calcium 8.4 mg/dL (8.5-10.1); Total Protein 6.5 g/dL (6.4-8.2)
--- NOTE | 2018-10-25 07:22 | NUR ---
ENDORSED CARE TO DAY SHIFT NURSE SARAH GARZA. NO S/SX OF DISTRESS, SOB OR PAIN.
--- NOTE | 2018-10-25 09:00 | NUR ---
DR WALTERS AT BED SIDE, FOLLOWING UP ON PT WITH NEW ORDER
[2018-10-25] MEDS: FAMOTIDINE 20 MG TAB PO SCH ×2 (09:12→22:15)
[2018-10-25] MEDS: MAGNESIUM OXIDE 400 MG TAB PO SCH (09:12)
[2018-10-25] MEDS: POTASSIUM CHL 10 Meq TABLET PO SCH (09:13)
[2018-10-25] MEDS: FOLIC ACID 1 MG TAB PO SCH (09:13)
[2018-10-25] MEDS: PANTOPRAZOLE 40 MG TAB PO SCH (09:13)
[2018-10-25] MEDS: SACUBITRIL-VALSARTAN 24mg/26mg TAB PO SCH (09:13)
[2018-10-25] MEDS: SPIRONOLACTONE 25 MG TAB PO SCH (09:13)
[2018-10-25] MEDS: APIXABAN 5 MG TAB PO SCH ×2 (09:13→22:15)
[2018-10-25] MEDS: CLOPIDOGREL BISULFATE 75 MG TAB PO SCH (09:14)
[2018-10-25] MEDS: ASPirin 81 mg TAB PO SCH (09:14)
[2018-10-25] MEDS: CARVEDILOL 12.5 MG TAB PO SCH ×2 (09:14→22:00)
[2018-10-25] MEDS: risperiDONE 1 MG TAB PO SCH ×2 (09:15→22:15)
[2018-10-25] MEDS: DIGOXIN 0.125 MG TAB PO SCH (09:15)
--- NOTE | 2018-10-25 10:00 | NUR ---
BM PT WAS ABLE TO AMBULATE TO BATHROOM AND HAVE BM, NO DISTRESS NOTED.
--- NOTE | 2018-10-25 11:00 | NUR ---
PT IS SLEEPING NO DISTRESS NOTED
[2018-10-25] MEDS: HYDROcodone-ACET 5/325MG TAB PO PRN (11:54)
--- NOTE | 2018-10-25 17:59 | NUR ---
PT IS SITTING UP EATING DINNER, NO DISTRESS NOTED.
--- NOTE | 2018-10-25 21:00 | NUR ---
PATIENT REQUESTS FOR MILK AND GRAM CRACKERS REEDUCATED PATIENT REGARDING FLUID RESTRICTION ORDER. PATIENT VERBALIZES UNDERSTANDING. PROVIDED PATIENT WITH GRAM CRACKERS BUT NO MILK.
[2018-10-25] MEDS: ATORVASTATIN 20 MG TAB PO SCH (22:15)
[2018-10-26] MEDS: ACCU-CHEK COMFORT CURVE STRIP VI SCH ×2 (00:42→06:59)
--- NOTE | 2018-10-26 01:45 | NUR ---
PROVIDED PATIENT WITH TURKEY SANDWICH FROM [facility].
--- NOTE | 2018-10-26 03:38 | NUR ---
OPENING SHIFT NOTE- NOC SHIFT PATIENT IS ALERT AND ORIENTED X4 ANSWERS IN COMPLETE SENTENCES AND MAKES APPROPRIATE EYE CONTACT. PATIENT IS IN BED, BED IS LOCKED IN LOWEST POSITION, BED RAILS UP X2 AND HEAD OF BED IS UP >30 DEGREES FOR SAFETY PRECAUTIONS. BEDSIDE TABLE IS WITHIN REACH, CALL LIGHT IS WITHIN REACH. DISCUSSED POC WITH PATIENT AND INSTRUCTED PATIENT TO CALL PRN; PATIENT VERBALIZED UNDERSTANDING. PATIENT HAS A 16 OZ (473 MLS) EMPTY SODA CONTAINER ON HIS BEDSIDE TABLE. PATIENT STATES THAT HIS FAMILY BROUGHT IT FOR HIM AND THAT HE DRANK IT. WILL MONITOR HIS FLUID INTAKE FOR NOC SHIFT TO MEET THE 1200 ML FLUID RESTRICTION ORDERED AND WILL ENDORSE TO DAY SHIFT NURSE TO EDUCATE HIS FAMILY REGARDING THE FLUID REST. PATIENT IS AWARE OF THE 1200 ML RESTRICTION PER 24 HRS. WILL CONTINUE TO MONITOR Q1H AND PRN. Addendum: 10/26/18 at 0351 by Jo Beard RN THE CORRECT TIME FOR THIS NOTE IS 1900 10/25/2018
[2018-10-26 04:59] VITALS: BP 104/66
[2018-10-26] MEDS: InsuLIN REG 1unit/0.01ml Soln (100units/ml) SC SCH ×2 (06:59)
[2018-10-26] MEDS: FUROSEMIDE 40 MG/4 ML VIAL IV SCH (07:00)
--- NOTE | 2018-10-26 07:05 | NUR ---
CLOSING NOTE- NOC SHIFT PATIENT IS RESTING COMFORTABLE IN BED. NO S/SX OF DISTRESS, SOB OR PAIN. WILL ENDORSE CARE TO DAY SHIFT RN.
--- NOTE | 2018-10-26 07:30 | NUR ---
OPENING SHIFT NOTE RECEIVED REPORT FROM NOC SHIFT, ASSUMED CARE OF PATIENT. PATIENT IS A&OX4 WITH NO C/O PAIN OR DISTRESS AT THIS TIME. PATIENT BED IN LOW POSITION WITH BRAKES APPLIED, BED RAILS UP X2 AND CALL LIGHT WITHIN REACH. EDUCATED PATIENT ON POC AND GRADES 1 6 TUTOR LIGHT USE PRN, PATIENT VERBALIZED UNDERSTANDING. NO CURRENT S/S OF DISTRESS NOTED, CONTINUING TO MONITOR PATIENT Q1 HR AND PRN
[2018-10-26 08:00] VITALS: BP 117/78
--- NOTE | 2018-10-26 08:15 | NUR ---
AT BEDSIDE DR WALTERS AT PATIENTS BEDSIDE
[2018-10-26 09:00] VITALS: BP 117/78
[2018-10-26] MEDS: FOLIC ACID 1 MG TAB PO SCH (09:42)
[2018-10-26] MEDS: SPIRONOLACTONE 25 MG TAB PO SCH (09:42)
[2018-10-26] MEDS: SACUBITRIL-VALSARTAN 24mg/26mg TAB PO SCH (09:42)
[2018-10-26] MEDS: CLOPIDOGREL BISULFATE 75 MG TAB PO SCH (09:43)
[2018-10-26] MEDS: ASPirin 81 mg TAB PO SCH (09:44)
[2018-10-26] MEDS: POTASSIUM CHL 10 Meq TABLET PO SCH (09:44)
[2018-10-26] MEDS: PANTOPRAZOLE 40 MG TAB PO SCH (09:44)
[2018-10-26] MEDS: MAGNESIUM OXIDE 400 MG TAB PO SCH (09:44)
[2018-10-26] MEDS: FAMOTIDINE 20 MG TAB PO SCH (09:44)
[2018-10-26] MEDS: APIXABAN 5 MG TAB PO SCH (09:45)
[2018-10-26] MEDS: DIGOXIN 0.125 MG TAB PO SCH (09:45)
[2018-10-26] MEDS: risperiDONE 1 MG TAB PO SCH (09:45)
[2018-10-26] MEDS: CARVEDILOL 12.5 MG TAB PO SCH (09:45)
[2018-10-26 10:09] VITALS: BP 104/66
--- NOTE | 2018-10-26 11:00 | NUR ---
IV removal IV DC'd with clean sterile technique, catheter fully intact. Pressure dressing applied to site. Patient tolerated well.
--- NOTE | 2018-10-26 11:02 | NUR ---
TELE REMOVED TELE MONITOR REMOVED, STERILIZED AND RETURNED TO [facility]
--- NOTE | 2018-10-26 11:37 | NUR ---
PATIENT DISCHARGED PATIENT LEFT VIA WHEELCHAIR WITH DOCUMENTATION COORDINATOR TO TAXI WITH NO C/O PAIN OR DISTRESS
--- NOTE | 2018-10-26 15:25 | NUR ---
assessment Patient had a ss consult for frequent admissions, little support at home. Patient discharged home prior to being assessed. Addendum: 10/26/18 at 1528 by Aparna GALLEGO Amended: Links added.
== END 2018-10-26 11:37 | disposition home or self-care (01) | DRG 291 ==
LOC: ER 15:50 → EDBD 15:50 → TELE 15:51 → TELE-CENTR 21:43
PROVIDERS: ADMIT Nurse Practitioner; ATTEND Family Medicine
DX: I11.0 Hypertensive heart disease with heart failure (principal); J96.20 Acute and chronic respiratory failure, unspecified whether with hypoxia or hypercapnia; I24.9 Acute ischemic heart disease, unspecified; I50.23 Acute on chronic systolic (congestive) heart failure; I25.10 Atherosclerotic heart disease of native coronary artery without angina pectoris; J44.9 Chronic obstructive pulmonary disease, unspecified; E78.5 Hyperlipidemia, unspecified; E11.21 Type 2 diabetes mellitus with diabetic nephropathy; E78.00 Pure hypercholesterolemia, unspecified; E11.40 Type 2 diabetes mellitus with diabetic neuropathy, unspecified; F15.10 Other stimulant abuse, uncomplicated; K21.9 Gastro-esophageal reflux disease without esophagitis; Z82.49 Family history of ischemic heart disease and other diseases of the circulatory system; Z83.3 Family history of diabetes mellitus; Z95.1 Presence of aortocoronary bypass graft; Z91.19 Patient's noncompliance with other medical treatment and regimen; I25.2 Old myocardial infarction; Z95.5 Presence of coronary angioplasty implant and graft; Z95.810 Presence of automatic (implantable) cardiac defibrillator; Z88.1 Allergy status to other antibiotic agents; Z88.5 Allergy status to narcotic agent; Z88.8 Allergy status to other drugs, medicaments and biological substances
CPT/HCPCS: 36415; 71045; 71275; 72131; 80048; 80053; 80307; 82962; 83735; 83880; 84484; 85007; 85027; 85379; 85610; 85730; 87081; 93005; 93970; 94761; 96374; 99291; G0378; J1815; J2405

== ENCOUNTER 2018-11-18 21:56 | Inpatient (IN) | payer MEDICARE, MEDICAID ==
[~2018-11-18] VITALS: Ht 172.7 cm; Wt 84.2 kg
[~2018-11-18 21:56] MED LIST changes: -CLOP75TA28 PO; +LEVO25TA6 PO; +SACU1TAB PO
[2018-11-18 23:20] LABS: Basophils # (auto) 0.1 uL; Eosinophils # (auto) 0.1 uL; Mean Corpuscular Hemoglobin 24.8 pg (28.0-32.0); Neutrophils # (auto) 3.4 uL
[2018-11-18 23:21] LABS: Basophils % (auto) 1.6 % (0.0-2.0); Eosinophils % (auto) 0.9 % (0.0-7.0); Lymphocytes # (auto) 2.1 uL; Lymphocytes % (auto) 32.8 % (10.0-50.0); Mean Corpuscular Hgb Conc. 32.5 g/dL (32.0-36.0); Mean Corpuscular Volume 76.4 fL (80.0-100.0); Monocytes # (auto) 0.8 uL; Monocytes % (auto) 12.5 % (0.0-12.0); Neutrophils % (auto) 52.2 % (37.0-80.0); Nucleated Red Blood Cells % 1.2 %; Platelet Count (auto) 154 10^3/uL (140-450); Red Blood Cells 4.84 10^6/uL (4.5-5.90); White Blood Cell 6.5 10^3/uL (4.4-10.8)
[2018-11-18 23:26] LABS: Red Cell Distribution Width 26.3 % (11.8-14.3)
[2018-11-18 23:35] LABS: Albumin 3.2 g/dL (3.4-5.0); Calcium 8.3 mg/dL (8.5-10.1); Potassium 4.7 mmol/L (3.5-5.1)
[2018-11-18 23:40] LABS: BUN/Creatinine Ratio 11.3; Bilirubin, Total 5.3 mg/dL (0.2-1.0); Total Protein 7.2 g/dL (6.4-8.2)
[2018-11-19] MEDS ORDERED: PIPERACILLIN-TAZOB 3.375GM 100 ML IV ONE (05:00)
[2018-11-19] MEDS ORDERED: ONDANSETRON HCL 4 MG/2 ML VIAL IV ONE (05:00)
[2018-11-19] MEDS ORDERED: HYDROmorphone HCL 2 MG/ML VL IV ONE (05:00)
[2018-11-19] MEDS ORDERED: SODIUM CHLORIDE 0.9% 1,000 ML IV ONE (05:00)
[2018-11-19] MEDS ORDERED: metroNIDAZOLE 500MG/100ML 100 ML IV ONE ×2 (05:00→07:00)
[2018-11-19] MEDS ORDERED: ONDANSETRON HCL 4 MG/2 ML VIAL IV PRN (07:00)
[2018-11-19] MEDS: SODIUM CHLORIDE 0.9% 1,000 ML IV SCH ×2 (07:00→20:20)
[2018-11-19] MEDS ORDERED: DEXTROSE (50%) 50ML SYRG IV PRN (07:00)
[2018-11-19] MEDS ORDERED: chlordiazePOXIDE HCL 25 MG CAP PO PRN (07:30)
[2018-11-19] MEDS: diphenhdrAMINE HCL 25 MG CAP PO PRN ×2 (09:34→22:24)
[2018-11-19] MEDS ORDERED: CLOPIDOGREL BISULFATE 75 MG TAB PO SCH (10:00)
[2018-11-19] MEDS ORDERED: FUROSEMIDE 40 MG TAB PO SCH (10:00)
[2018-11-19] MEDS ORDERED: LEVOFLOXACIN 500MG 100 ML IV SCH (10:00)
[2018-11-19] MEDS ORDERED: PANTOPRAZOLE 40 MG TAB PO SCH (10:00)
[2018-11-19] MEDS ORDERED: LISINOPRIL 10 MG TAB PO SCH (10:00)
--- NOTE | 2018-11-19 10:23 | NUR ---
Med/Surg admit from ER JOSY ALMAGUER admitted to Med/Surg unit after SBAR received. Patient oriented to ARLETTE MAYES, RN primary RN, unit, room, bed, and unit policies regarding patient care and visiting hours. Bed in lowest and locked position with side rails up x2 and call light in reach. Encouraged to call if they need something. All questions and concerns addressed, patient verbalized understanding.
[2018-11-19] MEDS: LEVOFLOXACIN 500MG 100 ML IV SCH (11:49)
[2018-11-19] MEDS: APIXABAN 5 MG TAB PO SCH ×2 (11:51→22:24)
[2018-11-19] MEDS: DIGOXIN 0.125 MG TAB PO SCH (11:51)
[2018-11-19] MEDS: InsuLIN REG 1unit/0.01ml Soln (100units/ml) SC SCH ×2 (12:00→18:00)
[2018-11-19] MEDS: ACCU-CHEK COMFORT CURVE STRIP VI SCH ×2 (12:12→18:10)
[2018-11-19 13:00] VITALS: BP 130/87
--- NOTE | 2018-11-19 14:00 | NUR ---
STOOL SAMPLE CUP PLACED AT PT BEDSIDE. PT EDUCATED AND AWARE ON THE NEED FOR THE STOOL SAMPLE. PT VERBALIZED UNDERSTANDING.
[2018-11-19] MEDS: FOLIC ACID 1 MG, MULTIPLE VITAMIN 10 ML, MAGNESIUM SULF SDV 50% 8 MEQ, THIAMINE INJ 100... INJ SCH ×5 (14:55)
[2018-11-19] MEDS: metroNIDAZOLE 500MG/100ML 100 ML IV SCH ×2 (15:04→22:23)
--- NOTE | 2018-11-19 16:18 | NUR ---
SPOKE TO DR. DIAZ. UPDATED ON PT STATUS. NEW ORDERS RECEIVED, READ BACK AND VERIFIED.
[2018-11-19] MEDS ORDERED: LACTULOSE 20Gm/30ML SOLN PO PRN (16:30)
[2018-11-19 17:00] VITALS: BP 107/72
[2018-11-19] MEDS: FUROSEMIDE 40 MG/4 ML VIAL IV SCH (18:10)
[2018-11-19 18:14] LABS: Urine WBC None Seen /hpf (0 - 3)
[2018-11-19 19:01] LABS: Alcohol, Urine < 3.0 mg/dL (0-5); Amphetamine Screen, Urine NEGATIVE (NEGATIVE); Barbiturate Scree,Urine NEGATIVE (NEGATIVE); Benzodiazephine Screen, Urine NEGATIVE (NEGATIVE); Cannabinoid Screen, Urine NEGATIVE (NEGATIVE); Cocaine Screen, Urine NEGATIVE (NEGATIVE); Opiate Scree,Urine NEGATIVE (NEGATIVE); Phencyclidine Screen, Urine NEGATIVE (NEGATIVE); Urine Bacteria NONE SEEN /hpf (None Seen); Urine Blood Negative /uL (Negative); Urine Specific Gravity 1.005 (1.001-1.035)
--- NOTE | 2018-11-19 19:30 | NUR ---
ENDORSED CARE TO POSTDOCTORAL FELLOW RNANGELICA.
[2018-11-19 21:00] VITALS: BP 105/66
[2018-11-19] MEDS: MORPHINE SULFATE 4 MG/ML SYR/VIAL IV PRN (21:27)
[2018-11-19] MEDS: PANTOPRAZOLE 40 MG TAB PO SCH (22:24)
[2018-11-19] MEDS: CARVEDILOL 3.125 MG TAB PO SCH (22:25)
[2018-11-20] VITALS (7 sets, daily range): BP systolic 90–106; BP diastolic 54–72
[2018-11-20] MEDS: ACCU-CHEK COMFORT CURVE STRIP VI SCH ×4 (00:06→18:00)
[2018-11-20 06:24] LABS: Basophils # (auto) 0 uL; Basophils % (auto) 0.9 % (0.0-2.0); Eosinophils # (auto) 0.1 uL; Eosinophils % (auto) 1.7 % (0.0-7.0); Hematocrit 35.4 % (41.0-53.0); Hemoglobin 11.1 g/dL (13.5-17.5); Lymphocytes # (auto) 0.8 uL; Lymphocytes % (auto) 19.8 % (10.0-50.0); Mean Corpuscular Hemoglobin 24.6 pg (28.0-32.0); Mean Corpuscular Hgb Conc. 31.4 g/dL (32.0-36.0); Mean Corpuscular Volume 78.5 fL (80.0-100.0); Monocytes # (auto) 0.3 uL; Monocytes % (auto) 8.4 % (0.0-12.0); Neutrophils # (auto) 2.8 uL; Neutrophils % (auto) 69.2 % (37.0-80.0); Nucleated Red Blood Cells % 0.6 %; Platelet Count (auto) 108 10^3/uL (140-450); Red Blood Cells 4.51 10^6/uL (4.5-5.90); White Blood Cell 4.1 10^3/uL (4.4-10.8)
[2018-11-20 06:25] LABS: Red Cell Distribution Width 26.7 % (11.8-14.3)
[2018-11-20] MEDS: metroNIDAZOLE 500MG/100ML 100 ML IV SCH ×3 (06:34→23:00)
[2018-11-20] MEDS: InsuLIN REG 1unit/0.01ml Soln (100units/ml) SC SCH ×4 (06:38→18:00)
[2018-11-20] MEDS: FUROSEMIDE 40 MG/4 ML VIAL IV SCH ×2 (06:41→18:23)
[2018-11-20 06:48] LABS: Albumin 2.8 g/dL (3.4-5.0); Calcium 7.6 mg/dL (8.5-10.1); Potassium 3.4 mmol/L (3.5-5.1)
[2018-11-20 06:51] LABS: BUN/Creatinine Ratio 13.3; Bilirubin, Total 4.1 mg/dL (0.2-1.0); Total Protein 5.9 g/dL (6.4-8.2)
--- NOTE | 2018-11-20 07:36 | NUR ---
Opening Shift Note: Assumed care of patient, awake and alert, sitting on edge of bed. No S/S of distress/SOB or pain. Bed in lowest locked position, side rails up x 2, call light within reach. Patient instructed on POC and to call for assist PRN, will continue to monitor for changes Q1hr and PRN.
[2018-11-20] MEDS: SODIUM CHLORIDE 0.9% 1,000 ML IV SCH (09:40)
[2018-11-20] MEDS: CARVEDILOL 3.125 MG TAB PO SCH ×2 (09:47→23:00)
[2018-11-20] MEDS: LEVOFLOXACIN 500MG 100 ML IV SCH (09:47)
[2018-11-20] MEDS: APIXABAN 5 MG TAB PO SCH ×2 (09:47→23:00)
[2018-11-20] MEDS: DIGOXIN 0.125 MG TAB PO SCH (09:48)
[2018-11-20] MEDS: PANTOPRAZOLE 40 MG TAB PO SCH ×2 (09:48→23:00)
[2018-11-20] MEDS ORDERED: SACUBITRIL-VALSARTAN 24mg/26mg TAB PO SCH (10:00)
--- NOTE | 2018-11-20 11:59 | NUR ---
1200 blood glucose check 66. Recheck 77, patient offered juice. Will reassess.
[2018-11-20] MEDS: MORPHINE SULFATE 4 MG/ML SYR/VIAL IV PRN ×2 (12:15→17:07)
[2018-11-20] MEDS: FOLIC ACID 1 MG, MULTIPLE VITAMIN 10 ML, MAGNESIUM SULF SDV 50% 8 MEQ, THIAMINE INJ 100... INJ SCH ×5 (12:46)
--- NOTE | 2018-11-20 19:30 | NUR ---
Opening Shift Note: Assumed care of patient, awake and alert, resting quietly in bed, semi-Castañeda's position. No S/S of distress/SOB or pain. Bed in locked in low position; side rails up x 2 at HOB. Call light within reach of pt. RN instructed jpt on POC and to call for assist PRN; will continue to monitor for changes Q1hr and PRN.
[2018-11-20] MEDS: SACUBITRIL-VALSARTAN 24mg/26mg TAB PO SCH (23:00)
--- NOTE | 2018-11-21 | NUR ---
Assumed care of patient from GREG Pearson. Patient is Alert and oriented; currently on RA and reports SOB. Offered to place Pt on bedside O2, however, patient declined. Reports 10/10 abdominal pain that radiates to his back. Pain management options discussed with patient, who verbalizes understanding. 20 gauge IV in left forearm is intact and patent. Flushed with 10ml NS. 2+ pitting edema noted in BLE. Feet elevated on pillows. Patient is able to ambulate independently without the use of assistive devices. Bed is in low locked position and call light is within reach. Patient encouraged to call for assistance when needed. Will continue to monitor for changes PRN.
--- NOTE | 2018-11-21 | NUR ---
Transfer of nursing care and report given to Queta Villatoro RN for staffing purposes. Pt in stable condition.
[2018-11-21] MEDS: MORPHINE SULFATE 4 MG/ML SYR/VIAL IV PRN (01:18)
[2018-11-21] MEDS: SODIUM CHLORIDE 0.9% 1,000 ML IV SCH ×2 (02:20→12:20)
[2018-11-21] MEDS: diphenhdrAMINE HCL 25 MG CAP PO PRN ×3 (03:58→20:02)
[2018-11-21] MEDS: FUROSEMIDE 40 MG/4 ML VIAL IV SCH ×2 (04:59→18:00)
[2018-11-21 05:00] VITALS: BP 89/59
--- NOTE | 2018-11-21 05:01 | NUR ---
Lasix to be held due to BP of 95/58.
[2018-11-21] MEDS: InsuLIN REG 1unit/0.01ml Soln (100units/ml) SC SCH ×4 (06:00→18:00)
[2018-11-21] MEDS: metroNIDAZOLE 500MG/100ML 100 ML IV SCH ×3 (06:01→22:07)
[2018-11-21] MEDS: ACCU-CHEK COMFORT CURVE STRIP VI SCH ×4 (06:02→18:00)
--- NOTE | 2018-11-21 07:29 | NUR ---
Opening Shift Note: Assumed care of patient, awake and alert. No S/S of distress/SOB or pain. Patient sitting in bed, with legs elevated. Bed is in lowest locked position, side rails up x 2, call light within reach. Patient instructed on POC and to call for assist PRN, will continue to monitor for changes Q1hr and PRN.
[2018-11-21 09:00] VITALS: BP 93/57
[2018-11-21] MEDS: SACUBITRIL-VALSARTAN 24mg/26mg TAB PO SCH ×2 (10:00→22:00)
[2018-11-21] MEDS: CARVEDILOL 3.125 MG TAB PO SCH ×2 (10:00→22:00)
--- NOTE | 2018-11-21 10:00 | NUR ---
COREG TO BE HELD. B/P 90/50
[2018-11-21] MEDS: LEVOFLOXACIN 500MG 100 ML IV SCH (10:02)
[2018-11-21] MEDS: PANTOPRAZOLE 40 MG TAB PO SCH ×2 (10:03→22:07)
[2018-11-21] MEDS: APIXABAN 5 MG TAB PO SCH ×2 (10:03→22:07)
[2018-11-21] MEDS: DIGOXIN 0.125 MG TAB PO SCH (10:03)
[2018-11-21 13:00] VITALS: BP 94/59
[2018-11-21] MEDS: FOLIC ACID 1 MG, MULTIPLE VITAMIN 10 ML, MAGNESIUM SULF SDV 50% 8 MEQ, THIAMINE INJ 100... INJ SCH ×5 (13:19)
[2018-11-21 13:58] LABS: INR 1.84 (0.9-1.15)
[2018-11-21 17:00] VITALS: BP 98/59
--- NOTE | 2018-11-21 19:00 | NUR ---
OPENING NOTE- NOC SHIFT PATIENT IS ALERT AND ORIENTED X4 SITTING IN BED. BED IS LOCKED IN LOWEST POSITION, BED RAILS UP X2 AND HEAD OF BED IS UP >30 DEGREES. BEDSIDE TABLE WITHIN REACH, CALL LIGHT WITHIN REACH, PERSONAL BELONGINGS WITHIN REACH. DISCUSSED POC WITH PATIENT AND INSTRUCTED PATIENT TO CALL PRN; PATIENT VERBALIZED UNDERSTANDING. NO S/SX OF DISTRESS, SOB OR PAIN. WILL CONTINUE TO MONITOR Q1H AND PRN.
--- NOTE | 2018-11-21 20:04 | NUR ---
PATIENT COMPLAINS OF ITCHING TO HIS EXTREMITIES. PRN MEDICATION ADMINISTERED ORDERED.
[2018-11-21 22:00] VITALS: BP 98/61
--- NOTE | 2018-11-21 23:43 | NUR ---
HOSPITALIST AWARE OF POSITIVE BLOOD CULTURE GRAM POSITIVE COCCI IN CLUSTERS, NO ORDERS RECEIVED.
--- NOTE | 2018-11-22 | NUR ---
PATIENT IS NPO FOR PLANNED PROCEDURE. ALL FOOD AND DRINKS REMOVED FROM BEDSIDE. PATIENT VERBALIZES UNDERSTANDING.
[2018-11-22] MEDS: TEMAZEPAM 15 MG CAP PO PRN ×2 (00:16→23:20)
[2018-11-22] MEDS: SODIUM CHLORIDE 0.9% 1,000 ML IV SCH ×2 (01:41→15:00)
[2018-11-22 05:00] VITALS: BP 107/71
[2018-11-22] MEDS: metroNIDAZOLE 500MG/100ML 100 ML IV SCH (05:42)
[2018-11-22] MEDS: FUROSEMIDE 40 MG/4 ML VIAL IV SCH ×2 (05:42→18:00)
[2018-11-22] MEDS: InsuLIN REG 1unit/0.01ml Soln (100units/ml) SC SCH ×5 (05:43→23:32)
[2018-11-22] MEDS: ACCU-CHEK COMFORT CURVE STRIP VI SCH ×5 (05:43→23:32)
--- NOTE | 2018-11-22 06:55 | NUR ---
PATIENT PULLED IV. CATHETER IS OUT COMPLETE AND INTACT. PRESSURE APPLIED TO SIGHT. PATIENT IS IN RESTROOM, WILL INSERT NEW IV OR ENDORSE TO DAY SHIFT NURSE.
--- NOTE | 2018-11-22 07:04 | NUR ---
STOOL SAMPLE FOR OCCULT BLOOD SENT
--- NOTE | 2018-11-22 07:15 | NUR ---
ENDORSED PATIENT CARE TO DAY SHIFT NURSE DONNELL GARZA. DONNELL IS AWARE THAT PATIENT DOES NOT HAVE IV ACCESS AT THIS TIME. NO S/SX OF DISTRESS, SOB OR PAIN.
--- NOTE | 2018-11-22 07:27 | NUR ---
Opening Shift Note: Assumed care of patient, asleep in bed. No S/S of distress/SOB or pain. Bed in lowest locked position, side rails up x 2, call light within reach. No IV access at this time. Patient will be instructed on POC and to call for assist PRN, will continue to monitor for changes Q1hr and PRN.
--- NOTE | 2018-11-22 08:15 | NUR ---
IV insertion: IV access obtained, via clean sterile technique by inserting 22 gauge catheter at right forearm after 1 attempt. IV secured properly. No trauma to site. Patient tolerated well.
--- NOTE | 2018-11-22 08:29 | NUR ---
Patient states 'I'm hungry, I don't think I can do this." Patient educated on need for NPO at this time. Patient verbally agreed. Will continue to monitor patient.
[2018-11-22 08:42] VITALS: BP 108/67
[2018-11-22] MEDS ORDERED: diphenhdrAMINE HCL 50 MG/1 ML VL ONE (08:42)
[2018-11-22] MEDS ORDERED: fentaNYL CITRATE 100 MCG/2 ML VL ONE (08:42)
[2018-11-22] MEDS ORDERED: MIDAZOLAM HCL 5 MG/ML-1ML VIAL ONE (08:42)
[2018-11-22] MEDS ORDERED: SODIUM CHLORIDE LOCK 10 ML ONE (08:42)
[2018-11-22] MEDS ORDERED: LIDOCAINE VISCOUS 2% 15ML UD ONE (08:42)
--- NOTE | 2018-11-22 09:59 | NUR ---
Patient down to OR for EGD.
[2018-11-22] MEDS: SACUBITRIL-VALSARTAN 24mg/26mg TAB PO SCH ×2 (10:00→22:00)
--- NOTE | 2018-11-22 10:49 | NUR ---
Patient back from OR. No EGD performed. Per Dr. Lee: patient refused procedure at this time.
[2018-11-22] MEDS: LEVOFLOXACIN 500MG 100 ML IV SCH (12:21)
[2018-11-22] MEDS: DIGOXIN 0.125 MG TAB PO SCH (12:22)
[2018-11-22] MEDS: APIXABAN 5 MG TAB PO SCH ×2 (12:22→22:01)
[2018-11-22] MEDS: PANTOPRAZOLE 40 MG TAB PO SCH ×2 (12:22→22:01)
[2018-11-22] MEDS: CARVEDILOL 3.125 MG TAB PO SCH ×2 (12:23→22:00)
[2018-11-22 13:00] VITALS: BP 130/65
[2018-11-22 13:04] LABS: Hepatitis A Ab IgM Negative; Hepatitis B Core IgM Negative; Hepatitis B Surface Antigen Negative (Negative)
[2018-11-22 13:05] LABS: Hepatitis C Antibody Negative (Negative)
[2018-11-22] MEDS: FOLIC ACID 1 MG, MULTIPLE VITAMIN 10 ML, MAGNESIUM SULF SDV 50% 8 MEQ, THIAMINE INJ 100... INJ SCH ×5 (13:36)
--- NOTE | 2018-11-22 15:19 | NUR ---
NUTRITION ASSESSMENT NOTES Please refer to link notes of nutrition screen form filed under the intervention section of the plan of care for further details. Est. Needs: 1750 kcal to 2150 kcal (20-25 kcal/kgBW), 69 gms to 86 gms pro (0.8-1.0 gms/kgBW). Will continue to monitor pertinent labs and reassess nutrient need prn Thank you. Addendum: 11/22/18 at [address] Amended: Links added.
[2018-11-22 17:00] VITALS: BP 93/60
--- NOTE | 2018-11-22 18:00 | NUR ---
Lasix to be held. Low blood pressure.
--- NOTE | 2018-11-22 19:20 | NUR ---
RECEIVED PATIENT, AWAKE, ALERT. ORIENTED X4. NO S/S OF RESPIRATORY DISTRESS. ORIENTED ON PLAN OF CARE. BED IS LOCKED AND IN LOWEST POSITION, SIDE RAILS UP X2, CALL LIGHT WITHIN REACH. WILL CONTINUE TO MONITOR
[2018-11-22 21:46] VITALS: BP 95/64
[2018-11-23 05:00] VITALS: BP 107/70
[2018-11-23] MEDS: ACCU-CHEK COMFORT CURVE STRIP VI SCH ×2 (05:33→12:00)
[2018-11-23] MEDS: InsuLIN REG 1unit/0.01ml Soln (100units/ml) SC SCH ×2 (05:33→12:00)
[2018-11-23] MEDS: FUROSEMIDE 40 MG/4 ML VIAL IV SCH (05:58)
[2018-11-23] MEDS: SODIUM CHLORIDE 0.9% 1,000 ML IV SCH (05:58)
[2018-11-23 06:30] LABS: Eosinophils # (auto) 0.1 uL; Lymphocytes # (auto) 1.4 uL; Monocytes # (auto) 0.6 uL
[2018-11-23 06:32] LABS: Basophils # (auto) 0.1 uL; Basophils % (auto) 1.4 % (0.0-2.0); Eosinophils % (auto) 3.2 % (0.0-7.0); Mean Corpuscular Hemoglobin 24.6 pg (28.0-32.0); Mean Corpuscular Hgb Conc. 32.3 g/dL (32.0-36.0); Mean Corpuscular Volume 76.2 fL (80.0-100.0); Monocytes % (auto) 15.1 % (0.0-12.0); Neutrophils # (auto) 1.8 uL; Neutrophils % (auto) 44.3 % (37.0-80.0); Nucleated Red Blood Cells % 0.4 %; Platelet Count (auto) 119 10^3/uL (140-450); Red Blood Cells 4.47 10^6/uL (4.5-5.90); Red Cell Distribution Width 25.6 % (11.8-14.3)
[2018-11-23 06:52] LABS: Albumin 2.6 g/dL (3.4-5.0); Calcium 7.7 mg/dL (8.5-10.1); Potassium 4.3 mmol/L (3.5-5.1)
[2018-11-23 06:55] LABS: BUN/Creatinine Ratio 15.1
[2018-11-23 06:56] LABS: Bilirubin, Total 1.8 mg/dL (0.2-1.0); Total Protein 5.8 g/dL (6.4-8.2)
--- NOTE | 2018-11-23 07:42 | NUR ---
CARE ENDORSED TO AM SHIFT RN
[2018-11-23 09:50] VITALS: BP 113/66
[2018-11-23] MEDS ORDERED: LEVOFLOXACIN 500 MG TAB PO SCH (10:00)
[2018-11-23] MEDS: SACUBITRIL-VALSARTAN 24mg/26mg TAB PO SCH (10:00)
[2018-11-23] MEDS: CARVEDILOL 3.125 MG TAB PO SCH (10:59)
[2018-11-23] MEDS: PANTOPRAZOLE 40 MG TAB PO SCH (11:00)
[2018-11-23] MEDS: APIXABAN 5 MG TAB PO SCH (11:00)
[2018-11-23] MEDS: DIGOXIN 0.125 MG TAB PO SCH (11:00)
[2018-11-23 11:19] VITALS: BP 113/66
[2018-11-23] MEDS: FOLIC ACID 1 MG, MULTIPLE VITAMIN 10 ML, MAGNESIUM SULF SDV 50% 8 MEQ, THIAMINE INJ 100... INJ SCH ×5 (12:00)
[2018-11-23 13:00] VITALS: BP 92/49
--- NOTE | 2018-11-23 15:30 | NUR ---
Discharge instructions given as ordered. Encourage to follow up with PMD and specialists as instructed. All questions and concerns addressed. Patient verbalized understanding. Medication reconciliation form completed and copy given to patient. [facility], per patient he will come back tomorrow to pick them up because he "has no money". Pt instructed regarding use s/s contraindications and need to take as ordered. Pt verbalized understanding but states he has to come back to pick prescriptions. IV removed with catheter intact, pressure dressing applied. Patient taken to vehicle via wheelchair with all personal belongings, accompanied by staff and family member and taxi voucher provided. No distress noted at time of departure.
== END 2018-11-23 15:32 | disposition home or self-care (01) | DRG 177 ==
LOC: ER 21:57 → OVERFLOW 21:58 → WEST WING 11-19 10:23
PROVIDERS: ADMIT Nurse Practitioner; ATTEND Family Medicine
DX: J15.6 Pneumonia due to other Gram-negative bacteria (principal); J96.20 Acute and chronic respiratory failure, unspecified whether with hypoxia or hypercapnia; I50.43 Acute on chronic combined systolic (congestive) and diastolic (congestive) heart failure; J44.0 Chronic obstructive pulmonary disease with (acute) lower respiratory infection; R18.8 Other ascites; K80.00 Calculus of gallbladder with acute cholecystitis without obstruction; A09 Infectious gastroenteritis and colitis, unspecified; I11.0 Hypertensive heart disease with heart failure; I25.10 Atherosclerotic heart disease of native coronary artery without angina pectoris; K21.9 Gastro-esophageal reflux disease without esophagitis; E11.21 Type 2 diabetes mellitus with diabetic nephropathy; E11.40 Type 2 diabetes mellitus with diabetic neuropathy, unspecified; E78.00 Pure hypercholesterolemia, unspecified; E78.5 Hyperlipidemia, unspecified; E86.0 Dehydration; K76.0 Fatty (change of) liver, not elsewhere classified; Z82.3 Family history of stroke; Z82.49 Family history of ischemic heart disease and other diseases of the circulatory system; Z83.3 Family history of diabetes mellitus; Z95.1 Presence of aortocoronary bypass graft; I25.2 Old myocardial infarction; Z86.711 Personal history of pulmonary embolism; Z88.1 Allergy status to other antibiotic agents; Z91.19 Patient's noncompliance with other medical treatment and regimen; Z95.810 Presence of automatic (implantable) cardiac defibrillator; Z98.61 Coronary angioplasty status; Z88.8 Allergy status to other drugs, medicaments and biological substances; Z95.828 Presence of other vascular implants and grafts
CPT/HCPCS: 36415; 71045; 74176; 76705; 78226; 80053; 80074; 80307; 81001; 82140; 82150; 82962; 83690; 83880; 84484; 85025; 85610; 85730; 86850; 86900; 86901; 87040; 87077; 87186; 93005; 96365; 96367; 96375; G0378; J1956; J2250; J2405; J2543; J3490

== ENCOUNTER 2018-12-11 15:56 | Inpatient (IN) | payer MEDICARE, MEDICAID ==
[~2018-12-11] VITALS: Ht 172.7 cm; Wt 76.7 kg
[2018-12-11 16:42] LABS: Eosinophils # (auto) 0.1 uL; Lymphocytes # (auto) 1.2 uL; Monocytes # (auto) 0.4 uL; Neutrophils # (auto) 2.7 uL; Nucleated Red Blood Cells % 0.2 %; White Blood Cell 4.5 10^3/uL (4.4-10.8)
[2018-12-11 16:44] LABS: Basophils # (auto) 0 uL; Basophils % (auto) 0.6 % (0.0-2.0); Eosinophils % (auto) 1.3 % (0.0-7.0); Hematocrit 36.8 % (41.0-53.0); Hemoglobin 11.5 g/dL (13.5-17.5); Lymphocytes % (auto) 27.3 % (10.0-50.0); Mean Corpuscular Hemoglobin 24.2 pg (28.0-32.0); Mean Corpuscular Hgb Conc. 31.1 g/dL (32.0-36.0); Mean Corpuscular Volume 77.6 fL (80.0-100.0); Neutrophils % (auto) 60.8 % (37.0-80.0); Platelet Count (auto) 146 10^3/uL (140-450); Red Blood Cells 4.74 10^6/uL (4.5-5.90)
[2018-12-11 16:46] LABS: Red Cell Distribution Width 25.9 % (11.8-14.3)
[2018-12-11 16:59] LABS: BUN/Creatinine Ratio 9.9; Calcium 7.9 mg/dL (8.5-10.1); Potassium 3.3 mmol/L (3.5-5.1)
[2018-12-11] MEDS ORDERED: MORPHINE SULF INJ 2 MG/ML SYRINGE 1ML IV ONE ×2 (17:00→20:30)
[2018-12-11] MEDS ORDERED: ONDANSETRON HCL 4 MG/2 ML VIAL IV ONE ×2 (17:00→20:30)
[2018-12-11 17:03] LABS: Bilirubin, Total 2.9 mg/dL (0.2-1.0); Total Protein 6.5 g/dL (6.4-8.2)
[2018-12-11] MEDS ORDERED: POTASSIUM CHL 20 Meq TABLET PO ONE (19:15)
[2018-12-11] MEDS ORDERED: FUROSEMIDE 40 MG/4 ML VIAL IV ONE (19:15)
[2018-12-11] MEDS: MAGNESIUM SULFATE 1GM/100ML 100 ML IV SCH ×2 (20:07→21:42)
[2018-12-11] MEDS ORDERED: ASPirin-EC 81 mg tab PO ONE ×2 (20:30)
[2018-12-11] MEDS ORDERED: diphenhdrAMINE HCL 50 MG/1 ML VL IV ONE (21:00)
[2018-12-11] MEDS ORDERED: LORazepam 2MG/ML-1ML VIAL IV PRN (21:15)
[2018-12-11] MEDS ORDERED: ONDANSETRON HCL 4 MG/2 ML VIAL IV PRN (21:15)
[2018-12-11] MEDS ORDERED: DEXTROSE (50%) 50ML SYRG IV PRN (21:30)
[2018-12-11] MEDS ORDERED: FUROSEMIDE 20 MG/2 ML VIAL IV ONE (21:45)
[2018-12-11] MEDS: APIXABAN 5 MG TAB PO SCH (22:24)
[2018-12-11] MEDS: SACUBITRIL-VALSARTAN 24mg/26mg TAB PO SCH (22:24)
[2018-12-11] MEDS: CARVEDILOL 3.125 MG TAB PO SCH (22:24)
[2018-12-11] MEDS: ATORVASTATIN 20 MG TAB PO SCH (22:25)
[2018-12-11] MEDS: ACCU-CHEK COMFORT CURVE STRIP VI SCH (22:28)
[2018-12-11] MEDS: InsuLIN REG 1unit/0.01ml Soln (100units/ml) SC SCH (22:31)
[2018-12-11] MEDS ORDERED: IPRATROPIUM BROM 0.5 MG/2.5ML INH SOL NEB ONE (22:45)
[2018-12-11] MEDS ORDERED: ALBUTEROL SULF 2.5 MG/0.5ML(0.5%) NEB SOLN NEB ONE (22:45)
[2018-12-11 23:30] VITALS: BP 101/65
--- NOTE | 2018-12-11 23:56 | NUR ---
Telemetry admit from JOSY ALMAGUER admitted to Telemetry unit. Patient oriented to Jojo Narvaez, primary RN, unit, room, bed, and unit policies regarding patient care and visiting hours. Patient now on continuous telemetry monitoring, tele box#1. Patient placed on bedside oxygen, weighed by bedscale and encouraged to call if they need something. All questions and concerns addressed, patient verbalized understanding.
[2018-12-12 00:05] VITALS: BP 101/65
--- NOTE | 2018-12-12 01:00 | NUR ---
MRSA SWAP SENT TO LAB
--- NOTE | 2018-12-12 01:01 | NUR ---
UNABLE TO OBTAIN MED REC DUE TO PATIENT REFUSING TO RESPOND TO QUESTIONS.
--- NOTE | 2018-12-12 02:04 | NUR ---
PATIENT STATING THAT HE CAN NOT FIND HIS WALLET. CALLED DOWN TO ER, ER SAID THERE WAS NO WALLET LEFT BEHIND AND THEY BROUGHT ALL OF HIS BELONGINGS WITH HIM WHEN HE WAS BROUGHT UP TO THE UNIT.
[2018-12-12 05:00] VITALS: BP 99/71
[2018-12-12 05:38] LABS: Basophils # (auto) 0 uL; Basophils % (auto) 0.9 % (0.0-2.0); Eosinophils # (auto) 0.1 uL; Eosinophils % (auto) 1.8 % (0.0-7.0); Hematocrit 35.4 % (41.0-53.0); Hemoglobin 11.2 g/dL (13.5-17.5); Lymphocytes # (auto) 1.2 uL; Lymphocytes % (auto) 23.2 % (10.0-50.0); Mean Corpuscular Hemoglobin 24.4 pg (28.0-32.0); Mean Corpuscular Hgb Conc. 31.5 g/dL (32.0-36.0); Mean Corpuscular Volume 77.6 fL (80.0-100.0); Monocytes # (auto) 0.7 uL; Monocytes % (auto) 14.2 % (0.0-12.0); Neutrophils % (auto) 59.9 % (37.0-80.0); Nucleated Red Blood Cells % 0.3 %; Platelet Count (auto) 155 10^3/uL (140-450); Red Blood Cells 4.57 10^6/uL (4.5-5.90)
[2018-12-12 05:41] LABS: Red Cell Distribution Width 26.7 % (11.8-14.3)
[2018-12-12 05:59] LABS: Potassium 3.6 mmol/L (3.5-5.1)
[2018-12-12 06:04] LABS: BUN/Creatinine Ratio 9.1
[2018-12-12] MEDS: PANTOPRAZOLE 40 MG TAB PO SCH (06:45)
[2018-12-12] MEDS: ACCU-CHEK COMFORT CURVE STRIP VI SCH ×4 (06:46→22:12)
[2018-12-12] MEDS: LEVOTHYROXINE SODIUM 25 MCG TAB PO SCH (06:46)
[2018-12-12] MEDS: InsuLIN REG 1unit/0.01ml Soln (100units/ml) SC SCH ×4 (06:46→22:00)
--- NOTE | 2018-12-12 07:30 | NUR ---
Opening Shift Note Assumed care of patient, awake and alert. No S/S of distress/SOB or pain. Instructed on POC and to call for assist PRN, will continue to monitor for changes Q1hr and PRN. Sitter at bedside for suicide precautions. Addendum: 12/12/18 at 1405 by Yolanda Clay RN RN Patient is alert and oriented. No sitter at bedside: charted on wrong patient.
--- NOTE | 2018-12-12 08:00 | NUR ---
Patient states he can't find his wallet. Explained to patient that ER had been notified and all his belongings came to the floor with him. Patient encouraged to contact family to see if his wallet was taken home. Will continue to monitor.
[2018-12-12 09:00] VITALS: BP 94/69
[2018-12-12] MEDS: DIGOXIN 0.125 MG TAB PO SCH ×2 (10:00→10:20)
[2018-12-12] MEDS: CARVEDILOL 3.125 MG TAB PO SCH ×2 (10:00→22:00)
[2018-12-12] MEDS: SACUBITRIL-VALSARTAN 24mg/26mg TAB PO SCH ×2 (10:20→22:00)
[2018-12-12] MEDS: SPIRONOLACTONE 25 MG TAB PO SCH (10:21)
[2018-12-12] MEDS: APIXABAN 5 MG TAB PO SCH ×2 (10:21→22:12)
[2018-12-12] MEDS: FUROSEMIDE 40 MG/4 ML VIAL IV SCH (10:21)
[2018-12-12] MEDS: POTASSIUM CHL 10 Meq TABLET PO SCH (10:21)
[2018-12-12] MEDS: CLOPIDOGREL BISULFATE 75 MG TAB PO SCH (10:21)
[2018-12-12] MEDS: ASPirin-EC 81 mg tab PO SCH (10:21)
[2018-12-12 13:00] VITALS: BP 88/54
--- NOTE | 2018-12-12 13:00 | NUR ---
Patient continues to states he does not have his wallet. Patient has a backpack at bedside but refuses inventory of contents. Will continue to monitor.
[2018-12-12] MEDS: diphenhdrAMINE HCL 25 MG CAP PO PRN ×2 (17:28→23:24)
[2018-12-12 18:05] VITALS: BP 84/43
[2018-12-12] MEDS: ACETAMINOPHEN 500 MG TAB PO PRN (20:17)
[2018-12-12 22:00] VITALS: BP 92/60
[2018-12-12] MEDS: ATORVASTATIN 20 MG TAB PO SCH (22:12)
[2018-12-13] VITALS (8 sets, daily range): BP systolic 93–115; BP diastolic 53–75
[2018-12-13] MEDS: LEVOTHYROXINE SODIUM 25 MCG TAB PO SCH (06:12)
[2018-12-13] MEDS: PANTOPRAZOLE 40 MG TAB PO SCH (06:12)
[2018-12-13 06:41] LABS: Basophils # (auto) 0.1 uL; Eosinophils # (auto) 0.2 uL; Monocytes # (auto) 0.6 uL; Nucleated Red Blood Cells % 0.3 %; White Blood Cell 4.9 10^3/uL (4.4-10.8)
[2018-12-13 06:44] LABS: Basophils % (auto) 1.3 % (0.0-2.0); Eosinophils % (auto) 3.5 % (0.0-7.0); Hematocrit 38.7 % (41.0-53.0); Hemoglobin 12.1 g/dL (13.5-17.5); Lymphocytes # (auto) 1.8 uL; Lymphocytes % (auto) 36.1 % (10.0-50.0); Mean Corpuscular Hemoglobin 24.4 pg (28.0-32.0); Mean Corpuscular Hgb Conc. 31.3 g/dL (32.0-36.0); Mean Corpuscular Volume 77.7 fL (80.0-100.0); Monocytes % (auto) 11.9 % (0.0-12.0); Neutrophils # (auto) 2.3 uL; Neutrophils % (auto) 47.2 % (37.0-80.0); Platelet Count (auto) 165 10^3/uL (140-450); Red Blood Cells 4.97 10^6/uL (4.5-5.90)
[2018-12-13 06:52] LABS: Red Cell Distribution Width 25.9 % (11.8-14.3)
[2018-12-13] MEDS: InsuLIN REG 1unit/0.01ml Soln (100units/ml) SC SCH ×4 (07:00→21:22)
[2018-12-13] MEDS: ACCU-CHEK COMFORT CURVE STRIP VI SCH ×4 (07:00→21:22)
[2018-12-13 07:09] LABS: Albumin 2.9 g/dL (3.4-5.0); BUN/Creatinine Ratio 11.5
[2018-12-13 07:14] LABS: Bilirubin, Total 2.5 mg/dL (0.2-1.0); Total Protein 6.4 g/dL (6.4-8.2)
[2018-12-13] MEDS: SACUBITRIL-VALSARTAN 24mg/26mg TAB PO SCH ×2 (09:14→21:21)
[2018-12-13] MEDS: FUROSEMIDE 40 MG/4 ML VIAL IV SCH (09:14)
[2018-12-13] MEDS: CLOPIDOGREL BISULFATE 75 MG TAB PO SCH (09:15)
[2018-12-13] MEDS: APIXABAN 5 MG TAB PO SCH ×2 (09:15→21:21)
[2018-12-13] MEDS: ASPirin-EC 81 mg tab PO SCH (09:15)
[2018-12-13] MEDS: POTASSIUM CHL 10 Meq TABLET PO SCH (09:15)
[2018-12-13] MEDS: CARVEDILOL 3.125 MG TAB PO SCH ×2 (09:15→21:22)
[2018-12-13] MEDS: DIGOXIN 0.125 MG TAB PO SCH ×2 (09:15→09:22)
[2018-12-13] MEDS: SPIRONOLACTONE 25 MG TAB PO SCH (09:15)
[2018-12-13] MEDS: MORPHINE SULF INJ 2 MG/ML SYRINGE 1ML IV PRN ×2 (09:53→19:46)
--- NOTE | 2018-12-13 11:08 | NUR ---
orthostatic vital signs performed and documented in the interventions.
[2018-12-13] MEDS: ACETAMINOPHEN 500 MG TAB PO PRN (15:47)
--- NOTE | 2018-12-13 16:47 | NUR ---
Discharge planning per SS consult, patient has orders for Hospice evaluation. Referral sent to [facility] as this was the patient's choice per SW2 Aparna who witnessed singed consent. [facility] rep present and advised patient was appropriate to admit for services upon discharge and that the nurse would be out today to do the evaluation.
--- NOTE | 2018-12-13 19:40 | NUR ---
OPENING SHIFT NOTE RECEIVED REPORT FROM DAYSHIFT RN. PATIENT A/O X4, AMBULATORY. PATIENT SITTING UP IN BED WATCHING TELEVISION. NO S/S OF DISTRESS OR SOB, PATIENT REPORTS PAIN TO ABDOMEN, REQUESTING PAIN MEDICATION. WILL MEDICATE PER MEDICATION ORDERS. UPDATED PATIENT ON POC, VERBALIZED UNDERSTANDING. BED LOCKED IN LOW POSITION, CALL LIGHT WITHIN REACH. WILL CONTINUE TO MONITOR PATIENT Q1HR AND PRN.
[2018-12-13] MEDS: ATORVASTATIN 20 MG TAB PO SCH (21:21)
[2018-12-14 05:48] VITALS: BP 91/54
[2018-12-14] MEDS: ACCU-CHEK COMFORT CURVE STRIP VI SCH (06:21)
[2018-12-14] MEDS: PANTOPRAZOLE 40 MG TAB PO SCH (06:21)
[2018-12-14] MEDS: LEVOTHYROXINE SODIUM 25 MCG TAB PO SCH (06:21)
[2018-12-14] MEDS: InsuLIN REG 1unit/0.01ml Soln (100units/ml) SC SCH (06:21)
--- NOTE | 2018-12-14 08:00 | NUR ---
Opening Shift Note Assumed care of patient, awake and alert. No S/S of distress/SOB or pain. Instructed on POC and to call for assist PRN, will continue to monitor for changes Q1hr and PRN.
[2018-12-14 08:14] LABS: Basophils # (auto) 0.1 uL; Eosinophils # (auto) 0.1 uL; Hemoglobin 11.1 g/dL (13.5-17.5); Mean Corpuscular Hemoglobin 24.2 pg (28.0-32.0)
[2018-12-14 08:16] LABS: Basophils % (auto) 1.4 % (0.0-2.0); Eosinophils % (auto) 3.2 % (0.0-7.0); Hematocrit 35.5 % (41.0-53.0); Lymphocytes # (auto) 1.7 uL; Lymphocytes % (auto) 41.6 % (10.0-50.0); Mean Corpuscular Hgb Conc. 31.4 g/dL (32.0-36.0); Mean Corpuscular Volume 77.3 fL (80.0-100.0); Monocytes # (auto) 0.6 uL; Monocytes % (auto) 14.5 % (0.0-12.0); Neutrophils # (auto) 1.6 uL; Neutrophils % (auto) 39.3 % (37.0-80.0); Nucleated Red Blood Cells % 0.4 %; Platelet Count (auto) 139 10^3/uL (140-450); Red Blood Cells 4.59 10^6/uL (4.5-5.90); White Blood Cell 4.1 10^3/uL (4.4-10.8)
[2018-12-14 08:31] LABS: BUN/Creatinine Ratio 10.6; Potassium 4.2 mmol/L (3.5-5.1)
[2018-12-14 09:00] VITALS: BP 105/75
[2018-12-14] MEDS: SACUBITRIL-VALSARTAN 24mg/26mg TAB PO SCH (09:54)
[2018-12-14] MEDS: POTASSIUM CHL 10 Meq TABLET PO SCH (09:54)
[2018-12-14] MEDS: DIGOXIN 0.125 MG TAB PO SCH ×2 (09:54→09:58)
[2018-12-14] MEDS: SPIRONOLACTONE 25 MG TAB PO SCH (09:54)
[2018-12-14] MEDS: APIXABAN 5 MG TAB PO SCH (09:54)
[2018-12-14] MEDS: CLOPIDOGREL BISULFATE 75 MG TAB PO SCH (09:54)
[2018-12-14] MEDS: FUROSEMIDE 40 MG/4 ML VIAL IV SCH (09:55)
[2018-12-14] MEDS: CARVEDILOL 3.125 MG TAB PO SCH (09:58)
[2018-12-14] MEDS: ASPirin-EC 81 mg tab PO SCH (09:58)
--- NOTE | 2018-12-14 11:15 | NUR ---
Telebox removed and returned to ICU.
[2018-12-14 11:20] VITALS: BP 105/75
[2018-12-14 13:00] VITALS: BP 111/59
--- NOTE | 2018-12-14 13:11 | NUR ---
Cardiology appointment with Milan Jacob scheduled for 01/03/19 at 1310 here at [facility] [address].
--- NOTE | 2018-12-14 14:31 | NUR ---
Discharge planning per SS consult, patient has orders for hospice. Patient was accepted by [facility]. Patient is discharging and transportation has been arranged with [facility] and the berry picker time is at 3pm. Nurse Deidre sher for attending nurse Haseeb was advised of the dc plan. Addendum: 12/14/18 at 1440 by LEW NARANJO Amended: Links added.
--- NOTE | 2018-12-14 15:00 | NUR ---
Discharge instructions given as ordered. Encourage to follow up with hospice PMD as instructed. Follow up with cardiology-Milan Jacob on 01/03/19 at 1310 #[phone]. [phone] located at [address] [place] [address]. [address] [place] [address]. All questions and concerns addressed. Patient verbalized understanding. Medication reconciliation form completed and copy given to patient. IV removed with catheter intact, pressure dressing applied. Telemetry unit returned to ICU. Patient taken to vehicle via wheelchair with all personal belongings, accompanied by staff. [facility] facilitated the transport service. No distress noted at time of departure.
== END 2018-12-14 15:00 | disposition hospice, home (50) | DRG 291 ==
LOC: EDBD 15:56 → ER 16:04 → TELE-EAST 16:05
PROVIDERS: ADMIT Nurse Practitioner Family; ATTEND Internal Medicine
DX: I13.0 Hypertensive heart and chronic kidney disease with heart failure and stage 1 through stage 4 chronic kidney disease, or unspecified chronic kidney disease (principal); I50.43 Acute on chronic combined systolic (congestive) and diastolic (congestive) heart failure; N17.0 Acute kidney failure with tubular necrosis; E44.1 Mild protein-calorie malnutrition; E87.1 Hypo-osmolality and hyponatremia; I25.110 Atherosclerotic heart disease of native coronary artery with unstable angina pectoris; E83.42 Hypomagnesemia; E87.6 Hypokalemia; E11.21 Type 2 diabetes mellitus with diabetic nephropathy; E11.40 Type 2 diabetes mellitus with diabetic neuropathy, unspecified; R21 Rash and other nonspecific skin eruption; D63.8 Anemia in other chronic diseases classified elsewhere; E03.9 Hypothyroidism, unspecified; E11.22 Type 2 diabetes mellitus with diabetic chronic kidney disease; E78.5 Hyperlipidemia, unspecified; H54.61 Unqualified visual loss, right eye, normal vision left eye; J44.9 Chronic obstructive pulmonary disease, unspecified; K21.9 Gastro-esophageal reflux disease without esophagitis; N18.9 Chronic kidney disease, unspecified; Z51.5 Encounter for palliative care; Z79.01 Long term (current) use of anticoagulants; Z79.02 Long term (current) use of antithrombotics/antiplatelets; Z79.84 Long term (current) use of oral hypoglycemic drugs; I25.2 Old myocardial infarction; Z79.899 Other long term (current) drug therapy; Z82.49 Family history of ischemic heart disease and other diseases of the circulatory system; Z86.711 Personal history of pulmonary embolism; Z86.73 Personal history of transient ischemic attack (TIA), and cerebral infarction without residual deficits; Z95.0 Presence of cardiac pacemaker; Z95.1 Presence of aortocoronary bypass graft; Z68.25 Body mass index [BMI] 25.0-25.9, adult
CPT/HCPCS: 36415; 71045; 72131; 74176; 80048; 80053; 82533; 82962; 83036; 83690; 83735; 83880; 84443; 84484; 85025; 87081; 93005; 94640; 94761; 96365; 96375; 96376; 97163; G0378; J1815; J2405

== ENCOUNTER 2018-12-15 16:20 | Inpatient (IN) | payer MEDICARE, MEDICAID ==
[~2018-12-15] VITALS: Ht 172.7 cm; Wt 71.1 kg
[2018-12-15 18:25] LABS: Basophils # (auto) 0.1 uL; Eosinophils # (auto) 0.1 uL; Hematocrit 40.8 % (41.0-53.0)
[2018-12-15 18:27] LABS: Basophils % (auto) 1.1 % (0.0-2.0); Eosinophils % (auto) 1.8 % (0.0-7.0); Hemoglobin 12.5 g/dL (13.5-17.5); Lymphocytes # (auto) 1.3 uL; Lymphocytes % (auto) 27.5 % (10.0-50.0); Mean Corpuscular Hemoglobin 23.7 pg (28.0-32.0); Mean Corpuscular Hgb Conc. 30.7 g/dL (32.0-36.0); Mean Corpuscular Volume 77.2 fL (80.0-100.0); Monocytes # (auto) 0.6 uL; Monocytes % (auto) 11.4 % (0.0-12.0); Neutrophils # (auto) 2.8 uL; Neutrophils % (auto) 58.2 % (37.0-80.0); Nucleated Red Blood Cells % 0.3 %; Platelet Count (auto) 136 10^3/uL (140-450); Red Blood Cells 5.29 10^6/uL (4.5-5.90); White Blood Cell 4.9 10^3/uL (4.4-10.8)
[2018-12-15 18:33] LABS: Chloride 101 mmol/L (98-107); Potassium 3.9 mmol/L (3.5-5.1); Sodium 133 mmol/L (136-145)
[2018-12-15 18:38] LABS: Urine Bacteria NONE SEEN /hpf (None Seen); Urine Blood Negative /uL (Negative); Urine Mucus FEW (None Seen); Urine Specific Gravity 1.005 (1.001-1.035); Urine WBC 1 /hpf (0 - 3)
[2018-12-15 18:39] LABS: Alanine Aminotransferase 20 U/L (16-61); Anion Gap 7 (5-15); Aspartate Aminotransferase 35 U/L (15-37); BUN/Creatinine Ratio 10.5; Blood Urea Nitrogen 14 mg/dL (7-18); Calcium 8.1 mg/dL (8.5-10.1); Carbon Dioxide 25 mmol/L (21-32); GFR African American 69 mL/min; GFR Non-African American 57 mL/min; Glucose 76 mg/dL (74-106)
[2018-12-15 18:40] LABS: Alkaline Phosphatase 74 U/L (45-117); Bilirubin, Total 1.6 mg/dL (0.2-1.0); Red Cell Distribution Width 25.9 % (11.8-14.3); Total Protein 6.9 g/dL (6.4-8.2)
[2018-12-15] MEDS ORDERED: FUROSEMIDE 20 MG/2 ML VIAL IV ONE (20:30)
[2018-12-15] MEDS ORDERED: ONDANSETRON HCL 4 MG/2 ML VIAL IV ONE (21:00)
[2018-12-15] MEDS ORDERED: MORPHINE SULF INJ 2 MG/ML SYRINGE 1ML IV ONE (21:00)
[2018-12-15] MEDS ORDERED: DEXTROSE (50%) 50ML SYRG IV PRN (22:15)
[2018-12-15] MEDS ORDERED: NITROGLYCERIN 0.4 MG SL TAB SL PRN (22:15)
[2018-12-15] MEDS ORDERED: TEMAZEPAM 15 MG CAP PO PRN (22:15)
[2018-12-15] MEDS ORDERED: ACETAMINOPHEN 325 MG TAB PO PRN (22:15)
[2018-12-15] MEDS ORDERED: MORPHINE SULF INJ 2 MG/ML SYRINGE 1ML IV PRN (22:15)
[2018-12-15] MEDS ORDERED: ONDANSETRON HCL 4 MG/2 ML VIAL IV PRN (22:15)
[2018-12-15] MEDS ORDERED: MAGNESIUM OXIDE 400 MG TAB PO ONE (22:45)
[2018-12-15] MEDS: InsuLIN REG 1unit/0.01ml Soln (100units/ml) SC SCH (23:43)
[2018-12-15] MEDS: ACCU-CHEK COMFORT CURVE STRIP VI SCH (23:44)
[2018-12-16] MEDS ORDERED: ALBUMIN 25% 50 ML IV ONE (00:45)
[2018-12-16] MEDS ORDERED: ALBUMIN 5% 250 ML IV ONE (03:45)
[2018-12-16 04:05] VITALS: BP 108/67
--- NOTE | 2018-12-16 04:07 | NUR ---
Opening Shift Note Received report from ED nurse, Yesi. Assumed care of patient, awake, alert, and orientated x 4. No S/S of distress/SOB or pain. Bed brakes are locked and call light is with in reach. Bed is in lowest position and side rails are up x 2. Bed exit alarm is on. HOB is 30 degrees. Instructed on POC and to call for assist PRN, will continue to monitor for changes Q1hr and PRN.
[2018-12-16] MEDS ORDERED: DIGO0.1220 PO (04:40)
[2018-12-16] MEDS ORDERED: SACU1TAB PO (04:40)
[2018-12-16] MEDS ORDERED: INFLUENZA QUAD 2019-2020 0.5ml SYRG IM ONE (05:00)
[2018-12-16] MEDS ORDERED: PNEUMOCOCCAL VACC POLYS 25 MCG/0.5 ML VIAL IM ONE (05:00)
[2018-12-16 05:23] VITALS: BP 108/67
[2018-12-16] MEDS: ACCU-CHEK COMFORT CURVE STRIP VI SCH ×4 (05:38→23:48)
[2018-12-16] MEDS: FUROSEMIDE 40 MG/4 ML VIAL IV SCH ×2 (05:38→18:22)
[2018-12-16] MEDS: InsuLIN REG 1unit/0.01ml Soln (100units/ml) SC SCH ×4 (05:38→23:48)
[2018-12-16] MEDS: LEVOTHYROXINE SODIUM 25 MCG TAB PO SCH (06:56)
--- NOTE | 2018-12-16 07:17 | NUR ---
CLOSING NOTES ENDORSED CARE TO DAY SHIFT NURSEABDELRAHMAN.
--- NOTE | 2018-12-16 07:30 | NUR ---
Opening Shift Note Assumed care of patient, awake, alert, and orientated x 4. No S/S of distress/SOB or pain. Bed brakes are locked and call light is with in reach. Bed is in lowest position and side rails are up x 2. Bed exit alarm is on. Instructed on POC and to call for assist PRN, will continue to monitor for changes Q1hr and PRN.
[2018-12-16 08:30] VITALS: BP 106/63
[2018-12-16 08:57] LABS: BUN/Creatinine Ratio 11.4; Calcium 8.3 mg/dL (8.5-10.1)
[2018-12-16] MEDS: PANTOPRAZOLE 40 MG TAB PO SCH (09:29)
[2018-12-16] MEDS: SPIRONOLACTONE 25 MG TAB PO SCH (09:29)
[2018-12-16] MEDS: CLOPIDOGREL BISULFATE 75 MG TAB PO SCH (09:29)
[2018-12-16] MEDS: APIXABAN 5 MG TAB PO SCH ×2 (09:30→22:39)
[2018-12-16] MEDS: CARVEDILOL 3.125 MG TAB PO SCH ×2 (09:30→22:00)
[2018-12-16] MEDS: SACUBITRIL-VALSARTAN 24mg/26mg TAB PO SCH ×2 (09:30→22:39)
[2018-12-16] MEDS: MAGNESIUM OXIDE 400 MG TAB PO SCH (09:31)
[2018-12-16] MEDS: DIGOXIN 0.125 MG TAB PO SCH (09:32)
[2018-12-16 12:06] VITALS: BP 94/54
--- NOTE | 2018-12-16 15:00 | NUR ---
MICROBIOLOGY MICROBIOLOGY CALLED RE: PATIENT POSITIVE FOR C-DIFF. WILL NOTIFY
--- NOTE | 2018-12-16 15:30 | NUR ---
CALLED MD CALLED DR Devan WALTERS RE: PATIENT POSITIVE FOR C-DIFF. NEW ORDERS RECEIVED/CARRIED OUT. WILL CONTINUE TO MONITOR
--- NOTE | 2018-12-16 16:00 | NUR ---
BUSINESS EXCELLENCE LEADER SPOKE TO JOHNNY HACKETT, RE: PATIENT HOSPICE FOR DISCHARGE
[2018-12-16 16:45] VITALS: BP 105/54
[2018-12-16] MEDS ORDERED: VANCOMYCIN HCL 125MG/5ML ORAL SOL PO SCH (18:00)
--- NOTE | 2018-12-16 19:27 | NUR ---
Opening Shift Note Assumed care of patient, awake and alert x 4. No S/S of distress/SOB. Bed is in lowest position and locked. Call light within reach. Board updated. Tele box number matches monitor and leads are in correct placement. Instructed on POC and to call for assist PRN, will continue to monitor for changes Q1hr and PRN.
--- NOTE | 2018-12-16 20:24 | NUR ---
Patient states that he was given pizza for dinner and that it had "little red circles" on it. Patient then began to report itching all over her body shortly after. This itching has mostly subsided at this point. Patient's airway is intact. Patient scratched his nose and his lower back and their are two small skin tears, one on each area. Will take photos. Will notify hospitalist.
--- NOTE | 2018-12-16 21:58 | NUR ---
Spoke to pharmacist. Debo PO will be held. Only Flagyl PO will be given.
[2018-12-16 22:00] VITALS: BP 107/62
[2018-12-16] MEDS ORDERED: ATORVASTATIN 20 MG TAB PO SCH (22:00)
--- NOTE | 2018-12-16 22:04 | NUR ---
Paging hospitalist for pain medication and to request for Benadryl for possible mild allergic reaction. Patient reported he was given pizza on his dinner tray that had some meat like substance. Afterwards, he started having mild itching and scratched his nose and sacrum, causing some minor cuts in the process. Vitals are WNL. Airway fine. Patient also reports pain in his lower back and requests [place] 5/325 mg. He has been given medication before without any issues.
[2018-12-16] MEDS ORDERED: diphenhdrAMINE HCL 25 MG CAP PO ONE (22:15)
[2018-12-16] MEDS: metroNIDAZOLE 500 MG TAB PO SCH (22:40)
[2018-12-16] MEDS: HYDROcodone-ACET 5/325MG TAB PO PRN (22:41)
--- NOTE | 2018-12-17 00:04 | NUR ---
[facility] hospitalist because patient had a 7 beat run of ventricular tachycardia at 2209 and a 9 beat run of ventricular tachycardia at 2348. Patient was asymptomatic on assessment. Patient went back to paced rhythm both times after converting from ventricular tachycardia. Patient's skin was warm and dry. Patient alert and oriented x 4. Vitals: BP: 143/97 with MAP of 112, HR: 84, O2 sat: 98% on RA, RR: 18, Temp: 98.2.
--- NOTE | 2018-12-17 00:13 | NUR ---
Spoke to MD Ramirez who is carton filler for MD Nolen. Notified him of two events, current vital signs, current potassium and calcium levels, and that patient is asymptomatic. MD ordered STAT magnesium and to continue assessing.
--- NOTE | 2018-12-17 00:28 | NUR ---
Spoke to DAVID Mena. No new orders.
--- NOTE | 2018-12-17 01:25 | NUR ---
Patient had a 5 beat run of ventricular tachycardia. Patient asymptomatic. Skin color WNL. Patient alert and oriented x 4. Vitals: BP: 112/63, pulse: 84, Temp: 98.0, O2 sat: 99% on RA, RR; 18. Will continue to monitor.
--- NOTE | 2018-12-17 04:14 | NUR ---
Patient accidentally pulled out his IV with catheter intact. Inserted 22 gauge IV into a vein in his left forearm after 2 attempts. IV secured and covered with Tegaderm. Patient tolerated well.
--- NOTE | 2018-12-17 04:58 | NUR ---
Paging hospitalist to notify of magnesium level and to see if replacement therapy is needed. STAT magnesium level came back below normal range at 1.5. Patient's magnesium level was 1.6. Per MD Ramirze, notify hospitalist if Magnesium level came back below normal range.
[2018-12-17 05:00] VITALS: BP 100/60
[2018-12-17] MEDS: ACCU-CHEK COMFORT CURVE STRIP VI SCH ×3 (05:53→16:52)
[2018-12-17] MEDS: HYDROcodone-ACET 5/325MG TAB PO PRN (05:53)
[2018-12-17] MEDS: FUROSEMIDE 40 MG/4 ML VIAL IV SCH ×2 (06:08→17:59)
[2018-12-17] MEDS: metroNIDAZOLE 500 MG TAB PO SCH ×2 (06:08→13:45)
[2018-12-17] MEDS: InsuLIN REG 1unit/0.01ml Soln (100units/ml) SC SCH ×3 (06:08→16:52)
[2018-12-17] MEDS: LEVOTHYROXINE SODIUM 25 MCG TAB PO SCH (06:08)
[2018-12-17 08:30] VITALS: BP 83/48
[2018-12-17] MEDS: CARVEDILOL 3.125 MG TAB PO SCH ×2 (09:34)
[2018-12-17] MEDS: SACUBITRIL-VALSARTAN 24mg/26mg TAB PO SCH (09:36)
[2018-12-17] MEDS: SPIRONOLACTONE 25 MG TAB PO SCH (09:36)
[2018-12-17] MEDS ORDERED: ACETAMINOPHEN 650 mg PER 20 mL UD ONE (09:42)
[2018-12-17] MEDS: MAGNESIUM OXIDE 400 MG TAB PO SCH (09:54)
[2018-12-17] MEDS: PANTOPRAZOLE 40 MG TAB PO SCH (09:54)
[2018-12-17] MEDS: APIXABAN 5 MG TAB PO SCH (09:55)
[2018-12-17] MEDS: CLOPIDOGREL BISULFATE 75 MG TAB PO SCH (09:55)
[2018-12-17] MEDS: DIGOXIN 0.125 MG TAB PO SCH (09:55)
--- NOTE | 2018-12-17 11:25 | NUR ---
MARINE HABITAT RESOURCE SPECIALIST SPOKE TO JOHNNY HACKETT, RE: PATIENT HOSPICE FOR DISCHARGE
[2018-12-17 12:15] VITALS: BP 87/47
[2018-12-17 13:00] VITALS: BP 88/55
[2018-12-17 13:08] VITALS: BP 127/77
--- NOTE | 2018-12-17 16:07 | NUR ---
assessment Patient is a 63 year old male who is alert and oriented. Patients cognitive abilities are intact. Prior to admission patient lived home with a friend and functioned with assistance. Per patient he will return home to his prior living arrangements post discharge. Patient informed me he called 911 due to chest pain. Patient is on service with [facility]. Per patient he will resume with [facility] on discharge. I informed patient he has a right to speak to a social worker aide regarding all care. I informed patient he has a right to participate in any and all discharge planning. Patient does not have a POA and advanced directive. I have offered patient information on POA and advanced directives. I informed the patient the advantages and benefits of having an Advanced Directive. Patient verbalized understanding and agreed to discharge plan. Addendum: 12/17/18 at 1621 by Aparna GALLEGO Amended: Links added.
--- NOTE | 2018-12-17 16:20 | NUR ---
MAGNETIC TESTING TECHNICIAN SPOKE TO LEW RE: PATIENT DISCHARGE TRANSPORTATION. [facility] AT 1800
--- NOTE | 2018-12-17 17:12 | NUR ---
Discharge planning per consult, patient has orders to resume hospice services. Referral sent to [facility] to resume services. They are accepting patient back on to services. Transportation was arranged via [employer] with [facility] -[phone], and corn picker time is 6pm. Nurse Simms was advised of dustin flores. Addendum: 12/17/18 at 1714 by LEW NARANJO Amended: Links added.
[2018-12-17 17:26] VITALS: BP 103/63
--- NOTE | 2018-12-17 18:10 | NUR ---
Discharge instructions given as ordered. Encourage to follow up with PMD as instructed. All questions and concerns addressed. Patient verbalized understanding. Needed vaccines given. IV removed with catheter intact, pressure dressing applied. Telemetry unit returned to ICU. Patient taken to vehicle via gurney with all personal belongings, accompanied by [facility]. No distress noted at time of departure.
== END 2018-12-17 18:10 | disposition hospice, home (50) | DRG 189 ==
LOC: EDBD 16:20 → ER 16:20 → TELE 16:21 → TELE-EAST 12-16 04:19
PROVIDERS: ADMIT Nurse Practitioner; ATTEND Family Medicine
DX: J96.21 Acute and chronic respiratory failure with hypoxia (principal); I50.23 Acute on chronic systolic (congestive) heart failure; A04.72 Enterocolitis due to Clostridium difficile, not specified as recurrent; J98.11 Atelectasis; I11.0 Hypertensive heart disease with heart failure; I50.82 Biventricular heart failure; J44.9 Chronic obstructive pulmonary disease, unspecified; E86.0 Dehydration; E11.21 Type 2 diabetes mellitus with diabetic nephropathy; K80.20 Calculus of gallbladder without cholecystitis without obstruction; E11.40 Type 2 diabetes mellitus with diabetic neuropathy, unspecified; R79.89 Other specified abnormal findings of blood chemistry; F32.9 Major depressive disorder, single episode, unspecified; E78.00 Pure hypercholesterolemia, unspecified; I25.10 Atherosclerotic heart disease of native coronary artery without angina pectoris; I70.0 Atherosclerosis of aorta; E78.5 Hyperlipidemia, unspecified; K21.9 Gastro-esophageal reflux disease without esophagitis; Z51.5 Encounter for palliative care; Z95.1 Presence of aortocoronary bypass graft; Z95.810 Presence of automatic (implantable) cardiac defibrillator; I25.2 Old myocardial infarction; Z82.3 Family history of stroke; Z83.3 Family history of diabetes mellitus; Z86.711 Personal history of pulmonary embolism; Z87.442 Personal history of urinary calculi; Z88.1 Allergy status to other antibiotic agents; Z95.5 Presence of coronary angioplasty implant and graft; Z88.8 Allergy status to other drugs, medicaments and biological substances; Z91.018 Allergy to other foods; Z79.01 Long term (current) use of anticoagulants; Z79.899 Other long term (current) drug therapy; Z79.84 Long term (current) use of oral hypoglycemic drugs; Z82.49 Family history of ischemic heart disease and other diseases of the circulatory system; Z72.89 Other problems related to lifestyle; Z23 Encounter for immunization
CPT/HCPCS: 36415; 71045; 80048; 80053; 81001; 82962; 83735; 83880; 84484; 85025; 87045; 87081; 87427; 87493; 94761; G0378; J1815; J2405

== ENCOUNTER 2018-12-22 19:07 | Inpatient (IN) | payer MEDICARE, MEDICAID ==
[~2018-12-22] VITALS: Ht 167.6 cm; Wt 73.3 kg
[~2018-12-22 19:07] MED LIST changes: -DIGO0.1220; +DIGO0.1220 PO; -PANT40TA2 PO; -RISP0.5T45 PO
[2018-12-22 19:57] LABS: Basophils # (auto) 0.1 uL; Nucleated Red Blood Cells % 0.2 %
[2018-12-22 20:02] LABS: Basophils % (auto) 1.7 % (0.0-2.0); Eosinophils # (auto) 0 uL; Eosinophils % (auto) 0.9 % (0.0-7.0); Hemoglobin 10.7 g/dL (13.5-17.5); Lymphocytes # (auto) 1.1 uL; Lymphocytes % (auto) 21.6 % (10.0-50.0); Mean Corpuscular Hemoglobin 24.3 pg (28.0-32.0); Mean Corpuscular Hgb Conc. 31.4 g/dL (32.0-36.0); Mean Corpuscular Volume 77.5 fL (80.0-100.0); Monocytes # (auto) 0.7 uL; Monocytes % (auto) 13.2 % (0.0-12.0); Neutrophils # (auto) 3.3 uL; Neutrophils % (auto) 62.6 % (37.0-80.0); Platelet Count (auto) 121 10^3/uL (140-450); Red Blood Cells 4.39 10^6/uL (4.5-5.90); White Blood Cell 5.3 10^3/uL (4.4-10.8)
[2018-12-22 20:17] LABS: Albumin 3.6 g/dL (3.4-5.0); Calcium 8.1 mg/dL (8.5-10.1); Potassium 4.6 mmol/L (3.5-5.1)
[2018-12-22 20:22] LABS: Bilirubin, Total 2.4 mg/dL (0.2-1.0); Total Protein 7.5 g/dL (6.4-8.2)
[2018-12-22 21:43] LABS: Urine Bacteria NONE SEEN /hpf (None Seen); Urine Blood Negative /uL (Negative); Urine Hyaline Cast FEW /lpf (0 - 2); Urine Mucus FEW (None Seen); Urine Specific Gravity 1.022 (1.001-1.035); Urine WBC 1 /hpf (0 - 3)
[2018-12-22 21:53] LABS: Alcohol, Urine < 3.0 mg/dL (0-5); Amphetamine Screen, Urine NEGATIVE (NEGATIVE); Barbiturate Scree,Urine NEGATIVE (NEGATIVE); Benzodiazephine Screen, Urine NEGATIVE (NEGATIVE); Cannabinoid Screen, Urine NEGATIVE (NEGATIVE); Cocaine Screen, Urine NEGATIVE (NEGATIVE); Opiate Scree,Urine NEGATIVE (NEGATIVE); Phencyclidine Screen, Urine NEGATIVE (NEGATIVE)
[2018-12-23] VITALS (7 sets, daily range): BP systolic 102–120; BP diastolic 58–81
[2018-12-23] MEDS ORDERED: FUROSEMIDE 20 MG/2 ML VIAL IV ONE
[2018-12-23] MEDS ORDERED: TEMAZEPAM 15 MG CAP PO PRN (00:45)
[2018-12-23] MEDS ORDERED: DEXTROSE (50%) 50ML SYRG IV PRN (00:45)
[2018-12-23] MEDS ORDERED: ACETAMINOPHEN 325 MG TAB PO PRN (00:45)
[2018-12-23] MEDS ORDERED: HYDROcodone-ACET 5/325MG TAB PO PRN (00:45)
[2018-12-23] MEDS ORDERED: ONDANSETRON HCL 4 MG/2 ML VIAL IV PRN (00:45)
[2018-12-23] MEDS ORDERED: MORPHINE SULF INJ 2 MG/ML SYRINGE 1ML ONE (02:31)
[2018-12-23] MEDS ORDERED: diphenhdrAMINE HCL 50 MG/1 ML VL ONE (02:39)
[2018-12-23] MEDS ORDERED: diphenhdrAMINE HCL 50 MG/1 ML VL IV ONE (02:45)
--- NOTE | 2018-12-23 05:11 | NUR ---
MRSA SWAB SENT TO LAB
[2018-12-23] MEDS: FUROSEMIDE 20 MG/2 ML VIAL IV SCH ×2 (06:04→18:53)
[2018-12-23] MEDS: ACCU-CHEK COMFORT CURVE STRIP VI SCH ×3 (06:04→18:00)
--- NOTE | 2018-12-23 06:05 | NUR ---
PATIENT STATES HE IS ITCHING ALL OVER, AND REQUESTING SOMETHING TO HELP STOP THE ITCHING. WILL PAGE HOSPITALIST FOR ORDERS .
[2018-12-23] MEDS: PANTOPRAZOLE 40 MG TAB PO SCH (06:20)
[2018-12-23] MEDS: InsuLIN REG 1unit/0.01ml Soln (100units/ml) SC SCH ×3 (06:20→18:00)
[2018-12-23] MEDS: LEVOTHYROXINE SODIUM 25 MCG TAB PO SCH (06:20)
[2018-12-23] MEDS ORDERED: diphenhdrAMINE HCL 25 MG CAP PO ONE (06:45)
--- NOTE | 2018-12-23 07:30 | NUR ---
PATIENT RESTING IN BED. NO S/S OF DISTRESS NOTED AT THIS TIME. PATIENT UPDATED ON POC
--- NOTE | 2018-12-23 09:20 | NUR ---
PATIENT DENIES HAVING ANY ALLERGIC REACTION TO MORPHINE.
[2018-12-23] MEDS: MORPHINE SULF INJ 2 MG/ML SYRINGE 1ML IV PRN ×2 (09:29→16:43)
--- NOTE | 2018-12-23 09:30 | NUR ---
PATIENT COMPLAINING OF CHEST PAIN. EKG DONE. READ BY Lavern WALTERS AND PRESENTED TO STAFF NURSE IN O AND M SUPERVISOR FOR Lavern PEREZ TO LOOK AT.
[2018-12-23] MEDS: LISINOPRIL 10 MG TAB PO SCH (10:00)
[2018-12-23] MEDS: SPIRONOLACTONE 25 MG TAB PO SCH (10:00)
[2018-12-23] MEDS: DIGOXIN 0.125 MG TAB PO SCH (11:23)
[2018-12-23] MEDS: SACUBITRIL-VALSARTAN 24mg/26mg TAB PO SCH ×2 (11:23→22:26)
[2018-12-23] MEDS: CLOPIDOGREL BISULFATE 75 MG TAB PO SCH (11:23)
[2018-12-23] MEDS: ASPirin 81 mg TAB PO SCH (11:24)
--- NOTE | 2018-12-23 11:39 | NUR ---
NUTRITION CONSULT/ASSESSMENT NOTES Please refer to link notes of nutrition screen form filed under the intervention section of the plan of care for further details. Est. Needs: 1550 kcal to 1850 kcal (25-30 kcal/kgBW), 63 gms to 757 gms pro (1.0-1.2 gms/kgBW). Will continue to monitor pertinent labs and reassess nutrient need prn Thank you for this consult. Addendum: 12/23/18 at [address] Amended: Links added.
--- NOTE | 2018-12-23 12:20 | NUR ---
Lavern WALTERS AT BEDSIDE.
--- NOTE | 2018-12-23 19:19 | NUR ---
Opening Shift Note Received report from day shift nurseLuigi. Assumed care of patient. Patient is awake, alert, and orientated x 4; No S/S of distress/SOB or pain. Bed is in lowest position with side rails up x 4. Bed brakes are locked and call light is with in reach. HOB is 30 degrees and bed alarm is on. Patient is in private room. Instructed on POC and to call for assist PRN, will continue to monitor for changes Q1hr and PRN.
[2018-12-23] MEDS ORDERED: ATORVASTATIN 20 MG TAB PO SCH (22:00)
--- NOTE | 2018-12-23 22:58 | NUR ---
BM Pt claims to have one loose bowel movement. no odorous smell noted.
[2018-12-24 04:30] VITALS: BP 121/72
[2018-12-24] MEDS: InsuLIN REG 1unit/0.01ml Soln (100units/ml) SC SCH ×3 (06:00→11:53)
[2018-12-24] MEDS: FUROSEMIDE 20 MG/2 ML VIAL IV SCH (06:03)
[2018-12-24] MEDS: MORPHINE SULF INJ 2 MG/ML SYRINGE 1ML IV PRN (06:03)
[2018-12-24] MEDS: ACCU-CHEK COMFORT CURVE STRIP VI SCH ×3 (06:04→11:53)
[2018-12-24] MEDS: LEVOTHYROXINE SODIUM 25 MCG TAB PO SCH (06:29)
[2018-12-24] MEDS: PANTOPRAZOLE 40 MG TAB PO SCH (06:29)
[2018-12-24 06:37] LABS: Anion Gap 10 (5-15); BUN/Creatinine Ratio 18.5; Blood Urea Nitrogen 22 mg/dL (7-18); Carbon Dioxide 21 mmol/L (21-32); Chloride 103 mmol/L (98-107); GFR African American 79 mL/min; GFR Non-African American 65 mL/min; Glucose 104 mg/dL (74-106); Potassium 3.7 mmol/L (3.5-5.1); Sodium 134 mmol/L (136-145)
[2018-12-24 06:45] LABS: Basophils # (auto) 0.1 uL; Basophils % (auto) 0.7 % (0.0-2.0); Eosinophils # (auto) 0.1 uL; Eosinophils % (auto) 1.3 % (0.0-7.0); Hematocrit 36.8 % (41.0-53.0); Hemoglobin 11.2 g/dL (13.5-17.5); Lymphocytes % (auto) 13.5 % (10.0-50.0); Mean Corpuscular Hemoglobin 24.9 pg (28.0-32.0); Mean Corpuscular Hgb Conc. 30.5 g/dL (32.0-36.0); Mean Corpuscular Volume 81.5 fL (80.0-100.0); Monocytes # (auto) 0.5 uL; Neutrophils % (auto) 77.5 % (37.0-80.0); Nucleated Red Blood Cells % 0.1 %; Platelet Count (auto) 145 10^3/uL (140-450); Red Blood Cells 4.51 10^6/uL (4.5-5.90); Red Cell Distribution Width 25.7 % (11.8-14.3); White Blood Cell 7.8 10^3/uL (4.4-10.8)
--- NOTE | 2018-12-24 07:13 | NUR ---
CLOSING NOTES ENDORSED CARE TO DAY SHIFT NURSE
[2018-12-24 08:51] VITALS: BP 99/50
[2018-12-24] MEDS: SPIRONOLACTONE 25 MG TAB PO SCH (09:57)
[2018-12-24] MEDS: SACUBITRIL-VALSARTAN 24mg/26mg TAB PO SCH (09:57)
[2018-12-24] MEDS: ASPirin 81 mg TAB PO SCH (09:57)
[2018-12-24] MEDS: CLOPIDOGREL BISULFATE 75 MG TAB PO SCH (09:58)
[2018-12-24] MEDS: DIGOXIN 0.125 MG TAB PO SCH (09:58)
[2018-12-24] MEDS: LISINOPRIL 10 MG TAB PO SCH (09:58)
[2018-12-24 12:53] VITALS: BP 97/64
--- NOTE | 2018-12-24 14:31 | NUR ---
Discharge planning per consult, patient has orders to dc home on hospice. Patient choose [facility]. Referral faxed, follow up visit from Zaki, advised that they will accept this patient onto services. Transportation was arranged via [employer] with the general at [phone]. Nurse Barr was advised of dc plan. Addendum: 12/24/18 at 1433 by LEW NARANJO Amended: Links added.
== END 2018-12-24 15:30 | disposition hospice, home (50) | DRG 444 ==
LOC: EDBD 19:07 → ER 19:16 → TELE 19:17 → TELE-EAST 12-23 04:27
PROVIDERS: ADMIT Nurse Practitioner; ATTEND Family Medicine
DX: K80.20 Calculus of gallbladder without cholecystitis without obstruction (principal); J96.20 Acute and chronic respiratory failure, unspecified whether with hypoxia or hypercapnia; E43 Unspecified severe protein-calorie malnutrition; I50.43 Acute on chronic combined systolic (congestive) and diastolic (congestive) heart failure; K76.6 Portal hypertension; E87.1 Hypo-osmolality and hyponatremia; I11.0 Hypertensive heart disease with heart failure; E11.9 Type 2 diabetes mellitus without complications; K70.31 Alcoholic cirrhosis of liver with ascites; R16.1 Splenomegaly, not elsewhere classified; I70.0 Atherosclerosis of aorta; I25.10 Atherosclerotic heart disease of native coronary artery without angina pectoris; E78.5 Hyperlipidemia, unspecified; K21.9 Gastro-esophageal reflux disease without esophagitis; I25.5 Ischemic cardiomyopathy; E78.00 Pure hypercholesterolemia, unspecified; F15.90 Other stimulant use, unspecified, uncomplicated; Z51.5 Encounter for palliative care; D64.9 Anemia, unspecified; F32.9 Major depressive disorder, single episode, unspecified; J44.9 Chronic obstructive pulmonary disease, unspecified; Z95.1 Presence of aortocoronary bypass graft; I25.2 Old myocardial infarction; Z95.810 Presence of automatic (implantable) cardiac defibrillator; Z86.711 Personal history of pulmonary embolism; Z88.1 Allergy status to other antibiotic agents; Z88.8 Allergy status to other drugs, medicaments and biological substances; Z79.84 Long term (current) use of oral hypoglycemic drugs; Z82.49 Family history of ischemic heart disease and other diseases of the circulatory system; Z82.3 Family history of stroke; Z95.5 Presence of coronary angioplasty implant and graft; Z79.899 Other long term (current) drug therapy
CPT/HCPCS: 36415; 71045; 74176; 78226; 80048; 80053; 80307; 81001; 82962; 83690; 83880; 84484; 85025; 87081; 93005; G0378; J1815; J2405

== ENCOUNTER 2018-12-27 21:11 | Inpatient (IN) | payer MEDICARE, MEDICAID ==
[~2018-12-27] VITALS: Ht 167.6 cm; Wt 86.6 kg
[2018-12-27 21:38] LABS: Basophils # (auto) 0.1 uL; Eosinophils # (auto) 0.1 uL; Monocytes # (auto) 0.9 uL
[2018-12-27 21:41] LABS: Basophils % (auto) 0.9 % (0.0-2.0); Eosinophils % (auto) 1.9 % (0.0-7.0); Hematocrit 35.7 % (41.0-53.0); Hemoglobin 11.2 g/dL (13.5-17.5); Lymphocytes # (auto) 1.7 uL; Lymphocytes % (auto) 24.4 % (10.0-50.0); Mean Corpuscular Hemoglobin 24.8 pg (28.0-32.0); Mean Corpuscular Hgb Conc. 31.3 g/dL (32.0-36.0); Mean Corpuscular Volume 79.3 fL (80.0-100.0); Monocytes % (auto) 13.9 % (0.0-12.0); Neutrophils % (auto) 58.9 % (37.0-80.0); Nucleated Red Blood Cells % 0.6 %; Platelet Count (auto) 223 10^3/uL (140-450); White Blood Cell 6.8 10^3/uL (4.4-10.8)
[2018-12-27] MEDS ORDERED: MORPHINE SULFATE 4 MG/ML SYR/VIAL IV ONE (21:45)
[2018-12-27] MEDS ORDERED: ONDANSETRON HCL 4 MG/2 ML VIAL IV ONE (21:45)
[2018-12-27] MEDS ORDERED: NITROGLYCERIN 0.2MG/HR TOPICAL PATCH TD ONE (21:45)
[2018-12-27 21:47] LABS: Red Cell Distribution Width 26.3 % (11.8-14.3)
[2018-12-27 21:56] LABS: Albumin 3.5 g/dL (3.4-5.0); Calcium 8.3 mg/dL (8.5-10.1); Potassium 4.2 mmol/L (3.5-5.1)
[2018-12-27 22:01] LABS: BUN/Creatinine Ratio 13.2
[2018-12-27 22:05] LABS: Magnesium 1.6 mg/dL (1.6-2.6)
[2018-12-27 22:13] LABS: INR 1.25 (0.9-1.15); Partial Thromboplastin Time 28.1 sec (23.64-32.05)
[2018-12-28 00:24] LABS: Urine Bacteria FEW /hpf (None Seen); Urine Blood Negative /uL (Negative); Urine Hyaline Cast MANY /lpf (0 - 2); Urine WBC 3 /hpf (0 - 3)
[2018-12-28] MEDS ORDERED: ENALAPRILAT 1.25 MG/ML-1ML VIAL IV ONE (01:15)
[2018-12-28] MEDS ORDERED: ACETAMINOPHEN 325 MG TAB PO PRN (02:30)
[2018-12-28] MEDS ORDERED: DEXTROSE (50%) 50ML SYRG IV PRN (02:30)
[2018-12-28] MEDS ORDERED: TEMAZEPAM 15 MG CAP PO PRN (02:30)
[2018-12-28] MEDS ORDERED: FUROSEMIDE 40 MG/4 ML VIAL IV ONE (02:30)
[2018-12-28] MEDS ORDERED: MORPHINE SULF INJ 2 MG/ML SYRINGE 1ML IV PRN (02:45)
[2018-12-28] MEDS ORDERED: NITROGLYCERIN 0.4 MG SL TAB SL PRN (02:45)
--- NOTE | 2018-12-28 05:50 | NUR ---
Telemetry admit from ER JOSY ALMAGUER admitted to Telemetry unit after SBAR received. Patient oriented to Curt Vizcarra, primary RN, unit, room, bed, and unit policies regarding patient care and visiting hours. Patient now on continuous telemetry monitoring, tele box # [id number] and telemetry reading on arrival to unit is paced. Patient placed on bedside oxygen, weighed by bedscale and encouraged to call if they need something. All questions and concerns addressed, patient verbalized understanding.
[2018-12-28 06:00] VITALS: BP 112/68
[2018-12-28] MEDS ORDERED: FUROSEMIDE 20 MG/2 ML VIAL IV SCH (06:00)
[2018-12-28] MEDS: ACCU-CHEK COMFORT CURVE STRIP VI SCH ×4 (06:08→23:44)
[2018-12-28] MEDS: InsuLIN REG 1unit/0.01ml Soln (100units/ml) SC SCH ×4 (06:08→23:44)
[2018-12-28] MEDS: LEVOTHYROXINE SODIUM 25 MCG TAB PO SCH (06:09)
--- NOTE | 2018-12-28 07:20 | NUR ---
Opening Shift Note Assumed care of patient, awake and alert sitting up in bed. No S/S of distress/SOB or pain. Instructed on POC and to call for assist PRN, call light within reach and bed in locked and lowest position. Will continue to monitor for changes Q1hr and PRN.
[2018-12-28 08:31] VITALS: BP 103/74
--- NOTE | 2018-12-28 09:52 | NUR ---
Dr. Hubbard bedside with patient discussing plan of care.
[2018-12-28] MEDS: CARVEDILOL 3.125 MG TAB PO SCH ×2 (10:00→22:11)
[2018-12-28] MEDS: LISINOPRIL 10 MG TAB PO SCH (10:00)
[2018-12-28] MEDS ORDERED: metroNIDAZOLE 500MG/100ML 100 ML IV ONE (10:15)
[2018-12-28] MEDS: LEVOFLOXACIN 500MG 100 ML IV SCH (10:15)
[2018-12-28] MEDS: APIXABAN 5 MG TAB PO SCH ×2 (10:29→22:10)
[2018-12-28] MEDS: ASPirin 81 mg TAB PO SCH (10:29)
[2018-12-28] MEDS: DIGOXIN 0.125 MG TAB PO SCH (10:30)
[2018-12-28] MEDS: SACUBITRIL-VALSARTAN 24mg/26mg TAB PO SCH ×2 (10:30→22:10)
[2018-12-28] MEDS: CLOPIDOGREL BISULFATE 75 MG TAB PO SCH (10:31)
[2018-12-28] MEDS: FAMOTIDINE 20 MG TAB PO SCH ×2 (10:31→22:11)
--- NOTE | 2018-12-28 10:45 | NUR ---
Talked to Tavo in MRI, patient with AICD is not compatible for MRCP. Contacted Dr. Hubbard and informed him. Carried out new orders as given.
[2018-12-28] MEDS ORDERED: ALBUTEROL SULF 2.5 MG/0.5ML(0.5%) NEB SOLN NEB PRN ×3 (11:00→12:15)
[2018-12-28] MEDS ORDERED: ALBUTEROL SULF 2.5 MG/0.5ML(0.5%) NEB SOLN ONE (11:03)
[2018-12-28] MEDS ORDERED: IPRATROPIUM BROM 0.5 MG/2.5ML INH SOL ONE ×2 (11:04→11:43)
[2018-12-28] MEDS ORDERED: IPRATROPIUM BROM 0.5 MG/2.5ML INH SOL NEB PRN (11:30)
--- NOTE | 2018-12-28 11:30 | NUR ---
Respiratory note: PATIENT RECEIVED BREATHING TX AT THIS TIME. PATIENT IS AWARE TO HAVE RT PAGED IF BREATHING TX IS NEEDED. RN IS AWARE. WILL CONTINUE TO MONITOR PATIENT.
[2018-12-28] MEDS ORDERED: MORPHINE SULF 15mg ER tab PO ONE (12:00)
--- NOTE | 2018-12-28 12:03 | NUR ---
Confirmed with patient he has no allergy to morphine. Also spoke with pharmacy to confirm Oramorph is okay to give with a patient having an allergy to hydromorphone. Per pharmacist, it is ok to administer the Oramorph.
[2018-12-28] MEDS: MAGNESIUM SULFATE 1GM/100ML 100 ML IV SCH ×3 (12:24→16:48)
[2018-12-28 13:00] VITALS: BP 105/60
--- NOTE | 2018-12-28 13:05 | NUR ---
Patient was given Oramorph tab and chewed tablet instead of swallowing whole. Patient was educated prior to administration that medication was to be swallowed. Patient is now claiming to be itchy and is anxious. Will continue to monitor.
[2018-12-28 14:02] VITALS: BP 103/74
[2018-12-28 16:31] VITALS: BP 101/68
[2018-12-28] MEDS ORDERED: MAGNESIUM SULFATE 1GM/100ML 100 ML IV ONE (16:39)
--- NOTE | 2018-12-28 16:39 | NUR ---
Pt is a readmission after recent discharge to home on hospice. Pt resides alone and functions independently but needs assistance. Pt states he needs help at home and came back because of an infection in his stomach. Provided education on the hospice program and care that can be provided. Also discussed benefits for caregiver assistance under his insurance. Pt has a IHSS worker that comes in once a week for about 4 hours. Discussed with pt the process to increase his IHSS hours. Pt has contact information to worker to followup. Pt states he wants to continue with [facility] upon discharge. Will continue to monitor and provide intervention as appropriate. Addendum: 12/28/18 at 1649 by EULALIO GALLEGO Amended: Links added.
[2018-12-28] MEDS: ONDANSETRON HCL 4 MG/2 ML VIAL IV PRN (16:52)
[2018-12-28] MEDS: FUROSEMIDE 40 MG/4 ML VIAL IV SCH (18:00)
[2018-12-28] MEDS ORDERED: diphenhdrAMINE HCL 25 MG CAP PO ONE (18:15)
[2018-12-28] MEDS ORDERED: metroNIDAZOLE 500MG/100ML 100 ML IV SCH ×2 (19:00)
--- NOTE | 2018-12-28 19:25 | NUR ---
Opening Shift Note Received report from Adriana GARZA. Assumed care of patient, awake and alert. No S/S of distress/SOB or pain. Instructed on POC and to call for assist PRN, will continue to monitor for changes Q1hr and PRN.
--- NOTE | 2018-12-28 20:00 | NUR ---
Respiratory note: PT ASSESSED FOR PRN MED NEB TX. HR 82, RR 18, SPO2 99% ON 1L NC. NO SIGNS OF ANY RESPIRATORY DISTRESS NOTED. ADVISED PT TO CALL OF TX IS NEEDED. RT NAME AND PAGER NUMBER WRITTEN ON PT'S BOARD.
[2018-12-28 21:48] VITALS: BP 119/52
[2018-12-28] MEDS: MORPHINE SULF 15mg ER tab PO SCH (22:11)
[2018-12-28] MEDS: ATORVASTATIN 20 MG TAB PO SCH (22:13)
[2018-12-29] MEDS: metroNIDAZOLE 500MG/100ML 100 ML IV SCH ×3 (02:45→18:18)
[2018-12-29 05:00] VITALS: BP 92/68
[2018-12-29 05:01] LABS: Calcium 7.9 mg/dL (8.5-10.1); Potassium 4.1 mmol/L (3.5-5.1)
[2018-12-29] MEDS: FUROSEMIDE 40 MG/4 ML VIAL IV SCH ×2 (05:54→18:17)
[2018-12-29] MEDS: ACCU-CHEK COMFORT CURVE STRIP VI SCH ×3 (06:30→18:17)
[2018-12-29] MEDS: LEVOTHYROXINE SODIUM 25 MCG TAB PO SCH (06:35)
[2018-12-29] MEDS: InsuLIN REG 1unit/0.01ml Soln (100units/ml) SC SCH ×3 (06:35→18:00)
[2018-12-29 08:00] VITALS: BP 92/68
--- NOTE | 2018-12-29 08:00 | NUR ---
ASSESSMENT NOTE PATIENT IS RESTING IN BED COMFORTABLY, NO DISTRESS NOTED, ABLE TO SELF REPOSITION AND VERBALIS HIS NEEDS, DENIES ANY CHEST PAIN 0/10 AT THIS TIME, CALL LIGHT WITHIN REACH.
[2018-12-29 09:00] VITALS: BP 90/57
[2018-12-29] MEDS: LEVOFLOXACIN 500MG 100 ML IV SCH (09:03)
[2018-12-29] MEDS: CLOPIDOGREL BISULFATE 75 MG TAB PO SCH (09:16)
[2018-12-29] MEDS: MORPHINE SULF 15mg ER tab PO SCH ×2 (09:16→09:26)
[2018-12-29] MEDS: APIXABAN 5 MG TAB PO SCH ×2 (09:16→21:48)
[2018-12-29] MEDS: LISINOPRIL 10 MG TAB PO SCH (09:17)
[2018-12-29] MEDS: ASPirin 81 mg TAB PO SCH (09:17)
[2018-12-29] MEDS: FAMOTIDINE 20 MG TAB PO SCH ×2 (09:17→21:48)
[2018-12-29] MEDS: DIGOXIN 0.125 MG TAB PO SCH (09:18)
[2018-12-29] MEDS ORDERED: diphenhdrAMINE HCL 50 MG/1 ML VL IV ONE (09:45)
[2018-12-29] MEDS: CARVEDILOL 3.125 MG TAB PO SCH ×2 (10:00→21:48)
[2018-12-29] MEDS: SACUBITRIL-VALSARTAN 24mg/26mg TAB PO SCH ×2 (10:00→21:48)
[2018-12-29] MEDS ORDERED: PROMETHAZINE HCL 25 MG/ML 1ML IV PRN (10:15)
[2018-12-29] MEDS ORDERED: ONDANSETRON HCL 4 MG/2 ML VIAL IV PRN (10:15)
--- NOTE | 2018-12-29 10:15 | NUR ---
DR NEWTON AT BED SIDE FOLLOWING UP ON PT, PT START TO FEEL NAUSEATED,KEPT PT COMFORTABLE WITH A COLD TOWEL
[2018-12-29] MEDS: ONDANSETRON HCL 4 MG/2 ML VIAL IV PRN ×2 (10:38→21:47)
--- NOTE | 2018-12-29 11:20 | NUR ---
PATIENT IS NAUSEATED, ZOFRAN IV GIVEN TO PT
--- NOTE | 2018-12-29 12:24 | NUR ---
RT NOTE: WENT TO PTS ROOM TO ASSESS FOR PRN BREATHING TX, NO S/S OF SOB. PT IS ON RA, RR 18, HR 74, SPO2 97%. WILL CONTINUE TO MONITOR PT.
--- NOTE | 2018-12-29 12:25 | NUR ---
GI CONSULT DR SMITH RETURN OUR CALL FOR CONSULT BACK, MADE AWARE OF PT AND OF WHAT IS GOING ON, THEN TRANSFER THE CALL TO DR PERRIN TO DISCUSS TOGETHER THE PLAN OF CARE, NEW ORDERS OBTAIN
[2018-12-29] MEDS ORDERED: IOHEXOL 300 MG/ML 100ML BOTTLE IJ ONE (12:34)
[2018-12-29] MEDS ORDERED: OMNIPAQUE ORAL SOLN 500ml 12mg/ml PO ONE (12:35)
[2018-12-29 13:22] VITALS: BP 101/63
--- NOTE | 2018-12-29 15:30 | NUR ---
DR SMITH GI CONSULT IS HERE FOLLOWING UP ON PT,NO NEW ORDERS NOTED
--- NOTE | 2018-12-29 16:00 | NUR ---
DR MONCADA AT BED SIDE EXPLAIN TO PT THE NEED TO HAVE THE ECHO AND CARDIOLITE STRESS TEST
[2018-12-29] MEDS ORDERED: IODIXANOL 320MG/ML 100ML BTL IV ONE (17:02)
[2018-12-29 17:24] VITALS: BP 93/56
--- NOTE | 2018-12-29 17:30 | NUR ---
OUT TO ABDOMEN CT WITH IV CONTRAST VIA WHEEL CHAIR TO RADIOLOGY
--- NOTE | 2018-12-29 17:50 | NUR ---
PT IS BACK TO HER ROOM NO DISTRESS , RESTING IN BED COMFORTABLY
[2018-12-29] MEDS ORDERED: MORPHINE SULF 15mg ER tab PO ONE (21:00)
[2018-12-29 21:30] VITALS: BP 88/66
[2018-12-29] MEDS: ATORVASTATIN 20 MG TAB PO SCH (21:48)
--- NOTE | 2018-12-29 23:02 | NUR ---
IV insertion IV access obtained, via clean technique by inserting a 20 gauge catheter into a vein in the left forearm after 1 attempt. IV secured properly. No trauma to site. Patient tolerated well.
--- NOTE | 2018-12-30 00:15 | NUR ---
PT CHECK FOR PRN TX. TX IS NOT INDICATED AT THIS TIME. PT IS AWARE TO PAGE IF TX NEEDED. HR 70 RR 18 POX 95% ON ROOM AIR.
[2018-12-30] MEDS: ACCU-CHEK COMFORT CURVE STRIP VI SCH ×4 (00:19→18:24)
[2018-12-30] MEDS: metroNIDAZOLE 500MG/100ML 100 ML IV SCH ×3 (01:49→18:25)
[2018-12-30 05:00] VITALS: BP 91/64
[2018-12-30 05:06] LABS: Hematocrit 31.5 % (41.0-53.0); Hemoglobin 10.1 g/dL (13.5-17.5); Mean Corpuscular Volume 78.2 fL (80.0-100.0); Platelet Count (auto) 174 10^3/uL (140-450); Red Blood Cells 4.03 10^6/uL (4.5-5.90); White Blood Cell 5.3 10^3/uL (4.4-10.8)
--- NOTE | 2018-12-30 05:06 | NUR ---
Patient states he scratched a "pimple" on his sacrum because of his dry skin/itching. Small skin tear, bleeding, found on medial sacrum on assessment. Small, intact scab noted on sacrum on assessment at 1999. Picture taken. Wound consult placed. Addendum: 12/30/18 at 0639 by JOSEY DON RN Optifoam placed over wound.
[2018-12-30 05:09] LABS: Basophils % (manual) 0 (0.0-2.0); Blast Cells 0; Metamyelocytes % 0; Myelocytes % 0; Promyelocytes % 0; Reactive Lymphocytes 0; Red Cell Distribution Width 26.5 % (11.8-14.3)
[2018-12-30 05:11] LABS: Albumin 3.1 g/dL (3.4-5.0); BUN/Creatinine Ratio 19.9; Calcium 7.8 mg/dL (8.5-10.1); Magnesium 2.2 mg/dL (1.6-2.6); Potassium 4.5 mmol/L (3.5-5.1)
[2018-12-30 05:12] LABS: Bilirubin, Total 1.9 mg/dL (0.2-1.0); Total Protein 6.5 g/dL (6.4-8.2)
[2018-12-30 05:19] LABS: Band Neutrophils % (manual) 1; Eosinophils % (manual) 4 (0-7); Lymphocytes % (manual) 26 (10.0-50.0); Monocytes % (manual) 4 (0-12)
[2018-12-30] MEDS: InsuLIN REG 1unit/0.01ml Soln (100units/ml) SC SCH ×4 (06:00→18:00)
[2018-12-30] MEDS: LEVOTHYROXINE SODIUM 25 MCG TAB PO SCH (06:14)
--- NOTE | 2018-12-30 08:08 | NUR ---
Opening Shift Note Assumed care of patient, awake and alert laying down in bed. Patient is on room air with even and unlabored respirations. No S/S of distress/SOB or pain at this time. Patient instructed on safety and fall precautions. Bed is in lowest position, wheels are locked, side rails up x2, bed alarm set and call light is within reach. Instructed on POC and to call for assist PRN, will continue to monitor for changes Q1hr and PRN.
[2018-12-30] MEDS ORDERED: ADENOSINE 73 MG in GIVE UN-DILUTED 0 ML IV STA (08:26)
[2018-12-30 09:00] VITALS: BP 94/43
--- NOTE | 2018-12-30 09:00 | NUR ---
WOUND CARE NOTE: IN TO SEE PATIENT AT THIS TIME PER WOUND CARE CONSULT REQUEST. PATIENT NOTED TO HAVE WOUND TO RIGHT SACRUM, AFTER HE SCRATCHING OPEN A SMALL BLISTER. PATIENT IS NOTED TO HAVE A 0.6 X0.5 CM PARTIAL THICKNESS SKIN TEAR TO THE RIGHT BUTTOCK. APPLIED ZGUARD, OPTIFOAM GENTLE DRESSING. PATIENT HAS CURRENT CHRISTAL SCORE OF 20, HE CAN SELF TURN/REPOSITION SELF, FULLY AMBULATORY. RECOMMEND: SKIN/WOUND CARE PLAN, DAILY/PRN DRESSING CHANGE TO WOUND, CONTINUED MONITORING BY WOUND CARE TEAM. Addendum: 12/30/18 at 1122 by Janette Serrano RN Amended: Links added.
[2018-12-30] MEDS: SACUBITRIL-VALSARTAN 24mg/26mg TAB PO SCH (09:35)
[2018-12-30] MEDS: ONDANSETRON HCL 4 MG/2 ML VIAL IV PRN (09:36)
[2018-12-30] MEDS: CLOPIDOGREL BISULFATE 75 MG TAB PO SCH (09:36)
[2018-12-30] MEDS: APIXABAN 5 MG TAB PO SCH ×2 (09:37→22:21)
[2018-12-30] MEDS: MORPHINE SULF 15mg ER tab PO SCH (09:37)
--- NOTE | 2018-12-30 09:40 | NUR ---
PT OFF FLOOR FOR STRESS TEST.
[2018-12-30] MEDS: LISINOPRIL 10 MG TAB PO SCH (10:00)
--- NOTE | 2018-12-30 11:05 | NUR ---
PATIENT BACK FROM STRESS TEST PATIENT RETURNED TO FLOOR FROM STRESS TEST. PATIENT IS ALERT AND AWAKE WITH EVEN AND UNLABORED RESPIRATIONS. NO S/S OF DISTRESS/SOB OR PAIN NOTED. WILL CONTINUE TO MONITOR Q1H AND PRN.
[2018-12-30] MEDS: ASPirin 81 mg TAB PO SCH (11:30)
[2018-12-30] MEDS: DIGOXIN 0.125 MG TAB PO SCH (11:31)
[2018-12-30] MEDS: CARVEDILOL 3.125 MG TAB PO SCH (11:31)
[2018-12-30] MEDS: FAMOTIDINE 20 MG TAB PO SCH ×2 (11:31→22:22)
[2018-12-30] MEDS: LEVOFLOXACIN 500MG 100 ML IV SCH (11:32)
--- NOTE | 2018-12-30 13:07 | NUR ---
STRESS TEST- nuclear stress test completed on 12/30/2018.
--- NOTE | 2018-12-30 13:45 | NUR ---
DR. PERRIN AT BEDSIDE ASSESSING PATIENT. NEW ORDERS RECEIVED, WILL CARRY OUT. WILL CONTINUE TO MONITOR Q1H AND PRN.
[2018-12-30 17:23] VITALS: BP 103/79
--- NOTE | 2018-12-30 18:00 | NUR ---
IV removal IV TO R AC DC'd as patient was C/O pain to site. IV DC'd with clean sterile technique, catheter fully intact. Pressure dressing applied to site. Patient tolerated well. Will continue to monitor q1h and prn.
--- NOTE | 2018-12-30 18:29 | NUR ---
PT ASSESSED FOR PRN MED NEB TX. SPO2 99%, HR 77. PT DENIES ANY RESPIRATORY DISTRESS. NO TX INDICATED. PT IS AWARE TO HAVE RT PAGED IF TX NEEDED.
--- NOTE | 2018-12-30 19:01 | NUR ---
Shift Closing note Patient awake and alert laying in bed. Patient is on room air with even and unlabored respirations. No S/S of distress/SOB or pain at this time. Care endorsed to ASHLIE FLANAGAN RN.
--- NOTE | 2018-12-30 19:10 | NUR ---
Opening Shift Note Assumed care of patient, awake and alert. No S/S of distress/SOB or pain. Instructed on POC and to call for assist PRN, will continue to monitor for changes Q1hr and PRN. Side rails up x2. Bed locked in lowest position. Call light within reach.
[2018-12-30 22:00] VITALS: BP 95/59
[2018-12-30] MEDS: ATORVASTATIN 20 MG TAB PO SCH (22:22)
--- NOTE | 2018-12-31 00:13 | NUR ---
Per patient, IV on left forearm was accidentally pulled out. IV catheter intact. Dressing applied.
--- NOTE | 2018-12-31 00:16 | NUR ---
IV insertion IV access obtained, via clean sterile technique by inserting 20 gauge catheter on right AC after 1 attempt. IV secured properly. No trauma to site. Patient tolerated well.
[2018-12-31] MEDS: ACCU-CHEK COMFORT CURVE STRIP VI SCH ×2 (01:19→06:41)
[2018-12-31] MEDS: metroNIDAZOLE 500MG/100ML 100 ML IV SCH (03:48)
[2018-12-31] MEDS: MORPHINE SULF 15mg ER tab PO SCH ×2 (04:25→10:24)
[2018-12-31 05:00] VITALS: BP 113/76
[2018-12-31 05:19] LABS: Hemoglobin 9.9 g/dL (13.5-17.5); Mean Corpuscular Hemoglobin 25.1 pg (28.0-32.0)
[2018-12-31 05:22] LABS: Hematocrit 30.6 % (41.0-53.0); Mean Corpuscular Hgb Conc. 32.3 g/dL (32.0-36.0); Mean Corpuscular Volume 77.6 fL (80.0-100.0); Platelet Count (auto) 163 10^3/uL (140-450); Red Blood Cells 3.95 10^6/uL (4.5-5.90); White Blood Cell 3.9 10^3/uL (4.4-10.8)
[2018-12-31 05:24] LABS: Red Cell Distribution Width 26.2 % (11.8-14.3)
[2018-12-31 05:26] LABS: Basophils % (manual) 0 (0.0-2.0); Blast Cells 0; Metamyelocytes % 0; Myelocytes % 0; Promyelocytes % 0; Reactive Lymphocytes 0
[2018-12-31 05:37] LABS: Potassium 4.4 mmol/L (3.5-5.1)
[2018-12-31 05:46] LABS: Albumin 2.8 g/dL (3.4-5.0); Bilirubin, Total 1.6 mg/dL (0.2-1.0); Calcium 7.6 mg/dL (8.5-10.1); Magnesium 2.1 mg/dL (1.6-2.6); Total Protein 6.2 g/dL (6.4-8.2)
[2018-12-31] MEDS: InsuLIN REG 1unit/0.01ml Soln (100units/ml) SC SCH ×2 (06:00)
[2018-12-31 06:16] LABS: Band Neutrophils % (manual) 7; Eosinophils % (manual) 5 (0-7); Lymphocytes % (manual) 21 (10.0-50.0); Monocytes % (manual) 10 (0-12)
[2018-12-31] MEDS: LEVOTHYROXINE SODIUM 25 MCG TAB PO SCH (06:41)
--- NOTE | 2018-12-31 07:29 | NUR ---
Endorsed care to day shift RN.
[2018-12-31 09:00] VITALS: BP 90/45
[2018-12-31] MEDS: LISINOPRIL 10 MG TAB PO SCH (10:00)
[2018-12-31] MEDS: LEVOFLOXACIN 500MG 100 ML IV SCH (10:23)
[2018-12-31] MEDS: CLOPIDOGREL BISULFATE 75 MG TAB PO SCH (10:23)
[2018-12-31] MEDS: ASPirin 81 mg TAB PO SCH (10:23)
[2018-12-31] MEDS: APIXABAN 5 MG TAB PO SCH (10:24)
[2018-12-31] MEDS: FAMOTIDINE 20 MG TAB PO SCH (10:25)
[2018-12-31] MEDS: DIGOXIN 0.125 MG TAB PO SCH (10:25)
[2018-12-31 10:42] VITALS: BP 90/45
--- NOTE | 2018-12-31 12:10 | NUR ---
PATIENT LEFT AMA. Lavern PERRIN AT [facility]. INSTRUCTED PATIENT OF NEED FOR TRANSFER TO NURSING FACILITY. PATIENT REFUSING STATING HE WANTS TO GO HOME. INSTRUCTED PATIENT OF RISKS OF GOING HOME INCLUDING . PATIENT VERBALIZED UNDERSTANDING AND STATES HE STILL WANTS TO GO HOME.
--- NOTE | 2018-12-31 15:14 | NUR ---
D/C Planning Per SS consult for SNF placement. Pt left AMA.
== END 2018-12-31 12:13 | disposition left against medical advice (07) | DRG 193 ==
LOC: EDBD 21:11 → ER 21:14 → TELE 21:15 → TELE-CENTR 12-28 05:50
PROVIDERS: ADMIT Nurse Practitioner; ATTEND Internal Medicine
DX: J18.9 Pneumonia, unspecified organism (principal); I50.23 Acute on chronic systolic (congestive) heart failure; I13.0 Hypertensive heart and chronic kidney disease with heart failure and stage 1 through stage 4 chronic kidney disease, or unspecified chronic kidney disease; I20.9 Angina pectoris, unspecified; N18.3 Chronic kidney disease, stage 3 (moderate); I50.82 Biventricular heart failure; E78.5 Hyperlipidemia, unspecified; I25.5 Ischemic cardiomyopathy; I70.0 Atherosclerosis of aorta; K70.30 Alcoholic cirrhosis of liver without ascites; Z91.19 Patient's noncompliance with other medical treatment and regimen; Z95.1 Presence of aortocoronary bypass graft; E03.9 Hypothyroidism, unspecified; K70.31 Alcoholic cirrhosis of liver with ascites; Z53.29 Procedure and treatment not carried out because of patient's decision for other reasons; E11.65 Type 2 diabetes mellitus with hyperglycemia; Z82.49 Family history of ischemic heart disease and other diseases of the circulatory system; Z82.3 Family history of stroke; Z83.3 Family history of diabetes mellitus; Z79.899 Other long term (current) drug therapy; Z88.8 Allergy status to other drugs, medicaments and biological substances; Z91.048 Other nonmedicinal substance allergy status
CPT/HCPCS: 36415; 71045; 74177; 78452; 80048; 80053; 80320; 81001; 82105; 82150; 82962; 83690; 83735; 83880; 84484; 85007; 85025; 85027; 85610; 85730; 87081; 93005; 93017; 93306; 94640; 96374; 96375; G0378; J0153; J1815; J1956; J2405; J3490; Q9967

== ENCOUNTER 2019-01-02 16:06 | Inpatient (IN) | payer MEDICARE, MEDICAID ==
[~2019-01-02] VITALS: Ht 172.7 cm; Wt 78.1 kg
[2019-01-02 16:49] LABS: Basophils # (auto) 0 uL; Eosinophils # (auto) 0 uL; Hemoglobin 10.1 g/dL (13.5-17.5)
[2019-01-02 16:51] LABS: Basophils % (auto) 0.8 % (0.0-2.0); Eosinophils % (auto) 0.7 % (0.0-7.0); Hematocrit 31.2 % (41.0-53.0); Lymphocytes % (auto) 23.6 % (10.0-50.0); Mean Corpuscular Hgb Conc. 32.3 g/dL (32.0-36.0); Mean Corpuscular Volume 77.4 fL (80.0-100.0); Monocytes # (auto) 0.7 uL; Monocytes % (auto) 15.1 % (0.0-12.0); Neutrophils # (auto) 2.6 uL; Neutrophils % (auto) 59.8 % (37.0-80.0); Nucleated Red Blood Cells % 0.3 %; Platelet Count (auto) 157 10^3/uL (140-450); Red Blood Cells 4.03 10^6/uL (4.5-5.90); White Blood Cell 4.4 10^3/uL (4.4-10.8)
[2019-01-02 16:55] LABS: Red Cell Distribution Width 24.9 % (11.8-14.3)
[2019-01-02 17:07] LABS: Albumin 3.2 g/dL (3.4-5.0); Calcium 8.2 mg/dL (8.5-10.1); Potassium 4.2 mmol/L (3.5-5.1)
[2019-01-02 17:10] LABS: BUN/Creatinine Ratio 17.9; Bilirubin, Total 1.5 mg/dL (0.2-1.0); Total Protein 6.9 g/dL (6.4-8.2)
[2019-01-02 22:48] LABS: Urine Bacteria NONE SEEN /hpf (None Seen); Urine Blood Negative /uL (Negative); Urine Specific Gravity 1.025 (1.001-1.035); Urine Sperm PRESENT /hpf (None Seen); Urine WBC 2 /hpf (0 - 3)
[2019-01-03] VITALS (7 sets, daily range): BP systolic 100–127; BP diastolic 53–75
[2019-01-03 01:37] LABS: Amphetamine Screen, Urine NEGATIVE (NEGATIVE); Barbiturate Scree,Urine NEGATIVE (NEGATIVE); Benzodiazephine Screen, Urine NEGATIVE (NEGATIVE); Cannabinoid Screen, Urine NEGATIVE (NEGATIVE); Cocaine Screen, Urine NEGATIVE (NEGATIVE); Opiate Scree,Urine POSITIVE (NEGATIVE); Phencyclidine Screen, Urine NEGATIVE (NEGATIVE)
[2019-01-03] MEDS ORDERED: MORPHINE SULFATE 4 MG/ML SYR/VIAL IV ONE (02:45)
[2019-01-03] MEDS ORDERED: SODIUM CHLORIDE 0.9% 500 ML IV ONE (02:45)
[2019-01-03] MEDS ORDERED: PIPERACILLIN-TAZOB 3.375GM 100 ML IV ONE (02:45)
[2019-01-03 03:46] LABS: INR 1.52 (0.9-1.15); Partial Thromboplastin Time 32.5 sec (23.64-32.05)
[2019-01-03 03:51] LABS: Amylase 22 U/L (25-115); Lipase 126 U/L (73-393)
[2019-01-03] MEDS ORDERED: D5W/SOD CHL 0.45% 1,000 ML IV SCH (04:27)
[2019-01-03] MEDS ORDERED: NITROGLYCERIN 0.4 MG SL TAB SL SCH (04:30)
[2019-01-03] MEDS ORDERED: ONDANSETRON HCL 4 MG/2 ML VIAL IV PRN (04:30)
[2019-01-03] MEDS ORDERED: MORPHINE SULFATE 4 MG/ML SYR/VIAL IV PRN (04:30)
[2019-01-03] MEDS ORDERED: ACETAMINOPHEN 325 MG TAB PO PRN (04:30)
[2019-01-03] MEDS ORDERED: DOCUSATE SOD 100 MG CAP PO PRN (04:30)
[2019-01-03] MEDS ORDERED: DEXTROSE (50%) 50ML SYRG IV PRN ×2 (04:30→11:15)
[2019-01-03] MEDS ORDERED: IPRATROPIUM BROM 0.5 MG/2.5ML INH SOL NEB PRN (04:45)
[2019-01-03] MEDS ORDERED: ALBUTEROL SULF 2.5 MG/0.5ML(0.5%) NEB SOLN NEB PRN (04:45)
[2019-01-03] MEDS ORDERED: LEVOTHYROXINE SODIUM 25 MCG TAB PO ONE (05:00)
[2019-01-03] MEDS ORDERED: LISINOPRIL 10 MG TAB PO ONE (05:00)
[2019-01-03] MEDS ORDERED: BUMETANIDE 1 MG TAB PO ONE (05:00)
[2019-01-03] MEDS ORDERED: CARVEDILOL 3.125 MG TAB PO ONE (05:00)
[2019-01-03] MEDS ORDERED: MAGNESIUM OXIDE 400 MG TAB PO ONE (05:00)
[2019-01-03] MEDS ORDERED: FUROSEMIDE 40 MG TAB PO ONE (05:00)
[2019-01-03] MEDS ORDERED: POTASSIUM CHL 10 Meq TABLET PO SCH (05:00)
[2019-01-03] MEDS ORDERED: MULTIPLE VITAMIN TAB PO ONE (05:00)
[2019-01-03] MEDS ORDERED: PANTOPRAZOLE 40 MG TAB PO ONE (05:00)
--- NOTE | 2019-01-03 07:30 | NUR ---
Opening Shift Note RECEIVED REPORT FROM NOC RN. Assumed care of patient, awake and alert. No S/S of distress/SOB or pain. BED IN LOWEST, LOCKED POSITION WITH SIDERAILS UP x2 AND CALL LIGHT WITHIN REACH. Instructed on POC and to call for assist PRN, will continue to monitor for changes Q1hr and PRN.
[2019-01-03] MEDS ORDERED: ACCU-CHEK COMFORT CURVE STRIP VI SCH ×2 (08:00→11:15)
[2019-01-03] MEDS ORDERED: InsuLIN REG 1unit/0.01ml Soln (100units/ml) SC SCH (08:00)
--- NOTE | 2019-01-03 08:09 | NUR ---
PRN [place] TX NOT INDICATED AT THIS TIME. PT ON RA, 98% O2 SATS, HR 77 BPM, RR18 BPM, BS ARE CLEAR TO AUSCULTATION, SKIN IS DRY AND WARM TO THE TOUCH. RESPIRATION IS REGULAR AND NONLABORED. PT DENIES SOB OR ANY OTHER RESPIRATORY DISTRESS. WILL CONTINUE TO MONITOR PT.
[2019-01-03] MEDS ORDERED: PANTOPRAZOLE 40 MG TAB PO SCH (10:00)
[2019-01-03] MEDS ORDERED: LISINOPRIL 10 MG TAB PO SCH (10:00)
[2019-01-03] MEDS ORDERED: FUROSEMIDE 40 MG TAB PO SCH (10:00)
[2019-01-03] MEDS ORDERED: CARVEDILOL 3.125 MG TAB PO SCH (10:00)
[2019-01-03] MEDS ORDERED: BUMETANIDE 1 MG TAB PO SCH (10:00)
[2019-01-03] MEDS: FOLIC ACID 1 MG TAB PO SCH (10:45)
[2019-01-03] MEDS: MAGNESIUM OXIDE 400 MG TAB PO SCH (10:46)
[2019-01-03] MEDS: SACUBITRIL-VALSARTAN 24mg/26mg TAB PO SCH ×2 (10:46→22:40)
[2019-01-03] MEDS: MULTIPLE VITAMIN TAB PO SCH (10:47)
[2019-01-03] MEDS: POTASSIUM CHL 10 Meq TABLET PO SCH ×2 (10:47→22:41)
[2019-01-03] MEDS: LEVOTHYROXINE SODIUM 25 MCG TAB PO SCH (10:48)
[2019-01-03] MEDS: DIGOXIN 0.125 MG TAB PO SCH (10:52)
[2019-01-03] MEDS: SPIRONOLACTONE 25 MG TAB PO SCH (10:56)
[2019-01-03] MEDS: BUMETANIDE 1 MG TAB PO SCH ×2 (11:41→22:39)
[2019-01-03] MEDS: ACCU-CHEK COMFORT CURVE STRIP VI SCH ×3 (13:08→22:41)
[2019-01-03] MEDS: InsuLIN REG 1unit/0.01ml Soln (100units/ml) SC SCH ×3 (13:08→22:42)
[2019-01-03] MEDS: LACTULOSE 20Gm/30ML SOLN PO SCH ×2 (13:09→18:01)
--- NOTE | 2019-01-03 14:20 | NUR ---
PATIENT TO ULTRASOUND DEPT PER FOR THORACENTESIS.
--- NOTE | 2019-01-03 14:30 | NUR ---
PATIENT ARRIVED IN ULTRASOUND - BASELINE VITALS OBTAINED AND RELAYED TO DR WREN - BP 99/67 HR 80 RESP RATE 21, SAO2 100%.
--- NOTE | 2019-01-03 14:35 | NUR ---
THORACENTESIS PUNCTURE MADE PER DR WREN AFTER LOCAL ANESTHETIC- BP 90/54, HR 84, RR 21, SAO2 100% - DR WREN AWARE OF BP. PATIENT DENIES DIZZINESS.
--- NOTE | 2019-01-03 14:40 | NUR ---
THORACENTESIS TUBE DRAINING DK RITCHIE/DK RED LIQ. BP 88/54, HR 79,RR 17, SAO2 99% - CONTINUING TO MONITOR BP.
--- NOTE | 2019-01-03 14:45 | NUR ---
BP 85/56, HR 82, RR 18, SAO2 100% - SLINGER SEQUINS INSTRUCTED US TO STOP DRAINING FLUID - DR WREN CONTACTED - STATES TO TERMINATE PROCEDURE. NS IVF STARTED VIA #20 LEFT WRIST. OCCLUSIVE DRSG APPLIED TO RT POST BACK AND COVERED WITH TEGADERM - SM AMT RED DRNG NOTED AT SIDE. PATIENT PLACED IN SUPINE POSITION WITH HOB ELEVATED 30 DEGREES ON STRETCHER.
--- NOTE | 2019-01-03 14:50 | NUR ---
PATIENT RETURNED TO ROOM 205 PER STRETCHER ACCOMPANIED PER SUPERVISOR LOOPING AND TRANSFERRED TO BED. PATIENT INSTRUCTED NOT TO GET OOB PER SELF - VERBALIZED UNDERSTANDING. BEDSIDE REPORT GIVEN TO MARCIA GARZA. CONDITION APPEARS STABLE AT PRESENT. CARE ENDORSED TO MARCIA GARZA. 1300 ML DK RITCHIE/DK RED LIQ OBTAINED PER THORACENTESIS.
[2019-01-03] MEDS: metroNIDAZOLE 500MG/100ML 100 ML IV SCH ×2 (17:06→22:41)
[2019-01-03] MEDS: HYDROcodone-ACET 5/325MG TAB PO PRN ×2 (18:05→23:24)
--- NOTE | 2019-01-03 20:00 | NUR ---
Respiratory note: PT ASSESSED FOR PRN MED NEB TX. HR 110, RR 18, APO2 97% ON RA. NO SIGNS OF ANY RESPIRATORY DISTRESS NOTED. ADVISED PT TO CALL IF TX IS NEEDED. RT NAME AND PAGER NUMBER WRITTEN ON PT'S BOARD.
--- NOTE | 2019-01-03 20:00 | NUR ---
RECEIVED PATIENT FROM DAY SHIFT RN. PATIENT JUST BACK TO BED FROM BATHROOM. NO S/S OF DISTRESS NOTED. DENIED PAIN FOR NOW. POC INSTRUCTED AND ENCOURAGED PATIENT TO CALL FOR SECURITY DOOR INSTALLER IF NEEDED. BED IN LOWEST POSITION WITH SIDE RAILS UP X 2. CALL SALINAS WITHIN REACH. ALARM ON. CONTINUE TO MONITOR FOR CHANGES Q1H AND PRN.
[2019-01-03] MEDS: ATORVASTATIN 20 MG TAB PO SCH (22:38)
[2019-01-03] MEDS: PANTOPRAZOLE 40 MG TAB PO SCH (22:39)
[2019-01-03] MEDS: CARVEDILOL 3.125 MG TAB PO SCH (22:40)
--- NOTE | 2019-01-03 22:45 | NUR ---
SCHEDULED ORAL MEDIATION GIVEN ORDERED. PATIENT SWALLOWED WELL. NO S/S OF DISTRESS NOTED. CONTINUE CARE.
--- NOTE | 2019-01-03 23:25 | NUR ---
MEDICATED PATIENT FOR PAIN @ 11/02. CONTINUE TO MONITOR.
--- NOTE | 2019-01-04 00:06 | NUR ---
STOOL SAMPLE COLLECTED AND SENT. CONTINUE TO MONITOR.
--- NOTE | 2019-01-04 02:19 | NUR ---
PATIENT SLEEPING. NO S/S OF DISTRESS NOTED. CONTINUE CARE.
[2019-01-04 05:02] LABS: Eosinophils # (auto) 0.2 uL; Hemoglobin 10.8 g/dL (13.5-17.5); Monocytes # (auto) 0.6 uL; Nucleated Red Blood Cells % 0.3 %; Platelet Count (auto) 127 10^3/uL (140-450)
[2019-01-04 05:04] LABS: Basophils # (auto) 0.1 uL; Basophils % (auto) 1.5 % (0.0-2.0); Eosinophils % (auto) 5.4 % (0.0-7.0); Hematocrit 34.8 % (41.0-53.0); Lymphocytes # (auto) 1.3 uL; Lymphocytes % (auto) 34.8 % (10.0-50.0); Mean Corpuscular Hemoglobin 24.2 pg (28.0-32.0); Mean Corpuscular Volume 78.1 fL (80.0-100.0); Monocytes % (auto) 15.9 % (0.0-12.0); Neutrophils # (auto) 1.5 uL; Neutrophils % (auto) 42.4 % (37.0-80.0); Red Blood Cells 4.45 10^6/uL (4.5-5.90); White Blood Cell 3.6 10^3/uL (4.4-10.8)
[2019-01-04 05:20] LABS: BUN/Creatinine Ratio 14.4; Calcium 8.3 mg/dL (8.5-10.1); Potassium 3.9 mmol/L (3.5-5.1)
[2019-01-04 05:26] LABS: Red Cell Distribution Width 25.5 % (11.8-14.3)
[2019-01-04] MEDS: LACTULOSE 20Gm/30ML SOLN PO SCH ×5 (06:00→23:43)
[2019-01-04 06:03] VITALS: BP 92/52
[2019-01-04] MEDS: metroNIDAZOLE 500MG/100ML 100 ML IV SCH ×3 (06:27→21:54)
[2019-01-04] MEDS: ACCU-CHEK COMFORT CURVE STRIP VI SCH ×4 (06:27→21:53)
[2019-01-04] MEDS: InsuLIN REG 1unit/0.01ml Soln (100units/ml) SC SCH ×4 (06:28→21:53)
--- NOTE | 2019-01-04 06:44 | NUR ---
ACCU-CHECK, BS 81. NO COVERAGE. CONTINUE TO MONITOR.
--- NOTE | 2019-01-04 07:05 | NUR ---
Respiratory note: PT ASSESSED FOR PRN MEDNEB TX. NO RESPIRATORY DISTRESS NOTED AT THIS TIME. SPO2 98% HR 89 RR 16 B/S CLEAR-DIMINISHED. PT AWARE TO HAVE RN PAGE RT IF THEY BECOME SOB.
[2019-01-04 08:00] VITALS: BP 93/59
[2019-01-04 08:30] VITALS: BP 93/59
[2019-01-04] MEDS: SPIRONOLACTONE 25 MG TAB PO SCH (10:00)
[2019-01-04] MEDS: PANTOPRAZOLE 40 MG TAB PO SCH ×2 (10:15→21:51)
[2019-01-04] MEDS: cefTRIAXone 1GM/50ML D5W 50 ML IV SCH (10:15)
[2019-01-04] MEDS: LEVOTHYROXINE SODIUM 25 MCG TAB PO SCH (10:15)
[2019-01-04] MEDS: MAGNESIUM OXIDE 400 MG TAB PO SCH (10:16)
[2019-01-04] MEDS: MULTIPLE VITAMIN TAB PO SCH (10:16)
[2019-01-04] MEDS: DIGOXIN 0.125 MG TAB PO SCH (10:17)
[2019-01-04] MEDS: POTASSIUM CHL 10 Meq TABLET PO SCH ×2 (10:17→21:52)
[2019-01-04] MEDS: SACUBITRIL-VALSARTAN 24mg/26mg TAB PO SCH ×2 (10:18→21:51)
[2019-01-04] MEDS: CARVEDILOL 3.125 MG TAB PO SCH ×2 (10:18→21:53)
[2019-01-04] MEDS: FOLIC ACID 1 MG TAB PO SCH (10:19)
[2019-01-04] MEDS: BUMETANIDE 1 MG TAB PO SCH ×2 (10:19→21:52)
[2019-01-04 12:30] VITALS: BP 93/61
[2019-01-04 16:52] VITALS: BP 96/63
--- NOTE | 2019-01-04 19:27 | NUR ---
RECEIVED PATIENT FROM DAY SHIFT RN. PATIENT RESTING IN BED. NO S/S OF DISTRESS NOTED. C/O ABD PAIN @ 12/02. PATIENT REFUSED TO HAVE NORCO AND STATED THAT DID NOT HELP. PATIENT REQUESTED MORPHINE INSTEAD. WILL CALL PHARMACY LATER SINCE MORPHINE WAS HELD BY PHARMACY. POC INSTRUCTED AND ENCOURAGED PATIENT TO CALL FOR MAILROOM COORDINATOR IF NEEDED. BED IN LOWEST POSITION WITH SIDE RAILS UP X 2. CALL SALINAS WITHIN REACH. ALARM ON. CONTINUE TO MONITOR FOR CHANGES Q1H AND PRN.
--- NOTE | 2019-01-04 20:10 | NUR ---
CALLED PHARMACY FOR MORPHINE, PATIENT DID RECEIVED MORPHINE IN ER 39 HRS AGO WITH NO ANY REACTION. PHARMACY RELEASE MORPHINE NOW.
--- NOTE | 2019-01-04 20:29 | NUR ---
MEDICATED PATIENT FOR PAIN @ 12/02. CONTINUE TO MONITOR.
--- NOTE | 2019-01-04 20:47 | NUR ---
MD MORIN AT BEDSIDE.
[2019-01-04 21:39] VITALS: BP 102/70
[2019-01-04] MEDS: ATORVASTATIN 20 MG TAB PO SCH (21:51)
--- NOTE | 2019-01-04 22:01 | NUR ---
ACCU-CHECK, BS 96. NO COVERAGE. CONTINUE TO MONITOR.
--- NOTE | 2019-01-05 02:33 | NUR ---
PATIENT SLEEPING. NO S/S OF DISTRESS NOTED. CONTINUE CARE.
[2019-01-05 04:36] VITALS: BP 96/56
[2019-01-05] MEDS: LACTULOSE 20Gm/30ML SOLN PO SCH ×2 (06:00→12:00)
[2019-01-05] MEDS: metroNIDAZOLE 500MG/100ML 100 ML IV SCH ×2 (06:00→14:00)
[2019-01-05] MEDS: ACCU-CHEK COMFORT CURVE STRIP VI SCH ×2 (06:27→12:22)
[2019-01-05] MEDS: InsuLIN REG 1unit/0.01ml Soln (100units/ml) SC SCH ×2 (06:27→11:30)
--- NOTE | 2019-01-05 06:29 | NUR ---
ACCU-CHECK, BS 83. NO COVERAGE. CONTINUE TO MONITOR.
[2019-01-05 09:08] VITALS: BP 93/36
[2019-01-05] MEDS: cefTRIAXone 1GM/50ML D5W 50 ML IV SCH (09:42)
[2019-01-05] MEDS: DIGOXIN 0.125 MG TAB PO SCH (09:42)
[2019-01-05] MEDS: LEVOTHYROXINE SODIUM 25 MCG TAB PO SCH (09:43)
[2019-01-05] MEDS: POTASSIUM CHL 10 Meq TABLET PO SCH (09:43)
[2019-01-05] MEDS: PANTOPRAZOLE 40 MG TAB PO SCH (09:43)
[2019-01-05] MEDS: FOLIC ACID 1 MG TAB PO SCH (09:43)
[2019-01-05] MEDS: MAGNESIUM OXIDE 400 MG TAB PO SCH (09:43)
[2019-01-05] MEDS: MULTIPLE VITAMIN TAB PO SCH (09:43)
[2019-01-05] MEDS: BUMETANIDE 1 MG TAB PO SCH (09:44)
[2019-01-05] MEDS: CARVEDILOL 3.125 MG TAB PO SCH (09:44)
[2019-01-05] MEDS: SPIRONOLACTONE 25 MG TAB PO SCH (09:44)
[2019-01-05] MEDS: SACUBITRIL-VALSARTAN 24mg/26mg TAB PO SCH (09:44)
--- NOTE | 2019-01-05 09:51 | NUR ---
MORNING MEDICATIONS ADMINISTERED, PT TOLERATED WELL. SITTING AT BEDSIDE CHAIR. DENIES ANY DISCOMFORT. EFFORTLESS BREATHING ON ROOM AIR. CALL LIGHT WITHIN REACH. WILL CONTINUE TO MONITOR.
--- NOTE | 2019-01-05 10:44 | NUR ---
RT NOTE: NO APPARENT SIGNS OF RESPIRATORY DISTRESS NOTED, HOWEVER PT STATED HE DID NOT WANT A TX AT THIS TIME. LUNG SOUNDS CLEAR/DIMINISHED T/O. ON RA SPO2 100 HR 89 RR 16. PT AWARE TO PAGE FOR RESPIRATORY IF NEED FOR TX ARISES. WILL CONTINUE TO MONITOR.
[2019-01-05 12:49] VITALS: BP 122/61
--- NOTE | 2019-01-05 13:17 | NUR ---
DISCHARGE INSTRUCTIONS PROVIDED TO PT. PT VERBALIZED UNDERSTANDING FOOR PRESCRIPTION ORDERS, AND FOLLOW UP APPOINTMENT WITH PRIMARY CARE PROVIDER. EDUCATIONAL MATERIAL PROVIDED, ALL QUESTIONS AND CONCERNS ADDRESSED. TELE BOX REMOVED AND RETURNED TO TELE DEPT. IV CATHETER DC'D CATHETER INTACT NO PHLEBITIS.
--- NOTE | 2019-01-05 13:25 | NUR ---
PT AWAITING FOR TRANSPORTATION ARRANGEMENTS.
--- NOTE | 2019-01-05 14:43 | NUR ---
TAXI VOUCHER BEING PROVIDED. TRANSPORTATION COMPANY CALLED. PER REP. WILL ARRIVE IN 30 MIN. PT AWARE OF PLAN.
== END 2019-01-05 17:02 | disposition home or self-care (01) | DRG 444 ==
LOC: EDBD 16:06 → ER 16:06 → OVERFLOW 16:07 → TELE-CENTR 01-03 05:52 → CENTRAL 01-03 05:55 → TELE-CENTR 01-03 11:36
PROVIDERS: ADMIT Hospitalist; ATTEND Internal Medicine
PROC: 0W993ZZ Drainage of Right Pleural Cavity, Percutaneous Approach (ICD-10-PCS; principal; 2019-01-03)
DX: K80.00 Calculus of gallbladder with acute cholecystitis without obstruction (principal); I50.23 Acute on chronic systolic (congestive) heart failure; J91.8 Pleural effusion in other conditions classified elsewhere; K70.30 Alcoholic cirrhosis of liver without ascites; I88.0 Nonspecific mesenteric lymphadenitis; E11.9 Type 2 diabetes mellitus without complications; E03.9 Hypothyroidism, unspecified; I11.0 Hypertensive heart disease with heart failure; I25.10 Atherosclerotic heart disease of native coronary artery without angina pectoris; K21.9 Gastro-esophageal reflux disease without esophagitis; F19.10 Other psychoactive substance abuse, uncomplicated; J44.9 Chronic obstructive pulmonary disease, unspecified; Z95.1 Presence of aortocoronary bypass graft; Z82.49 Family history of ischemic heart disease and other diseases of the circulatory system; Z82.3 Family history of stroke; Z95.5 Presence of coronary angioplasty implant and graft; Z95.810 Presence of automatic (implantable) cardiac defibrillator
CPT/HCPCS: 10022; 32555; 36415; 74176; 76705; 76942; 80048; 80053; 80307; 81001; 82150; 82962; 83605; 83690; 83880; 84484; 85025; 85610; 85730; 87040; 87081; 93005; 94640; 96361; 96365; 96375; G0378; J0696; J2543; J3490